=== PATIENT | female | born 1970 | race Caucasian/White ===

== ENCOUNTER → 2017-12-05 | Outpatient (CLI) | payer OTHER ==
[2017-12-05 08:58] LABS: Basophils % (A) 1 %; Eosinophils # (A) 0.1 k/uL (0-0.7); Eosinophils % (A) 3 %; HCT 41.4 % (34.0-46.0); HGB 12.8 gm/dL (11.4-16.0); Lymphocytes # (A) 1.8 k/uL (1.0-4.8); Lymphocytes % (A) 37 %; MCH 29.7 pg (25.0-35.0); MCV 95.7 fL (80.0-100.0); Mean Platelet Volume 6.8; Monocytes # (A) 0.3 k/uL (0-1.0); Monocytes % (A) 6 %; Neutrophils # (A) 2.4 k/uL (1.3-7.7); Neutrophils % (A) 51 %; Platelet Count 393 k/uL (150-450); RBC 4.32 m/uL (3.80-5.40); RDW 13.5 % (11.5-15.5); WBC 4.7 k/uL (3.8-10.6)
[2017-12-05 09:13] LABS: ALT 22 U/L (9-52); AST 23 U/L (14-36); Albumin 4.5 g/dL (3.5-5.0); Alkaline Phosphatase 66 U/L (38-126); Anion Gap 9 mmol/L; Blood Urea Nitrogen 18 mg/dL (7-17); Calcium 10.8 mg/dL (8.4-10.2); Carbon Dioxide 28 mmol/L (22-30); Chloride 107 mmol/L (98-107); Glucose 93 mg/dL (74-99); Potassium 4.6 mmol/L (3.5-5.1); Sodium 144 mmol/L (137-145); Total Bilirubin 0.4 mg/dL (0.2-1.3); Total Protein 7.2 g/dL (6.3-8.2)
[2017-12-05 09:29] LABS: T4, Free (Free Thyroxine) 0.96 ng/dL (0.78-2.19)
[2017-12-05 16:28] LABS: Vitamin D 25 Hydroxy 62.9 ng/mL (30.0-100.0)
[2017-12-07 12:20] LABS: IgG - CSF 5.8 mg/dL (0.0 - 3.4); IgG/Albumin Index (CSF) 0.64 (0.00 - 0.77); Immunoglobulin G 964 mg/dL (700 - 1600)
== END | disposition home or self-care (01) ==
LOC: LABWHC1 08:15
PROVIDERS: ATTEND Nurse Practitioner Acute Care
DX: G90.09 Other idiopathic peripheral autonomic neuropathy (principal); H53.2 Diplopia; M62.81 Muscle weakness (generalized); R42 Dizziness and giddiness; R20.8 Other disturbances of skin sensation
CPT/HCPCS: 36415; 80053; 82040; 82042; 82306; 82607; 82784; 83873; 83916; 84157; 84439; 84443; 84481; 85025; 87476; 88108; 89050

== ENCOUNTER → 2017-12-09 | Outpatient (CLI) | payer OTHER ==
--- NOTE | 2017-12-09 08:27 | MR ---
EXAMINATION TYPE: MR brain/cspine wo/w DATE OF EXAM: 12/09/2017 COMPARISON: CT brain September 11, 2017. HISTORY: CRAFT / Arnold-Chiari / Cervicalgia all per order. Rule out multiple sclerosis. Pain and numb ness and dizziness per patient TECHNIQUE: Multiplanar, multisequence images of the cervical spine, brain, and brainstem are all performed witho ut and with IV contrast, utilizing 6.5 mL intravenous Gadavist . Demyelinating disease protocol. FINDINGS: BRAIN: Some motion artifact degradation is present. Diffusion weighted images demonstrate no evidence of a recent infarct or other diffusion abnormality. There is no extra-axial fluid collection or significant white matter signal abnormality. The ventr icular system and cisternal spaces are normal in size and appearance. The brain volume is age approp riate. Midline structures demonstrate normal morphology. Low signal craniectomy defect is redemonstrated. T he craniocervical junction appears within normal limits after surgical correction. Post contrast randy ges demonstrate no abnormal enhancement. The dural venous sinuses appear patent. The visualized sinus es are clear and the globes are intact. IMPRESSION: Successful Post Chiari 1 type correction surgery otherwise unremarkable study. No suspi cious areas of abnormal increased T2 signal identified. C-SPINE: FINDINGS: Sagittal images of the cervical spine show the craniocervical junction to appear within nor mal limits after surgical correction. The cervical and upper thoracic spinal cord is normal in cours e and caliber. There is suggestion of faint increased signal lesion posterior C2-C3 disc space on sa gittal image 6. Vertebral alignment is anatomic. The vertebral body and intravertebral disk heights are normal. Posterior disc herniation is appreciated C4-C5 level on sagittal image 7 effacing anterio r thecal sac. The bone marrow signal intensity is within normal limits. No abnormal postcontrast enha ncement is seen. Axial images show faint area of increased signal left posterior aspect C2-C3 level on or near axial i mage 47 through 45. Otherwise level is unremarkable. Axial images at C3-C4 level are within normal limits. Axial images at C4-C5 level show prominent focal central disc protrusion measuring 6 mm transversely by 1.6 cm AP diameter on axial image 31 nearly up to ventral surface of spinal cord which is slightly flattened. No abnormal signal is identified. Bilateral neural foramina are patent. Axial images at C5-C6 level show small right paracentral disc protrusion mildly effacing anterior the avis sac confirmed on sagittal image 9, bilateral neural foramina are patent. Axial images at C6-C7 level show left broad-based paracentral disc protrusion effacing anterolateral thecal sac nearly up to ventral surface of spinal cord on axial image 14, left-sided neural foramen i s mildly narrowed. Right-sided neural foramen is patent. Axial images at C7-T1 level are felt within normal limits. IMPRESSION: Suspicious faint lesion left posterior C2-C3 level may reflect demyelinating plaque. Mult ilevel disc herniations are seen as detailed above, largest noted C4-C5 level.
== END | disposition home or self-care (01) ==
LOC: RADMRIMAIN 07:02
PROVIDERS: ATTEND Psychiatry & Neurology Neurology
DX: M50.221 Other cervical disc displacement at C4-C5 level (principal); R51 Headache; H53.2 Diplopia; Z98.890 Other specified postprocedural states; Z88.0 Allergy status to penicillin
CPT/HCPCS: 70553; 72156; A9581

== ENCOUNTER → 2017-12-26 | Outpatient (CLI) | payer OTHER ==
[2017-12-26 10:41] LABS: Basophils % (A) 0 %; Eosinophils # (A) 0.4 k/uL (0-0.7); Eosinophils % (A) 4 %; HCT 39.3 % (34.0-46.0); HGB 12.8 gm/dL (11.4-16.0); Lymphocytes % (A) 11 %; MCHC 32.5 g/dL (31.0-37.0); MCV 92.2 fL (80.0-100.0); Mean Platelet Volume 6.6; Monocytes # (A) 0.6 k/uL (0-1.0); Monocytes % (A) 7 %; Neutrophils # (A) 6.7 k/uL (1.3-7.7); Neutrophils % (A) 76 %; Platelet Count 360 k/uL (150-450); RBC 4.26 m/uL (3.80-5.40); WBC 8.8 k/uL (3.8-10.6)
[2017-12-26 11:15] LABS: Calcium 10.5 mg/dL (8.4-10.2); Total Bilirubin 0.3 mg/dL (0.2-1.3); Total Protein 6.7 g/dL (6.3-8.2)
[2017-12-26 15:22] LABS: Vitamin D 25 Hydroxy 54.1 ng/mL (30.0-100.0)
== END | disposition home or self-care (01) ==
LOC: LABWHC1 10:13
PROVIDERS: ATTEND Psychiatry & Neurology Neurology
DX: G35 Multiple sclerosis (principal); E55.9 Vitamin D deficiency, unspecified
CPT/HCPCS: 36415; 80053; 82306; 82607; 85025

== ENCOUNTER → 2018-01-16 | Outpatient (CLI) | payer OTHER ==
[2018-01-16 17:00] LABS: Hepatitis B Core IgM Non-Reactive (Non-Reactive); Hepatitis B Surface AB- Quant 3.5 mIU/mL
== END | disposition home or self-care (01) ==
LOC: LABWHC1 11:03
PROVIDERS: ATTEND Psychiatry & Neurology Pain Medicine
DX: G35 Multiple sclerosis (principal)
CPT/HCPCS: 36415; 86704; 86705; 86706; 87340

== ENCOUNTER 2018-05-24 12:03 | Emergency (ER) | payer OTHER ==
--- NOTE | 2018-05-24 12:00 | US ---
EXAMINATION TYPE: US venous doppler duplex LE LT DATE OF EXAM: 05/24/2018 11:12 AM COMPARISON: NONE CLINICAL HISTORY: I80.9 PHLEBITIS AND THROMBOPHLEBITIS OF SITE. SIDE PERFORMED: left TECHNIQUE: The lower extremity deep venous system is examined utilizing real time linear array sonog leoncio with graded compression, doppler sonography and color-flow sonography. VESSELS IMAGED: External Iliac Vein (EIV) Common Femoral Vein Deep Femoral Vein Greater Saphenous Vein * Femoral Vein Popliteal Vein Small Saphenous Vein * Proximal Calf Veins (* superficial vessels) Left Leg: mid popliteal clot Grayscale, color doppler, spectral doppler imaging performed of the deep veins of the left lower extr emity up to the popliteal level. There is normal flow, compressibility, and vascular waveforms. Inco mplete compression is noted at level of mid popliteal vein consistent with thrombus. IMPRESSION: Acute DVT popliteal vein level left lower extremity.
[2018-05-24 12:38] VITALS: RESP 18
--- NOTE | 2018-05-24 14:52 | ED ---
Extremity Problem HPI - General Chief complaint: Extremity Problem,Nontraumatic Time Seen by Provider: 05/24/18 13:37 Source: patient, RN notes reviewed, old records reviewed Mode of arrival: wheelchair Limitations: no limitations - History of Present Illness Initial comments: Patient is a 48-year-old female presents emergency Department chief complaining of left leg pain and swelling. She was seen by Dr. benedict today after she rolled her ankle while watering her plants 3 days ago. Patient was to see Dr. Jarvis to have her stitches removed from her carpal tunnel. They ordered an outpatient ultrasound. Patient was sent here due to a positive DVT. Patient reports that yesterday she did have some shortness of breath, chest pain when she was watering her tomatoes. Patient states that she has no chest pain shortness of breath at this time.Patient denies any recent fever, chills, shortness of breath, chest pain, back pain, abdominal pain, nausea vomiting, numbness or tingling, dysuria or hematuria, constipation or diarrhea, headaches or visual changes, or any other current symptoms - Related Data Home Medications Medication Instructions Recorded Confirmed ALPRAZolam [Xanax] 1 mg PO DAILY PRN 09/10/17 05/24/18 Baclofen [Lioresal] 20 mg PO QID 09/10/17 05/24/18 Butalb/APAP/Caff 50-325-40Mg 1 tab PO Q6H PRN 09/10/17 05/24/18 [Fioricet 50-325-40] Gabapentin [Neurontin] 300 mg PO TID 09/10/17 05/24/18 Omeprazole 40 mg PO DAILY 09/10/17 05/24/18 Prazosin HCl 2 mg PO HS 09/10/17 05/24/18 QUEtiapine [SEROquel] 50 mg PO HS 09/10/17 05/24/18 Topiramate [Trokendi Xr] 100 mg PO DAILY 09/10/17 05/24/18 Venlafaxine HCl [Effexor XR] 150 mg PO DAILY 09/10/17 05/24/18 Zolpidem [Ambien] 10 mg PO HS 09/10/17 05/24/18 Albuterol Inhaler [Ventolin Hfa 2 puff INHALATION RT-BID 09/11/17 05/24/18 Inhaler] Alendronate Sodium [Fosamax] 70 mg PO MARTINEZ 09/11/17 05/24/18 Ergocalciferol [Vitamin D2] 50,000 unit PO MARTINEZ 09/11/17 05/24/18 Fenofibrate [Lofibra] 160 mg PO DAILY 09/11/17 05/24/18 Fluticasone Nasal [place] [Flonase 1 spray EA NOSTRIL BID 09/11/17 05/24/18 Nasal [place]] Montelukast [Singulair] 10 mg PO HS 09/11/17 05/24/18 Ascorbic Acid [Vitamin C] 1,000 mg PO DAILY 05/24/18 05/24/18 Azelastine HCl 2 spray EA NOSTRIL BID 05/24/18 05/24/18 Clindamycin HCl 300 mg PO Q8H 05/24/18 05/24/18 Naproxen 500 mg PO BID 05/24/18 05/24/18 Oxybutynin Chloride [Ditropan XL] 10 mg PO BID 05/24/18 05/24/18 QUEtiapine FUMARATE [SEROquel] 200 mg PO HS 05/24/18 05/24/18 Ranitidine HCl 150 mg PO HS 05/24/18 05/24/18 Previous Rx's Medication Instructions Recorded Apixaban [Eliquis] 10 mg PO BID #70 tab 05/24/18 Allergies Allergy/AdvReac Type Severity Reaction Status Date / Time amoxicillin Allergy Rash/Hives Verified 05/24/18 15:06 bee venom protein (honey bee) Allergy Anaphylaxis Verified 05/24/18 15:06 sulfamethoxazole Allergy Rash/Hives Verified 05/24/18 15:06 [From Bactrim] trimethoprim [From Bactrim] Allergy Rash/Hives Verified 05/24/18 15:06 Review of Systems ROS Statement: Those systems with pertinent positive or pertinent negative responses have been documented in the HPI. ROS Other: All systems not noted in ROS Statement are negative. Past Medical History Past Medical History: GERD/Reflux Additional Past Medical History / Comment(s): migraines, Carpal tunnel, DDD, dvt History of Any Multi-Drug Resistant Organisms: None Reported Past Surgical History: Hysterectomy Additional Past Surgical History / Comment(s): chiari malformation decompression (08/2016), carpal tunnel Past Psychological History: Anxiety, Depression Smoking Status: Current every day smoker Past Alcohol Use History: None Reported Past Drug Use History: None Reported - Past Family History Mother Family Medical History: Cancer Additional Family Medical History / Comment(s): Epilepsy, Bipolar General Exam - General Exam Comments Initial Comments: This is a well-appearing 48-year-old female. No distress. Limitations: no limitations General appearance: alert, in no apparent distress Head exam: Present: atraumatic, normocephalic, normal inspection Eye exam: Present: normal appearance, PERRL, EOMI. Absent: scleral icterus, conjunctival injection, periorbital swelling ENT exam: Present: normal exam, mucous membranes moist Neck exam: Present: normal inspection. Absent: tenderness, meningismus, lymphadenopathy Respiratory exam: Present: normal lung sounds bilaterally. Absent: respiratory distress, wheezes, rales, rhonchi, stridor Cardiovascular Exam: Present: regular rate, normal rhythm, normal heart sounds. Absent: systolic murmur, diastolic murmur, rubs, gallop, clicks GI/Abdominal exam: Present: soft, normal bowel sounds. Absent: distended, tenderness, guarding, rebound, rigid Extremities exam: Present: normal inspection, full ROM, normal capillary refill , pedal edema (Left leg edema.), calf tenderness (Left calf tenderness and erythema over the distal portion of the lower extremity.), other (Capillary refill is less than 2 seconds over the toes. Normal dorsalis pedis pulse. Full range of motion of the ankle and foot.). Absent: tenderness, joint swelling Back exam: Present: normal inspection Neurological exam: Present: alert, oriented X3, CN II-XII intact Psychiatric exam: Present: normal affect, normal mood Course Vital Signs 05/24/18 05/24/18 12:34 16:05 Temperature 97.8 F 98.6 F Pulse Rate 65 74 Respiratory 18 18 Rate Blood Pressure 133/62 140/65 O2 Sat by Pulse 97 99 Oximetry Medical Decision Making - Medical Decision Making 40-year-old female presents emergency department today with chief complaint of right ankle swelling and erythema extending up the leg. She had an outpatient ultrasound positive for DVT. Chest x-rays completed orthopedics office of the ankle and there to determine no bony or maladies. Patient did state she had some chest pain and shortness of breath 2 days ago and she was watering her tomato plants. She states she has nothing at this time. This time EKG was reported to be negative. No signs of ST elevation or T-wave inversion. Troponin is negative. With length of time from her chest pain episode discussed that I would expect to see some abnormalities there is significant cardiac origin at this time. With a history of DVT and complaint of chest pain we did complete a CT chest to rule out PE. This was completed and negative for PE. At this time I'll start the Patient on L Beata, given a month trial. I discussed that she has close follow-up with PCP. Patient understands treatment plan will comply. Return parameters were discussed. - Lab Data Result diagrams: 05/24/18 15:06 05/24/18 15:06 Lab Results 05/24/18 05/24/18 05/24/18 Range/Units 15:06 15:06 15:06 WBC 7.5 (3.8-10.6) k/uL RBC 4.46 (3.80-5.40) m/uL Hgb 13.0 (11.4-16.0) gm/dL Hct 40.4 (34.0-46.0) % MCV 90.7 (80.0-100.0) fL MCH 29.2 (25.0-35.0) pg MCHC 32.3 (31.0-37.0) g/dL RDW 13.3 (11.5-15.5) % Plt Count 439 (150-450) k/uL Neutrophils % 64 % Lymphocytes % 25 % Monocytes % 5 % Eosinophils % 3 % Basophils % 1 % Neutrophils # 4.8 (1.3-7.7) k/uL Lymphocytes # 1.9 (1.0-4.8) k/uL Monocytes # 0.4 (0-1.0) k/uL Eosinophils # 0.2 (0-0.7) k/uL Basophils # 0.0 (0-0.2) k/uL PT 9.5 (9.0-12.0) sec INR 1.0 (<1.2) APTT 24.9 (22.0-30.0) sec Sodium 140 (137-145) mmol/L Potassium 4.6 (3.5-5.1) mmol/L Chloride 110 H (98-107) mmol/L Carbon Dioxide 23 (22-30) mmol/L Anion Gap 7 mmol/L BUN 22 H (7-17) mg/dL Creatinine 0.90 (0.52-1.04) mg/dL Est GFR (CKD-EPI)AfAm 88 (>60 ml/min/1.73 sqM) Est GFR (CKD-EPI)NonAf 76 (>60 ml/min/1.73 sqM) Glucose 83 (74-99) mg/dL Calcium 10.5 H (8.4-10.2) mg/dL Total Bilirubin 0.2 (0.2-1.3) mg/dL AST 31 (14-36) U/L ALT 27 (9-52) U/L Alkaline Phosphatase 67 (38-126) U/L Troponin I (0.000-0.034) ng/mL Total Protein 7.1 (6.3-8.2) g/dL Albumin 4.4 (3.5-5.0) g/dL 05/24/18 Range/Units 15:06 WBC (3.8-10.6) k/uL RBC (3.80-5.40) m/uL Hgb (11.4-16.0) gm/dL Hct (34.0-46.0) % MCV (80.0-100.0) fL MCH (25.0-35.0) pg MCHC (31.0-37.0) g/dL RDW (11.5-15.5) % Plt Count (150-450) k/uL Neutrophils % % Lymphocytes % % Monocytes % % Eosinophils % % Basophils % % Neutrophils # (1.3-7.7) k/uL Lymphocytes # (1.0-4.8) k/uL Monocytes # (0-1.0) k/uL Eosinophils # (0-0.7) k/uL Basophils # (0-0.2) k/uL PT (9.0-12.0) sec INR (<1.2) APTT (22.0-30.0) sec Sodium (137-145) mmol/L Potassium (3.5-5.1) mmol/L Chloride (98-107) mmol/L Carbon Dioxide (22-30) mmol/L Anion Gap mmol/L BUN (7-17) mg/dL Creatinine (0.52-1.04) mg/dL Est GFR (CKD-EPI)AfAm (>60 ml/min/1.73 sqM) Est GFR (CKD-EPI)NonAf (>60 ml/min/1.73 sqM) Glucose (74-99) mg/dL Calcium (8.4-10.2) mg/dL Total Bilirubin (0.2-1.3) mg/dL AST (14-36) U/L ALT (9-52) U/L Alkaline Phosphatase (38-126) U/L Troponin I <0.012 (0.000-0.034) ng/mL Total Protein (6.3-8.2) g/dL Albumin (3.5-5.0) g/dL 05/24/18 15:18 EKG performed at 1511 shows cirrhosis with normal EKGs. Ventricular rate of 63 bpm. It was 134. She islam 106. QT QTc is 410/419 ms. No evidence of ST elevation or T-wave inversion. - Radiology Data Radiology results: report reviewed CT is negative for PE. Disposition Clinical Impression: Left leg DVT Disposition: HOME SELF-CARE Condition: Good Instructions: Deep Venous Thrombosis (ED) Additional Instructions: Patient advised to follow-up with primary care physician within the next week. Return to emergency department if any alarming signs or symptoms occur. Prescriptions: Apixaban [Eliquis] 10 mg PO BID #70 tab Is patient prescribed a controlled substance at d/c from ED?: No Referrals: None,Stated [Primary Care Provider] - 1-2 days Letha Dumont MD [STAFF PHYSICIAN] - 1-2 days Time of Disposition: 16:14
[2018-05-24 15:16] LABS: Basophils % (A) 1 %; Eosinophils # (A) 0.2 k/uL (0-0.7); Eosinophils % (A) 3 %; HCT 40.4 % (34.0-46.0); Lymphocytes # (A) 1.9 k/uL (1.0-4.8); Lymphocytes % (A) 25 %; MCH 29.2 pg (25.0-35.0); MCHC 32.3 g/dL (31.0-37.0); MCV 90.7 fL (80.0-100.0); Mean Platelet Volume 6.7; Monocytes # (A) 0.4 k/uL (0-1.0); Monocytes % (A) 5 %; Neutrophils # (A) 4.8 k/uL (1.3-7.7); Neutrophils % (A) 64 %; Platelet Count 439 k/uL (150-450); RBC 4.46 m/uL (3.80-5.40); RDW 13.3 % (11.5-15.5); WBC 7.5 k/uL (3.8-10.6)
--- NOTE | 2018-05-24 15:23 | XR ---
EXAMINATION TYPE: XR chest 2V DATE OF EXAM: 05/24/2018 COMPARISON: Prior chest x-ray August 04, 2016. HISTORY: Chest pain. History of TB. TECHNIQUE: Frontal and lateral views of the chest are obtained. FINDINGS: There is no focal air space opacity, pleural effusion, or pneumothorax seen. The cardiac silhouette size is within normal limits. The osseous structures are intact. IMPRESSION: No acute cardiopulmonary process. No significant change from prior.
[2018-05-24 15:26] LABS: Albumin 4.4 g/dL (3.5-5.0); Calcium 10.5 mg/dL (8.4-10.2); Potassium 4.6 mmol/L (3.5-5.1); Total Bilirubin 0.2 mg/dL (0.2-1.3); Total Protein 7.1 g/dL (6.3-8.2)
[2018-05-24 15:29] LABS: Partial Thromboplastin Time 24.9 sec (22.0-30.0); Prothrombin Time 9.5 sec (9.0-12.0)
--- NOTE | 2018-05-24 15:55 | CT ---
CT CHEST FOR PULMONARY EMBOLISM. EXAMINATION TYPE: CT chest angio for PE DATE OF EXAM: 05/24/2018 INDICATION: Positive DVT left leg CT DLP: 476 mGycm, Automated exposure control for dose reduction was used. CONTRAST: Patient injected with 80 mL of Isovue 370. COMPARISON: None TECHNIQUE: CT of the chest is performed on a spiral scan at 2 mm thick sections. Study is performed with intravenous contrast timed for evaluation for pulmonary embolism. This will limit additional po rtions of the evaluation. 3-D MIP images reconstructed by the technologist are reviewed on the compu ter in the coronal and sagittal planes. FINDINGS: No persistent filling defects are evident to suggest an acute pulmonary embolism. No mediastinal or hilar adenopathy enlarged by CT criteria is evident. The ascending aorta diameter at the level of the main pulmonary artery is 3.0 cm. The main pulmonary artery diameter at the bifur cation is 2.1 cm. Lung windows are clear. Limited CT section through the upper abdomen are unremarkable. IMPRESSIONS: 1. No acute pulmonary embolism
[2018-05-24 16:06] VITALS: BP 140/65; PULSE 74; TEMP 98.6
== END 2018-05-24 16:51 | disposition home or self-care (01) ==
LOC: EC 12:03
DX: I82.432 Acute embolism and thrombosis of left popliteal vein (principal); R06.02 Shortness of breath; R07.9 Chest pain, unspecified; K21.9 Gastro-esophageal reflux disease without esophagitis; Q07.00 Arnold-Chiari syndrome without spina bifida or hydrocephalus; F41.9 Anxiety disorder, unspecified; F32.9 Major depressive disorder, single episode, unspecified; F17.200 Nicotine dependence, unspecified, uncomplicated; Z90.710 Acquired absence of both cervix and uterus; Z79.1 Long term (current) use of non-steroidal anti-inflammatories (NSAID); Z79.51 Long term (current) use of inhaled steroids; Z79.899 Other long term (current) drug therapy; Z88.0 Allergy status to penicillin; Z88.1 Allergy status to other antibiotic agents; Z88.2 Allergy status to sulfonamides; Z91.030 Bee allergy status
CPT/HCPCS: 36415; 93005; 80053; 84484; 85025; 85610; 85730; 71046; 93971; 71275; 99284; Q9967

== ENCOUNTER → 2018-05-29 | Outpatient (CLI) | payer OTHER ==
--- NOTE | 2018-05-29 14:07 | CT ---
EXAMINATION TYPE: CT sinus wo con DATE OF EXAM: 05/29/2018 COMPARISON: None HISTORY: Chronic maxillary sinusitis CT DLP: 636 mGycm CONTRAST: 0 mL of Isovue 300 The paranasal sinuses are examined in the axial plane at 2 mm thick sections. Reconstructed images i n the coronal plane were obtained. There is dental amalgam scatter artifact. The maxillary sinuses are clear. The ethmoid air cells are clear. The sphenoid sinuses are clear. The frontal sinuses are clear. The left frontal sinus is aplastic. The septum is evaluated. There is septal deviation to the left. The ostiomeatal units are patent. Mastoid air cells visualized are clear IMPRESSIONS: 1. Normal paranasal sinus study. 2. Left septal deviation.
== END | disposition home or self-care (01) ==
LOC: RADCTMAIN 06:49
PROVIDERS: ATTEND Otolaryngology Sleep Medicine
DX: J34.2 Deviated nasal septum (principal); J32.0 Chronic maxillary sinusitis
CPT/HCPCS: 70486

== ENCOUNTER → 2018-07-04 | Outpatient (CLI) | payer OTHER ==
--- NOTE | 2018-07-04 09:53 | MR ---
MRI BRAIN WITH CONTRAST CLINICAL HISTORY: G35 MS, R51 CRAFT TECHNIQUE: Multiplanar, multisequence imaging of the brain and brainstem is performed without and wit h IV contrast, 7 cc of gadolinium is is administered intravenously. Demyelinating disease protocol w ith additional Sagittal Flair sequence performed. Comparison: December 09, 2017 FINDINGS: T2 Lesions Present : No Approximate Number of Lesions: None Locations Identified : None Enhancing Lesion(s) Present: None Change from Prior: Not applicable Diffusion weighted images demonstrate no evidence of a recent infarct or other diffusion abnormality. There is no worrisome extra-axial fluid collection. The ventricular system and cisternal spaces ar e normal in size and appearance. The brain volume is age appropriate. Midline structures demonstrate normal morphology. The craniocervical junction appears within normal limits. Post contrast images demonstrate no abnormal enhancement. The dural venous sinuses appear pa tent. The visualized sinuses posterior mild mucosal thickening ethmoid air cells. The globes are int act. Chiari malformation corrective procedure noted. IMPRESSION: 1. No evidence for demyelinating disease at this time. 2. Mild chronic ethmoiditis.
== END | disposition home or self-care (01) ==
LOC: RADMRIMAIN 07:24
PROVIDERS: ATTEND Nurse Practitioner Acute Care
DX: J32.2 Chronic ethmoidal sinusitis (principal); G35 Multiple sclerosis; Z88.0 Allergy status to penicillin
CPT/HCPCS: 70553; A9581

== ENCOUNTER → 2018-07-12 | Outpatient (CLI) | payer OTHER ==
--- NOTE | 2018-07-12 12:28 | BD ---
EXAMINATION TYPE: Axial Bone Density DATE OF EXAM: 07/12/2018 COMPARISON: NONE CLINICAL HISTORY: 48-year-old female with disorder of bone, postmenopausal screening Height: 60.5 IN Weight: 154 LBS FRAX RISK QUESTIONS: Family History (Parent hip fracture): YES MOTHER Secondary Osteoporosis: 3. Menopause before 45: YES AGE 40 Current Tobacco Use: YES RISK FACTORS HISTORY OF: Active: YES Postmenopausal woman: AGE 40 Frequent falls: YES DUE TO MS MEDICATIONS: Osteoporosis Medications: YES Which medication: Fosamax How Lon YEARS Additional Medications: FOSAMAX,VIT D, BLOOD PRESSURE MEDS, PAIN MEDS, MIGRAINE MEDS, NEUROPATHY MEDS , ANXIETY MEDS, ASTHMA MEDS, EXAM MEASUREMENTS: Bone mineral densitometry was performed using the [employer] System. Bone mineral density as measured about the Lumbar spine is: ----- L1-L4(G/cm2): 1.023 T Score Values are as follows: ----- L2: -1.9 ----- L3: -1.1 ----- L4: -0.9 ----- L1-L4: -1.3 Bone mineral density BASELINE Bone mineral density about the R hip (g/cm2): 0.896 Bone mineral density about the L hip (g/cm2): 0.870 T Score values are as follows: -----R Neck: -1.0 -----L Neck: -1.2 -----R Total: -0.2 -----L Total: 0.1 Bone mineral density BASELINE IMPRESSION: Osteopenia (T Score between -2.5 and -1). There is slightly increased risk of fracture and the patient may be considered for treatment. Re-Screen 2-5 years. NOTE: T-SCORE=SD OF THE YOUNG ADULT MEAN.
--- NOTE | 2018-07-13 12:35 | MM ---
Reason for exam: screening (asymptomatic). History: Patient is postmenopausal. Family history of breast cancer in mother, breast cancer in maternal grandmother, breast cancer in maternal aunt, and breast cancer in cousin. Physical Findings: A clinical breast exam by your physician is recommended on an annual basis and results should be correlated with mammographic findings. MG Screening Mammo w CAD Bilateral CC and MLO view(s) were taken. No prior studies available for comparison. The breast tissue is heterogeneously dense. This may lower the sensitivity of mammography. There is no discrete abnormality. ASSESSMENT: Negative, BI-RAD 1 RECOMMENDATION: Routine screening mammogram of both breasts in 1 year.
== END | disposition home or self-care (01) ==
LOC: RADMAMWWP 07:45
PROVIDERS: ATTEND Family Medicine
DX: Z12.31 Encounter for screening mammogram for malignant neoplasm of breast (principal); M85.80 Other specified disorders of bone density and structure, unspecified site
CPT/HCPCS: 77067; 77080

== ENCOUNTER → 2018-09-14 | Outpatient (CLI) | payer OTHER ==
[2018-09-14 12:10] LABS: INR 1.2 (<1.2); Prothrombin Time 12.5 sec (9.0-12.0)
== END | disposition home or self-care (01) ==
LOC: LABWHC1 11:20
PROVIDERS: ATTEND Psychiatry & Neurology Neurology
DX: D65 Disseminated intravascular coagulation [defibrination syndrome] (principal); Z79.01 Long term (current) use of anticoagulants
CPT/HCPCS: 36415; 85610

== ENCOUNTER → 2018-09-18 | Outpatient (CLI) | payer OTHER ==
[2018-09-18 11:20] LABS: Basophils % (A) 1 %; Eosinophils # (A) 0.3 k/uL (0-0.7); Eosinophils % (A) 5 %; HCT 32.9 % (34.0-46.0); HGB 10.2 gm/dL (11.4-16.0); Lymphocytes # (A) 1.2 k/uL (1.0-4.8); Lymphocytes % (A) 23 %; MCH 28.7 pg (25.0-35.0); MCV 92.6 fL (80.0-100.0); Mean Platelet Volume 7.4; Monocytes # (A) 0.5 k/uL (0-1.0); Monocytes % (A) 8 %; Neutrophils # (A) 3.3 k/uL (1.3-7.7); Neutrophils % (A) 61 %; Platelet Count 478 k/uL (150-450); RBC 3.56 m/uL (3.80-5.40); RDW 13.7 % (11.5-15.5); WBC 5.4 k/uL (3.8-10.6)
[2018-09-18 17:12] LABS: Iron Saturation 16.67 (12.00-45.00)
[2018-09-18 17:21] LABS: Vitamin D 25 Hydroxy 46.5 ng/mL (30.0-100.0)
[2018-09-18 17:32] LABS: Albumin 4.8 g/dL (3.80-4.90); Albumin/Globulin Ratio 2.4 (1.20-2.10); Anion Gap 6.2 mmol/L (4.00-12.00); Carbon Dioxide 24.8 mmol/L (21.6-31.8); Total Bilirubin 0.2 mg/dL (0.2-1.2); Total Protein 6.8 g/dL (6.2-8.2)
== END | disposition home or self-care (01) ==
LOC: LABWHC1 09:40
PROVIDERS: ATTEND Nurse Practitioner Acute Care
DX: E55.9 Vitamin D deficiency, unspecified (principal); R53.83 Other fatigue; E78.5 Hyperlipidemia, unspecified; Z51.81 Encounter for therapeutic drug level monitoring
CPT/HCPCS: 36415; 80053; 82306; 82607; 82728; 83540; 83550; 84207; 84439; 84443; 84466; 84481; 85025

== ENCOUNTER → 2018-10-12 | Outpatient (CLI) | payer OTHER ==
--- NOTE | 2018-10-12 11:43 | NM ---
EXAMINATION TYPE: NM pul vent and perfuse DATE OF EXAM: 10/12/2018 COMPARISON: Chest radiograph of the same date and CT angiograms dated 05/24/2018 HISTORY: Shortness of breath. TECHNIQUE: Utilizing inhalation of 34.9 mCi Tc 99m DTPA aerosol and intravenous injection of 5.3 mCi of Tc 99m MAA, ventilation and perfusion images are acquired post injection in multiple projections. FINDINGS: Normal radiotracer distribution is noted in the lungs on perfusion images. Slightly decreased radiotr acer uptake is seen diffusely on ventilation images suggesting diffuse airway process. There is no ev idence of mismatched defects. Contamination is seen centrally overlying the trachea and upper abdomen . IMPRESSION: Low probability for pulmonary embolus. Diffuse slightly decreased radiotracer uptake throughout the v entilation portion of the examination suggests airway disease. Diffuse groundglass opacities are seen on the prior CT of 05/24/2018. These are persistent currently the combination of findings could relat e to diffuse pneumonitis, pulmonary edema, or multifocal atelectasis.
--- NOTE | 2018-10-12 11:54 | XR ---
EXAMINATION TYPE: XR chest 2V DATE OF EXAM: 10/12/2018 COMPARISON: 05/24/2018 HISTORY: Shortness of breath TECHNIQUE: Frontal and lateral views of the chest are obtained. FINDINGS: There is no focal air space opacity, pleural effusion, or pneumothorax seen. The cardiac silhouette size is within normal limits. The osseous structures are intact. Minimal multilevel dege nerative changes are seen of the thoracic spine. IMPRESSION: No acute cardiopulmonary process.
--- NOTE | 2018-10-12 13:02 | US ---
EXAMINATION TYPE: US venous doppler duplex LE BI DATE OF EXAM: 10/12/2018 12:52 PM COMPARISON: NONE CLINICAL HISTORY: Shortness of breath R06.02,I82.402 Acute embolism. h/o left leg DVT, chest pain SIDE PERFORMED: Bilateral TECHNIQUE: The lower extremity deep venous system is examined utilizing real time linear array sonog leoncio with graded compression, doppler sonography and color-flow sonography. VESSELS IMAGED: External Iliac Vein (EIV) Common Femoral Vein Deep Femoral Vein Greater Saphenous Vein * Femoral Vein Popliteal Vein Small Saphenous Vein * Proximal Calf Veins (* superficial vessels) Grayscale, color doppler, spectral doppler imaging performed of the deep veins of the lower extremiti es. There is normal flow, compressibility, vascular waveforms. Right Leg: Appears negative for DVT Left Leg: Appears negative for DVT IMPRESSION: No sonographic evidence of deep venous thrombosis within either lower extremity.
== END ==
LOC: RADNMMAIN 10:26
PROVIDERS: ATTEND Internal Medicine
DX: R06.02 Shortness of breath (principal); I82.402 Acute embolism and thrombosis of unspecified deep veins of left lower extremity
CPT/HCPCS: 71046; 93970; 78582; A9540; A9567

== ENCOUNTER → 2018-10-13 | Outpatient (CLI) | payer OTHER ==
--- NOTE | 2018-10-13 18:06 | ECHOF ---
Referral Reason:R06.02 Shortness of breath MEASUREMENTS -------- HEIGHT: 154.9 cm WEIGHT: 68.5 kg BP: 147/67 RVIDd: 3.0 cm (< 3.3) IVSd: 1.0 cm (0.6 - 1.1) LVIDd: 4.4 cm (3.9 - 5.3) LVPWd: 1.2 cm (0.6 - 1.1) IVSs: 1.5 cm LVIDs: 3.1 cm LVPWs: 1.6 cm LA Diam: 3.4 cm (2.7 - 3.8) LAESV Index (A-L): 30.09 ml/m Ao Diam: 2.6 cm (2.0 - 3.7) AV Cusp: 2.0 cm (1.5 - 2.6) MV EXCURSION: 12.972 mm (> 18.000) MV EF SLOPE: 89 mm/s (70 - 150) EPSS: 0.5 cm MV E Derek: 1.10 m/s MV DecT: 198 ms MV A Derek: 1.10 m/s MV E/A Ratio: 1.00 AV maxP.74 mmHg AV meanP.87 mmHg RAP: 5.00 mmHg RVSP: 40.40 mmHg FINDINGS -------- Sinus rhythm. This was a technically good study. The left ventricular size is normal. There is borderline concentric left ventricular hypertrophy. Overall left ventricular systolic function is normal with, an EF between 60 - 65 %. The right ventricle is normal in size. LA is midly dilated 29-33ml/m2. The right atrium is normal in size. The aortic valve is trileaflet and appears structurally normal. There is trace mitral regurgitation. Mild tricuspid regurgitation present. There is mild pulmonary hypertension. The right ventricular systolic pressure, as measured by Doppler, is 40.40mmHg. There is no pulmonic regurgitation present. The aortic root size is normal. Normal inferior vena cava with normal inspiratory collapse consistent with estimated right atrial pre ssure of 5 mmHg. The inferior vena cava is mildly dilated. There is no pericardial effusion. CONCLUSIONS -------- 1. Sinus rhythm. 2. This was a technically good study. 3. The left ventricular size is normal. 4. There is borderline concentric left ventricular hypertrophy. 5. Overall left ventricular systolic function is normal with, an EF between 60 - 65 %. 6. The right ventricle is normal in size. 7. LA is midly dilated 29-33ml/m2. 8. The right atrium is normal in size. 9. The aortic valve is trileaflet and appears structurally normal. 10. There is trace mitral regurgitation. 11. Mild tricuspid regurgitation present. 12. There is mild pulmonary hypertension. 13. The right ventricular systolic pressure, as measured by Doppler, is 40.40mmHg. 14. There is no pulmonic regurgitation present. 15. The aortic root size is normal. 16. Normal inferior vena cava with normal inspiratory collapse consistent with estimated right atrial pressure of 5 mmHg. 17. The inferior vena cava is mildly dilated. 18. There is no pericardial effusion. SEWER HEAD: Tarah Nicole RDCS
== END ==
LOC: RADECHMAIN 11:20
PROVIDERS: ATTEND Internal Medicine
DX: I07.1 Rheumatic tricuspid insufficiency (principal); I27.20 Pulmonary hypertension, unspecified; I35.8 Other nonrheumatic aortic valve disorders
CPT/HCPCS: 93306

== ENCOUNTER → 2018-10-31 | Outpatient (CLI) | payer OTHER ==
[~2018-10-31] MED LIST: DOBUTamine DRIP for NUC MED 500 MG in DEXTROSE/WATER 1 250ML.BAG IV ONE
--- NOTE | 2018-10-31 17:16 | P.STRESS ---
- Stress Test Note Stress Test Results/Findings: Exam Performed: dobutamine stress echo Exam Date: 10/31/18 Reason for Exam: SOB Height: 5 ft 1 in Weight: 72.121 kg Protocol: DSE Stage: 4 Duration of Exercise: 11:20 Resting Heart Rate: 73 Resting Blood Pressure: 141/70 Maximum Achieved Heart Rate: 116 Maximum Achieved Blood Pressure: 157/33 85% PMHR: 146 100% PMHR: 172 METS: NA Technologist Comment: Stress Test Results/Findings: Baseline 173 beats a minute, Baseline blood pressure 141/70 mmHg baseline 12- lead ECG shows sinus rhythm with normal cardiac intervals Patient received dobutamine infusion per protocol heart rate 116 beats a minute the blood pressure 149/39 mmHg normal blood pressure response Although there was a suboptimal increase in heart rate the contractility improvement was significant Baseline 2-D echo images showed normal limits and systolic function though segment wall motion abnormalities. With dobutamine infusion there was a stepwise increment and overall LV contractility with excellent augmentation at peak infusion rates even though it was a suboptimal heart rate response. The inotropic response was excellent At recovery regional global LV systolic function within normal There is no ECG is for ischemia no arrhythmias noted Impression no ECG or cardiographic evidence for ischemia underwent a stress echo
== END | disposition home or self-care (01) ==
LOC: RADNMMAIN 09:23
PROVIDERS: ATTEND Internal Medicine
DX: R06.02 Shortness of breath (principal)
CPT/HCPCS: 93351; J1250

== ENCOUNTER → 2018-11-02 | Outpatient (CLI) | payer OTHER ==
[2018-11-02 10:05] LABS: INR 1.9 (<1.2); Prothrombin Time 18.9 sec (9.0-12.0)
== END | disposition home or self-care (01) ==
LOC: LABWHC1 09:32
PROVIDERS: ATTEND Psychiatry & Neurology Neurology
DX: D65 Disseminated intravascular coagulation [defibrination syndrome] (principal); Z79.01 Long term (current) use of anticoagulants
CPT/HCPCS: 36415; 85610

== ENCOUNTER → 2018-11-06 | Outpatient (CLI) | payer OTHER ==
[2018-11-06 13:41] LABS: INR 0.9 (<1.2)
== END | disposition home or self-care (01) ==
LOC: LABWHC1 12:22
PROVIDERS: ATTEND Psychiatry & Neurology Neurology
DX: Z51.81 Encounter for therapeutic drug level monitoring (principal); Z79.01 Long term (current) use of anticoagulants
CPT/HCPCS: 36415; 85610

== ENCOUNTER → 2018-11-27 | Outpatient (CLI) | payer OTHER ==
[2018-11-27 19:26] LABS: Albumin 4.7 g/dL (3.80-4.90); Albumin/Globulin Ratio 2.24 (1.60-3.17); Calcium 9.7 mg/dL (8.7-10.3); Globulin 2.1 g/dL (1.6-3.3); Potassium 4.2 mmol/L (3.5-5.5); Total Bilirubin 0.2 mg/dL (0.3-1.2); Total Protein 6.8 g/dL (6.2-8.2)
== END | disposition home or self-care (01) ==
LOC: LABWHC1 12:26
PROVIDERS: ATTEND Internal Medicine
DX: E21.3 Hyperparathyroidism, unspecified (principal)
CPT/HCPCS: 36415; 80053; 83970

== ENCOUNTER → 2019-03-09 | Outpatient (CLI) | payer OTHER | END | disposition home or self-care (01) | LOC: LABWHC1 13:19 | PROVIDERS: ATTEND Internal Medicine Hematology & Oncology | DX: I82.409 Acute embolism and thrombosis of unspecified deep veins of unspecified lower extremity (principal) | CPT/HCPCS: 36415; 85379 ==

== ENCOUNTER → 2019-04-19 | Outpatient (CLI) | payer OTHER ==
[2019-04-19 19:09] LABS: Anion Gap 10.6 mmol/L (4.00-12.00); BUN/Creat Ratio 18.57 Ratio (12.00-20.00); Carbon Dioxide 21.4 mmol/L (21.6-31.8); Potassium 4.7 mmol/L (3.5-5.5)
== END | disposition home or self-care (01) ==
LOC: LABWHC1 12:42
PROVIDERS: ATTEND Internal Medicine
DX: E83.52 Hypercalcemia (principal); E55.9 Vitamin D deficiency, unspecified
CPT/HCPCS: 36415; 80048; 82306

== ENCOUNTER → 2019-06-05 | Outpatient (CLI) | payer OTHER | END | disposition home or self-care (01) | LOC: CPPFTMAIN 10:43 | PROVIDERS: ATTEND Internal Medicine | DX: J45.998 Other asthma (principal) | CPT/HCPCS: 94060; 94726; 94729 ==

== ENCOUNTER → 2019-06-21 | Outpatient (CLI) | payer OTHER ==
--- NOTE | 2019-06-21 13:50 | XR ---
EXAMINATION TYPE: XR chest 2V DATE OF EXAM: 06/21/2019 COMPARISON: Chest x-ray October 12, 2018 HISTORY: Shortness of breath TECHNIQUE: Frontal and lateral views of the chest are obtained. FINDINGS: There is no focal air space opacity, pleural effusion, or pneumothorax seen. The cardiac silhouette size is for limits of normal. The osseous structures are intact. IMPRESSION: No acute pulmonary process. No significant change from prior.
== END | disposition home or self-care (01) ==
LOC: RADXRMAIN 13:25
PROVIDERS: ATTEND Internal Medicine
DX: R06.02 Shortness of breath (principal)
CPT/HCPCS: 71046

== ENCOUNTER → 2019-06-22 | Outpatient (CLI) | payer OTHER ==
--- NOTE | 2019-06-22 13:04 | US ---
EXAMINATION TYPE: US venous doppler duplex LE LT DATE OF EXAM: 06/22/2019 12:47 PM COMPARISON: US's CLINICAL HISTORY: R60.9 Edema. left calf pain SIDE PERFORMED: Left TECHNIQUE: The lower extremity deep venous system is examined utilizing real time linear array sonog leoncio with graded compression, doppler sonography and color-flow sonography. VESSELS IMAGED: External Iliac Vein (EIV) Common Femoral Vein Deep Femoral Vein Greater Saphenous Vein * Femoral Vein Popliteal Vein Small Saphenous Vein * Proximal Calf Veins (* superficial vessels) Grayscale, color doppler, spectral doppler imaging performed of the deep veins of the left lower extr emity. There is normal flow, compressibility, vascular waveforms. Left Leg: Negative for DVT IMPRESSION: No sonographic evidence of deep venous thrombosis within the left lower extremity.
--- NOTE | 2019-06-22 15:13 | NM ---
EXAMINATION TYPE: NM pul vent and perfuse DATE OF EXAM: 06/22/2019 COMPARISON: Negative lower extremity venous Doppler ultrasound dated 06/22/2019 and no acute process o f the chest x-ray of 06/21/2019 HISTORY: Shortness of breath TECHNIQUE: Utilizing inhalation of 39.9 mCi Tc 99m DTPA aerosol and intravenous injection of 4.7 mCi of Tc 99m MAA, ventilation and perfusion images are acquired post injection in multiple projections. FINDINGS: Normal radiotracer distribution is noted in the lungs. There is no evidence of mismatched defects. Th ere is improved radiotracer throughout the lungs in comparison the prior of 10/12/2018. Normal slight g radient effect is seen on both ventilation and perfusion imaging. IMPRESSION: Low probability for pulmonary embolus. Improved radiotracer throughout the lungs in comparison to the prior exam of 10/12/2018. Of note comparison should be made with chest x-ray of the same date per [facility] ED criteria.
== END | disposition home or self-care (01) ==
LOC: RADUSMAIN 12:27
PROVIDERS: ATTEND Internal Medicine
DX: R60.9 Edema, unspecified (principal); R06.2 Wheezing
CPT/HCPCS: 93971; 78582; A9540; A9567

== ENCOUNTER → 2019-08-10 | Outpatient (CLI) | payer OTHER ==
[2019-08-10 14:58] LABS: Basophils # (A) 0.1 k/uL (0-0.2); Basophils % (A) 1 %; Eosinophils # (A) 0.3 k/uL (0-0.7); Eosinophils % (A) 4 %; HCT 37.9 % (34.0-46.0); HGB 12.2 gm/dL (11.4-16.0); Lymphocytes # (A) 1.3 k/uL (1.0-4.8); Lymphocytes % (A) 22 %; MCH 30.4 pg (25.0-35.0); MCHC 32.3 g/dL (31.0-37.0); MCV 94.2 fL (80.0-100.0); Mean Platelet Volume 6.8; Monocytes # (A) 0.4 k/uL (0-1.0); Monocytes % (A) 6 %; Neutrophils # (A) 3.8 k/uL (1.3-7.7); Neutrophils % (A) 65 %; Platelet Count 411 k/uL (150-450); RBC 4.03 m/uL (3.80-5.40); RDW 13.2 % (11.5-15.5); WBC 5.9 k/uL (3.8-10.6)
[2019-08-10 19:07] LABS: Albumin 4.8 g/dL (3.80-4.90); Albumin/Globulin Ratio 2.67 (1.60-3.17); Anion Gap 9.4 mmol/L (4.00-12.00); BUN/Creat Ratio 21.43 Ratio (12.00-20.00); Calcium 9.5 mg/dL (8.7-10.3); Carbon Dioxide 26.6 mmol/L (21.6-31.8); Globulin 1.8 g/dL (1.6-3.3); Potassium 4.3 mmol/L (3.5-5.5); Total Bilirubin 0.3 mg/dL (0.3-1.2); Total Protein 6.6 g/dL (6.2-8.2)
== END | disposition home or self-care (01) ==
LOC: LABWHC1 13:49
PROVIDERS: ATTEND Nurse Practitioner Acute Care
DX: G35 Multiple sclerosis (principal); E55.9 Vitamin D deficiency, unspecified
CPT/HCPCS: 36415; 80053; 82306; 82607; 84207; 85025

== ENCOUNTER → 2019-11-30 | Outpatient (CLI) | payer OTHER ==
--- NOTE | 2019-12-01 16:01 | ECHOF ---
Referral Reason:R06.02 SOB MEASUREMENTS -------- HEIGHT: 154.9 cm WEIGHT: 83.9 kg BP: RVIDd: 2.9 cm (< 3.3) IVSd: 1.1 cm (0.6 - 1.1) LVIDd: 4.9 cm (3.9 - 5.3) LVPWd: 1.2 cm (0.6 - 1.1) IVSs: 1.6 cm LVIDs: 3.2 cm LVPWs: 1.7 cm LAESV Index (A-L): 30.94 ml/m Ao Diam: 2.3 cm (2.0 - 3.7) AV Cusp: 1.6 cm (1.5 - 2.6) MV EXCURSION: 16.144 mm (> 18.000) MV EF SLOPE: 97 mm/s (70 - 150) EPSS: 0.5 cm MV E Derek: 1.18 m/s MV DecT: 159 ms MV A Derek: 0.86 m/s MV E/A Ratio: 1.38 RAP: 5.00 mmHg RVSP: 49.70 mmHg FINDINGS -------- Sinus rhythm. This was a technically adequate study. The left ventricular size is normal. There is mild concentric left ventricular hypertrophy. Overa ll left ventricular systolic function is normal with, an EF between 55 - 60 %. The diastolic fillin g pattern is normal for the age of the patient 9.63. The right ventricle is normal in size. LA is midly dilated 29-33ml/m2. The right atrial size is normal. Interatrial and interventricular septum intact. There is no evidence of aortic regurgitation. There is no evidence of aortic stenosis. Mild mitral regurgitation is present. Moderate tricuspid regurgitation present. There is moderate pulmonary hypertension. The right [place] tricular systolic pressure, as measured by Doppler, is 49.70mmHg. There is no pulmonic regurgitation present. The aortic root size is normal. The inferior vena cava is mildly dilated. There is no pericardial effusion. CONCLUSIONS -------- 1. Sinus rhythm. 2. This was a technically adequate study. 3. The left ventricular size is normal. 4. There is mild concentric left ventricular hypertrophy. 5. Overall left ventricular systolic function is normal with, an EF between 55 - 60 %. 6. The diastolic filling pattern is normal for the age of the patient 9.63 7. The right ventricle is normal in size. 8. LA is midly dilated 29-33ml/m2. 9. The right atrial size is normal. 10. Interatrial and interventricular septum intact. 11. There is no evidence of aortic regurgitation. 12. There is no evidence of aortic stenosis. 13. Mild mitral regurgitation is present. 14. Moderate tricuspid regurgitation present. 15. There is moderate pulmonary hypertension. 16. The right ventricular systolic pressure, as measured by Doppler, is 49.70mmHg. 17. There is no pulmonic regurgitation present. 18. The aortic root size is normal. 19. The inferior vena cava is mildly dilated. 20. There is no pericardial effusion. DIRECTOR OF ASSESSMENT: Yelena Veloz RDCS
== END | disposition home or self-care (01) ==
LOC: RADECHMAIN 12:48
PROVIDERS: ATTEND Internal Medicine
DX: I08.1 Rheumatic disorders of both mitral and tricuspid valves (principal); I27.20 Pulmonary hypertension, unspecified; I87.8 Other specified disorders of veins
CPT/HCPCS: 93306

== ENCOUNTER → 2020-04-02 | Outpatient (CLI) | payer OTHER ==
[2020-04-02 13:11] LABS: Basophils % (A) 1 %; Eosinophils # (A) 0.5 k/uL (0-0.7); Eosinophils % (A) 7 %; HCT 37.1 % (34.0-46.0); HGB 11.9 gm/dL (11.4-16.0); Lymphocytes # (A) 1.2 k/uL (1.0-4.8); Lymphocytes % (A) 18 %; MCH 29.3 pg (25.0-35.0); MCHC 32.1 g/dL (31.0-37.0); MCV 91.2 fL (80.0-100.0); Mean Platelet Volume 7.2; Monocytes # (A) 0.5 k/uL (0-1.0); Monocytes % (A) 7 %; Neutrophils # (A) 4.4 k/uL (1.3-7.7); Neutrophils % (A) 65 %; Platelet Count 487 k/uL (150-450); RBC 4.06 m/uL (3.80-5.40); RDW 13.4 % (11.5-15.5); WBC 6.8 k/uL (3.8-10.6)
[2020-04-02 21:02] LABS: African American GFR (CKD) 50.6 (60.0-200.0); Albumin 4.8 g/dL (3.80-4.90); Albumin/Globulin Ratio 2.29 (1.60-3.17); Anion Gap 11.2 mmol/L (4.00-12.00); BUN/Creat Ratio 17.86 Ratio (12.00-20.00); Calcium 9.7 mg/dL (8.7-10.3); Carbon Dioxide 24.8 mmol/L (21.6-31.8); Globulin 2.1 g/dL (1.6-3.3); Non-African American GFR(CKD) 43.7 (60.0-200.0); Potassium 4.3 mmol/L (3.5-5.5); Total Bilirubin 0.3 mg/dL (0.3-1.2); Total Protein 6.9 g/dL (6.2-8.2)
== END | disposition home or self-care (01) ==
LOC: LABWHC1 12:32
PROVIDERS: ATTEND Nurse Practitioner Acute Care
DX: R53.83 Other fatigue (principal); E55.9 Vitamin D deficiency, unspecified; G35 Multiple sclerosis
CPT/HCPCS: 36415; 80053; 82306; 82607; 84207; 85025

== ENCOUNTER → 2020-04-02 | Outpatient (CLI) | payer OTHER | END | disposition home or self-care (01) | LOC: LABPAT 12:24 | PROVIDERS: ATTEND Internal Medicine Interventional Cardiology | DX: Z53.9 Procedure and treatment not carried out, unspecified reason (principal) ==

== ENCOUNTER 2020-04-07 09:45 | Day surgery (SDC) | payer OTHER ==
[2020-04-03 15:51] VITALS: BMI 31.7
[~2020-04-07 09:45] MED LIST changes: +ALPRAZolam 0.25 MG TAB PO PRN; +ALPRAZolam 0.5 MG TAB PO PRN; +ASPIRIN 325 MG TAB PO ONE; +ATORVASTATIN 80 MG TAB PO ONE; -DOBUTamine DRIP for NUC MED 500 MG in DEXTROSE/WATER 1 250ML.BAG IV ONE; +NITROGLYCERIN SL TABS 0.4 MG TAB SUBLINGUAL PRN; +SODIUM CHLORIDE 0.9% 1,000 ML in EMPTY BAG 1 BAG IV ONE
[2020-04-07 10:54] VITALS: RESP 16; TEMP 98.7
[2020-04-07] MEDS ORDERED: VERAPAMIL 2.5 MG/ML 2 ML AMP ONE (11:08)
[2020-04-07] MEDS ORDERED: HEPARIN SODIUM 1,000 UN/ML (10ML VL) ONE (11:08)
[2020-04-07] MEDS ORDERED: LIDOCAINE 1% INJ 10MG/ML (20 ML MDV) ONE (11:08)
[2020-04-07] MEDS ORDERED: LIDOCAINE 1% INJ 10MG/ML (20 ML MDV) SQ ONE (11:22)
[2020-04-07] MEDS ORDERED: MIDAZOLAM 2 MG/2 ML VIAL IVP ONE (11:22)
[2020-04-07] MEDS ORDERED: VERAPAMIL SYRINGE (5 MG/10 ML) INTRAARTER ONE ×2 (11:24→11:31)
[2020-04-07] MEDS ORDERED: HEPARIN SODIUM 1,000 UN/ML (10ML VL) IV ONE (11:27)
[2020-04-07] MEDS ORDERED: IV FLUID CONTINUATION 1,000 ML IV ONE (11:27)
[2020-04-07] MEDS ORDERED: IOPAMIDOL-370 100ML BTL INJ ONE (11:31)
[2020-04-07] MEDS ORDERED: RX INFO: IV CONTRAST WAS GIVEN 1 EACH MISC MISCELLANE PRN (11:36)
[2020-04-07] MEDS ORDERED: SODIUM CHLORIDE 0.9% 1,000 ML IV SCH (11:45)
--- NOTE | 2020-04-07 13:29 | CC ---
CARDIAC CATHETERIZATION REPORT DATE OF SERVICE: April 07, 2020 PERFORMING PHYSICIAN: Koby Tomlin MD. PROCEDURE PERFORMED: 1. Selective right and left coronary angiogram. 2. Left heart catheterization. INDICATION: This is a 50-year-old female patient with. MMODL / IJN: [id number] /
[2020-04-07 17:44] VITALS: BP 108/82; PULSE 72
--- NOTE | 2020-04-15 16:29 | CC ---
CARDIAC CATHETERIZATION REPORT DATE OF SERVICE: 04/07/2020 PERFORMING PHYSICIAN: Koby Tomlin M.D. PROCEDURE PERFORMED: 1. Selective right and left coronary angiogram. 2. Left heart catheterization. INDICATION: This is a 50-year-old female patient with significant family history of coronary artery disease who was experiencing symptoms of chest discomfort concerning for angina. APPROACH: Right radial artery. COMPLICATIONS: None. LEVEL OF SEDATION: Moderate, with sedation length of about 20 minutes. PROCEDURE DESCRIPTION: After obtaining informed consent, the patient was brought to the cardiac lab engineer. The right radial artery was cannulated using micropuncture technique. The micropuncture wire passed easily. Then I placed a 5-Stateless sheath at the right radial artery. I did after that give the patient 2 mg of verapamil IA. Selective right and left coronary angiogram was performed using JR4 and JL3.5 catheters. Left heart catheterization was also performed using a 5-Stateless pigtail catheter. The procedure was completed without any complication. SELECTIVE CORONARY ANGIOGRAM: 1. The right coronary artery is a large-caliber vessel. It is a dominant vessel. The RCA is angiographically normal. It distally bifurcates into PDA and PLV branches. Both appeared to be angiographically normal. 2. The left main is angiographically normal. It bifurcates into LCX and LAD. 3. The LCX is a moderate-caliber vessel. It is a nondominant vessel. The LCX is angiographically normal. It gives rise to first and second obtuse marginal branches. Both are small-caliber vessels and seem to be angiographically normal. 4. The LAD. The LAD is a large-caliber vessel. It is angiographically normal. It gives rise to first and second diagonal branches. Both appeared to be angiographically normal. 5. HEMODYNAMICS: The LVEDP was about 10 to 12 mmHg without significant gradient across the aortic valve. CONCLUSION: 1. Normal coronary angiogram. 2. Normal LVEDP. POST-PROCEDURE MANAGEMENT: Medical treatment. MMODL / IJN: [id number] /
== END 2020-04-07 16:15 | disposition home or self-care (01) ==
LOC: CATHCVL 09:45
PROVIDERS: ATTEND Internal Medicine Interventional Cardiology
DX: R07.89 Other chest pain (principal); I10 Essential (primary) hypertension; G47.30 Sleep apnea, unspecified; Z72.0 Tobacco use; I73.9 Peripheral vascular disease, unspecified; E66.9 Obesity, unspecified; Z68.34 Body mass index [BMI] 34.0-34.9, adult; Z79.82 Long term (current) use of aspirin; Z79.891 Long term (current) use of opiate analgesic; Z79.51 Long term (current) use of inhaled steroids; Z79.1 Long term (current) use of non-steroidal anti-inflammatories (NSAID); Z79.899 Other long term (current) drug therapy; Z88.0 Allergy status to penicillin; Z82.49 Family history of ischemic heart disease and other diseases of the circulatory system
CPT/HCPCS: 93458; C1769; C1894; J2250; J2001; J1644; Q9967

== ENCOUNTER 2020-08-13 09:21 | Day surgery (SDC) | payer OTHER ==
[2020-08-11 15:01] VITALS: BMI 34.2
[~2020-08-13 09:21] MED LIST changes: -ALPRAZolam 0.25 MG TAB PO PRN; -ALPRAZolam 0.5 MG TAB PO PRN; -ASPIRIN 325 MG TAB PO ONE; -ATORVASTATIN 80 MG TAB PO ONE; +LACTATED RINGERS 1,000 ML IV SCH; -NITROGLYCERIN SL TABS 0.4 MG TAB SUBLINGUAL PRN; -SODIUM CHLORIDE 0.9% 1,000 ML in EMPTY BAG 1 BAG IV ONE
[2020-08-13 09:55] VITALS: TEMP 97
[2020-08-13] MEDS ORDERED: LIDOCAINE 1% (10MG/ML) FOR IV START INTRADERMA ONE (09:59)
[2020-08-13] MEDS ORDERED: PROPOFOL 10 MG/ML 20 ML VIAL IV ONE (10:54)
[2020-08-13] MEDS ORDERED: LIDOCAINE 1% INJ 10MG/ML (20 ML MDV) ONE (10:54)
--- NOTE | 2020-08-13 11:13 | P.PCN ---
Date of Procedure: 08/13/20 Procedure(s) Performed: Brief history: Patient is a pleasant 50-year-old white female scheduled for an elective upper endoscopy as well as colonoscopy as a part of evaluation of I deficiency anemia and change in bowel habits. Procedure performed: Esophagogastroduodenoscopy with biopsy Colonoscopy with biopsy Preoperative diagnosis: Iron deficiency anemia and change in bowel habits Anesthesia: MAC Procedure: After informed consent was obtained from the patient was brought into the endoscopy unit and IV sedation was administered by anesthesia under continuous monitoring. Initially upper endoscopy was done. The Olympus GF 160 video endoscope was inserted inserted into the mouth and esophagus intubated without any difficulty and was gradually advanced into the stomach and duodenum and carefully examined. The bulb and second part of the duodenum appeared normal. Abscesses were done from the duodenum to rule out celiac disease. The scope was then withdrawn into the stomach adequately insufflated with air and upon careful examination because of the antrum had linear erythema with years of erythema in the antrum which were biopsied. The body, cardia and fundus appeared normal. The scope was then withdrawn into the esophagus. The GE junction was located at 40 cm to the incisors. It appeared regular with no erythema erosions or ulcerations. Rest of the esophagus appeared normal. Patient tolerated the procedure well. At this time the patient continued to remain sedation. Initial digital rectal examination was normal. Olympus CF 160 video colonoscope was then inserted into the rectum and gradually advanced to the cecum without any difficulty. Careful examination was performed as the scope was gradually being withdrawn. The prep was excellent. The cecum, ascending colon, transverse colon, descending colon, sigmoid colon and rectum appeared normal. There was a 5 limited polyp in the distal rectum that was removed by cold biopsy. Retroflexion was performed in the rectum and no lesions were noted. Patient tolerated the procedure well. Impression: 1. Upper endoscopy revealed mild antral gastritis and small hiatal hernia. 2. Colonoscopy revealed a 5 mm rectal polyp status post removal by cold biopsy Recommendations: Findings of this examination were discussed with the patient as well as her family. She was advised to follow with the biopsy results. If the biopsy shows an adenoma she can have a repeat colonoscopy in 5 years
[2020-08-13 11:39] VITALS: BP 147/73; PULSE 65; RESP 16
== END 2020-08-13 12:14 | disposition home or self-care (01) ==
LOC: ORWHC2ENDO 09:21
PROVIDERS: ATTEND Internal Medicine Gastroenterology
DX: K62.1 Rectal polyp (principal); K31.9 Disease of stomach and duodenum, unspecified; K44.9 Diaphragmatic hernia without obstruction or gangrene; D50.9 Iron deficiency anemia, unspecified; I10 Essential (primary) hypertension; E78.5 Hyperlipidemia, unspecified; Z86.718 Personal history of other venous thrombosis and embolism; I12.9 Hypertensive chronic kidney disease with stage 1 through stage 4 chronic kidney disease, or unspecified chronic kidney disease; N18.9 Chronic kidney disease, unspecified; K21.9 Gastro-esophageal reflux disease without esophagitis; G43.909 Migraine, unspecified, not intractable, without status migrainosus; F41.9 Anxiety disorder, unspecified; F32.9 Major depressive disorder, single episode, unspecified; Z79.899 Other long term (current) drug therapy; Z88.0 Allergy status to penicillin; Z88.2 Allergy status to sulfonamides
CPT/HCPCS: 88305; 45380; 43239; J2001; J2704

== ENCOUNTER → 2020-09-24 | Outpatient (CLI) | payer OTHER ==
[2020-09-24 14:50] LABS: Basophils % (A) 1 %; Eosinophils # (A) 0.4 k/uL (0-0.7); Eosinophils % (A) 6 %; HCT 38.6 % (34.0-46.0); HGB 12.4 gm/dL (11.4-16.0); Lymphocytes # (A) 1.3 k/uL (1.0-4.8); Lymphocytes % (A) 21 %; MCH 29.2 pg (25.0-35.0); MCHC 32.3 g/dL (31.0-37.0); MCV 90.5 fL (80.0-100.0); Monocytes # (A) 0.5 k/uL (0-1.0); Monocytes % (A) 7 %; Neutrophils # (A) 3.9 k/uL (1.3-7.7); Neutrophils % (A) 62 %; Platelet Count 452 k/uL (150-450); RBC 4.26 m/uL (3.80-5.40); RDW 13.9 % (11.5-15.5); WBC 6.3 k/uL (3.8-10.6)
[2020-09-24 15:08] LABS: Albumin 4.5 g/dL (3.5-5.0); Calcium 9.7 mg/dL (8.4-10.2); Potassium 4.4 mmol/L (3.5-5.1); Total Bilirubin 0.4 mg/dL (0.2-1.3); Total Protein 7.3 g/dL (6.3-8.2)
== END | disposition home or self-care (01) ==
LOC: LABPAT 14:19
PROVIDERS: ATTEND Internal Medicine Interventional Cardiology
DX: Z01.818 Encounter for other preprocedural examination (principal); R06.02 Shortness of breath
CPT/HCPCS: 80053; 85025

== ENCOUNTER → 2020-09-24 | Outpatient (CLI) | payer OTHER ==
[2020-09-24 21:00] LABS: % Iron Saturation 21.84 (12.00-45.00); Chol/HDL Ratio 2.41; LDL Cholesterol,Calculated 99.2 mg/dL (0.0-131.0); VLDL Calculation 13.8 mg/dL (5.00-40.00)
[2020-09-24 21:09] LABS: Ferritin 49.5 ng/mL (10.0-291.0)
== END | disposition home or self-care (01) ==
LOC: LABWHC1 14:24
PROVIDERS: ATTEND Nurse Practitioner Acute Care
DX: I10 Essential (primary) hypertension (principal); D64.9 Anemia, unspecified; E55.9 Vitamin D deficiency, unspecified; R53.83 Other fatigue; G35 Multiple sclerosis; Z51.81 Encounter for therapeutic drug level monitoring
CPT/HCPCS: 36415; 80061; 82306; 82607; 82728; 83540; 83550; 84207

== ENCOUNTER 2020-09-29 06:57 | Day surgery (SDC) | payer OTHER ==
[~2020-09-29 06:57] MED LIST changes: +ALPRAZolam 0.25 MG TAB PO PRN; +ALPRAZolam 0.5 MG TAB PO PRN; +ASPIRIN 325 MG TAB PO STA; +ATORVASTATIN 80 MG TAB PO STA; -LACTATED RINGERS 1,000 ML IV SCH; +NITROGLYCERIN SL TABS 0.4 MG TAB SUBLINGUAL PRN; +SODIUM CHLORIDE 0.9% 1,000 ML in EMPTY BAG 1 BAG IV ONE
[2020-09-29 07:21] VITALS: RESP 16; TEMP 98
[2020-09-29] MEDS ORDERED: SODIUM CHLORIDE 0.9% 1,000 ML IV ONE (07:21)
[2020-09-29] MEDS ORDERED: LIDOCAINE 1% INJ 10MG/ML (20 ML MDV) ONE ×3 (08:26→11:11)
[2020-09-29] MEDS: MIDAZOLAM 2 MG/2 ML VIAL IVP ONE ×2 (08:31→08:42)
[2020-09-29] MEDS ORDERED: LIDOCAINE 1% INJ 10MG/ML (20 ML MDV) SQ ONE (08:38)
[2020-09-29] MEDS ORDERED: RX INFO: IV CONTRAST WAS GIVEN 1 EACH MISC MISCELLANE PRN (08:58)
[2020-09-29 09:00] LABS: O2 Sat Blood Gas 71.4 %
[2020-09-29] MEDS ORDERED: SODIUM CHLORIDE 0.9% 1,000 ML IV SCH (09:00)
[2020-09-29 09:02] LABS: O2 Sat Blood Gas 73.4 %
[2020-09-29 09:04] LABS: O2 Sat Blood Gas 75.3 %
[2020-09-29 09:05] LABS: O2 Sat Blood Gas 99.4 %
[2020-09-29 12:26] VITALS: BP 128/69; PULSE 75
--- NOTE | 2020-09-29 12:37 | CC ---
CARDIAC CATHETERIZATION REPORT DATE OF SERVICE: 09/29/2020 PERFORMING PHYSICIAN: Koby Tomlin MD. PROCEDURE PERFORMED: Right heart catheterization. INDICATION: This is a 50-year-old female patient who does have chronic shortness of breath and who sees Dr. Sherman Galvan on a regular basis and she continues to have symptoms of shortness of breath with exertion of unknown etiology. Right heart catheterization was advised to rule out any pulmonary hypertension. COMPLICATION: None. LEVEL OF SEDATION: Moderate with sedation length of 17 minutes. PROCEDURE DESCRIPTION: After obtaining informed consent, the patient was brought to the cardiac manager cardiac cath. The right common femoral vein was cannulated using micropuncture technique, the micropuncture wire passed easily, then I placed an 8-Bolivian sheath in the vein. The right heart catheterization was performed using 6-Bolivian Nada catheter. The procedure was completed without any complication. FINDINGS: Pressures: . Pulmonary capillary wedge pressure was 10 mmHg. PA pressures were as follows: Systolic 39 and diastolic of 15 and mean of 27 mmHg. RV pressures were as follows: Systolic 43 and diastolic of 11 mmHg. RA pressure was 12 mmHg. SATURATION: 1. The pulmonary capillary wedge saturation was 99%. 2. PA saturation was 75%. 3. RV saturation was 71%. 4. RA saturation of 73%. CONCLUSION: 1. Mild pulmonary hypertension. 2. No evidence of intracardiac shunt. POSTPROCEDURE MANAGEMENT: 1. Medical treatment. 2. Follow up with the patient. MMODL / IJN: [id number] /
== END 2020-09-29 13:00 | disposition home or self-care (01) ==
LOC: CATHCVL 06:57
PROVIDERS: ATTEND Internal Medicine Interventional Cardiology
DX: I27.20 Pulmonary hypertension, unspecified (principal); G47.33 Obstructive sleep apnea (adult) (pediatric); I10 Essential (primary) hypertension; I73.9 Peripheral vascular disease, unspecified; E66.9 Obesity, unspecified; Z68.35 Body mass index [BMI] 35.0-35.9, adult; Z72.0 Tobacco use; Z79.1 Long term (current) use of non-steroidal anti-inflammatories (NSAID); Z79.82 Long term (current) use of aspirin; Z79.51 Long term (current) use of inhaled steroids; Z79.899 Other long term (current) drug therapy; Z88.0 Allergy status to penicillin; Z82.49 Family history of ischemic heart disease and other diseases of the circulatory system; Z98.890 Other specified postprocedural states
CPT/HCPCS: 93451; 85018; 82810; C1769 ×3; C1894; J2250; J2001

== ENCOUNTER → 2020-11-05 | Outpatient (CLI) | payer OTHER ==
--- NOTE | 2020-11-05 14:35 | US ---
EXAMINATION TYPE: US venous doppler duplex LE DATE OF EXAM: 11/05/2020 12:23 PM COMPARISON: NONE CLINICAL HISTORY: R60.0 Localized edema. edema bilateral legs, worse on the left for 1 month SIDE PERFORMED: bilateral TECHNIQUE: The lower extremity deep venous system is examined utilizing real time linear array sonog leoncio with graded compression, doppler sonography and color-flow sonography. VESSELS IMAGED: Common Femoral Vein Deep Femoral Vein Greater Saphenous Vein * Femoral Vein Popliteal Vein Small Saphenous Vein * Proximal Calf Veins (* superficial vessels) Right Leg: no evidence of DVT Left Leg: no evidence of DVT IMPRESSION: 1. Bilateral lower extremity ultrasound negative for deep venous thrombosis.
== END | disposition home or self-care (01) ==
LOC: RADUSWWP 11:50
PROVIDERS: ATTEND Internal Medicine
DX: R60.0 Localized edema (principal)
CPT/HCPCS: 93970

== ENCOUNTER 2020-12-03 17:35 | Emergency (ER) | payer OTHER ==
[2020-12-03 17:43] VITALS: PULSE 97; RESP 18; TEMP 98.3
[2020-12-03] MEDS ORDERED: traMADol 50 MG TAB PO STA (18:00)
--- NOTE | 2020-12-03 18:23 | XR ---
Result: Clinical History: Pain status post fall. Comparison: None available. Technique: 4 views of the left wrist. 3 views of the left hand. Findings: No acute fracture or dislocation is seen. The visualized osseous structures are in anatomic alignmen t. The joint spaces are preserved. There is no definite radiopaque foreign body seen. Impression: No acute osseous abnormality of the left wrist or hand.
--- NOTE | 2020-12-03 19:01 | ED ---
General Adult HPI - General Chief complaint: Extremity Injury, Upper Stated complaint: Fall, left hand injury Time Seen by Provider: 12/03/20 17:43 Source: patient Mode of arrival: ambulatory Limitations: no limitations - History of Present Illness Initial comments: Patient is a 50 year old female past history of MS, DVT, hypertension, hyperlipidemia who presents to the ED for she sustained a fall at home. States that she is attempting to ambulate into her house when she tripped on the porch step and fell forward landing on her left wrist. Patient then subsequently fell forward and hit her head. Denies loss of consciousness. Patient is on a blood thinners. Admits to a mild headache however states she has a history of migraines and this is nothing as severe. Denies any visual changes. No neck pain. She was able to get up and ambulate without difficulty. No nausea or vomiting. Admits to pain at the base of the left thumb. Patient is right- handed dominant. Also admits to mild numbness and tingling in the right thumb. Denies any elbow or shoulder pain. Took Afshan at home for her pain without improvement. Incident happened at 3:30 PM today. Due to the constant nature the pain she decided to come into the emergency room in for evaluation. Denies any abdominal pain. No pain in her lower extremity is. No other alleviating, precipitating or modifying factors - Related Data Home Medications Medication Instructions Recorded Confirmed Baclofen [Lioresal] 20 mg PO TID 09/10/17 09/29/20 Gabapentin [Neurontin] 600 mg PO TID 09/10/17 09/29/20 Omeprazole 40 mg PO BID 09/10/17 09/29/20 Topiramate [Trokendi Xr] 100 mg PO HS 09/10/17 09/29/20 Fenofibrate [Lofibra] 160 mg PO DAILY 09/11/17 09/29/20 Naproxen 500 mg PO BID 05/24/18 09/29/20 Oxybutynin Chloride [Ditropan XL] 10 mg PO BID 05/24/18 09/29/20 Ascorbic Acid [Vitamin C] 500 mg PO DAILY 04/03/20 09/29/20 Aspirin [Adult Low Dose Aspirin EC] 81 mg PO DAILY 04/03/20 09/29/20 Cholecalciferol (Vitamin D3) 2,000 unit PO DAILY 04/03/20 09/29/20 [Vitamin D3] Isosorbide Mononitrate [Isosorbide 30 mg PO QAM 04/03/20 09/29/20 Mononitrate ER] Metoprolol Tartrate 25 mg PO BID 04/03/20 09/29/20 amantadine HCL [Amantadine] 100 mg PO BID 04/03/20 09/29/20 hydroCHLOROthiazide [Hydrodiuril] 12.5 mg PO BID 04/03/20 09/29/20 Albuterol Sulfate [Proair Hfa] 1 puff IN Q4HR PRN 09/26/20 09/29/20 Amitriptyline HCl [Elavil] 5 mg PO QAM 09/26/20 09/29/20 DULoxetine HCL [Cymbalta] 60 mg PO QAM 09/26/20 09/29/20 Doxepin [SINEquan] 25 mg PO HS 09/26/20 09/29/20 Fluticasone Propionate 110 Mcg 1 puff IN BID 09/26/20 09/29/20 [Flovent 110 Mcg Inhaler (Mhu)] Fluticasone Propionate 110 Mcg 1 puff INHALATION RT-BID 09/26/20 09/29/20 [Flovent 110 Mcg Inhaler (Mhu)] Medrol Infusions 1 dose IV DIRECTED 09/26/20 09/26/20 Mirtazapine 15 mg PO HS 09/26/20 09/29/20 Ocrevus Infusion 1 dose IV DIRECTED 09/26/20 09/26/20 Rizatriptan Benzoate [Maxalt] 10 mg PO DAILY PRN 09/26/20 09/29/20 Venlafaxine HCl ER [Effexor XR] 150 mg PO QAM 09/26/20 09/29/20 Previous Rx's Medication Instructions Recorded HYDROcodone/APAP 7.5-325MG [Beverly 1 tab PO Q6HR PRN #12 tab 12/03/20 7.5-325] Allergies Allergy/AdvReac Type Severity Reaction Status Date / Time amoxicillin Allergy Rash/Hives Verified 12/03/20 17:39 bee venom protein (honey bee) Allergy Anaphylaxis Verified 12/03/20 17:39 Sulfa (Sulfonamide Allergy Rash/Hives Verified 12/03/20 17:39 Antibiotics) sulfamethoxazole Allergy Rash/Hives Verified 12/03/20 17:39 [From Bactrim] trimethoprim [From Bactrim] Allergy Rash/Hives Verified 12/03/20 17:39 Review of Systems ROS Statement: Those systems with pertinent positive or pertinent negative responses have been documented in the HPI. ROS Other: All systems not noted in ROS Statement are negative. Past Medical History Past Medical History: No Reported History Additional Past Medical History / Comment(s): migraines, Carpal tunnel, DDD, dvt-LT CALF, MS, milagros-malformation History of Any Multi-Drug Resistant Organisms: None Reported Past Surgical History: Heart Catheterization, Hysterectomy, Orthopedic Surgery Additional Past Surgical History / Comment(s): chiari malformation decompression (08/2016), carpal tunnel BILAT WRISTS, COLONOSCOPY Past Anesthesia/Blood Transfusion Reactions: No Reported Reaction Past Psychological History: Anxiety, Depression Smoking Status: Former smoker Past Alcohol Use History: None Reported Past Drug Use History: None Reported - Past Family History Mother Family Medical History: Cancer Additional Family Medical History / Comment(s): . General Exam Limitations: no limitations Course Vital Signs 12/03/20 17:39 Temperature 98.3 F Pulse Rate 97 Respiratory 18 Rate O2 Sat by Pulse 97 Oximetry Medical Decision Making - Medical Decision Making Upon arrival patient is placed into room 11. A thorough history and physical exam is performed. She does remain neurovascularly intact. I did recommend a CT of the patient's brain and cervical spine due to her known head injury degroot paris patient refused thinking was not necessary. I also recommended an x-ray of the patient's left wrist and hand. Imaging is reviewed by myself and read by the radiologist. No acute fracture at L5. Due to the location of the patient's pain being over the proximal base of the thumb I did recommend splint for which the patient agreed to. Patient was placed in a thumb spica splint. Instructed to keep the splint clean and dry. She will be given a short prescription for Beverly. Patient was given an Ultram in the emergency department with improvement in her pain. Patient is to follow-up with her primary care physician in 2-4 days. May require repeat x-rays in 7-10 days for pain persists. Return to the emergency room for any new or worsening symptoms per patient was in agreement with the plan and was discharged home in stable condition Disposition Clinical Impression: Fall, Left wrist pain Disposition: HOME SELF-CARE Condition: Stable Instructions (If sedation given, give patient instructions): Wrist Injury (ED) Additional Instructions: Please follow up with your primary care doctor in 2-4 days. You may need repeat xrays in 7-10 days if pain persists. Return to the emergency room for any new or worsening symptoms. Do not get your splint wet Prescriptions: HYDROcodone/APAP 7.5-325MG [Beverly 7.5-325] 1 tab PO Q6HR PRN #12 tab PRN Reason: Pain Is patient prescribed a controlled substance at d/c from ED?: Yes When asked, does pt state using other controlled substances?: No If prescribed controlled substance>3 days was MAPS reviewed?: Prescribed <3 Days If opioid is for acute pain is fill amount 7 days or less?: Yes If Rx opioid, was Start Talking consent form obtained?: Yes Referrals: Antonieta Aden MD [Primary Care Provider] - 1-2 days Time of Disposition: 19:01
== END 2020-12-03 19:15 | disposition home or self-care (01) ==
LOC: EC 17:35
DX: S09.90XA Unspecified injury of head, initial encounter (principal); M25.532 Pain in left wrist; I10 Essential (primary) hypertension; E78.5 Hyperlipidemia, unspecified; F41.9 Anxiety disorder, unspecified; F32.9 Major depressive disorder, single episode, unspecified; G43.909 Migraine, unspecified, not intractable, without status migrainosus; Z79.899 Other long term (current) drug therapy; Z79.1 Long term (current) use of non-steroidal anti-inflammatories (NSAID); Z79.82 Long term (current) use of aspirin; Z79.51 Long term (current) use of inhaled steroids; Z88.0 Allergy status to penicillin; Z91.030 Bee allergy status; Z88.2 Allergy status to sulfonamides; Z88.1 Allergy status to other antibiotic agents; Z87.891 Personal history of nicotine dependence; Z86.718 Personal history of other venous thrombosis and embolism; W01.0XXA Fall on same level from slipping, tripping and stumbling without subsequent striking against object, initial encounter; Y92.009 Unspecified place in unspecified non-institutional (private) residence as the place of occurrence of the external cause
CPT/HCPCS: 99283

== ENCOUNTER 2021-03-03 13:59 | Emergency (ER) | payer OTHER ==
[2021-03-03 14:16] VITALS: RESP 18
--- NOTE | 2021-03-03 15:15 | US ---
EXAMINATION TYPE: US venous doppler duplex LE RT DATE OF EXAM: 03/03/2021 2:52 PM COMPARISON: CLINICAL HISTORY: hx DVT, posterior knee pain. Not on blood thinners. Patient states having a hx of DVT in left leg. Patient states she hit right knee on Tuesday and it hurts. SIDE PERFORMED: Right TECHNIQUE: The lower extremity deep venous system is examined utilizing real time linear array sonog leoncio with graded compression, doppler sonography and color-flow sonography. VESSELS IMAGED: Common Femoral Vein Deep Femoral Vein Greater Saphenous Vein * Femoral Vein Popliteal Vein Small Saphenous Vein * Proximal Calf Veins (* superficial vessels) Right Leg: Negative for DVT IMPRESSION no evidence for DVT at this time.
--- NOTE | 2021-03-03 16:01 | XR ---
EXAMINATION TYPE: XR knee complete RT DATE OF EXAM: 03/03/2021 CLINICAL HISTORY: Right knee pain posterior lump after fall TECHNIQUE: Three views of the right knee are obtained. COMPARISON: None. FINDINGS: There is no acute fracture/dislocation evident in right knee. The tri-compartment joint s paces appear within normal limits. The overlying soft tissue appears unremarkable. IMPRESSION: There is no acute fracture or dislocation in the right knee.
--- NOTE | 2021-03-03 16:18 | ED ---
Lower Extremity Injury HPI - General Chief Complaint: Extremity Injury, Lower Stated Complaint: R knee & leg pain Time Seen by Provider: 03/03/21 14:20 Source: patient Mode of arrival: ambulatory Limitations: no limitations - Related Data Home Medications Medication Instructions Recorded Confirmed Baclofen [Lioresal] 20 mg PO TID 09/10/17 09/29/20 Gabapentin [Neurontin] 600 mg PO TID 09/10/17 09/29/20 Omeprazole 40 mg PO BID 09/10/17 09/29/20 Topiramate [Trokendi Xr] 100 mg PO HS 09/10/17 09/29/20 Fenofibrate [Lofibra] 160 mg PO DAILY 09/11/17 09/29/20 Naproxen 500 mg PO BID 05/24/18 09/29/20 Oxybutynin Chloride [Ditropan XL] 10 mg PO BID 05/24/18 09/29/20 Ascorbic Acid [Vitamin C] 500 mg PO DAILY 04/03/20 09/29/20 Aspirin [Adult Low Dose Aspirin EC] 81 mg PO DAILY 04/03/20 09/29/20 Cholecalciferol (Vitamin D3) 2,000 unit PO DAILY 04/03/20 09/29/20 [Vitamin D3] Isosorbide Mononitrate [Isosorbide 30 mg PO QAM 04/03/20 09/29/20 Mononitrate ER] Metoprolol Tartrate 25 mg PO BID 04/03/20 09/29/20 amantadine HCL [Amantadine] 100 mg PO BID 04/03/20 09/29/20 hydroCHLOROthiazide [Hydrodiuril] 12.5 mg PO BID 04/03/20 09/29/20 Albuterol Sulfate [Proair Hfa] 1 puff IN Q4HR PRN 09/26/20 09/29/20 Amitriptyline HCl [Elavil] 5 mg PO QAM 09/26/20 09/29/20 DULoxetine HCL [Cymbalta] 60 mg PO QAM 09/26/20 09/29/20 Doxepin [SINEquan] 25 mg PO HS 09/26/20 09/29/20 Fluticasone Propionate 110 Mcg 1 puff IN BID 09/26/20 09/29/20 [Flovent 110 Mcg Inhaler ([facility])] Fluticasone Propionate 110 Mcg 1 puff INHALATION RT-BID 09/26/20 09/29/20 [Flovent 110 Mcg Inhaler ([facility] [place])] Medrol Infusions 1 dose IV DIRECTED 09/26/20 09/26/20 Mirtazapine 15 mg PO HS 09/26/20 09/29/20 Ocrevus Infusion 1 dose IV DIRECTED 09/26/20 09/26/20 Rizatriptan Benzoate [Maxalt] 10 mg PO DAILY PRN 09/26/20 09/29/20 Venlafaxine HCl ER [Effexor XR] 150 mg PO QAM 09/26/20 09/29/20 Previous Rx's Medication Instructions Recorded HYDROcodone/APAP 7.5-325MG [[place] 1 tab PO Q6HR PRN #12 tab 12/03/20 7.5-325] Allergies Allergy/AdvReac Type Severity Reaction Status Date / Time amoxicillin Allergy Rash/Hives Verified 03/03/21 14:16 bee venom protein (honey bee) Allergy Anaphylaxis Verified 03/03/21 14:16 Sulfa (Sulfonamide Allergy Rash/Hives Verified 03/03/21 14:16 Antibiotics) sulfamethoxazole Allergy Rash/Hives Verified 03/03/21 14:16 [From Bactrim] trimethoprim [From Bactrim] Allergy Rash/Hives Verified 03/03/21 14:16 Review of Systems ROS Statement: Those systems with pertinent positive or pertinent negative responses have been documented in the HPI. ROS Other: All systems not noted in ROS Statement are negative. Past Medical History Past Medical History: No Reported History Additional Past Medical History / Comment(s): migraines, Carpal tunnel, DDD, dvt-LT CALF, MS, milagros-malformation History of Any Multi-Drug Resistant Organisms: None Reported Past Surgical History: Heart Catheterization, Hysterectomy, Orthopedic Surgery Additional Past Surgical History / Comment(s): chiari malformation decompression (08/2016), carpal tunnel BILAT WRISTS, COLONOSCOPY Past Anesthesia/Blood Transfusion Reactions: No Reported Reaction Past Psychological History: Anxiety, Depression Smoking Status: Former smoker Past Alcohol Use History: None Reported Past Drug Use History: None Reported - Past Family History Mother Family Medical History: Cancer Additional Family Medical History / Comment(s): . General Exam Limitations: no limitations Course Vital Signs 03/03/21 14:10 Temperature 98 F Pulse Rate 92 Respiratory 18 Rate Blood Pressure 115/63 O2 Sat by Pulse 95 Oximetry Disposition Clinical Impression: Right knee pain, Fall Disposition: HOME SELF-CARE Condition: Good Instructions (If sedation given, give patient instructions): Ankle Sprain (ED) Additional Instructions: Please use medication as discussed. Please follow-up with family doctor in the next 2 days, rest ice and if pain persists > 1 week please seek orthopedic follow-up for repeat imaging. Please return to emergency room if the symptoms increase or worsen or for any other concerns. Is patient prescribed a controlled substance at d/c from ED?: No Referrals: Antonieta Aden MD [Primary Care Provider] - 1-2 days Jamshid Balderas MD [STAFF PHYSICIAN] - 1-2 days Time of Disposition: 16:18
[2021-03-03 16:41] VITALS: BP 125/74; PULSE 98; TEMP 98.1
== END 2021-03-03 16:41 | disposition home or self-care (01) ==
LOC: EC 13:59
DX: M25.561 Pain in right knee (principal); Z86.718 Personal history of other venous thrombosis and embolism; Z87.891 Personal history of nicotine dependence; W17.2XXA Fall into hole, initial encounter; Y92.096 Garden or yard of other non-institutional residence as the place of occurrence of the external cause
CPT/HCPCS: 99284

== ENCOUNTER 2021-03-05 01:22 | Emergency (ER) | payer OTHER ==
[2021-03-05 01:34] VITALS: BP 176/74; PULSE 92; RESP 20; TEMP 99.1
[2021-03-05] MEDS ORDERED: IBUPROFEN 600 MG TAB PO STA (01:48)
--- NOTE | 2021-03-05 02:31 | XR ---
EXAM: XR Right Knee, 3 Views CLINICAL HISTORY: ITS.REASON XR Reason: Fall/injury TECHNIQUE: Three views of the right knee. COMPARISON: No relevant prior studies available. FINDINGS: Bones/joints: Unremarkable. No acute fracture. No dislocation. Soft tissues: Unremarkable. IMPRESSION: Normal right knee x-rays.
--- NOTE | 2021-03-05 02:32 | XR ---
EXAM: XR Right Tibia and Fibula, 2 Views CLINICAL HISTORY: ITS.[email or web address] XR Reason: Fall/injury TECHNIQUE: Frontal and lateral views of the right tibia and fibula. COMPARISON: No relevant prior studies available. FINDINGS: Bones/joints: Unremarkable. No acute fracture. No dislocation. Soft tissues: Unremarkable. No radiopaque foreign body. IMPRESSION: Normal right tibia and fibula x-rays.
--- NOTE | 2021-03-05 02:51 | ED ---
Lower Extremity Injury HPI - General Chief Complaint: Extremity Injury, Lower Stated Complaint: Leg Pain Time Seen by Provider: 03/05/21 01:38 Source: patient Mode of arrival: wheelchair Limitations: no limitations - History of Present Illness Initial Comments: 51 year-old male patient presents to the emergency department today for evaluation of right knee pain. Patient states that a couple days ago she had a fall was evaluated in the emergency department for the pain did have ultrasound of the leg and x-ray which were negative. Patient states she had another fall this evening caused by her dog. States that she landed on the knee causing an abrasion. States she is not having pain radiating down the leg to the ankle and up the leg to the hip. Is able to ambulate though states it does hurt. Denies numbness or tingling to the leg. States she took ibuprofen earlier which did not help. Has history of MS which causes her to have frequent falls. Patient denies any headache, neck pain, back pain, chest pain, shortness of breath, dizziness, weakness, abdominal pain, nausea, vomiting, or difficulties with bowel movements or urination. - Related Data Home Medications Medication Instructions Recorded Confirmed Baclofen [Lioresal] 20 mg PO TID 09/10/17 09/29/20 Gabapentin [Neurontin] 600 mg PO TID 09/10/17 09/29/20 Omeprazole 40 mg PO BID 09/10/17 09/29/20 Topiramate [Trokendi Xr] 100 mg PO HS 09/10/17 09/29/20 Fenofibrate [Lofibra] 160 mg PO DAILY 09/11/17 09/29/20 Naproxen 500 mg PO BID 05/24/18 09/29/20 Oxybutynin Chloride [Ditropan XL] 10 mg PO BID 05/24/18 09/29/20 Ascorbic Acid [Vitamin C] 500 mg PO DAILY 04/03/20 09/29/20 Aspirin [Adult Low Dose Aspirin EC] 81 mg PO DAILY 04/03/20 09/29/20 Cholecalciferol (Vitamin D3) 2,000 unit PO DAILY 04/03/20 09/29/20 [Vitamin D3] Isosorbide Mononitrate [Isosorbide 30 mg PO QAM 04/03/20 09/29/20 Mononitrate ER] Metoprolol Tartrate 25 mg PO BID 04/03/20 09/29/20 amantadine HCL [Amantadine] 100 mg PO BID 04/03/20 09/29/20 hydroCHLOROthiazide [Hydrodiuril] 12.5 mg PO BID 04/03/20 09/29/20 Albuterol Sulfate [Proair Hfa] 1 puff IN Q4HR PRN 09/26/20 09/29/20 Amitriptyline HCl [Elavil] 5 mg PO QAM 09/26/20 09/29/20 DULoxetine HCL [Cymbalta] 60 mg PO QAM 09/26/20 09/29/20 Doxepin [SINEquan] 25 mg PO HS 09/26/20 09/29/20 Fluticasone Propionate 110 Mcg 1 puff IN BID 09/26/20 09/29/20 [Flovent 110 Mcg Inhaler ([facility])] Fluticasone Propionate 110 Mcg 1 puff INHALATION RT-BID 09/26/20 09/29/20 [Flovent 110 Mcg Inhaler ([facility])] Medrol Infusions 1 dose IV DIRECTED 09/26/20 09/26/20 Mirtazapine 15 mg PO HS 09/26/20 09/29/20 Ocrevus Infusion 1 dose IV DIRECTED 09/26/20 09/26/20 Rizatriptan Benzoate [Maxalt] 10 mg PO DAILY PRN 09/26/20 09/29/20 Venlafaxine HCl ER [Effexor XR] 150 mg PO QAM 09/26/20 09/29/20 Previous Rx's Medication Instructions Recorded HYDROcodone/APAP 7.5-325MG [[place] 1 tab PO Q6HR PRN #12 tab 12/03/20 7.5-325] Allergies Allergy/AdvReac Type Severity Reaction Status Date / Time amoxicillin Allergy Rash/Hives Verified 03/05/21 01:34 bee venom protein (honey bee) Allergy Anaphylaxis Verified 03/05/21 01:34 Sulfa (Sulfonamide Allergy Rash/Hives Verified 03/05/21 01:34 Antibiotics) sulfamethoxazole Allergy Rash/Hives Verified 03/05/21 01:34 [From Bactrim] trimethoprim [From Bactrim] Allergy Rash/Hives Verified 03/05/21 01:34 Review of Systems ROS Statement: Those systems with pertinent positive or pertinent negative responses have been documented in the HPI. ROS Other: All systems not noted in ROS Statement are negative. Past Medical History Past Medical History: No Reported History Additional Past Medical History / Comment(s): migraines, Carpal tunnel, DDD, dvt-LT CALF, MS, milagros-malformation History of Any Multi-Drug Resistant Organisms: None Reported Past Surgical History: Heart Catheterization, Hysterectomy, Orthopedic Surgery Additional Past Surgical History / Comment(s): chiari malformation decompression (08/2016), carpal tunnel BILAT WRISTS, COLONOSCOPY Past Anesthesia/Blood Transfusion Reactions: No Reported Reaction Past Psychological History: Anxiety, Depression Smoking Status: Former smoker Past Alcohol Use History: None Reported Past Drug Use History: None Reported - Past Family History Mother Family Medical History: Cancer Additional Family Medical History / Comment(s): . General Exam Limitations: no limitations General appearance: alert, in no apparent distress, other (This is a well- developed, well-nourished adult female patient in no acute distress. Vital signs upon presentation temperature 99.1F, pulse 92, respirations 20, blood pressure 176/74, pulse ox 96% on room air.) Eye exam: Present: normal appearance, PERRL, EOMI. Absent: scleral icterus, conjunctival injection, periorbital swelling ENT exam: Present: normal exam, normal oropharynx, mucous membranes moist Neck exam: Present: normal inspection, full ROM. Absent: tenderness, meningismus, lymphadenopathy Respiratory exam: Present: normal lung sounds bilaterally. Absent: respiratory distress, wheezes, rales, rhonchi, stridor Cardiovascular Exam: Present: regular rate, normal rhythm, normal heart sounds. Absent: systolic murmur, diastolic murmur, rubs, gallop, clicks Extremities exam: Present: full ROM, normal capillary refill, other (There is abrasion noted to the right anterior knee. Skins otherwise pink, warm, dry. Cap refill less than 3 seconds. Pedal and posttibial pulses are 2+.). Absent: normal inspection, tenderness, pedal edema, joint swelling, calf tenderness Back exam: Absent: vertebral tenderness Neurological exam: Present: alert, oriented X3, CN II-XII intact Psychiatric exam: Present: normal affect, normal mood Skin exam: Present: warm, dry, intact, normal color. Absent: rash Course Vital Signs 03/05/21 01:28 Temperature 99.1 F Pulse Rate 92 Respiratory 20 Rate Blood Pressure 176/74 O2 Sat by Pulse 96 Oximetry Medical Decision Making - Medical Decision Making 51-year-old female patient passed medical history significant for MS presents to the emergency department today for evaluation of right knee and leg pain. Physical examination did reveal right anterior knee abrasion. Neurovascular status was intact. X-rays of the right knee and tib-fib were obtained and were negative. Patient is able to and bili. She is given pain medication while here. We discharged with instructions to rest, ice, elevate. She is given orthopedic follow-up. Return parameters were discussed in detail. She verbalizes understanding and agrees with this plan. My attending is Dr. Tobin. - Radiology Data Radiology results: report reviewed, image reviewed Normal right tibia and fibula x-rays. Normal right knee x-rays. Disposition Clinical Impression: Right leg pain Disposition: HOME SELF-CARE Condition: Good Instructions (If sedation given, give patient instructions): Knee Pain (ED), Leg Pain (ED) Additional Instructions: Rest, ice, elevate the right leg. Continue home medications for pain control. Follow up with the primary care physician or orthopedics for further evaluation. Return for any new, worsening, or concerning symptoms. Is patient prescribed a controlled substance at d/c from ED?: No Referrals: Antonieta Aden MD [Primary Care Provider] - 1-2 days Amilcar Noland DO [Doctor of Osteopathic Medicine] - 1-2 days Time of Disposition: 02:50
[2021-03-05] MEDS ORDERED: MORPHINE SULFATE 4 MG/ML SYRINGE IM STA (02:54)
== END 2021-03-05 03:14 | disposition home or self-care (01) ==
LOC: EC 01:22
DX: S80.211A Abrasion, right knee, initial encounter (principal); M79.604 Pain in right leg; F32.9 Major depressive disorder, single episode, unspecified; F41.9 Anxiety disorder, unspecified; Z87.891 Personal history of nicotine dependence; Z79.82 Long term (current) use of aspirin; Z86.718 Personal history of other venous thrombosis and embolism; Z90.710 Acquired absence of both cervix and uterus; Z95.5 Presence of coronary angioplasty implant and graft; W19.XXXA Unspecified fall, initial encounter
CPT/HCPCS: 73590; 73562; 99283; 96372; J2270

== ENCOUNTER → 2021-06-18 | Outpatient (CLI) | payer OTHER ==
--- NOTE | 2021-06-18 18:52 | US ---
EXAMINATION TYPE: US venous doppler duplex LE RT DATE OF EXAM: 06/18/2021 5:20 PM COMPARISON: US 03/03/2021 CLINICAL HISTORY: Right leg pain SIDE PERFORMED: Right TECHNIQUE: The lower extremity deep venous system is examined utilizing real time linear array sonog leoncio with graded compression, doppler sonography and color-flow sonography. VESSELS IMAGED: Common Femoral Vein Deep Femoral Vein Greater Saphenous Vein * Femoral Vein Popliteal Vein Proximal Calf Veins (* superficial vessels) Right Leg: Negative for DVT. Normal flow, compressibility, and vascular waveforms. IMPRESSION: No DVT of the right lower extremity. [employer] called report to ordering doctor at time of examination.
== END | disposition home or self-care (01) ==
LOC: RADUSWWP 16:50
PROVIDERS: ATTEND Internal Medicine
DX: I87.311 Chronic venous hypertension (idiopathic) with ulcer of right lower extremity (principal)

== ENCOUNTER 2021-07-04 13:37 | Emergency (ER) | payer OTHER ==
[2021-07-04 13:59] VITALS: BP 134/79; PULSE 93; RESP 18; TEMP 97.8
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
[2021-07-04 15:40] LABS: Appearance,Urine Clear (Clear); Bacteria,Urine Rare /hpf; Bilirubin,Urine Negative (Negative); Blood,Urine Negative (Negative); Color,Urine Light Yellow; Glucose,Urine (UA) Negative (Negative); Ketones,Urine Negative (Negative); Leukocyte Esterase,Urine Large (Negative); Mucus,Urine Rare /hpf; Nitrite,Urine Negative (Negative); PH, Urine 7.5 (5.0-8.0); Protein,Urine Negative (Negative); RBC,Urine <1 /hpf (0-5); Specific Gravity,Urine 1.013 (1.001-1.035); Squamous Epithelial Cell,Urine 3 /hpf (0-4); Urobilinogen,Urine <2.0 mg/dL (<2.0); WBC,Urine 1 /hpf (0-5)
[2021-07-04 15:44] LABS: Basophils # (A) 0.1 k/uL (0-0.2); Basophils % (A) 1 %; Eosinophils # (A) 0.4 k/uL (0-0.7); Eosinophils % (A) 5 %; HCT 35.7 % (34.0-46.0); HGB 11.4 gm/dL (11.4-16.0); Lymphocytes # (A) 1.5 k/uL (1.0-4.8); Lymphocytes % (A) 17 %; MCH 27.4 pg (25.0-35.0); MCHC 31.9 g/dL (31.0-37.0); MCV 85.7 fL (80.0-100.0); Mean Platelet Volume 7.3; Monocytes # (A) 0.7 k/uL (0-1.0); Monocytes % (A) 8 %; Neutrophils # (A) 5.7 k/uL (1.3-7.7); Neutrophils % (A) 67 %; Platelet Count 576 k/uL (150-450); RBC 4.17 m/uL (3.80-5.40); RDW 14.2 % (11.5-15.5); WBC 8.5 k/uL (3.8-10.6)
[2021-07-04 15:52] LABS: Amphetamine Screen,Urine Not Detected (NotDetected); Barbiturate Screen,Urine Not Detected (NotDetected); Benzodiazepines Screen,Urine Not Detected (NotDetected); Cocaine Screen,Urine Not Detected (NotDetected); Methadone Screen, Urine Not Detected (NotDetected); Opiate Screen,Urine Not Detected (NotDetected); Oxycodone Screen, Urine Not Detected (NotDetected); Phencyclidine Screen,Urine Not Detected (NotDetected); Tricyclic Antidepressant,Urine Detected (NotDetected); Urn Cannabinoid Scrn Detected (NotDetected)
[2021-07-04 15:55] LABS: Albumin 4.5 g/dL (3.5-5.0); Magnesium 2.2 mg/dL (1.6-2.3); Total Bilirubin 0.7 mg/dL (0.2-1.3); Total Protein 7.1 g/dL (6.3-8.2)
--- NOTE | 2021-07-04 16:13 | CT ---
EXAMINATION TYPE: CT brain wo con DATE OF EXAM: 07/04/2021 COMPARISON: 09/28/2017 HISTORY: AMS recheck CT DLP: 1084.4 mGycm Automated exposure control for dose reduction was used. Ventricles have normal size. There is no mass effect nor midline shift. There is no sign of intracran ial hemorrhage. Calvarium is intact. There is occipital craniotomy defect. IMPRESSION: Negative unenhanced head CT scan. No change.
[2021-07-04 16:29] LABS: Potassium 3.4 mmol/L (3.5-5.1)
== END 2021-07-04 18:19 | disposition home or self-care (01) ==
LOC: EC 13:37
DX: F20.9 Schizophrenia, unspecified (principal); G43.909 Migraine, unspecified, not intractable, without status migrainosus; Z87.891 Personal history of nicotine dependence; Z88.1 Allergy status to other antibiotic agents; Z88.2 Allergy status to sulfonamides; Z88.0 Allergy status to penicillin; Z91.030 Bee allergy status; Z79.82 Long term (current) use of aspirin; Z79.1 Long term (current) use of non-steroidal anti-inflammatories (NSAID)
CPT/HCPCS: 36415; 70450; 80053; 80306; 81001; 82075; 82140; 83735; 84443; 85025; 99284

== ENCOUNTER 2021-07-06 15:15 | Inpatient (IN) | payer MEDICAID, OTHER ==
--- NOTE | 2021-07-06 15:45 | ED ---
General Adult HPI - General Chief complaint: Psychiatric Symptoms Stated complaint: mental health Time Seen by Provider: 07/06/21 15:29 Source: patient, EMS, RN notes reviewed Mode of arrival: EMS Limitations: altered mental status - History of Present Illness Initial comments: Patient is a pleasant 51-year-old female presenting to the emergency department for not taking her medications. Patient is unclear if she took yesterday or today. Patient admits to clean hearing things. Patient states this is been occurring for over a month now. Patient states she feels stressed and anxious. No homicidal or suicidal thoughts. No new physical complaints. - Related Data Home Medications Medication Instructions Recorded Confirmed Baclofen [Lioresal] 20 mg PO TID 09/10/17 07/06/21 Omeprazole 40 mg PO BID 09/10/17 07/06/21 Topiramate [Trokendi Xr] 100 mg PO HS 09/10/17 07/06/21 Fenofibrate [Lofibra] 160 mg PO DAILY 09/11/17 07/06/21 Naproxen 500 mg PO BID PRN 05/24/18 07/06/21 Oxybutynin Chloride [Ditropan XL] 10 mg PO DAILY 05/24/18 07/06/21 Ascorbic Acid [Vitamin C] 1,000 mg PO DAILY 04/03/20 07/06/21 Cholecalciferol (Vitamin D3) 50 mcg PO DAILY 04/03/20 07/06/21 [Vitamin D3] amantadine HCL [Amantadine] 100 mg PO BID 04/03/20 07/06/21 Albuterol Sulfate [Proair Hfa] 1 puff INHALATION RT-Q4H PRN 09/26/20 07/06/21 DULoxetine HCL [Cymbalta] 60 mg PO HS 09/26/20 07/06/21 Venlafaxine HCl ER [Effexor XR] 150 mg PO DAILY 09/26/20 07/06/21 Doxepin HCl [SINEquan] 100 mg PO HS 07/06/21 07/06/21 Furosemide [Lasix] 40 mg PO DAILY 07/06/21 07/06/21 Gabapentin 600 mg PO TID 07/06/21 07/06/21 Meclizine HCl 12.5 mg PO BID PRN 07/06/21 07/06/21 Potassium Chloride ER [K-Dur 20] 20 meq PO DAILY 07/06/21 07/06/21 Propranolol HCl 40 mg PO BID 07/06/21 07/06/21 Torsemide [Demadex] 20 mg PO DAILY 07/06/21 07/06/21 Vitamin E 400 unit PO DAILY 07/06/21 07/06/21 metOLazone [Zaroxolyn] 2.5 mg PO DAILY 07/06/21 07/06/21 risperiDONE [RisperDAL] 0.5 mg PO HS 07/06/21 07/06/21 Allergies Allergy/AdvReac Type Severity Reaction Status Date / Time amoxicillin Allergy Rash/Hives Verified 07/06/21 16:02 bee venom protein (honey bee) Allergy Anaphylaxis Verified 07/06/21 16:02 Sulfa (Sulfonamide Allergy Rash/Hives Verified 07/06/21 16:02 Antibiotics) sulfamethoxazole Allergy Rash/Hives Verified 07/06/21 16:02 [From Bactrim] trimethoprim [From Bactrim] Allergy Rash/Hives Verified 07/06/21 16:02 Review of Systems ROS Statement: Those systems with pertinent positive or pertinent negative responses have been documented in the HPI. ROS Other: All systems not noted in ROS Statement are negative. Constitutional: Denies: fever Eyes: Denies: eye pain ENT: Denies: ear pain Respiratory: Denies: cough Cardiovascular: Denies: chest pain Endocrine: Denies: fatigue Gastrointestinal: Denies: abdominal pain Genitourinary: Denies: urgency Musculoskeletal: Denies: back pain Skin: Reports: lesions (Healing lesions right leg. Patient was picking at them however has stopped and they're getting better.) Past Medical History Past Medical History: No Reported History Additional Past Medical History / Comment(s): migraines, Carpal tunnel, DDD, dvt-LT CALF, MS, milagros-malformation History of Any Multi-Drug Resistant Organisms: None Reported Past Surgical History: Heart Catheterization, Hysterectomy, Orthopedic Surgery Additional Past Surgical History / Comment(s): chiari malformation decompression (08/2016), carpal tunnel BILAT WRISTS, COLONOSCOPY Past Anesthesia/Blood Transfusion Reactions: No Reported Reaction Past Psychological History: Anxiety, Depression Smoking Status: Former smoker Past Alcohol Use History: None Reported Past Drug Use History: None Reported - Past Family History Mother Family Medical History: Cancer Additional Family Medical History / Comment(s): . General Exam Limitations: no limitations General appearance: alert, in no apparent distress Head exam: Present: atraumatic Eye exam: Present: normal appearance ENT exam: Present: normal oropharynx Neck exam: Present: normal inspection. Absent: meningismus Respiratory exam: Present: normal lung sounds bilaterally Cardiovascular Exam: Present: regular rate, normal rhythm GI/Abdominal exam: Present: soft. Absent: tenderness Extremities exam: Present: normal inspection Neurological exam: Present: alert Psychiatric exam: Present: other (Flight [employer] ideas). Absent: homicidal ideation, suicidal ideation Skin exam: Present: other (3 lesions right lower leg with skin scabbing and signs of healing.) Course Vital Signs 07/06/21 15:25 Temperature 98.2 F Pulse Rate 100 Respiratory 18 Rate Blood Pressure 119/72 O2 Sat by Pulse 98 Oximetry Medical Decision Making - Medical Decision Making Patient was seen by mental health services with plans for admission. Disposition Clinical Impression: Psychosis Disposition: TRANSFER TO PSYCH HOSP/UNIT Is patient prescribed a controlled substance at d/c from ED?: No Referrals: Antonieta Aden MD [Primary Care Provider] - 1-2 days Decision Time: 16:43
[2021-07-06 17:16] LABS: Amphetamine Screen,Urine Not Detected (NotDetected); Barbiturate Screen,Urine Not Detected (NotDetected); Benzodiazepines Screen,Urine Not Detected (NotDetected); Cocaine Screen,Urine Not Detected (NotDetected); Methadone Screen, Urine Not Detected (NotDetected); Opiate Screen,Urine Detected (NotDetected); Oxycodone Screen, Urine Not Detected (NotDetected); Phencyclidine Screen,Urine Not Detected (NotDetected); Tricyclic Antidepressant,Urine Detected (NotDetected); Urn Cannabinoid Scrn Detected (NotDetected)
[2021-07-06] MEDS ORDERED: ALBUTEROL HFA INHALER INHALATION PRN (19:43)
[2021-07-06] MEDS ORDERED: NAPROXEN 250 MG TAB PO PRN (19:43)
[2021-07-06] MEDS ORDERED: ACETAMINOPHEN TAB 325 MG TAB PO PRN (19:46)
[2021-07-06] MEDS ORDERED: MAG HYDROX/AL HYDROX/SIMETH 30 ML CUP PO PRN (19:46)
[2021-07-06] MEDS ORDERED: MAGNESIUM HYDROXIDE 2,400 MG/10 ML CUP PO PRN (19:46)
[2021-07-06] MEDS ORDERED: LORazepam 2 MG/ML INJ IM PRN (19:48)
[2021-07-06] MEDS ORDERED: HALOPERIDOL LACTATE 5 MG/ML 1 ML VIAL IM PRN (19:48)
[2021-07-06] MEDS: haloperidoL 5 MG TAB PO PRN (20:42)
[2021-07-06] MEDS: LORazepam 1 MG TAB PO PRN (20:42)
[2021-07-06] MEDS ORDERED: risperiDONE 0.5 MG TAB PO SCH (21:00)
[2021-07-06] MEDS: GABAPENTIN 300 MG CAP PO SCH (22:37)
[2021-07-06] MEDS: PROPRANOLOL 40 MG TAB PO SCH (22:37)
[2021-07-07] MEDS ORDERED: HALOPERIDOL LACTATE 5 MG/ML 1 ML VIAL IM STA (04:16)
[2021-07-07] MEDS ORDERED: LORazepam 2 MG/ML INJ IM STA (04:16)
[2021-07-07 07:37] LABS: Basophils % (A) 0 %; Eosinophils % (A) 0 %; HGB 11.6 gm/dL (11.4-16.0); Lymphocytes # (A) 0.8 k/uL (1.0-4.8); Lymphocytes % (A) 5 %; MCH 27.3 pg (25.0-35.0); MCHC 32.1 g/dL (31.0-37.0); MCV 85.1 fL (80.0-100.0); Mean Platelet Volume 7.4; Monocytes # (A) 1.1 k/uL (0-1.0); Monocytes % (A) 6 %; Neutrophils # (A) 14.7 k/uL (1.3-7.7); Neutrophils % (A) 87 %; Platelet Count 596 k/uL (150-450); RBC 4.24 m/uL (3.80-5.40); RDW 14.3 % (11.5-15.5); WBC 16.8 k/uL (3.8-10.6)
[2021-07-07 07:51] LABS: Calcium 11.1 mg/dL (8.4-10.2); Potassium 3.3 mmol/L (3.5-5.1); Total Bilirubin 0.8 mg/dL (0.2-1.3); Total Protein 7.9 g/dL (6.3-8.2)
[2021-07-07] MEDS: ASCORBIC ACID 500 MG TAB PO SCH (08:01)
[2021-07-07] MEDS: CHOLECALCIFEROL 25 MCG (1000 IU) TABLET PO SCH (08:02)
[2021-07-07] MEDS: VENLAFAXINE HCL ER 150 MG CAP PO SCH (08:02)
[2021-07-07] MEDS: PROPRANOLOL 40 MG TAB PO SCH ×2 (08:02→21:50)
[2021-07-07] MEDS: OXYBUTYNIN 10 MG TAB.ER.24 PO SCH (08:02)
[2021-07-07] MEDS: FENOFIBRATE 160 MG TAB PO SCH (08:02)
[2021-07-07] MEDS: FUROSEMIDE 40 MG TAB PO SCH (08:02)
[2021-07-07] MEDS: GABAPENTIN 300 MG CAP PO SCH ×3 (08:03→21:50)
[2021-07-07] MEDS ORDERED: traZODone HCL 50 MG TAB PO PRN (11:06)
--- NOTE | 2021-07-07 11:17 | P.HP ---
Psychiatric H&P - . H&P Date: 07/07/21 History & Physical: Allergies Allergy/AdvReac Type Severity Reaction Status Date / Time amoxicillin Allergy Rash/Hives Verified 07/06/21 21:27 bee venom protein (honey bee) Allergy Anaphylaxis Verified 07/06/21 21:27 Sulfa (Sulfonamide Allergy Rash/Hives Verified 07/06/21 21:27 Antibiotics) sulfamethoxazole Allergy Rash/Hives Verified 07/06/21 21:27 From Bactrim trimethoprim From Bactrim Allergy Rash/Hives Verified 07/06/21 21:27 Vital Signs Temp 98.7 F 07/07/21 06:37 Pulse 118 H 07/07/21 08:03 Resp 16 07/07/21 08:03 BP 161/74 07/07/21 08:03 Pulse Ox 97 07/06/21 19:40 Intake & Output 07/06/21 07/07/21 07/07/21 18:59 06:59 18:59 Weight 68.946 kg 79.7 kg Laboratory Last Values WBC 16.8 k/uL (3.8-10.6) H 07/07/21 07:10 RBC 4.24 m/uL (3.80-5.40) 07/07/21 07:10 Hgb 11.6 gm/dL (11.4-16.0) 07/07/21 07:10 Hct 36.0 % (34.0-46.0) 07/07/21 07:10 MCV 85.1 fL (80.0-100.0) 07/07/21 07:10 MCH 27.3 pg (25.0-35.0) 07/07/21 07:10 MCHC 32.1 g/dL (31.0-37.0) 07/07/21 07:10 RDW 14.3 % (11.5-15.5) 07/07/21 07:10 Plt Count 596 k/uL (150-450) H 07/07/21 07:10 MPV 7.4 07/07/21 07:10 Neutrophils % 87 % 07/07/21 07:10 Lymphocytes % 5 % 07/07/21 07:10 Monocytes % 6 % 07/07/21 07:10 Eosinophils % 0 % 07/07/21 07:10 Basophils % 0 % 07/07/21 07:10 Neutrophils # 14.7 k/uL (1.3-7.7) H 07/07/21 07:10 Lymphocytes # 0.8 k/uL (1.0-4.8) L 07/07/21 07:10 Monocytes # 1.1 k/uL (0-1.0) H 07/07/21 07:10 Eosinophils # 0.0 k/uL (0-0.7) 07/07/21 07:10 Basophils # 0.0 k/uL (0-0.2) 07/07/21 07:10 Sodium 140 mmol/L (137-145) 07/07/21 07:10 Potassium 3.3 mmol/L (3.5-5.1) L 07/07/21 07:10 Chloride 102 mmol/L (98-107) 07/07/21 07:10 Carbon Dioxide 21 mmol/L (22-30) L 07/07/21 07:10 Anion Gap 17 mmol/L 07/07/21 07:10 BUN 31 mg/dL (7-17) H 07/07/21 07:10 Creatinine 1.50 mg/dL (0.52-1.04) H 07/07/21 07:10 Est GFR (CKD-EPI)AfAm 46 (>60 ml/min/1.73 sqM) 07/07/21 07:10 Est GFR (CKD-EPI)NonAf 40 (>60 ml/min/1.73 sqM) 07/07/21 07:10 Glucose 109 mg/dL (74-99) H 07/07/21 07:10 Calcium 11.1 mg/dL (8.4-10.2) H 07/07/21 07:10 Total Bilirubin 0.8 mg/dL (0.2-1.3) 07/07/21 07:10 AST 199 U/L (14-36) H 07/07/21 07:10 ALT 47 U/L (4-34) H 07/07/21 07:10 Alkaline Phosphatase 74 U/L (38-126) 07/07/21 07:10 Total Protein 7.9 g/dL (6.3-8.2) 07/07/21 07:10 Albumin 5.0 g/dL (3.5-5.0) 07/07/21 07:10 TSH 1.400 mIU/L (0.465-4.680) 07/07/21 07:10 Urine Opiates Screen Detected (NotDetected) H 07/06/21 16:50 Ur Oxycodone Screen Not Detected (NotDetected) 07/06/21 16:50 Urine Methadone Screen Not Detected (NotDetected) 07/06/21 16:50 Ur Propoxyphene Screen Not Detected (NotDetected) 07/06/21 16:50 Ur Barbiturates Screen Not Detected (NotDetected) 07/06/21 16:50 U Tricyclic Antidepress Detected (NotDetected) H 07/06/21 16:50 Ur Phencyclidine Scrn Not Detected (NotDetected) 07/06/21 16:50 Ur Amphetamines Screen Not Detected (NotDetected) 07/06/21 16:50 U Methamphetamines Scrn Not Detected (NotDetected) 07/06/21 16:50 U Benzodiazepines Scrn Not Detected (NotDetected) 07/06/21 16:50 Urine Cocaine Screen Not Detected (NotDetected) 07/06/21 16:50 U Marijuana (THC) Screen Detected (NotDetected) H 07/06/21 16:50 Coronavirus (PCR) Not Detected (Not Detectd) 07/06/21 16:59 07/07/21 10:40 IDENTIFYING DATA: Patient is a 51-year-old female currently lives with her friend houses 2 kids and is currently . She collects SSD. HPI: Patient presented to the hospital yesterday with complaints of not taking her medications and having auditory hallucinations for the past month. She also claims that she is feeling anxious. Her UDS was positive for opiates TCAs and THC. Patient's potassium was low and her WBCs and ANC was elevated this morning. Patient was admitted voluntarily to the psychiatric unit. Patient was seen today responding to internal stimuli in the lounge watching television. She did respond to her name and was agreeable to speak to senior grant writer in the office. She continued to respond to internal stimuli during the entire interview. She looked around the room and commented on different things. She also states that she had "Divina wheels" in her hand and place them on the task however there was nothing there. She claims that she is mainly "seeing things" and states that there are spots visions shading and pictures of people's faces. She claims that she also is experiencing auditory hallucinations including whistles bells and music were no weapons there. She is denying any depression or anxiety at this time. She claims that her sleep has been fair. She was alert and oriented 2 today she knew that she was in [place] and her name however believe that it was 08/07/2021. Patient denies any suicidal or homicidal ideations intent or plan. At this time patient denies any auditory or visual hallucinations. Patient denies any flight of ideas racing thoughts and increased in goal directed behavior. Patient admits to using marijuana daily, she uses THC oil. She denies any other recreational drug use PAST PSYCHIATRIC HISTORY: Patient states that she has a history of a TBI and depression and anxiety. She was previously on Cymbalta, Effexor, Risperdal. She states that she was last psychiatrically admitted to the mental health unit in 2010 after an overdose on Xanax. She states that she follows up at [facility]. Past Medical History: No Reported History Additional Past Medical History / Comment(s): migraines, Carpal tunnel, DDD, dvt-LT CALF, MS, milagros-malformation ALLERGIES: as per EMR CHEMICAL DEPENDENCY HISTORY: as per HPI FAMILY PSYCHIATRIC/SUBSTANCE USE HISTORY: She claims that her mother had "bipolar schizophrenia". SOCIAL HISTORY: Patient was born in [place] and moved to [place] afterwards wit h her family and was raised mainly in [place]. 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 She is currently on SSD. She has 2 kids. She is . She lives with her friend in a house. MENTAL STATUS EXAM: General Appearance: Patient appears to be overweight, short in stature, stated age is alert, attempts to cooperate. Responding to internal stimuli. Patient appears to have poor hygiene and grooming. Behavior: Patient is seated without any agitated behavior. Responding to internal stimuli. Speech: Patient's speech is hesitant. Mood/Affect: Patient reports their mood is ok, affect is congruent and constricted. Suicidality/Homicidality: Patient denies having any homicidal ideation intent or plan. Denies any suicidal ideations intent or plan Perceptions: Patient is admitting to experiencing visual and auditory hallucinations. Though content/process: [place], positive content. Logical for the most part. Memory and concentration: AOX2, however did not know today's date believes that it is 08/07/2021, poor attention span. Poor memory recall Judgment and insight: poor STRENGTHS/WEAKNESSES: strength is that patient is resilient. Weakness is that patient has poor judgment and is impulsive INTELLECT: average IMPRESSIONS: Psychosis unspecified, rule out secondary to general medical condition versus substance-induced Cannabis use disorder PLAN: -Patient is admitted under voluntary status to MHU for stabilization of psychiatric symptoms and safety. Patient has signed adult voluntary form and medication consent and is placed in patient's chart. -Medications : Will start patient on paliperidone by mouth 3 mg daily at bedtime for psychosis. Trazodone 50 mg daily at bedtime when necessary for insomnia. Effexor XR 150 mg daily for mood/anxiety. -Ativan and Haldol PRN for agitation/aggression -Patient was counselled on substance abuse and desired to cut back on use -Patient was informed of the risks, benefits and side effects of the medication and patient verbally consented to taking the medications. Patient signed med consent form and was placed in chart. -Internal Medicine consult to perform medical evaluation and physical. -NRT - not needed as patient does not smoke -SW on board for discharge planning. Encourage patient to participate in groups to work on coping skills.
[2021-07-07] MEDS ORDERED: POTASSIUM CHLORIDE ER 20 MEQ TAB.ER PO STA (11:35)
--- NOTE | 2021-07-07 11:37 | P.MDCNMH ---
History of Present Illness H&P Date: 07/07/21 HISTORY OF PRESENT ILLNESS This is a 51-year-old female patient of Dr. Aden with past medical history of migraine headaches, degenerative disc disease, left calf DVT, MS, chiari malformation, remote history of tobacco use, recurrent depression, generalized anxiety disorder. Patient states that she last saw Dr. Quispe one week ago and she has been following with Dr. Cruz in the wound Center at [facility] for wounds to the right lower extremity. She states she has been on 3 courses of antibiotics and just completed 1 which she took 1 time per day. Francisco king has had auditory and visual hallucinations. She states that she is not sleeping. Regarding her medications, patient states she has run out of some of her medications and did not have a vehicle to picking supervisor her prescriptions from the pharmacy. She states that she uses marijuana occasionally to ease pain. Urine drug screen was positive for opiates, tricyclic antidepressants and marijuana. Coronal virus PCR not detected. TSH 1.4. Sodium 140, potassium 3.3, chloride 102, CO2 21, BUN 31 creatinine 1.5. Blood sugar 109. AST 199, ALT 47. WBC 16.8, platelet count 596. REVIEW OF SYSTEMS Constitutional: No fever, no chills, no night sweats. No weight change. No weakness, fatigue or lethargy. No daytime sleepiness. EENT: No headache. No dizziness. No nasal drainage or congestion. No epistaxis. No sore throat. Lungs: No shortness of breath, cough, no sputum production. No wheezing. Cardiovascular: No chest pain, no lower extremity edema. No palpitations. No paroxysmal nocturnal dyspnea. No orthopnea. No lightheadedness or dizziness. No syncopal episodes. Abdominal: No abdominal pain. No nausea, vomiting. No diarrhea. No constipation. No bloody or tarry stools. No loss of appetite. Genitourinary: No dysuria, increased frequency, urgency. No urinary retention. Musculoskeletal: No myalgias. No muscle weakness, no gait dysfunction, no frequent falls. No back pain. No neck pain. Integumentary: Reports wounds, no lesions. No rash. Neurologic: No aphasia. No facial droop. No change in mentation. No head injury. No headache. No paralysis. No paresthesia. Tremors noted. Psychiatric: No depression. No anxiety. Reports auditory and visual hallucinations. Endocrine: No abnormal blood sugars. SOCIAL HISTORY Patient has history of smoking for about 10 years and quit last year. She uses marijuana occasionally. She denies any illicit drug use. No alcohol use. She lives with a friend. FAMILY HISTORY Mother from kidney cancer. Father from old age. Patient has 1 brother and 1 sister with no major medical problems. Patient has 2 sons and one has history of asthma. PHYSICAL EXAMINATION Gen: This is a 51-year-old obese female. Patient is seen on the mental health unit. HEENT: Head is atraumatic, normocephalic. Pupils equal, round. Sclerae is anicteric. NECK: Supple. No JVD. No lymphadenopathy. No thyromegaly. LUNGS: Clear to auscultation. No wheezes or rhonchi. No intercostal retractions. HEART: Regular rate and rhythm. No murmur. ABDOMEN: Soft. Bowel sounds are present. No masses. No tenderness. EXTREMITIES: Bilateral lower extremity pedal edema. No calf tenderness. Ulcer type wounds to the right lower extremity with surrounding erythema, no significant drainage. NEUROLOGICAL: Patient is awake, alert and oriented x3. Cranial nerves 2 through 12 are grossly intact. Tremors noted. Patient is having auditory hallucinations during interview. ASSESSMENT AND PLAN 1. Auditory and visual hallucinations. Patient managed to the mental health unit. Continue plan per psychiatry. 2. Leukocytosis most likely secondary to right lower extremity wounds. 3. Elevated liver function tests, ALT and AST. Recheck blood work tomorrow. 4. Hypokalemia. One dose of potassium 40 mEq will be given, recheck lab work in the morning. 5. Migraine headaches. Continue Inderal 40 mg twice daily Topamax 50 mg twice daily. 6. Degenerative disc disease. Continue baclofen 20 mg 3 times daily, gabapentin 600 mg 3 times daily. 7. Chronic ulcers to the right lower extremity. Consult with Dr. Cruz. Patient started on doxycycline 100 mg twice daily, continue Lasix 40 mg daily an d Zaroxolyn 2.5 mg daily. 8. History of MS. 9. Essential tremor. Continue amantadine 100 mg twice daily 10. Chiari malformation. 11. Mild intermittent asthma. Continue Ventolin inhaler 1 puff every 4 hours as needed. 12. Overactive bladder. Continue oxybutynin 10 mg at bedtime. 13. Gastroesophageal reflux disease, GI prophylaxis. Continue Protonix 40 mg twice daily. 14. Chronic kidney disease stage III. Avoid nephrotoxic agents, encourage oral intake. 15. COVID-19 testing negative. DISCHARGE PLAN Home. Follow up with Dr. Aden in one week after discharge. Impression and plan of care have been directed as dictated by the signing physician. Karol Estes nurse practitioner acting as scribe for signing physician. Past Medical History Past Medical History: No Reported History Additional Past Medical History / Comment(s): migraines, Carpal tunnel, DDD, dvt-LT CALF, MS, milagros-malformation, Recieves ocrevus Q 6 months History of Any Multi-Drug Resistant Organisms: None Reported Past Surgical History: Heart Catheterization, Hysterectomy, Orthopedic Surgery Additional Past Surgical History / Comment(s): chiari malformation decompression (08/2016), carpal tunnel BILAT WRISTS, COLONOSCOPY Past Anesthesia/Blood Transfusion Reactions: No Reported Reaction Past Psychological History: Anxiety, Depression Smoking Status: Former smoker Past Alcohol Use History: None Reported Additional Past Alcohol Use History / Comment(s): quit smoking 11/2019, smoked for 10 yrs Past Drug Use History: None Reported - Past Family History Mother Family Medical History: Cancer Additional Family Medical History / Comment(s): . Medications and Allergies Home Medications Medication Instructions Recorded Confirmed Type Baclofen [Lioresal] 20 mg PO TID 09/10/17 07/06/21 History Omeprazole 40 mg PO BID 09/10/17 07/06/21 History Topiramate [Trokendi Xr] 100 mg PO HS 09/10/17 07/06/21 History Fenofibrate [Lofibra] 160 mg PO DAILY 09/11/17 07/06/21 History Naproxen 500 mg PO BID PRN 05/24/18 07/06/21 History Oxybutynin Chloride [Ditropan XL] 10 mg PO DAILY 05/24/18 07/06/21 History Ascorbic Acid [Vitamin C] 1,000 mg PO DAILY 04/03/20 07/06/21 History Cholecalciferol (Vitamin D3) 50 mcg PO DAILY 04/03/20 07/06/21 History [Vitamin D3] amantadine HCL [Amantadine] 100 mg PO BID 04/03/20 07/06/21 History Albuterol Sulfate [Proair Hfa] 1 puff INHALATION RT-Q4H PRN 09/26/20 07/06/21 History DULoxetine HCL [Cymbalta] 60 mg PO HS 09/26/20 07/06/21 History Venlafaxine HCl ER [Effexor XR] 150 mg PO DAILY 09/26/20 07/06/21 History Doxepin HCl [SINEquan] 100 mg PO HS 07/06/21 07/06/21 History Furosemide [Lasix] 40 mg PO DAILY 07/06/21 07/06/21 History Gabapentin 600 mg PO TID 07/06/21 07/06/21 History Meclizine HCl 12.5 mg PO BID PRN 07/06/21 07/06/21 History Potassium Chloride ER [K-Dur 20] 20 meq PO DAILY 07/06/21 07/06/21 History Propranolol HCl 40 mg PO BID 07/06/21 07/06/21 History Torsemide [Demadex] 20 mg PO DAILY 07/06/21 07/06/21 History Vitamin E 400 unit PO DAILY 07/06/21 07/06/21 History metOLazone [Zaroxolyn] 2.5 mg PO DAILY 07/06/21 07/06/21 History risperiDONE [RisperDAL] 0.5 mg PO HS 07/06/21 07/06/21 History Allergies Allergy/AdvReac Type Severity Reaction Status Date / Time amoxicillin Allergy Rash/Hives Verified 07/06/21 21:27 bee venom protein (honey bee) Allergy Anaphylaxis Verified 07/06/21 21:27 Sulfa (Sulfonamide Allergy Rash/Hives Verified 07/06/21 21:27 Antibiotics) sulfamethoxazole Allergy Rash/Hives Verified 07/06/21 21:27 [From Bactrim] trimethoprim [From Bactrim] Allergy Rash/Hives Verified 07/06/21 21:27 Physical Exam Vitals: Vital Signs Temp Pulse Pulse Pulse Resp BP BP 07/07/21 06:37 98.7 F 101 H 16 131/65 07/06/21 19:58 99.0 F 110 H 18 07/06/21 19:40 99.0 F 110 H 18 105/93 07/06/21 15:25 98.2 F 100 18 119/72 Pulse Ox 07/07/21 06:37 07/06/21 19:58 07/06/21 19:40 97 07/06/21 15:25 98 Intake and Output 07/06/21 07/07/21 07/07/21 22:59 06:59 14:59 Other: Weight 79.7 kg Cranial Nerve Examination - Cranial Nerves Cranial Nerve I- Olfactory: Intact Cranial Nerve II- Optic: Intact Cranial Nerve III- Oculomotor: Intact Cranial Nerve IV- Trochlear: Intact Cranial Nerve V- Trigeminal: Intact Cranial Nerve - Abducens: Intact Cranial Nerve VII- Facial: Intact Cranial Nerve VIII- Auditory: Intact Cranial Nerve IX- Glossopharyngeal: Intact Cranial Nerve X- Vagus: Intact Cranial Nerve XI- Accessory: Intact Cranial Nerve XII- Hypoglossal: Intact Results CBC & Chem 7: 07/07/21 07:10 07/07/21 07:10 Labs: Abnormal Lab Results - Last 24 Hours (Table) 07/06/21 07/07/21 07/07/21 Range/Units 16:50 07:10 07:10 WBC 16.8 H (3.8-10.6) k/uL Plt Count 596 H (150-450) k/uL Neutrophils # 14.7 H (1.3-7.7) k/uL Lymphocytes # 0.8 L (1.0-4.8) k/uL Monocytes # 1.1 H (0-1.0) k/uL Potassium 3.3 L (3.5-5.1) mmol/L Carbon Dioxide 21 L (22-30) mmol/L BUN 31 H (7-17) mg/dL Creatinine 1.50 H (0.52-1.04) mg/dL Glucose 109 H (74-99) mg/dL Calcium 11.1 H (8.4-10.2) mg/dL AST 199 H (14-36) U/L ALT 47 H (4-34) U/L Urine Opiates Screen Detected H (NotDetected) U Tricyclic Antidepress Detected H (NotDetected) U Marijuana (THC) Screen Detected H (NotDetected)
[2021-07-07] MEDS: haloperidoL 5 MG TAB PO PRN (12:18)
[2021-07-07] MEDS: BACLOFEN 10 MG TAB PO SCH ×2 (14:14→21:46)
[2021-07-07] MEDS: LORazepam 1 MG TAB PO PRN (15:43)
[2021-07-07] MEDS ORDERED: OLANZapine 10 MG VIAL IM STA ×2 (15:47→16:04)
[2021-07-07] MEDS: PANTOPRAZOLE 40 MG TABLET PO SCH (21:46)
[2021-07-07] MEDS: PALIPERIDONE 3 MG TAB.ER.24 PO SCH (21:46)
[2021-07-07] MEDS: DOXYCYCLINE 100 MG CAP PO SCH (21:46)
[2021-07-07] MEDS: TOPIRAMATE 25 MG TAB PO SCH (21:46)
--- NOTE | 2021-07-07 23:49 | P.CONS ---
History of Present Illness - Reason for Consult Consult date: 07/07/21 leg wound Requesting physician: Karol Estes - History of Present Illness Went to the west unit door around 11:30 AM, ring the prajapati twice and waited for more than 5 minutes however there was no response and nobody came back to open up the door so the patient could not be seen or evaluated. Wound care nurse practitioner/ services are available at [facility] and can be consulted for management of this wound If the patient has any issue with infection patient may be transferred to the regular medical floor after her psych condition has stabilized and infectious disease should be consulted at that point Thank you infectious disease service will sign off at this point Past Medical History Past Medical History: No Reported History Additional Past Medical History / Comment(s): migraines, Carpal tunnel, DDD, dvt-LT CALF, MS, milagros-malformation, Recieves ocrevus Q 6 months History of Any Multi-Drug Resistant Organisms: None Reported Past Surgical History: Heart Catheterization, Hysterectomy, Orthopedic Surgery Additional Past Surgical History / Comment(s): chiari malformation decompression (08/2016), carpal tunnel BILAT WRISTS, COLONOSCOPY Past Anesthesia/Blood Transfusion Reactions: No Reported Reaction Past Psychological History: Anxiety, Depression Smoking Status: Former smoker Past Alcohol Use History: None Reported Additional Past Alcohol Use History / Comment(s): quit smoking 11/2019, smoked for 10 yrs Past Drug Use History: None Reported - Past Family History Mother Family Medical History: Cancer Additional Family Medical History / Comment(s): . Medications and Allergies Home Medications Medication Instructions Recorded Confirmed Type Baclofen [Lioresal] 20 mg PO TID 09/10/17 07/06/21 History Omeprazole 40 mg PO BID 09/10/17 07/06/21 History Topiramate [Trokendi Xr] 100 mg PO HS 09/10/17 07/06/21 History Fenofibrate [Lofibra] 160 mg PO DAILY 09/11/17 07/06/21 History Naproxen 500 mg PO BID PRN 05/24/18 07/06/21 History Oxybutynin Chloride [Ditropan XL] 10 mg PO DAILY 05/24/18 07/06/21 History Ascorbic Acid [Vitamin C] 1,000 mg PO DAILY 04/03/20 07/06/21 History Cholecalciferol (Vitamin D3) 50 mcg PO DAILY 04/03/20 07/06/21 History [Vitamin D3] amantadine HCL [Amantadine] 100 mg PO BID 04/03/20 07/06/21 History Albuterol Sulfate [Proair Hfa] 1 puff INHALATION RT-Q4H PRN 09/26/20 07/06/21 History DULoxetine HCL [Cymbalta] 60 mg PO HS 09/26/20 07/06/21 History Venlafaxine HCl ER [Effexor XR] 150 mg PO DAILY 09/26/20 07/06/21 History Doxepin HCl [SINEquan] 100 mg PO HS 07/06/21 07/06/21 History Furosemide [Lasix] 40 mg PO DAILY 07/06/21 07/06/21 History Gabapentin 600 mg PO TID 07/06/21 07/06/21 History Meclizine HCl 12.5 mg PO BID PRN 07/06/21 07/06/21 History Potassium Chloride ER [K-Dur 20] 20 meq PO DAILY 07/06/21 07/06/21 History Propranolol HCl 40 mg PO BID 07/06/21 07/06/21 History Torsemide [Demadex] 20 mg PO DAILY 07/06/21 07/06/21 History Vitamin E 400 unit PO DAILY 07/06/21 07/06/21 History metOLazone [Zaroxolyn] 2.5 mg PO DAILY 07/06/21 07/06/21 History risperiDONE [RisperDAL] 0.5 mg PO HS 07/06/21 07/06/21 History Ocrevus Infusion 600 mg IV Q182D 07/07/21 07/07/21 History Allergies Allergy/AdvReac Type Severity Reaction Status Date / Time amoxicillin Allergy Rash/Hives Verified 07/06/21 21:27 bee venom protein (honey bee) Allergy Anaphylaxis Verified 07/06/21 21:27 Sulfa (Sulfonamide Allergy Rash/Hives Verified 07/06/21 21:27 Antibiotics) sulfamethoxazole Allergy Rash/Hives Verified 07/06/21 21:27 [From Bactrim] trimethoprim [From Bactrim] Allergy Rash/Hives Verified 07/06/21 21:27 Physical Exam Vitals: Vital Signs Temp Pulse Resp BP 07/07/21 08:03 118 H 16 161/74 07/07/21 06:37 98.7 F 101 H 16 131/65 Results CBC & Chem 7: 07/07/21 07:10 07/07/21 07:10 Labs: Abnormal Lab Results - Last 24 Hours (Table) 07/07/21 07/07/21 Range/Units 07:10 07:10 WBC 16.8 H (3.8-10.6) k/uL Plt Count 596 H (150-450) k/uL Neutrophils # 14.7 H (1.3-7.7) k/uL Lymphocytes # 0.8 L (1.0-4.8) k/uL Monocytes # 1.1 H (0-1.0) k/uL Potassium 3.3 L (3.5-5.1) mmol/L Carbon Dioxide 21 L (22-30) mmol/L BUN 31 H (7-17) mg/dL Creatinine 1.50 H (0.52-1.04) mg/dL Glucose 109 H (74-99) mg/dL Calcium 11.1 H (8.4-10.2) mg/dL AST 199 H (14-36) U/L ALT 47 H (4-34) U/L
[2021-07-08] MEDS: GABAPENTIN 300 MG CAP PO SCH ×3 (08:22→21:13)
[2021-07-08] MEDS: PANTOPRAZOLE 40 MG TABLET PO SCH ×2 (08:23→21:13)
[2021-07-08] MEDS: FENOFIBRATE 160 MG TAB PO SCH (08:23)
[2021-07-08] MEDS: TOPIRAMATE 25 MG TAB PO SCH ×2 (08:23→21:13)
[2021-07-08] MEDS: PROPRANOLOL 40 MG TAB PO SCH ×2 (08:23→21:35)
[2021-07-08] MEDS: OXYBUTYNIN 10 MG TAB.ER.24 PO SCH (08:23)
[2021-07-08] MEDS: metOLazone 2.5 MG TAB PO SCH (08:23)
[2021-07-08] MEDS: FUROSEMIDE 40 MG TAB PO SCH (08:23)
[2021-07-08] MEDS: ASCORBIC ACID 500 MG TAB PO SCH (08:23)
[2021-07-08] MEDS: BACLOFEN 10 MG TAB PO SCH ×3 (08:24→21:13)
[2021-07-08] MEDS: CHOLECALCIFEROL 25 MCG (1000 IU) TABLET PO SCH (08:24)
[2021-07-08] MEDS: DOXYCYCLINE 100 MG CAP PO SCH ×2 (08:24→21:13)
[2021-07-08] MEDS: POTASSIUM CHLORIDE ER 20 MEQ TAB.ER PO SCH (08:24)
[2021-07-08] MEDS: VENLAFAXINE HCL ER 150 MG CAP PO SCH (08:24)
--- NOTE | 2021-07-08 10:38 | P.PN ---
Progress Note - Text Progress Note Date: 07/08/21 Interval History: Patient was seen wandering the hallways and was directable and agreeable to desiree rosenbaum with teletypewriter operator in the office. Patient appeared to be have an improvement in her hygiene and grooming today. She was more directable during conversation and more appropriate. She appeared to be having an improvement in her responding to internal stimuli today and was gazing around the room less today. She was more appropriate during conversation. She states that she is doing mildly better ove rall. She continues to be concrete and have minimal insight into her condition and medications. She states that she is able to sleep fairly last night. She claims that she did need a Zyprexa IM yesterday as she was feeling agitated. She claims that she has been going to groups however was fairly vague about what she is learning. She claims that overall her mood has been gradually improving. At this time patient denies any suicidal or homical ideations, intent or plan. Patient denies any auditory, visual hallucinations and denies any paranoia or delusions. Patient denies any side effects from the medications and has been compliant with meds. Mental Status Exam: General Appearance: Patient appears to be overweight, short in stature, stated age is alert, attempts to cooperate. Responding to internal stimuli less today. Patient appears to have improving hygiene and grooming. Behavior: Patient is seated without any agitated behavior. More appropriate today. Speech: Patient's speech is hesitant, proving mildly Mood/Affect: Patient reports their mood is ok, affect is congruent and constricted. Suicidality/Homicidality: Patient denies having any homicidal ideation intent or plan. Denies any suicidal ideations intent or plan Perceptions: Patient is denying any auditory or visual hallucinations today. Though content/process: [place], positive content. Logical for the most part. Memory and concentration: AOX2-3, improving concentration and attention span. Judgment and insight: poor, and proving mildly Assessment Psychosis unspecified, rule out secondary to general medical condition versus substance-induced Cannabis use disorder Plan: -Patient continues to meet criteria for inpatient psychiatric admission for symptom stabilization and safety. Patient has signed adult voluntary form and medication consent and was placed in patient's chart. -Medications: Continue with paliperidone by mouth 3 mg daily at bedtime for psychosis. Trazodone 50 mg daily at bedtime when necessary for insomnia. Continue with Effexor XR 150 mg daily for mood/anxiety. -When necessary Ativan and Haldol for agitation/aggression. -Patient was seen by internal medicine and also by infectious disease for consult on chronic leg wounds. Patient is being treated with antibiotics for this. -NRT - not needed as patient does not smoke -SW on board for discharge planning. Encouraged the patient to participate in milieu. Likely discharge in 1-2 days. crop farm workers to work with patient on potential placement options.
[2021-07-08 12:58] LABS: HCT 37.8 % (34.0-46.0); HGB 12.7 gm/dL (11.4-16.0); MCH 28.2 pg (25.0-35.0); MCHC 33.5 g/dL (31.0-37.0); MCV 84.2 fL (80.0-100.0); Mean Platelet Volume 7.4; Platelet Count 619 k/uL (150-450); RBC 4.49 m/uL (3.80-5.40); RDW 14.7 % (11.5-15.5); WBC 8.7 k/uL (3.8-10.6)
[2021-07-08 13:17] LABS: Albumin 4.9 g/dL (3.5-5.0); Calcium 10.6 mg/dL (8.4-10.2); Potassium 3.6 mmol/L (3.5-5.1); Total Bilirubin 0.6 mg/dL (0.2-1.3); Total Protein 7.9 g/dL (6.3-8.2)
[2021-07-08] MEDS: BACITRACIN OINT 1 EACH PACKET TOPICAL SCH ×2 (15:12→21:14)
[2021-07-08 16:20] LABS: Chol/HDL Ratio 2.83 Ratio; HDL Cholesterol 77.8 mg/dL (40.00-60.00); LDL Cholesterol,Calculated 126.9 mg/dL (0.0-131.0); Triglycerides 76.3 mg/dL (0.00-149.00); VLDL Calculation 15.26 mg/dL (5.00-40.00)
[2021-07-08] MEDS: PALIPERIDONE 3 MG TAB.ER.24 PO SCH (21:13)
[2021-07-09] MEDS: BACITRACIN OINT 1 EACH PACKET TOPICAL SCH ×2 (07:57→19:17)
[2021-07-09] MEDS: OXYBUTYNIN 10 MG TAB.ER.24 PO SCH (07:57)
[2021-07-09] MEDS: DOXYCYCLINE 100 MG CAP PO SCH ×2 (07:57→21:12)
[2021-07-09] MEDS: VENLAFAXINE HCL ER 150 MG CAP PO SCH (07:58)
[2021-07-09] MEDS: ASCORBIC ACID 500 MG TAB PO SCH (07:58)
[2021-07-09] MEDS: metOLazone 2.5 MG TAB PO SCH (07:59)
[2021-07-09] MEDS: GABAPENTIN 300 MG CAP PO SCH ×3 (07:59→21:12)
[2021-07-09] MEDS: CHOLECALCIFEROL 25 MCG (1000 IU) TABLET PO SCH (07:59)
[2021-07-09] MEDS: BACLOFEN 10 MG TAB PO SCH ×3 (08:00→21:12)
[2021-07-09] MEDS: PROPRANOLOL 40 MG TAB PO SCH ×2 (08:00→21:13)
[2021-07-09] MEDS: TOPIRAMATE 25 MG TAB PO SCH ×2 (08:00→21:13)
[2021-07-09] MEDS: PANTOPRAZOLE 40 MG TABLET PO SCH ×2 (08:00→21:12)
[2021-07-09] MEDS: POTASSIUM CHLORIDE ER 20 MEQ TAB.ER PO SCH (08:00)
[2021-07-09] MEDS: FENOFIBRATE 160 MG TAB PO SCH (08:00)
[2021-07-09] MEDS: FUROSEMIDE 40 MG TAB PO SCH (08:01)
--- NOTE | 2021-07-09 10:40 | P.PN ---
Progress Note - Text Progress Note Date: 07/09/21 Interval History: Patient was seen wandering the hallways and was directable and agreeable to desiree rosenbaum with display card writer in the office. Patient appeared to be have an improvement in her hygiene and grooming today. She appeared to have improvement in her attention span. She continues to be concrete in that poverty of content. She was not responding to internal stimuli today. She claims that she slept fairly throughout the night. She claims that she has been taking her medications and claims that they have been helping her. She was asking about her "little doll" that she was taking care of at home and did not know who was taking care of her. She seemed to be more appropriate during conversation. He continues to be gazing around the room less today. She states that she is doing mildly better overall. She and insight and judgment have been gradually improving. She claims that she has been going to groups however was fairly vague about what she is learning. At this time patient denies any suicidal or homical ideations, intent or plan. Patient denies any auditory, visual hallucinations and denies any paranoia or delusions. Patient denies any side effects from the medications and has been compliant with meds. Mental Status Exam: General Appearance: Patient appears to be overweight, short in stature, stated age is alert, attempts to cooperate. not responding to internal stimuli today. Patient appears to have improving hygiene and grooming. Behavior: Patient is seated without any agitated behavior. More appropriate today. Speech: Patient's speech is hesitant, proving mildly Mood/Affect: Patient reports their mood is improving mildly, affect is congruent and constricted. Suicidality/Homicidality: Patient denies having any homicidal ideation intent or plan. Denies any suicidal ideations intent or plan Perceptions: Patient is denying any auditory or visual hallucinations today. Though content/process: [place], positive content. Logical for the most part. Memory and concentration: AOX2-3, improving concentration and attention span. Judgment and insight: poor, and improving mildly Assessment Psychosis unspecified, rule out secondary to general medical condition versus substance-induced Cannabis use disorder Plan: -Patient continues to meet criteria for inpatient psychiatric admission for symptom stabilization and safety. Patient has signed adult voluntary form and medication consent and was placed in patient's chart. -Medications: Continue with paliperidone by mouth 3 mg daily at bedtime for psychosis. Trazodone 50 mg daily at bedtime when necessary for insomnia. Continue with Effexor XR 150 mg daily for mood/anxiety. -When necessary Ativan and Haldol for agitation/aggression. -Patient was seen by internal medicine and also by infectious disease for consult on chronic leg wounds. Patient is being treated with doxycycline for this. -Will repeat liver function test tomorrow as patient has elevated LFTs. WBCs improved since yesterday. vitals wnl. -awaiting B12 and folic acid levels. Urine culture pending. -NRT - not needed as patient does not smoke -SW on board for discharge planning. Encouraged the patient to participate in milieu. Likely discharge in 1-2 days. overhead line worker to work with patient on potential placement options.
[2021-07-09 14:07] LABS: Folate, Serum 18.1 ng/mL (4.40-31.00)
[2021-07-09] MEDS: PALIPERIDONE 6 MG TAB.ER.24 PO SCH (21:13)
[2021-07-10 07:46] LABS: Albumin 4.4 g/dL (3.5-5.0); Bilirubin, Delta 0.5 mg/dL (0.0-0.2); Total Bilirubin 0.5 mg/dL (0.2-1.3); Total Protein 7.1 g/dL (6.3-8.2)
[2021-07-10] MEDS: POTASSIUM CHLORIDE ER 20 MEQ TAB.ER PO SCH (08:30)
[2021-07-10] MEDS: PANTOPRAZOLE 40 MG TABLET PO SCH ×2 (08:30→20:49)
[2021-07-10] MEDS: OXYBUTYNIN 10 MG TAB.ER.24 PO SCH (08:30)
[2021-07-10] MEDS: VENLAFAXINE HCL ER 150 MG CAP PO SCH (08:30)
[2021-07-10] MEDS: TOPIRAMATE 25 MG TAB PO SCH ×2 (08:30→20:48)
[2021-07-10] MEDS: PROPRANOLOL 40 MG TAB PO SCH ×2 (08:30→20:49)
[2021-07-10] MEDS: BACITRACIN OINT 1 EACH PACKET TOPICAL SCH ×2 (08:31→20:51)
[2021-07-10] MEDS: FENOFIBRATE 160 MG TAB PO SCH (08:31)
[2021-07-10] MEDS: FUROSEMIDE 40 MG TAB PO SCH (08:31)
[2021-07-10] MEDS: ASCORBIC ACID 500 MG TAB PO SCH (08:31)
[2021-07-10] MEDS: CHOLECALCIFEROL 25 MCG (1000 IU) TABLET PO SCH (08:31)
[2021-07-10] MEDS: DOXYCYCLINE 100 MG CAP PO SCH ×2 (08:32→20:48)
[2021-07-10] MEDS: metOLazone 2.5 MG TAB PO SCH (08:32)
[2021-07-10] MEDS: BACLOFEN 10 MG TAB PO SCH ×3 (08:32→20:48)
[2021-07-10] MEDS: GABAPENTIN 300 MG CAP PO SCH ×3 (08:33→21:10)
--- NOTE | 2021-07-10 11:40 | P.PN ---
Progress Note - Text Progress Note Date: 07/10/21 Interval History: Patient was seen taking part in activities group today and was directable and agreeable to speak with tag writer in the office. Patient appeared to be have an improvement in her hygiene and grooming today. She spoke about doing word searches during activities group. She states that she is enjoying these groups. She claims that she feels better overall however was claiming that she is feeling "a bit sad" today. She states that she is not sure where she will be going when she is discharged. She would like to return back to her friend [place] where she came from before however believes that "he's trying to evict me out of there". She states that she also needs to speak with her son Jeffy over the phone. She claims that her depression and anxiety of an improving. She was a lot more appropriate today and answered questions appropriately. He was alert and oriented 3 today. States that she is not having any problems with the medications. She claims that she slept fairly throughout the night last night. At this time patient denies any suicidal or homical ideations, intent or plan. Patient denies any auditory, visual hallucinations and denies any paranoia or delusions. Patient denies any side effects from the medications and has been compliant with meds. Mental Status Exam: General Appearance: Patient appears to be overweight, short in stature, stated age is alert, attempts to cooperate. Patient appears to have improving hygiene and grooming. Behavior: Patient is seated without any agitated behavior. More appropriate today. Speech: Patient's speech is fluent, improving mildly, highly disorganized at times. Mood/Affect: Patient reports their mood is improving mildly, affect is congruent and constricted. Suicidality/Homicidality: Patient denies having any homicidal ideation intent or plan. Denies any suicidal ideations intent or plan Perceptions: Patient is denying any auditory or visual hallucinations today. Though content/process: [place], chart oriented. Logical for the most part. Memory and concentration: AOX2-3, improving concentration and attention span. Judgment and insight: improving mildly Assessment Psychosis unspecified, rule out secondary to general medical condition versus substance-induced Cannabis use disorder Plan: -Patient continues to meet criteria for inpatient psychiatric admission for symptom stabilization and safety. Patient has signed adult voluntary form and medication consent and was placed in patient's chart. -Medications: Continue paliperidone by mouth 6 mg daily at bedtime for psychosis. Trazodone 50 mg daily at bedtime when necessary for insomnia. Continue with Effexor XR 150 mg daily for mood/anxiety. -When necessary Ativan and Haldol for agitation/aggression. -Patient was seen by internal medicine and also by infectious disease for consult on chronic leg wounds. Patient is being treated with doxycycline for this. -TSH - wnl, folic acid - 18.1. AST and ALT improving. -NRT - not needed as patient does not smoke -SW on board for discharge planning. Encouraged the patient to participate in milieu. Likely discharge on tuesday. SW to see if patient would be able to return back home on tuesday.
[2021-07-10] MEDS: PALIPERIDONE 6 MG TAB.ER.24 PO SCH (20:48)
[2021-07-11] MEDS: DOXYCYCLINE 100 MG CAP PO SCH ×2 (08:49→22:08)
[2021-07-11] MEDS: FUROSEMIDE 40 MG TAB PO SCH (08:49)
[2021-07-11] MEDS: FENOFIBRATE 160 MG TAB PO SCH (08:49)
[2021-07-11] MEDS: PROPRANOLOL 40 MG TAB PO SCH ×2 (08:49→20:50)
[2021-07-11] MEDS: POTASSIUM CHLORIDE ER 20 MEQ TAB.ER PO SCH (08:49)
[2021-07-11] MEDS: OXYBUTYNIN 10 MG TAB.ER.24 PO SCH (08:50)
[2021-07-11] MEDS: CHOLECALCIFEROL 25 MCG (1000 IU) TABLET PO SCH (08:53)
[2021-07-11] MEDS: BACLOFEN 10 MG TAB PO SCH ×3 (08:54→21:26)
[2021-07-11] MEDS: ASCORBIC ACID 500 MG TAB PO SCH (08:55)
[2021-07-11] MEDS: metOLazone 2.5 MG TAB PO SCH (08:56)
[2021-07-11] MEDS: BACITRACIN OINT 1 EACH PACKET TOPICAL SCH ×2 (08:56→20:49)
[2021-07-11] MEDS: GABAPENTIN 300 MG CAP PO SCH ×3 (08:56→21:26)
[2021-07-11] MEDS: VENLAFAXINE HCL ER 150 MG CAP PO SCH (08:58)
[2021-07-11] MEDS: PANTOPRAZOLE 40 MG TABLET PO SCH ×2 (08:58→20:50)
[2021-07-11] MEDS: TOPIRAMATE 25 MG TAB PO SCH ×2 (08:58→20:49)
[2021-07-11] MEDS: BENZTROPINE MESYLATE 0.5 MG TAB PO SCH ×2 (13:22→20:53)
--- NOTE | 2021-07-11 20:58 | P.PN ---
Progress Note - Text Progress Note Date: 07/11/21 Subjective: Patient was seen today as a cross coverage for Dr. Moya. The patient was evaluated, chart reviewed, case discussed with the treatment team. Patient reports interrupted sleep last night, and appetite was reported as " fair". Patient has been going to groups and other unit activities. The patient is compliant with her medications and denies any adverse reactions. Patient reports her mood is better and she continues to have some anxiety. She feels angry at herself but denies any feeling of hopelessness, suicidal or homicidal ideation. Denies any hallucinations, paranoid ideation, or delusions. Patient presents was a slurry speech and reports feeling the same for the last 2 days. She noticed worsening of her speech and had heart time to form her works. Objective: Vitals has been reviewed. Mental status examination; Appearance: The patient appears stated age, adequately groomed and dressed, no specific features. Gait/posture: Normal gait, Normal arm swinging: No abnormal movements. Attitude and behavior: engaged, cooperative, fair eye contact. Motor activity: Normal psychomotor activity Speech: Slurry speech, couldn't speak normally. Mood: Anxious Affect: Constricted Thought form: goal-directed, linear, coherent. Thought content: Non-delusional, denies suicidal thoughts, denies homicidal thoughts, denies intentions or plans. Perception: Denies any auditory or visual hallucinations Attention: No impairment. Orientation: Patient was fully oriented to time place person and situation. Insight: Patient has fair insight about her psychiatric disorder. Judgment: Patient has fair judgment about her psychiatric treatment. Assessment: Psychosis unspecified, rule out secondary to general medical condition versus substance-induced Cannabis use disorder Plan: Continue inpatient level of care due to patient needs further monitoring and st abilization, and he still meets criteria for inpatient level of care Precautions: Continue 15 minutes check for safety. Consider medical consultation if any acute medical issues arise. Provide the patient individual, group therapy, substance use disorder counseling to give better insight and learn coping skills. Medications: Hold Invega as it possibly causes EPS and will consider to resume it. Start Cogentin 0.5 mg BID for 2 doses and will monitor patient's EPS symptoms tomorrow. Continue Effexor 150 mg daily for depression and anxiety. Continue nicotine replacement therapy. Continue trazodone and increase the dose to 100 mg for better sleep and to help with depression and anxiety. Continue as needed medications for psychiatric emergencies including haldol for psychosis, agitation and Ativan for anxiety. Continue non-psychiatric medications for medical conditions as recommended by the medical team. Discharge patient to OUTPATIENT services upon a stabilization
[2021-07-12] MEDS: FENOFIBRATE 160 MG TAB PO SCH (07:44)
[2021-07-12] MEDS: OXYBUTYNIN 10 MG TAB.ER.24 PO SCH (07:45)
[2021-07-12] MEDS: DOXYCYCLINE 100 MG CAP PO SCH ×2 (07:45→21:18)
[2021-07-12] MEDS: POTASSIUM CHLORIDE ER 20 MEQ TAB.ER PO SCH (07:45)
[2021-07-12] MEDS: metOLazone 2.5 MG TAB PO SCH (07:45)
[2021-07-12] MEDS: PROPRANOLOL 40 MG TAB PO SCH ×2 (07:45→21:43)
[2021-07-12] MEDS: FUROSEMIDE 40 MG TAB PO SCH (07:45)
[2021-07-12] MEDS: ASCORBIC ACID 500 MG TAB PO SCH (07:46)
[2021-07-12] MEDS: PANTOPRAZOLE 40 MG TABLET PO SCH ×2 (07:46→21:19)
[2021-07-12] MEDS: BACLOFEN 10 MG TAB PO SCH ×3 (07:47→21:19)
[2021-07-12] MEDS: TOPIRAMATE 25 MG TAB PO SCH ×2 (07:47→21:20)
[2021-07-12] MEDS: CHOLECALCIFEROL 25 MCG (1000 IU) TABLET PO SCH (07:47)
[2021-07-12] MEDS: GABAPENTIN 300 MG CAP PO SCH ×3 (07:48→21:19)
[2021-07-12] MEDS: VENLAFAXINE HCL ER 150 MG CAP PO SCH (07:48)
[2021-07-12] MEDS: BACITRACIN OINT 1 EACH PACKET TOPICAL SCH ×2 (08:07→21:21)
--- NOTE | 2021-07-12 22:35 | P.PN ---
Progress Note - Text Progress Note Date: 07/12/21 Subjective: Patient was seen today as a cross coverage for Dr. Moya. The patient was evaluated, chart reviewed, case discussed with the treatment team. Patient reports he slept much better last night with increasing trazodone dose. She denies any appetite problem, and he continues to attend groups and other unit activities. Patient reports improvement of her slurred speech and today doesn't have difficulty to find words. Patient stopped Invega since yesterday and apparently the medication caused her EPS. Discussed with the patient other medication for mood stabilization, and she agreed to start on Abilify. She reports is still having mood swings and bouts of depression with extreme anxiety about her housing situation after discharge. She reports a lot of anger and easily agitated. She denies any suicidal or homicidal ideation. No report of hallucinations, paranoid ideation, or delusions. Objective: Vitals has been reviewed. Mental status examination; Appearance: The patient appears stated age, adequately groomed and dressed, no specific features. Gait/posture: Normal gait, Normal arm swinging: No abnormal movements. Attitude and behavior: engaged, cooperative, fair eye contact. Motor activity: Normal psychomotor activity Speech: Normal rate, volume, not pressured. Mood: Anxious Affect: Constricted Thought form: goal-directed, linear, coherent. Thought content: Non-delusional, denies suicidal thoughts, denies homicidal thoughts, denies intentions or plans. Perception: Denies any auditory or visual hallucinations Attention: No impairment. Orientation: Patient was fully oriented to time place person and situation. Insight: Patient has fair insight about her psychiatric disorder. Judgment: Patient has fair judgment about her psychiatric treatment. Assessment: Psychosis unspecified, rule out secondary to general medical condition versus substance-induced Cannabis use disorder Plan: Continue inpatient level of care due to patient needs further monitoring and stabilization, and he still meets criteria for inpatient level of care Precautions: Continue 15 minutes check for safety. Consider medical consultation if any acute medical issues arise. Provide the patient individual, group therapy, substance use disorder counseling to give better insight and learn coping skills. Medications: Discontinue Invega caused EPS and pt symptoms resolved after medication discontinued. Start Abilify 5 mg PO QD for mood stabilization Pt received 2 doses of Cogentin 0.5 mg yesterday which helped resolving EPS 2ry to Invega. Continue Effexor 150 mg daily for depression and anxiety. Continue trazodone 100 mg for better sleep and to help with depression and anxiety. Continue as needed medications for psychiatric emergencies including haldol for psychosis, agitation and Ativan for anxiety. Continue non-psychiatric medications for medical conditions as recommended by the medical team. Discharge patient to OUTPATIENT services upon a stabilization
[2021-07-13 05:31] VITALS: TEMP 96.7
[2021-07-13] MEDS: TOPIRAMATE 25 MG TAB PO SCH (08:13)
[2021-07-13] MEDS: GABAPENTIN 300 MG CAP PO SCH (08:13)
[2021-07-13] MEDS: PANTOPRAZOLE 40 MG TABLET PO SCH (08:13)
[2021-07-13] MEDS: BACLOFEN 10 MG TAB PO SCH (08:13)
[2021-07-13] MEDS: POTASSIUM CHLORIDE ER 20 MEQ TAB.ER PO SCH (08:13)
[2021-07-13] MEDS: BACITRACIN OINT 1 EACH PACKET TOPICAL SCH (08:13)
[2021-07-13] MEDS: ASCORBIC ACID 500 MG TAB PO SCH (08:14)
[2021-07-13] MEDS: CHOLECALCIFEROL 25 MCG (1000 IU) TABLET PO SCH (08:14)
[2021-07-13] MEDS: VENLAFAXINE HCL ER 150 MG CAP PO SCH (08:14)
[2021-07-13] MEDS: metOLazone 2.5 MG TAB PO SCH (08:30)
[2021-07-13] MEDS: OXYBUTYNIN 10 MG TAB.ER.24 PO SCH (08:30)
[2021-07-13] MEDS: FENOFIBRATE 160 MG TAB PO SCH (08:30)
[2021-07-13] MEDS: DOXYCYCLINE 100 MG CAP PO SCH (08:31)
[2021-07-13] MEDS: PROPRANOLOL 40 MG TAB PO SCH (08:31)
[2021-07-13] MEDS: FUROSEMIDE 40 MG TAB PO SCH (08:31)
[2021-07-13 08:54] VITALS: BP 112/65; PULSE 88; RESP 16
[2021-07-13] MEDS ORDERED: ARIPiprazole 5 MG TAB PO SCH (09:00)
--- NOTE | 2021-07-13 09:39 | P.DS ---
Providers Date of admission: 07/06/21 19:03 Expected date of discharge: 07/13/21 Attending physician: Flakito Moya MD Consults: 07/06/21 19:46 Consult Physician Routine Consulting Provider: Antonieta Aden Consult Reason/Comments: H&P and medical Do you want consulting provider notified?: Yes 07/07/21 08:59 Consult Physician Routine Consulting Provider: Rita Cruz Consult Reason/Comments: wounds right leg Do you want consulting provider notified?: Yes Primary care physician: Antonieta Aedn MD - Discharge Diagnosis(es) (1) Unspecified psychosis Current Visit: Yes Status: Acute Priority: High (2) Cannabis use disorder, mild, abuse Current Visit: Yes Status: Acute Priority: Medium Hospital Course: Admission HPI: Admission note was completed by [typewriter ribbon winder] "[Patient is a 51-year-old female currently lives with her friend houses 2 kids and is currently . She collects SSD. Patient presented to the hospital yesterday with complaints of not taking her medications and having auditory hallucinations for the past month. She also claims that she is feeling anxious. Her UDS was positive for opiates TCAs and THC. Patient's potassium was low and her WBCs and ANC was elevated this morning. Patient was admitted voluntarily to the psychiatric unit. Patient was seen today responding to internal stimuli in the lounge watching television. She did respond to her name and was agreeable to speak to typewriter ribbon winder in the office. She continued to respond to internal stimuli during the entire interview. She looked around the room and commented on different things. She also states that she had "Divina wheels" in her hand and place them on the task however there was nothing there. She claims that she is mainly "seeing things" and states that there are spots visions shading and pictures of people's faces. She claims that she also is experiencing auditory hallucinations including whistles bells and music were no weapons there. She is denying any depression or anxiety at this time. She claims that her sleep has been fair. She was alert and oriented 2 today she knew that she was in [place] and her name however believe that it was 08/07/2021. Patient denies any suicidal or homicidal ideations intent or plan. At this time patient denies any auditory or visual hallucinations. Patient denies any flight of ideas racing thoughts and increased in goal directed behavior. Patient admits to using marijuana daily, she uses THC oil. She denies any other recreational drug use]" Hospital course: Upon admission to the unit patient was initially [bizarre hallucinating and disorganized]. Patient was however [directable and agreeable to commence treatment and signed adult voluntary form]. Patient got along well with other patients on the unit and followed unit protocol. Patient was compliant with the medications and denied any side effects throughout hospital course. Patient was started on paliperidone however due to oversedation and reported intolerance by patient, patient was switched onto Abilify 5 mg daily for psychosis/mood stabilization. Patient was discontinued off of her Cymbalta and doxepin. She was restarted on Effexor XR 150 mg daily for mood/anxiety. Patient spoke of her stressors and engaged in therapy both group and individual. Patient was also seen by medical team for history and physical exam. Patient had elevated LFTs initially however improved during the course of her hospitalization. Patient was informed that she will need to continue on being followed up with these labs in one to 2 weeks by her PCP. Patient's TSH was within normal limits. Her folic acid was 18.1. Patient was also seen by infectious disease consultation for chronic leg wounds. Patient was being treated with bacitracin ointment and doxycycline by mouth and will need to follow-up with infectious disease and wound care upon discharge. Throughout the course of the hospitalization patient gradually improved with regards to [mood, anxiety], psychosis, sleep and became more future oriented with improved insight and judgment. On the day of discharge patient denied any suicidal or homicidal ideations intent or plan denied any auditory or visual hallucinations. Patient endorsed wanting to live for her family and her future. The patient denied any access to guns or weapons. Patient denied any paranoia and did not endorse any delusions. Patient does [not] have a significant history of substance abuse however was counseled on abstaining from all substances including alcohol and marijuana. Patient was also counseled on the medications and need for regular compliance and was encouraged to follow-up with their outpatient appointment for mental health and also for primary care. [Prior to discharge a family meeting will be arranged by bilingual social worker to answer any questions and ensure safety upon discharge.] general ii farmworker to help patient with placement upon discharge as her current landlord is evicting her on July 25. Mental status exam: General Appearance: Patient appears to be short in stature, overweight, stated age is alert, pleasant, and cooperative. Patient is in no acute distress and has improved hygiene and grooming Behavior: Patient is calmly seated without any agitated behavior. Speech: Patient's speech is fluent and nonpressured. Mood/Affect: Patient reports their mood is "good", affect is congruent and euthymic. Suicidality/Homicidality: Patient denies having any suicidal or homicidal ideation intent or plan. Perceptions: Patient denies any auditory or visual hallucinations. Though content/process: There is no evidence of any delusional thought content and thought process is linear and goal-directed. [more future oriented] Memory and concentration: AOX3, grossly intact for the purposes of this session. Can spell "WORLD" backwards correctly. Judgment and insight: improved with guarded prognosis Impression: Psychosis unspecified, rule out secondary to a general medical condition versus substance-induced. Cannabis use disorder mild Plan: -Continue with discharge today as patient has improved and stabilized psychiatrically and is not currently an imminent threat to herself and/or others. -Continue medications: Abilify 5 mg by mouth daily for mood stabilization/psychosis, Effexor 150 mg daily for mood/anxiety. -Patient was counseled on the need for medication compliance and appropriate follow-up at mental health and also primary care for medical issues. Patient verbalized understanding and agreed. -Social work to [arrange for and conduct family meeting to ensure safety upon discharge and answer any questions/concerns.] Social work also to arrange for patients follow up appointments [with [facility]] for psychiatric care along with follow up with primary care provider. Patient will need to follow-up with her PCP regarding her elevated LFTs which have improved during the course of the hospitalization. Patient will also be following up with infectious disease in 1 week and also wound care for her chronic leg wounds. -Patient counseled on abstaining from recreational drugs and marijuana and alcohol. Was informed/educated on the adverse effects on their physical and mental health. [Patient verbally agreed and understood]. -Patient was instructed to return to the hospital or seek immediate medical care if their psychiatric or medical symptoms do worsen or reoccur. Allergies Allergy/AdvReac Type Severity Reaction Status Date / Time amoxicillin Allergy Rash/Hives Verified 07/06/21 21:27 bee venom protein (honey bee) Allergy Anaphylaxis Verified 07/06/21 21:27 Sulfa (Sulfonamide Allergy Rash/Hives Verified 07/06/21 21:27 Antibiotics) sulfamethoxazole Allergy Rash/Hives Verified 07/06/21 21:27 [From Bactrim] trimethoprim [From Bactrim] Allergy Rash/Hives Verified 07/06/21 21:27 Laboratory Results WBC 8.7 k/uL (3.8-10.6) 07/08/21 12:26 RBC 4.49 m/uL (3.80-5.40) 07/08/21 12:26 Hgb 12.7 gm/dL (11.4-16.0) 07/08/21 12:26 Hct 37.8 % (34.0-46.0) 07/08/21 12:26 MCV 84.2 fL (80.0-100.0) 07/08/21 12:26 MCH 28.2 pg (25.0-35.0) 07/08/21 12:26 MCHC 33.5 g/dL (31.0-37.0) 07/08/21 12:26 RDW 14.7 % (11.5-15.5) 07/08/21 12:26 Plt Count 619 k/uL (150-450) H 07/08/21 12:26 MPV 7.4 07/08/21 12:26 Neutrophils % 87 % 07/07/21 07:10 Lymphocytes % 5 % 07/07/21 07:10 Monocytes % 6 % 07/07/21 07:10 Eosinophils % 0 % 07/07/21 07:10 Basophils % 0 % 07/07/21 07:10 Neutrophils # 14.7 k/uL (1.3-7.7) H 07/07/21 07:10 Lymphocytes # 0.8 k/uL (1.0-4.8) L 07/07/21 07:10 Monocytes # 1.1 k/uL (0-1.0) H 07/07/21 07:10 Eosinophils # 0.0 k/uL (0-0.7) 07/07/21 07:10 Basophils # 0.0 k/uL (0-0.2) 07/07/21 07:10 Sodium 143 mmol/L (137-145) 07/08/21 12:26 Potassium 3.6 mmol/L (3.5-5.1) 07/08/21 12:26 Chloride 102 mmol/L (98-107) 07/08/21 12:26 Carbon Dioxide 26 mmol/L (22-30) 07/08/21 12:26 Anion Gap 15 mmol/L 07/08/21 12:26 BUN 29 mg/dL (7-17) H 07/08/21 12:26 Creatinine 1.50 mg/dL (0.52-1.04) H 07/08/21 12:26 Est GFR (CKD-EPI)AfAm 46 (>60 ml/min/1.73 sqM) 07/08/21 12:26 Est GFR (CKD-EPI)NonAf 40 (>60 ml/min/1.73 sqM) 07/08/21 12:26 Glucose 93 mg/dL (74-99) 07/08/21 12:[address] Glu mg/dL 123 07/07/21 07:10 Hemoglobin A1c 5.9 % (4.0-6.0) 07/07/21 07:10 Calcium 10.6 mg/dL (8.4-10.2) H 07/08/21 12:26 Total Bilirubin 0.5 mg/dL (0.2-1.3) 07/10/21 06:40 Conjugated Bilirubin 0.0 mg/dL (0.0-0.3) 07/10/21 06:40 Unconjugated Bilirubin 0.0 mg/dL (0.0-1.1) 07/10/21 06:40 Delta Bilirubin 0.5 mg/dL (0.0-0.2) H 07/10/21 06:40 AST 91 U/L (14-36) H 07/10/21 06:40 ALT 65 U/L (4-34) H 07/10/21 06:40 Alkaline Phosphatase 69 U/L (38-126) 07/10/21 06:40 Total Protein 7.1 g/dL (6.3-8.2) 07/10/21 06:40 Albumin 4.4 g/dL (3.5-5.0) 07/10/21 06:40 Triglycerides 76.30 mg/dL (0.00-149.00) 07/07/21 07:10 Cholesterol 220.00 mg/dL (0.00-200.00) H 07/07/21 07:10 LDL Cholesterol, Calc 126.9 mg/dL (0.0-131.0) 07/07/21 07:10 VLDL Cholesterol, Calc 15.26 mg/dL (5.00-40.00) 07/07/21 07:10 HDL Cholesterol 77.80 mg/dL (40.00-60.00) H 07/07/21 07:10 Cholesterol/HDL Ratio 2.83 Ratio 07/07/21 07:10 Folate 18.10 ng/mL (4.40-31.00) 07/08/21 12:26 TSH 1.400 mIU/L (0.465-4.680) 07/07/21 07:10 Urine Opiates Screen Detected (NotDetected) H 07/06/21 16:50 Ur Oxycodone Screen Not Detected (NotDetected) 07/06/21 16:50 Urine Methadone Screen Not Detected (NotDetected) 07/06/21 16:50 Ur Propoxyphene Screen Not Detected (NotDetected) 07/06/21 16:50 Ur Barbiturates Screen Not Detected (NotDetected) 07/06/21 16:50 U Tricyclic Antidepress Detected (NotDetected) H 07/06/21 16:50 Ur Phencyclidine Scrn Not Detected (NotDetected) 07/06/21 16:50 Ur Amphetamines Screen Not Detected (NotDetected) 07/06/21 16:50 U Methamphetamines Scrn Not Detected (NotDetected) 07/06/21 16:50 U Benzodiazepines Scrn Not Detected (NotDetected) 07/06/21 16:50 Urine Cocaine Screen Not Detected (NotDetected) 07/06/21 16:50 U Marijuana (THC) Screen Detected (NotDetected) H 07/06/21 16:50 Coronavirus (PCR) Not Detected (Not Detectd) 07/06/21 16:59 Vital Signs Temp 96.7 F L 07/13/21 05:30 Pulse 88 07/13/21 08:54 Resp 16 07/13/21 08:54 BP 112/65 07/13/21 08:54 Pulse Ox 95 07/12/21 06:36 Intake & Output 07/12/21 07/13/21 07/13/21 18:59 06:59 18:59 Weight 79.8 kg Patient Condition at Discharge: Stable Plan - Discharge Summary Discharge Rx Participant: No New Discharge Prescriptions: New ARIPiprazole [Abilify] 5 mg PO DAILY 30 Days tab Venlafaxine HCl ER [Effexor XR] 150 mg PO DAILY 30 Days Baclofen [Lioresal] 20 mg PO TID 30 Days tab Topiramate [Topamax] 50 mg PO BID 30 Days tab Fenofibrate [Lofibra] 160 mg PO DAILY 30 Days tab Bacitracin/Polymyx Oint [Polysporin Oint] 1 applic TOPICAL BID #1 gm amantadine HCL [Symmetrel] 100 mg PO BID 30 Days cap Doxycycline [Vibramycin] 100 mg PO BID 10 Days cap Continue Omeprazole 40 mg PO BID Oxybutynin Chloride [Ditropan XL] 10 mg PO DAILY Naproxen 500 mg PO BID PRN PRN Reason: Pain Cholecalciferol (Vitamin D3) [Vitamin D3] 50 mcg PO DAILY Potassium Chloride ER [K-Dur 20] 20 meq PO DAILY Gabapentin 600 mg PO TID Furosemide [Lasix] 40 mg PO DAILY metOLazone [Zaroxolyn] 2.5 mg PO DAILY Vitamin E 400 unit PO DAILY Ocrevus Infusion 600 mg IV Q182D Propranolol HCl 40 mg PO BID 30 Days tab Ascorbic Acid [Vitamin C] 1,000 mg PO DAILY 30 Days tab Discontinued Baclofen [Lioresal] 20 mg PO TID Topiramate [Trokendi Xr] 100 mg PO HS Fenofibrate [Lofibra] 160 mg PO DAILY amantadine HCL [Amantadine] 100 mg PO BID DULoxetine HCL [Cymbalta] 60 mg PO HS Albuterol Sulfate [Proair Hfa] 1 puff INHALATION RT-Q4H PRN PRN Reason: Shortness Of Breath Venlafaxine HCl ER [Effexor XR] 150 mg PO DAILY risperiDONE [RisperDAL] 0.5 mg PO HS Torsemide [Demadex] 20 mg PO DAILY Meclizine HCl 12.5 mg PO BID PRN PRN Reason: Vertigo Doxepin HCl [SINEquan] 100 mg PO HS Discharge Medication List Omeprazole 40 mg PO BID 09/10/17 [History] Naproxen 500 mg PO BID PRN 05/24/18 [History] Oxybutynin Chloride [Ditropan XL] 10 mg PO DAILY 05/24/18 [History] Cholecalciferol (Vitamin D3) [Vitamin D3] 50 mcg PO DAILY 04/03/20 [History] Furosemide [Lasix] 40 mg PO DAILY 07/06/21 [History] Gabapentin 600 mg PO TID 07/06/21 [History] Potassium Chloride ER [K-Dur 20] 20 meq PO DAILY 07/06/21 [History] Vitamin E 400 unit PO DAILY 07/06/21 [History] metOLazone [Zaroxolyn] 2.5 mg PO DAILY 07/06/21 [History] Ocrevus Infusion 600 mg IV Q182D 07/07/21 [History] ARIPiprazole [Abilify] 5 mg PO DAILY 30 Days tab 07/13/21 [Rx] Ascorbic Acid [Vitamin C] 1,000 mg PO DAILY 30 Days tab 07/13/21 [Rx] Bacitracin/Polymyx Oint [Polysporin Oint] 1 applic TOPICAL BID #1 gm 07/13/21 [Rx] Baclofen [Lioresal] 20 mg PO TID 30 Days tab 07/13/21 [Rx] Doxycycline [Vibramycin] 100 mg PO BID 10 Days cap 07/13/21 [Rx] Fenofibrate [Lofibra] 160 mg PO DAILY 30 Days tab 07/13/21 [Rx] Propranolol HCl 40 mg PO BID 30 Days tab 07/13/21 [Rx] Topiramate [Topamax] 50 mg PO BID 30 Days tab 07/13/21 [Rx] Venlafaxine HCl ER [Effexor XR] 150 mg PO DAILY 30 Days 07/13/21 [Rx] amantadine HCL [Symmetrel] 100 mg PO BID 30 Days cap 07/13/21 [Rx] Follow up Appointment(s)/Referral(s): Antonieta Aden MD [Primary Care Provider] - 1 Week Rita Cruz MD [STAFF PHYSICIAN] - 1 Week Activity/Diet/Wound Care/Special Instructions: Activity and diet as tolerated. Avoid the use of street drugs and alcohol. Take all medications as prescribed. When you are in need of refills on your medications please contact your medical provider and/or outpatient psychiatrist to have this done. Please go to scheduled outpatient appointment for aftercare treatment. If symptoms return or become worse, call the crisis line at and/or go to the nearest emergency room for evaluation. Discharge Disposition: HOME SELF-CARE
== END 2021-07-13 14:50 | disposition home or self-care (01) | DRG 885 ==
LOC: EC 15:15 → 3MHU 19:03
PROVIDERS: ADMIT Psychiatry & Neurology Psychiatry; ATTEND Psychiatry & Neurology Psychiatry
DX: F29 Unspecified psychosis not due to a substance or known physiological condition (principal); F33.9 Major depressive disorder, recurrent, unspecified; L97.919 Non-pressure chronic ulcer of unspecified part of right lower leg with unspecified severity; G43.909 Migraine, unspecified, not intractable, without status migrainosus; F12.10 Cannabis abuse, uncomplicated; G35 Multiple sclerosis; N18.30 Chronic kidney disease, stage 3 unspecified; Z20.822 Contact with and (suspected) exposure to COVID-19; J45.20 Mild intermittent asthma, uncomplicated; E87.6 Hypokalemia; G25.0 Essential tremor; F41.1 Generalized anxiety disorder; N32.81 Overactive bladder; K21.9 Gastro-esophageal reflux disease without esophagitis; R79.89 Other specified abnormal findings of blood chemistry; Z79.899 Other long term (current) drug therapy; Z87.39 Personal history of other diseases of the musculoskeletal system and connective tissue; Z86.718 Personal history of other venous thrombosis and embolism; Z90.710 Acquired absence of both cervix and uterus; Z87.74 Personal history of (corrected) congenital malformations of heart and circulatory system; Z87.820 Personal history of traumatic brain injury; Z87.891 Personal history of nicotine dependence; Z91.5 Personal history of self-harm; Z98.890 Other specified postprocedural states; Z88.0 Allergy status to penicillin; Z88.2 Allergy status to sulfonamides; Z91.030 Bee allergy status; Z81.8 Family history of other mental and behavioral disorders; Z80.51 Family history of malignant neoplasm of kidney; Z82.5 Family history of asthma and other chronic lower respiratory diseases
CPT/HCPCS: 80053; 80061; 80076; 80306; 82075; 82607; 82746; 83036; 84443; 85025; 85027; 87635; 99285

== ENCOUNTER → 2021-12-23 | Outpatient (CLI) | payer OTHER ==
[2021-12-23 23:15] LABS: Basophils # (A) 0.04 X 10*3/uL (0.00-0.10); Basophils % (A) 0.6 %; Eosinophils # (A) 0.45 X 10*3/uL (0.04-0.35); Eosinophils % (A) 6.6 %; HCT 34.7 % (37.2-46.3); Immature Grans, Automated 0.7 %; Lymphocytes # (A) 1.82 X 10*3/uL (0.90-5.00); Lymphocytes % (A) 26.6 %; MCHC 31.7 g/dL (32.0-37.0); MCV 88.3 fL (80.0-97.0); Mean Platelet Volume 11.5 fL (9.5-12.2); Monocytes # (A) 0.68 X 10*3/uL (0.20-1.00); NRBC Per 100 WBC 0 /100 WBCS (0.0-0.0); Neutrophils # (A) 3.79 X 10*3/uL (1.80-7.70); Neutrophils % (A) 55.5 %; Platelet Count 441 X 10*3/uL (140-440); RBC 3.93 X 10*6/uL (4.10-5.20); RDW 15.7 % (11.5-14.5); WBC 6.83 X 10*3/uL (4.50-10.00)
[2021-12-24 00:17] LABS: African American GFR (CKD) 40.6 (60.0-200.0); Albumin 4.8 g/dL (3.8-4.9); Albumin/Globulin Ratio 2.34 (1.60-3.17); Anion Gap 14.8 mmol/L (10.00-18.00); BUN/Creat Ratio 21.74 Ratio (12.00-20.00); Blood Urea Nitrogen 36.3 mg/dL (9.0-27.0); Calcium 10.4 mg/dL (8.7-10.3); Carbon Dioxide 23.4 mmol/L (20.0-27.5); Non-African American GFR(CKD) 35.1 (60.0-200.0); Potassium 3.7 mmol/L (3.5-5.5); Total Bilirubin 0.2 mg/dL (0.30-1.20); Total Protein 6.8 g/dL (6.2-8.2)
== END | disposition home or self-care (01) ==
LOC: LABWHC1 15:42
PROVIDERS: ATTEND Psychiatry & Neurology Neurology
DX: R42 Dizziness and giddiness (principal); G35 Multiple sclerosis; M79.10 Myalgia, unspecified site; R53.83 Other fatigue; E55.9 Vitamin D deficiency, unspecified; E53.9 Vitamin B deficiency, unspecified
CPT/HCPCS: 36415; 80053; 82306; 82607; 84207; 85025

== ENCOUNTER 2021-12-30 13:55 | Inpatient (IN) | payer MEDICAID, OTHER ==
--- NOTE | 2021-12-30 15:10 | ED ---
Psych HPI - General Chief Complaint: Psychiatric Symptoms Stated Complaint: Hallucinations Time Seen by Provider: 12/30/21 14:50 Source: patient, RN notes reviewed Mode of arrival: ambulatory - History of Present Illness Initial Comments: This is a 51-year-old female who presents to the emergency department for psychiatric evaluation. Patient has schizophrenia and has been out of her medication for a month and a half. Over the last week, she started to experience auditory and visual hallucinations again, and states that she got to the point today where she just cannot handle it anymore. Current hallucinations include feelings of bugs crawling all over her and seeing devil clowns that poke at her at night, preventing her from being able to sleep. Denies any SI or HI. Associated Psychiatric Symptoms: auditory hallucinations, visual hallucinations History of same: Yes Context: not taking psychiatric medications - Related Data Home Medications Medication Instructions Recorded Confirmed Omeprazole 40 mg PO AC-BID 09/10/17 12/30/21 Oxybutynin Chloride [Ditropan XL] 10 mg PO DAILY 05/24/18 12/30/21 Cholecalciferol (Vitamin D3) 50 mcg PO DAILY 04/03/20 12/30/21 [Vitamin D3] metOLazone [Zaroxolyn] 2.5 mg PO DAILY 07/06/21 12/30/21 Ocrevus Infusion 600 mg IV Q182D 07/07/21 12/30/21 Baclofen [Lioresal] 20 mg PO TID PRN 12/30/21 12/30/21 DULoxetine HCL [Cymbalta] 60 mg PO BID 12/30/21 12/30/21 Erenumab-Aooe [Aimovig 140 mg SQ Q30D 12/30/21 12/30/21 Autoinjector] Hydrochlorothiazide 12.5 mg PO DAILY 12/30/21 12/30/21 [hydroCHLOROthiazide] Pregabalin [Lyrica] 150 mg PO TID 12/30/21 12/30/21 SILVER sulfADIAZINE CREAM 1 applic TOPICAL DAILY 12/30/21 12/30/21 [Silvadene Cream] Systane 0.3% Overnight Gel 1 applic BOTH EYES DIRECTED PRN 12/30/21 12/30/21 Thiamine HCl [Vitamin B-1] 100 mg PO DAILY 12/30/21 12/30/21 Topiramate [Trokendi Xr] 100 mg PO DAILY 12/30/21 12/30/21 Previous Rx's Medication Instructions Recorded ARIPiprazole [Abilify] 5 mg PO DAILY 30 Days tab 07/13/21 Ascorbic Acid [Vitamin C] 1,000 mg PO DAILY 30 Days tab 07/13/21 Fenofibrate [Lofibra] 160 mg PO DAILY 30 Days tab 07/13/21 Propranolol HCl 40 mg PO BID 30 Days tab 07/13/21 Venlafaxine HCl ER [Effexor XR] 150 mg PO DAILY 30 Days 07/13/21 amantadine HCL [Symmetrel] 100 mg PO BID 30 Days cap 07/13/21 Allergies Allergy/AdvReac Type Severity Reaction Status Date / Time amoxicillin Allergy Rash/Hives Verified 12/30/21 16:07 bee venom protein (honey bee) Allergy Anaphylaxis Verified 12/30/21 16:07 Sulfa (Sulfonamide Allergy Rash/Hives Verified 12/30/21 16:07 Antibiotics) sulfamethoxazole Allergy Rash/Hives Verified 12/30/21 16:07 [From Bactrim] trimethoprim [From Bactrim] Allergy Rash/Hives Verified 12/30/21 16:07 Review of Systems ROS Statement: Those systems with pertinent positive or pertinent negative responses have been documented in the HPI. ROS Other: All systems not noted in ROS Statement are negative. Constitutional: Denies: fever, chills ENT: Denies: ear pain, throat pain Respiratory: Denies: cough, dyspnea Cardiovascular: Denies: chest pain Gastrointestinal: Denies: abdominal pain, nausea, vomiting, diarrhea Genitourinary: Denies: urgency, dysuria Skin: Denies: rash Neurological: Denies: headache Psychiatric: Reports: auditory hallucinations, visual hallucinations. Denies: homicidal thoughts, suicidal thoughts Past Medical History Past Medical History: No Reported History Additional Past Medical History / Comment(s): migraines, Carpal tunnel, DDD, dvt-LT CALF, MS, milagros-malformation, Recieves ocrevus Q 6 months History of Any Multi-Drug Resistant Organisms: None Reported Past Surgical History: Heart Catheterization, Hysterectomy, Orthopedic Surgery Additional Past Surgical History / Comment(s): chiari malformation decompression (08/2016), carpal tunnel BILAT WRISTS, COLONOSCOPY Past Anesthesia/Blood Transfusion Reactions: No Reported Reaction Past Psychological History: Anxiety, Depression Smoking Status: Former smoker Past Alcohol Use History: None Reported Past Drug Use History: None Reported - Past Family History Mother Family Medical History: Cancer Additional Family Medical History / Comment(s): . General Exam Limitations: no limitations General appearance: alert, in distress Head exam: Present: atraumatic, normocephalic, normal inspection Respiratory exam: Present: normal lung sounds bilaterally. Absent: respiratory distress, wheezes, rales, rhonchi, stridor Cardiovascular Exam: Present: regular rate, normal rhythm, normal heart sounds. Absent: systolic murmur, diastolic murmur, rubs, gallop, clicks Neurological exam: Present: alert, oriented X3, CN II-XII intact Expanded Focused psych exam: Present: pressured speech, psychomotor agitation, restlessness Skin exam: Present: warm, dry, intact, normal color. Absent: rash Course Vital Signs 12/30/21 13:56 Temperature 98.3 F Pulse Rate 83 Respiratory 16 Rate Blood Pressure 120/65 O2 Sat by Pulse 96 Oximetry Medical Decision Making - Medical Decision Making This is a 51-year-old female who presents to the emergency department for psychiatric evaluation. Patient has been out of her psychiatric medication for a month and a half. Patient notes both visual and auditory hallucinations, however she is aware of the fact that these are hallucinations. Given that she has been out of her medication for an extended period of time, patient would likely benefit from inpatient management to get back on track, especially given the fact that she is frightened by the hallucinations. Patient is medically cleared. EPS evaluation pending. - Lab Data Lab Results 12/30/21 Range/Units 15:50 Urine Opiates Screen Not Detected (NotDetected) Ur Oxycodone Screen Not Detected (NotDetected) Urine Methadone Screen Not Detected (NotDetected) Ur Propoxyphene Screen Not Detected (NotDetected) Ur Barbiturates Screen Not Detected (NotDetected) U Tricyclic Antidepress Not Detected (NotDetected) Ur Phencyclidine Scrn Not Detected (NotDetected) Ur Amphetamines Screen Not Detected (NotDetected) U Methamphetamines Scrn Not Detected (NotDetected) U Benzodiazepines Scrn Not Detected (NotDetected) Urine Cocaine Screen Not Detected (NotDetected) U Marijuana (THC) Screen Not Detected (NotDetected) Disposition Clinical Impression: Acute exacerbation of chronic schizophrenia Referrals: Ronak Edwards MD [Primary Care Provider] - 1-2 days
[2021-12-30 16:03] LABS: Amphetamine Screen,Urine Not Detected (NotDetected); Barbiturate Screen,Urine Not Detected (NotDetected); Benzodiazepines Screen,Urine Not Detected (NotDetected); Cocaine Screen,Urine Not Detected (NotDetected); Methadone Screen, Urine Not Detected (NotDetected); Opiate Screen,Urine Not Detected (NotDetected); Oxycodone Screen, Urine Not Detected (NotDetected); Phencyclidine Screen,Urine Not Detected (NotDetected); Tricyclic Antidepressant,Urine Not Detected (NotDetected); Urn Cannabinoid Scrn Not Detected (NotDetected)
[2021-12-30] MEDS ORDERED: ARTIFICIAL TEARS OINTMENT 3.5 GM TUBE BOTH EYES PRN (18:41)
[2021-12-30] MEDS ORDERED: BACLOFEN 10 MG TAB PO PRN (18:41)
[2021-12-30] MEDS ORDERED: DULoxetine HCL 60 MG CAPSULE.DR PO SCH (21:00)
[2021-12-30] MEDS ORDERED: PROPRANOLOL 40 MG TAB PO SCH (21:00)
[2021-12-30] MEDS ORDERED: PREGABALIN 75 MG CAP PO SCH (22:00)
[2021-12-31] MEDS ORDERED: ACETAMINOPHEN TAB 325 MG TAB PO PRN (04:58)
[2021-12-31] MEDS ORDERED: MAGNESIUM HYDROXIDE 2,400 MG/10 ML CUP PO PRN (04:58)
[2021-12-31] MEDS ORDERED: HALOPERIDOL LACTATE 5 MG/ML 1 ML VIAL IM PRN (04:58)
[2021-12-31] MEDS ORDERED: MAG HYDROX/AL HYDROX/SIMETH 30 ML CUP PO PRN (04:58)
[2021-12-31] MEDS ORDERED: haloperidoL 5 MG TAB PO PRN (05:03)
[2021-12-31] MEDS ORDERED: LORazepam 2 MG/ML INJ IM PRN (05:03)
[2021-12-31 06:25] LABS: Appearance,Urine Cloudy (Clear); Bacteria,Urine Rare /hpf; Bilirubin,Urine Negative (Negative); Blood,Urine Negative (Negative); Color,Urine Yellow; Glucose,Urine (UA) Negative (Negative); Hyaline Casts,Urine 1 /lpf (0-2); Ketones,Urine Negative (Negative); Leukocyte Esterase,Urine Large (Negative); Mucus,Urine Rare /hpf; Nitrite,Urine Negative (Negative); Protein,Urine Negative (Negative); RBC,Urine 2 /hpf (0-5); Specific Gravity,Urine 1.019 (1.001-1.035); Squamous Epithelial Cell,Urine 3 /hpf (0-4); Urobilinogen,Urine <2.0 mg/dL (<2.0); WBC,Urine 15 /hpf (0-5)
[2021-12-31] MEDS ORDERED: PANTOPRAZOLE 40 MG TABLET PO SCH (07:30)
[2021-12-31] MEDS ORDERED: THIAMINE 100 MG TAB PO SCH (09:00)
[2021-12-31] MEDS ORDERED: hydroCHLOROthiazide 12.5 MG CAP PO SCH (09:00)
[2021-12-31] MEDS ORDERED: FENOFIBRATE 160 MG TAB PO SCH (09:00)
[2021-12-31] MEDS ORDERED: TOPIRAMATE 25 MG TAB PO SCH (09:00)
[2021-12-31] MEDS ORDERED: metOLazone 2.5 MG TAB PO SCH (09:00)
[2021-12-31] MEDS ORDERED: OXYBUTYNIN 10 MG TAB.ER.24 PO SCH (09:00)
[2021-12-31] MEDS ORDERED: VENLAFAXINE HCL ER 150 MG CAP PO SCH (09:00)
[2021-12-31] MEDS ORDERED: ASCORBIC ACID 500 MG TAB PO SCH (09:00)
[2021-12-31] MEDS ORDERED: CHOLECALCIFEROL 25 MCG (1000 IU) TABLET PO SCH (09:00)
[2021-12-31] MEDS ORDERED: ARIPiprazole 5 MG TAB PO SCH (09:00)
[2021-12-31] MEDS ORDERED: ARIPiprazole 5 MG TAB PO STA (12:43)
--- NOTE | 2021-12-31 12:53 | P.HP ---
Psychiatric H&P - . H&P Date: 12/31/21 History & Physical: Allergies Allergy/AdvReac Type Severity Reaction Status Date / Time amoxicillin Allergy Rash/Hives Verified 12/30/21 16:07 bee venom protein (honey bee) Allergy Anaphylaxis Verified 12/30/21 16:07 Sulfa (Sulfonamide Allergy Rash/Hives Verified 12/30/21 16:07 Antibiotics) sulfamethoxazole Allergy Rash/Hives Verified 12/30/21 16:07 [From Bactrim] trimethoprim [From Bactrim] Allergy Rash/Hives Verified 12/30/21 16:07 Vital Signs Temp 97.8 F 12/31/21 05:56 Pulse 85 12/31/21 05:56 Resp 17 12/31/21 05:56 BP 121/69 12/31/21 05:56 Pulse Ox 97 12/31/21 05:56 Intake & Output 12/30/21 12/31/21 12/31/21 18:59 06:59 18:59 Weight 83.915 kg 83.971 kg Laboratory Last Values Urine Color Yellow 12/30/21 15:40 Urine Appearance Cloudy (Clear) H 12/30/21 15:40 Urine pH 5.0 (5.0-8.0) 12/30/21 15:40 Ur Specific [place] 1.019 (1.001-1.035) 12/30/21 15:40 Urine Protein Negative (Negative) 12/30/21 15:40 Urine Glucose (UA) Negative (Negative) 12/30/21 15:40 Urine Ketones Negative (Negative) 12/30/21 15:40 Urine Blood Negative (Negative) 12/30/21 15:40 Urine Nitrite Negative (Negative) 12/30/21 15:40 Urine Bilirubin Negative (Negative) 12/30/21 15:40 Urine Urobilinogen <2.0 mg/dL (<2.0) 12/30/21 15:40 Ur Leukocyte Esterase Large (Negative) H 12/30/21 15:40 Urine RBC 2 /hpf (0-5) 12/30/21 15:40 Urine WBC 15 /hpf (0-5) H 12/30/21 15:40 Ur Squamous Epith Cells 3 /hpf (0-4) 12/30/21 15:40 Urine Bacteria Rare /hpf (None) H 12/30/21 15:40 Hyaline Casts 1 /lpf (0-2) 12/30/21 15:40 Urine Mucus Rare /hpf (None) H 12/30/21 15:40 Urine HCG, Qual Not Detected (Not Detectd) 12/30/21 15:40 Urine Opiates Screen Not Detected (NotDetected) 12/30/21 15:50 Ur Oxycodone Screen Not Detected (NotDetected) 12/30/21 15:50 Urine Methadone Screen Not Detected (NotDetected) 12/30/21 15:50 Ur Propoxyphene Screen Not Detected (NotDetected) 12/30/21 15:50 Ur Barbiturates Screen Not Detected (NotDetected) 12/30/21 15:50 U Tricyclic Antidepress Not Detected (NotDetected) 12/30/21 15:50 Ur Phencyclidine Scrn Not Detected (NotDetected) 12/30/21 15:50 Ur Amphetamines Screen Not Detected (NotDetected) 12/30/21 15:50 U Methamphetamines Scrn Not Detected (NotDetected) 12/30/21 15:50 U Benzodiazepines Scrn Not Detected (NotDetected) 12/30/21 15:50 Urine Cocaine Screen Not Detected (NotDetected) 12/30/21 15:50 U Marijuana (THC) Screen Not Detected (NotDetected) 12/30/21 15:50 Coronavirus (PCR) Not Detected (Not Detectd) 12/31/21 02:27 12/31/21 12:53 IDENTIFYING DATA: Patient is a , unemployed, on Social Security, 51-year-old female with a significant history of major depressive disorder and posttraumatic stress disorder who presents to the hospital with a chief complaint of hallucinations HPI: Patient presented to the hospital on 12/31/2021, brought into the emergency department by her friend with a chief complaint of auditory and visual hallucinations. Has previous report, the patient reported seeing things that weren't there including animals, people, bugs, as well as the devil. She reports that she has been also experiencing tactile hallucinations. She reports that this has been going on for the past week. She reports that she has been off her medications for the past 2 months. Upon evaluation on the mental health unit, the patient is continuing to endorse auditory, visual, and tactile hallucinations. She reports that she constantly hears whispers however is unable to identify what is being said to her. She also reports that she is experiencing visual hallucinations in the form of those listed above. Furthermore, the patient does admit that she feels like creatures were crawling on her or that someone is flicking her hair. She expresses that all of this is causing her significant distress. She is however not reporting any significant issues regarding any depression or anxiety at this time. She is denying any suicidal or homicidal ideation, intention, and/or plan. She is denying any symptoms of bipolar disorder. She reports no increased goal- directed activity, impulsivity, grandiosity, or racing thoughts. The patient states that she has been homeless. She has been living with her friend since November 05 but has been homeless since July. She reports that she has been inconsistent in following up with her outpatient appointments and has not been able to take her medications.. PAST PSYCHIATRIC HISTORY: Patient states that she has been previously diagnosed with PTSD and depression. She is open with [facility]. She had her last outpatient appointment with [facility] on 10/14/2021. This is the patient's third inpatient psychiatric hospitalization. Her home medications include Abilify 5 mg daily, Cymbalta 60 mg by mouth twice a day, and Effexor XR 150 mg by mouth daily. Previous medication trials include Cymbalta, doxepin, and Risperdal. The patient reports one prior attempt at suicide in the past by overdose. PMH: Past Medical History: No Reported History Additional Past Medical History / Comment(s): migraines, Carpal tunnel, DDD, dvt-LT CALF, MS, milagros-malformation, Recieves ocrevus Q 6 months History of Any Multi-Drug Resistant Organisms: None Reported Past Surgical History: Heart Catheterization, Hysterectomy, Orthopedic Surgery Additional Past Surgical History / Comment(s): chiari malformation decompression (08/2016), carpal tunnel BILAT WRISTS, COLONOSCOPY Past Anesthesia/Blood Transfusion Reactions: No Reported Reaction Past Psychological History: Anxiety, Depression Smoking Status: Former smoker Past Alcohol Use History: None Reported Past Drug Use History: None Reported ALLERGIES: Amoxicillin, Honeybee venom, Bactrim, sulfa CHEMICAL DEPENDENCY HISTORY: Patient denies any tobacco, alcohol, marijuana, or illicit drug use. Review of the patient's chart from [facility] revealed that the patient does have a significant history of cannabis use disorder, cocaine use disorder, alcohol use disorder in the past. The patient's first use of alcohol was in 1976 and the patient drank very heavily at the age of 14 and 15 years of age. Her first use of cocaine when she was 23 years old last use of cocaine was in 2001. FAMILY PSYCHIATRIC/SUBSTANCE USE HISTORY: Patient reports that her mother was diagnosed with bipolar/schizophrenia and also had a seizure disorder SOCIAL HISTORY: Patient is currently homeless and has been living with a friend. She is currently after being twice. 2012 was when her second divorce is finalized. She has 2 adult children ages 22 and 31. She receives Social Security. She graduated high school. She denies any legal issues or concerns. MENTAL STATUS EXAM: General Appearance: Patient appears to be stated age is alert, directable, and attempts to cooperate. Patient appears to have fair hygiene and grooming. Behavior: Patient is seated without any agitated behavior. Slightly tremulous. Eye contact is appropriate. Speech: Patient's speech is fluent and nonpressured. Mood/Affect: Patient reports their mood is very nervous, affect is congruent and anxious. Suicidality/Homicidality: Patient denies having any homicidal ideation intent or plan. Denies any suicidal ideations intent or plan Perceptions: Patient endorses auditory, visual, and tactile hallucinations Though content/process: There is no evidence of any delusional thought content and thought process is linear and goal-directed. Memory and concentration: AOX3, grossly intact for the purposes of this session. Can spell "WORLD" backwards Judgment and insight: Fair STRENGTHS/WEAKNESSES: Strength is that the patient appears to be in relatively good health. Weaknesses the patient is nonadherent with treatment. She is also currently homeless. INTELLECT: average IMPRESSIONS: Acute psychosis Major depressive disorder Posttraumatic stress disorder Polysubstance abuse, in remission PLAN: -Patient is admitted under voluntary status to MHU for stabilization of psychiatric symptoms and safety. Patient signed adult voluntary form and medication consent and is placed in patient's chart. -Medications : Will start patient on Abilify 5 mg by mouth daily for acute psychosis Cymbalta 30 mg by mouth twice a day for depression/anxiety -Ativan and Haldol PRN for agitation/aggression -Patient was informed of the risks, benefits and side effects of the medication and patient verbally consented to taking the medications. Patient signed med consent form and was placed in chart. -Internal Medicine consult to perform medical evaluation and physical. -SW on board for discharge planning. Encourage patient to participate in groups to work on coping skills. 12/31/21 12:53
[2021-12-31] MEDS: DULoxetine HCL 30 MG CAPSULE.DR PO SCH (20:11)
[2021-12-31] MEDS: LORazepam 1 MG TAB PO PRN (22:24)
[2022-01-01 02:57] VITALS: RESP 16
--- NOTE | 2022-01-01 04:32 | P.MDCNMH ---
History of Present Illness H&P Date: 01/01/22 Chief Complaint: Medical evaluation 51-year-old female with MS Patient comes into the hospital for evaluation due to visual hallucinations She is concerned regarding a wound in the anterior lower third of her right leg started sometime ago as she gets shingles in her legs she has multiple healed lesions this wound was not healing for which she's been bandaging in treating with Silvadene. She reports some pain and tenderness and erythema surrounding it no drainage. She denies any fevers or chills Review of Systems Pertinent positives as noted in HPI. All other systems were reviewed and are negative Past Medical History Past Medical History: No Reported History Additional Past Medical History / Comment(s): migraines, Carpal tunnel, DDD, dvt-LT CALF, MS, milagros-malformation, Recieves ocrevus Q 6 months History of Any Multi-Drug Resistant Organisms: None Reported Past Surgical History: Heart Catheterization, Hysterectomy, Orthopedic Surgery Additional Past Surgical History / Comment(s): chiari malformation decompression (08/2016), carpal tunnel BILAT WRISTS, COLONOSCOPY Past Anesthesia/Blood Transfusion Reactions: No Reported Reaction Past Psychological History: Anxiety, Depression Smoking Status: Former smoker Past Alcohol Use History: None Reported Additional Past Alcohol Use History / Comment(s): quit smoking 11/2019, smoked for 10 yrs Past Drug Use History: None Reported - Past Family History Mother Family Medical History: Cancer Additional Family Medical History / Comment(s): . Medications and Allergies Home Medications Medication Instructions Recorded Confirmed Type Omeprazole 40 mg PO AC-BID 09/10/17 12/30/21 History Oxybutynin Chloride [Ditropan XL] 10 mg PO DAILY 05/24/18 12/30/21 History Cholecalciferol (Vitamin D3) 50 mcg PO DAILY 04/03/20 12/30/21 History [Vitamin D3] metOLazone [Zaroxolyn] 2.5 mg PO DAILY 07/06/21 12/30/21 History Ocrevus Infusion 600 mg IV Q182D 07/07/21 12/30/21 History ARIPiprazole [Abilify] 5 mg PO DAILY 30 Days tab 07/13/21 12/30/21 Rx Ascorbic Acid [Vitamin C] 1,000 mg PO DAILY 30 Days tab 07/13/21 12/30/21 Rx Fenofibrate [Lofibra] 160 mg PO DAILY 30 Days tab 07/13/21 12/30/21 Rx Propranolol HCl 40 mg PO BID 30 Days tab 07/13/21 12/30/21 Rx Venlafaxine HCl ER [Effexor XR] 150 mg PO DAILY 30 Days 07/13/21 12/30/21 Rx amantadine HCL [Symmetrel] 100 mg PO BID 30 Days cap 07/13/21 12/30/21 Rx Baclofen [Lioresal] 20 mg PO TID PRN 12/30/21 12/30/21 History DULoxetine HCL [Cymbalta] 60 mg PO BID 12/30/21 12/30/21 History Erenumab-Aooe [Aimovig 140 mg SQ Q30D 12/30/21 12/30/21 History Autoinjector] Hydrochlorothiazide 12.5 mg PO DAILY 12/30/21 12/30/21 History [hydroCHLOROthiazide] Pregabalin [Lyrica] 150 mg PO TID 12/30/21 12/30/21 History SILVER sulfADIAZINE CREAM 1 applic TOPICAL DAILY 12/30/21 12/30/21 History [Silvadene Cream] Systane 0.3% Overnight Gel 1 applic BOTH EYES DIRECTED PRN 12/30/21 12/30/21 History Thiamine HCl [Vitamin B-1] 100 mg PO DAILY 12/30/21 12/30/21 History Topiramate [Trokendi Xr] 100 mg PO DAILY 12/30/21 12/30/21 History Allergies Allergy/AdvReac Type Severity Reaction Status Date / Time amoxicillin Allergy Rash/Hives Verified 12/30/21 16:07 bee venom protein (honey bee) Allergy Anaphylaxis Verified 12/30/21 16:07 Sulfa (Sulfonamide Allergy Rash/Hives Verified 12/30/21 16:07 Antibiotics) sulfamethoxazole Allergy Rash/Hives Verified 12/30/21 16:07 [From Bactrim] trimethoprim [From Bactrim] Allergy Rash/Hives Verified 12/30/21 16:07 Physical Exam Vitals: Vital Signs Temp Pulse Pulse Resp BP BP Pulse Ox 01/01/22 02:56 97.3 F L 102 H 16 131/62 12/31/21 05:56 97.8 F 85 17 121/69 97 12/31/21 05:00 98.5 F 99 18 112/63 95 Intake and Output 12/31/21 12/31/21 01/01/22 14:59 22:59 06:59 Other: Weight 83.971 kg Constitutional: No acute distress, conversant, pleasant Eyes: Anicteric sclerae, moist conjunctiva, Pupils equal round reactive to light ENMT: NC/AT Oropharynx clear, no erythema, or exudates Neck: Supple, FROM, no masses, or JVD No carotid bruits No thyromegaly Lungs: Clear to auscultation Clear to percussion Normal respiratory effort, no accessory muscle use Cardiovascular: Heart regular in rate and rhythm, No murmurs, gallops, or rubs No peripheral edema Abdominal: Soft Nontender, no guarding, rebound or rigidity Abdomen moving with respiration Normoactive bowel sounds No hepatomegaly, No splenomegaly No palpable mass No abdominal wall hernia noted Skin: Multiple dried lesions over the lower third of the right leg with one lesion has dry base surrounded by erythema and slight induration tender to palpation warm to the touch, also some scattered bruising over the arms otherwise otherwise Normal temperature, tone, texture, turgor Extremities: No digital cyanosis No clubbing Pedal pulses intact and symmetrical Radial pulses intact and symmetrical No calf tenderness Psychiatric: Alert and oriented to person, place and time Neuro Muscles Strength 4/5 in all 4 extremities Sensation to light touch grossly present throughout Cranial nerves II-XII grossly intact No focal sensory deficits Lymphatics: no palpable cervical or supraclavicular , or inguinal lymph nodes Cranial Nerve Examination - Cranial Nerves Cranial Nerve II- Optic: Intact Cranial Nerve III- Oculomotor: Intact Cranial Nerve IV- Trochlear: Intact Cranial Nerve V- Trigeminal: Intact Cranial Nerve - Abducens: Intact Cranial Nerve VII- Facial: Intact Cranial Nerve VIII- Auditory: Intact Cranial Nerve IX- Glossopharyngeal: Intact Cranial Nerve X- Vagus: Intact Cranial Nerve XI- Accessory: Intact Cranial Nerve XII- Hypoglossal: Intact Results Labs: Abnormal Lab Results - Last 24 Hours (Table) 12/30/21 Range/Units 15:40 Urine Appearance Cloudy H (Clear) Ur Leukocyte Esterase Large H (Negative) Urine WBC 15 H (0-5) /hpf Urine Bacteria Rare H (None) /hpf Urine Mucus Rare H (None) /hpf Assessment and Plan Assessment: Visual hallucinations Psychosis Management per psych cellulitis of the right leg no fever recent shingles episodes now complicated by lingering lesions, surrounded by erythem and induration multiple drug allergy to antibiotics initiate cephalexin and monitor for any signs of allergy , cephalexin 500 TID for 7 days follow up CBC and renal function Thank you for allowing us to participate in the care of this patient. We will follow peripherally. Do not hesitate to contact us with questions. Someone can be reached from the [facility] hospitalist group at all hours of the day at [phone].
[2022-01-01] MEDS: ARIPiprazole 10 MG TAB PO SCH (08:02)
[2022-01-01] MEDS: CEPHALEXIN 500 MG CAP PO SCH ×3 (08:02→21:08)
[2022-01-01] MEDS: DULoxetine HCL 30 MG CAPSULE.DR PO SCH ×2 (08:02→20:25)
[2022-01-01] MEDS ORDERED: CLINDAMYCIN 150 MG CAP PO SCH (09:00)
[2022-01-01] MEDS: OXYBUTYNIN CHLORIDE 5 MG TAB PO SCH (10:29)
[2022-01-01] MEDS: FENOFIBRATE 160 MG TAB PO SCH (10:29)
--- NOTE | 2022-01-01 11:19 | P.PN ---
Progress Note - Text Progress Note Date: 01/01/22 Interval History: Patient was seen wandering the hallways and was directable and agreeable to speak with law writer in the office. Patient is reporting that she is feeling well. She is currently denying any suicidal or homicidal ideation, intention, and/she reports that her visual hallucinations have decreased significantly and has not experienced any of them today. She denies any auditory hallucinations. She reports no paranoia or other delusions. Patient is enhanced her medications and is reporting no significant side effects at this time. She does report issues with sleep however denies any issues with appetite. Mental Status Exam: General Appearance: Patient appears to be stated age is alert, directable, and cooperative. Behavior: Patient is calmly seated without any agitated behavior. Eye contact is appropriate. Normal psychomotor activity. Speech: Patient's speech is fluent and nonpressured. Mood/Affect: Mood is improving mildly, affect is congruent and constricted. Suicidality/Homicidality: Patient denies having any suicidal or homicidal idea tion intent or plan. Perceptions: Patient denies any visual hallucinations and denies any auditory hallucinations Though content/process: There is no evidence of any delusional thought content and thought process is linear and goal-directed. Memory and concentration: AOX3, grossly intact for the purposes of this session Judgment and insight: Improving mildly Vital Signs Temp 97.3 F L 01/01/22 02:56 Pulse 102 H 01/01/22 02:56 Resp 16 01/01/22 02:56 BP 131/62 01/01/22 02:56 Pulse Ox 97 12/31/21 05:56 Intake & Output 12/31/21 01/01/22 01/01/22 18:59 06:59 18:59 Weight 83.971 kg Assessment Acute psychosis Major depressive disorder Posttraumatic stress disorder Polysubstance abuse, in remission Plan: -Patient continues to meet criteria for inpatient psychiatric admission for symptom stabilization and safety. Patient has signed adult voluntary form and medication consent and was placed in patient's chart. -Medications: Abilify is increased to 10 mg daily for psychosis Continue Cymbalta 30 mg by mouth twice a day for depression Start melatonin 5 mg daily at bedtime for insomnia -When necessary Ativan and Haldol for agitation/aggression. -SW on board for discharge planning. Encouraged the patient to participate in milieu.
[2022-01-01 11:59] LABS: Basophils % (A) 1 %; Eosinophils # (A) 0.3 k/uL (0-0.7); Eosinophils % (A) 4 %; HCT 34.9 % (34.0-46.0); HGB 11.3 gm/dL (11.4-16.0); Lymphocytes # (A) 1.5 k/uL (1.0-4.8); Lymphocytes % (A) 19 %; MCHC 32.5 g/dL (31.0-37.0); Mean Platelet Volume 8.2; Monocytes # (A) 0.7 k/uL (0-1.0); Monocytes % (A) 8 %; Neutrophils # (A) 5.2 k/uL (1.3-7.7); Neutrophils % (A) 66 %; Platelet Count 464 k/uL (150-450); RBC 3.92 m/uL (3.80-5.40); RDW 14.8 % (11.5-15.5); WBC 7.8 k/uL (3.8-10.6)
[2022-01-01 12:15] LABS: Albumin 4.6 g/dL (3.5-5.0); Calcium 10.1 mg/dL (8.4-10.2); Potassium 3.7 mmol/L (3.5-5.1); Total Bilirubin 0.7 mg/dL (0.2-1.3); Total Protein 7.4 g/dL (6.3-8.2)
[2022-01-01] MEDS ORDERED: BACLOFEN 10 MG TAB PO PRN (16:29)
[2022-01-01] MEDS: LORazepam 1 MG TAB PO PRN (18:50)
[2022-01-01] MEDS: hydroCHLOROthiazide 12.5 MG CAP PO SCH (18:51)
[2022-01-01] MEDS: MELATONIN 5 MG TABLET PO SCH (20:25)
[2022-01-01] MEDS: PREGABALIN 75 MG CAP PO SCH (21:08)
[2022-01-02] MEDS: ARIPiprazole 10 MG TAB PO SCH (07:55)
[2022-01-02] MEDS: CEPHALEXIN 500 MG CAP PO SCH ×3 (07:55→20:46)
[2022-01-02] MEDS: PREGABALIN 75 MG CAP PO SCH ×3 (07:55→20:47)
[2022-01-02] MEDS: DULoxetine HCL 30 MG CAPSULE.DR PO SCH (07:55)
[2022-01-02] MEDS: hydroCHLOROthiazide 12.5 MG CAP PO SCH (07:56)
[2022-01-02] MEDS: OXYBUTYNIN CHLORIDE 5 MG TAB PO SCH (07:56)
[2022-01-02] MEDS: FENOFIBRATE 160 MG TAB PO SCH (07:56)
--- NOTE | 2022-01-02 14:31 | P.PN ---
Subjective Progress Note Date: 01/02/22 Principal diagnosis: Acute psychosis/major depressive disorder/PTSD/polysubstance abuse in remission Subjective the patient says she slept about 2 hours last night which is actually better for her and she had started some melatonin she still complains of racing thoughts and keep her from falling asleep no akathisia no side effects on the medication and she feels a little less anxious. Objective mental status: Patient came readily dressed in pajamas at 2 in the afternoon she is alert cooperative good eye contact slightly pressured speech and fine tremor she is oriented to person place time and circumstance is going to groups participating well in the program gait and station are normal Assessment is that she is still racing too fast and not sleeping enough in part because Cymbalta can make it hard to sleep Plan I'm going to increase Abilify to 7.5 twice a day and have her take all the Cymbalta in the morning and add in some trazodone at night supreme get her fired 6 hours sleep tonight Objective - Vital Signs Vital signs: Vital Signs Temp 97.3 F L 01/01/22 02:56 Pulse 107 H 01/02/22 07:59 Resp 16 01/01/22 02:56 BP 141/76 01/02/22 07:59 Pulse Ox 97 12/31/21 05:56 - Labs CBC & Chem 7: 01/01/22 10:54 01/01/22 10:54
[2022-01-02] MEDS: traZODone HCL 100 MG TAB PO SCH (20:46)
[2022-01-02] MEDS: MELATONIN 5 MG TABLET PO SCH (20:46)
[2022-01-02] MEDS: ARIPiprazole 5 MG TAB PO SCH (20:46)
[2022-01-03] MEDS: CEPHALEXIN 500 MG CAP PO SCH ×3 (08:41→20:28)
[2022-01-03] MEDS: ARIPiprazole 5 MG TAB PO SCH ×2 (08:41→20:28)
[2022-01-03] MEDS: FENOFIBRATE 160 MG TAB PO SCH (08:42)
[2022-01-03] MEDS: hydroCHLOROthiazide 12.5 MG CAP PO SCH (08:42)
[2022-01-03] MEDS: PREGABALIN 75 MG CAP PO SCH ×3 (08:42→21:43)
[2022-01-03] MEDS: DULoxetine HCL 60 MG CAPSULE.DR PO SCH (08:42)
[2022-01-03] MEDS: OXYBUTYNIN CHLORIDE 5 MG TAB PO SCH (08:42)
--- NOTE | 2022-01-03 09:05 | P.PN ---
Subjective Progress Note Date: 01/03/22 Principal diagnosis: Acute psychosis/major depressive disorder/PTSD/polysubstance abuse in remission Subjective the patient says she didn't get to sleep until about 11:30 but then slept through to morning which is a marked improvement. I had increased Abilify and spread it out twice a day. no akathisia no side effects on the medication and she feels a little less anxious. She does feel dizzy but says it is not more than prior to the medication and that she thinks it's from her MS. Since the racing thoughts are somewhat better too. Objective mental status: Patient came readily, dressed in pajamas. she is alert, pleasant, cooperative, as good eye contact. Speech is a little less pressured than yesterday, she is oriented to person place time and circumstance is going to groups participating well in the program gait and station are normal, she denies any psychotic symptoms. Her blood pressure is somewhat elevated with an average of 99 Assessment is that she is doing better and sleeping better Plan: No change in medication Objective - Vital Signs Vital signs: Vital Signs Temp 98.1 F 01/03/22 06:47 Pulse 121 H 01/03/22 08:44 Resp 16 01/03/22 06:47 BP 156/71 01/03/22 08:44 Pulse Ox 97 12/31/21 05:56 - Labs CBC & Chem 7: 01/01/22 10:54 01/01/22 10:54
[2022-01-03] MEDS: MELATONIN 5 MG TABLET PO SCH (20:28)
[2022-01-03] MEDS: traZODone HCL 100 MG TAB PO SCH (20:28)
[2022-01-04 06:49] VITALS: BP 121/68; PULSE 94; TEMP 97.7
[2022-01-04] MEDS: hydroCHLOROthiazide 12.5 MG CAP PO SCH (08:23)
[2022-01-04] MEDS: OXYBUTYNIN CHLORIDE 5 MG TAB PO SCH (08:23)
[2022-01-04] MEDS: FENOFIBRATE 160 MG TAB PO SCH (08:23)
[2022-01-04] MEDS: PREGABALIN 75 MG CAP PO SCH (08:25)
[2022-01-04] MEDS: CEPHALEXIN 500 MG CAP PO SCH (08:25)
[2022-01-04] MEDS: DULoxetine HCL 60 MG CAPSULE.DR PO SCH (08:25)
[2022-01-04] MEDS: ARIPiprazole 5 MG TAB PO SCH (08:25)
--- NOTE | 2022-01-04 11:45 | P.DS ---
Providers Date of admission: 12/31/21 04:44 Expected date of discharge: 01/04/22 Attending physician: Mamadou Mcgovern MD Consults: 12/31/21 04:58 Consult Physician Routine Consulting Provider: [facility] Consult Reason/Comments: h&p Do you want consulting provider notified?: Yes Primary care physician: Ronak Edwards - Discharge Diagnosis(es) (1) Acute psychosis Current Visit: Yes Status: Acute Priority: High (2) Major depressive disorder Current Visit: Yes Status: Acute Priority: High (3) PTSD (post-traumatic stress disorder) Current Visit: Yes Status: Chronic Priority: Medium Hospital Course: Admission HPI: Patient is a , unemployed, on Social Security, 51-year-old female with a significant history of major depressive disorder and posttraumatic stress disorder who presents to the hospital with a chief complaint of nisha lucinations Patient presented to the hospital on 12/31/2021, brought into the emergency department by her friend with a chief complaint of auditory and visual hallucinations. Has previous report, the patient reported seeing things that weren't there including animals, people, bugs, as well as the devil. She reports that she has been also experiencing tactile hallucinations. She reports that this has been going on for the past week. She reports that she has been off her medications for the past 2 months. Upon evaluation on the mental health unit, the patient is continuing to endorse auditory, visual, and tactile hallucinations. She reports that she constantly hears whispers however is unable to identify what is being said to her. She also reports that she is experiencing visual hallucinations in the form of those listed above. Furthermore, the patient does admit that she feels like creatures were crawling on her or that someone is flicking her hair. She expresses that all of this is causing her significant distress. She is however not reporting any significant issues regarding any depression or anxiety at this time. She is denying any suicidal or homicidal ideation, intention, and/or plan. She is denying any symptoms of bipolar disorder. She reports no increased goal- directed activity, impulsivity, grandiosity, or racing thoughts. The patient states that she has been homeless. She has been living with her friend since November 05 but has been homeless since July. She reports that she has been inconsistent in following up with her outpatient appointments and has not been able to take her medications.. Patient states that she has been previously diagnosed with PTSD and depression. She is open with [facility]. She had her last outpatient appointment with [facility] on 10/14/2021. This is the patient's third inpatient psychiatric hospitalization. Her home medications include Abilify 5 mg daily, Cymbalta 60 mg by mouth twice a day, and Effexor XR 150 mg by mouth daily. Previous medication trials include Cymbalta, doxepin, and Risperdal. The patient reports one prior attempt at suicide in the past by overdose. Hospital course: Upon admission to the unit patient was initially presenting with anxiety, tremors, and complaints of auditory, visual, and tactile hallucinations. Patient was however directable and agreeable to commence treatment. Patient got along well with other patients on the unit and followed unit protocol. Patient was compliant with the medications and denied any side effects throughout hospital course. Patient was started on Abilify for psychotic symptoms and continued on Cymbalta for depression/anxiety. Patient spoke of her stressors and engaged in therapy both group and individual. Patient was also seen by medical team for hi story and physical exam. The patient's Abilify was gradually titrated to 15 mg daily and was split to 7.5 mg twice a day as per her preference by the patient. Melatonin was also added to her regimen in order to help her with sleep. Over the course of the hospitalization the patient's target symptoms of psychosis and anxiety gradually improved. She attended both individual and group therapies w ith high-level participation and was calm and cooperative during her stay. She tolerated her medication well. On the day of discharge, the patient is not reporting any suicidal or homicidal ideation, intention, and/or plan. She denies any access to firearms or weapons. She reports no auditory or visual hallucinations. She denies any paranoia or other delusions. She has been in adherent with the medications and is not reporting any significant side effects. She expresses future orientation and is excited to see her dog again. The patient was counseled on the importance of medication adherent and appropriate outpatient follow-up. Furthermore, the patient was counseled on that in all substances including alcohol and marijuana. Prior to discharge, family meeting will be reviewed by long term care social worker to answer questions should safety. Mental status exam: General Appearance: Patient appears to be stated age is alert, pleasant, and cooperative. Patient is in no acute distress and has fair hygiene and grooming Behavior: Patient is calmly seated without any agitated behavior. Slightly tremulous but appears to be at baseline. Speech: Patient's speech is fluent and nonpressured. Mood/Affect: Patient reports their mood is "feeling really good", affect is congruent and euthymic to bright. Suicidality/Homicidality: Patient denies having any suicidal or homicidal ideation intent or plan. Perceptions: Patient denies any auditory or visual hallucinations. Though content/process: There is no evidence of any delusional thought content and thought process is linear and goal-directed. Patient is future oriented. Memory and concentration: AOX3, grossly intact for the purposes of this session. Can spell "WORLD" backwards correctly. Judgment and insight: Improved Vital Signs Temp 97.7 F 01/04/22 06:32 Pulse 94 01/04/22 06:32 Resp 16 01/04/22 06:32 BP 121/68 01/04/22 06:32 Pulse Ox 96 01/04/22 06:32 Intake & Output 01/03/22 01/04/22 01/04/22 18:59 06:59 18:59 Weight 75.7 kg Laboratory Results WBC 7.8 k/uL (3.8-10.6) 01/01/22 10:54 RBC 3.92 m/uL (3.80-5.40) 01/01/22 10:54 Hgb 11.3 gm/dL (11.4-16.0) L 01/01/22 10:54 Hct 34.9 % (34.0-46.0) 01/01/22 10:54 MCV 89.0 fL (80.0-100.0) 01/01/22 10:54 MCH 29.0 pg (25.0-35.0) 01/01/22 10:54 MCHC 32.5 g/dL (31.0-37.0) 01/01/22 10:54 RDW 14.8 % (11.5-15.5) 01/01/22 10:54 Plt Count 464 k/uL (150-450) H 01/01/22 10:54 MPV 8.2 01/01/22 10:54 Neutrophils % 66 % 01/01/22 10:54 Lymphocytes % 19 % 01/01/22 10:54 Monocytes % 8 % 01/01/22 10:54 Eosinophils % 4 % 01/01/22 10:54 Basophils % 1 % 01/01/22 10:54 Neutrophils # 5.2 k/uL (1.3-7.7) 01/01/22 10:54 Lymphocytes # 1.5 k/uL (1.0-4.8) 01/01/22 10:54 Monocytes # 0.7 k/uL (0-1.0) 01/01/22 10:54 Eosinophils # 0.3 k/uL (0-0.7) 01/01/22 10:54 Basophils # 0.0 k/uL (0-0.2) 01/01/22 10:54 Sodium 137 mmol/L (137-145) 01/01/22 10:54 Potassium 3.7 mmol/L (3.5-5.1) 01/01/22 10:54 Chloride 105 mmol/L (98-107) 01/01/22 10:54 Carbon Dioxide 23 mmol/L (22-30) 01/01/22 10:54 Anion Gap 9 mmol/L 01/01/22 10:54 BUN 28 mg/dL (7-17) H 01/01/22 10:54 Creatinine 1.56 mg/dL (0.52-1.04) H 01/01/22 10:54 Est GFR (CKD-EPI)AfAm 44 (>60 ml/min/1.73 sqM) 01/01/22 10:54 Est GFR (CKD-EPI)NonAf 38 (>60 ml/min/1.73 sqM) 01/01/22 10:54 Glucose 99 mg/dL (74-99) 01/01/22 10:[address] Glu mg/dL 115 01/01/22 10:54 Hemoglobin A1c 5.6 % (0.0-6.0) 01/01/22 10:54 Calcium 10.1 mg/dL (8.4-10.2) 01/01/22 10:54 Total Bilirubin 0.7 mg/dL (0.2-1.3) 01/01/22 10:54 AST 37 U/L (14-36) H 01/01/22 10:54 ALT 37 U/L (4-34) H 01/01/22 10:54 Alkaline Phosphatase 65 U/L (38-126) 01/01/22 10:54 Total Protein 7.4 g/dL (6.3-8.2) 01/01/22 10:54 Albumin 4.6 g/dL (3.5-5.0) 01/01/22 10:54 TSH 1.440 mIU/L (0.465-4.680) 01/01/22 10:54 Urine Color Yellow 12/30/21 15:40 Urine Appearance Cloudy (Clear) H 12/30/21 15:40 Urine pH 5.0 (5.0-8.0) 12/30/21 15:40 Ur Specific [place] 1.019 (1.001-1.035) 12/30/21 15:40 Urine Protein Negative (Negative) 12/30/21 15:40 Urine Glucose (UA) Negative (Negative) 12/30/21 15:40 Urine Ketones Negative (Negative) 12/30/21 15:40 Urine Blood Negative (Negative) 12/30/21 15:40 Urine Nitrite Negative (Negative) 12/30/21 15:40 Urine Bilirubin Negative (Negative) 12/30/21 15:40 Urine Urobilinogen <2.0 mg/dL (<2.0) 12/30/21 15:40 Ur Leukocyte Esterase Large (Negative) H 12/30/21 15:40 Urine RBC 2 /hpf (0-5) 12/30/21 15:40 Urine WBC 15 /hpf (0-5) H 12/30/21 15:40 Ur Squamous Epith Cells 3 /hpf (0-4) 12/30/21 15:40 Urine Bacteria Rare /hpf (None) H 12/30/21 15:40 Hyaline Casts 1 /lpf (0-2) 12/30/21 15:40 Urine Mucus Rare /hpf (None) H 12/30/21 15:40 Urine HCG, Qual Not Detected (Not Detectd) 12/30/21 15:40 Urine Opiates Screen Not Detected (NotDetected) 12/30/21 15:50 Ur Oxycodone Screen Not Detected (NotDetected) 12/30/21 15:50 Urine Methadone Screen Not Detected (NotDetected) 12/30/21 15:50 Ur Propoxyphene Screen Not Detected (NotDetected) 12/30/21 15:50 Ur Barbiturates Screen Not Detected (NotDetected) 12/30/21 15:50 U Tricyclic Antidepress Not Detected (NotDetected) 12/30/21 15:50 Ur Phencyclidine Scrn Not Detected (NotDetected) 12/30/21 15:50 Ur Amphetamines Screen Not Detected (NotDetected) 12/30/21 15:50 U Methamphetamines Scrn Not Detected (NotDetected) 12/30/21 15:50 U Benzodiazepines Scrn Not Detected (NotDetected) 12/30/21 15:50 Urine Cocaine Screen Not Detected (NotDetected) 12/30/21 15:50 U Marijuana (THC) Screen Not Detected (NotDetected) 12/30/21 15:50 Coronavirus (PCR) Not Detected (Not Detectd) 12/31/21 02:27 Impression: Acute psychosis Major depressive disorder Posttraumatic stress disorder Polysubstance abuse, in remission Cellulitis Plan: -Continue with discharge today as patient has improved and stabilized psychiatrically and is not currently an imminent threat to herself and/or others. Patient will remain at chronically elevated risk for harm to self and/or others due to her history of polysubstance abuse (in remission). -Continue medications: Abilify 7.5 mg by mouth twice a day for mood stabilization/psychosis Cymbalta 60 mg by mouth daily for depression/anxiety Trazodone 100 mg daily at bedtime for insomnia Melatonin 5 mg daily at bedtime for insomnia Keflex 500 mg by mouth 3 times a day for 4 days for cellulitis -Patient was counseled on the need for medication compliance and appropriate follow-up at mental health and also primary care for medical issues. Patient verbalized understanding and agreed. -Social work to arrange for and conduct family meeting to ensure safety upon discharge and answer any questions/concerns. Social work also to arrange for patients follow up appointments with [facility] for psychiatric care along with follow up with primary care provider. -Patient counseled on abstaining from recreational drugs and marijuana and alcohol. Was informed/educated on the adverse effects on their physical and mental health. Patient verbally agreed and understood. -Patient was instructed to return to the hospital or seek immediate medical care if their psychiatric or medical symptoms do worsen or reoccur. -Psychoeducation and supportive therapy provided to patient. Risks and benefits of pharmacological treatment versus the risks and benefits of nontreatment weight and discussed. Informed consent discussion held. Common side effects of psychotropics discussed such as, but not limited to headache, GI disturbance, sexual dysfunction, movement disorders, sedation, and orthostatic hypotension. Life threatening and blackbox warnings of prescribed medications also discussed. Potential risks of operating a vehicle or heavy machinery discussed with patient at length. Advised on importance of compliance and a reliable and responsible manner. Patient advised to review FDA consumer labeling of all medications prior to taking. Patient verbalized understanding of potential risks, and agrees with current treatment plan. Patient advised to medically contact physician/emergency personnel if any acute changes in condition occur. Allergies Allergy/AdvReac Type Severity Reaction Status Date / Time amoxicillin Allergy Rash/Hives Verified 12/30/21 16:07 bee venom protein (honey bee) Allergy Anaphylaxis Verified 12/30/21 16:07 Sulfa (Sulfonamide Allergy Rash/Hives Verified 12/30/21 16:07 Antibiotics) sulfamethoxazole Allergy Rash/Hives Verified 12/30/21 16:07 [From Bactrim] trimethoprim [From Bactrim] Allergy Rash/Hives Verified 12/30/21 16:07 Patient Condition at Discharge: Stable Plan - Discharge Summary Discharge Rx Participant: No New Discharge Prescriptions: New ARIPiprazole [Abilify] 7.5 mg PO BID 30 Days tab DULoxetine HCL [Cymbalta] 60 mg PO DAILY 30 Days traZODone HCL [Desyrel] 100 mg PO HS 30 Days tab Cephalexin [Keflex] 500 mg PO TID 4 Days cap Melatonin 5 mg PO HS 30 Days tablet Continue Omeprazole 40 mg PO AC-BID Oxybutynin Chloride [Ditropan XL] 10 mg PO DAILY Cholecalciferol (Vitamin D3) [Vitamin D3] 50 mcg PO DAILY Systane 0.3% Overnight Gel 1 applic BOTH EYES DIRECTED PRN PRN Reason: DRY EYES Hydrochlorothiazide [hydroCHLOROthiazide] 12.5 mg PO DAILY Erenumab-Aooe [Aimovig Autoinjector] 140 mg SQ Q30D metOLazone [Zaroxolyn] 2.5 mg PO DAILY Ocrevus Infusion 600 mg IV Q182D Fenofibrate [Lofibra] 160 mg PO DAILY 30 Days tab amantadine HCL [Symmetrel] 100 mg PO BID 30 Days cap Propranolol HCl 40 mg PO BID 30 Days tab Ascorbic Acid [Vitamin C] 1,000 mg PO DAILY 30 Days tab Topiramate [Trokendi Xr] 100 mg PO DAILY SILVER sulfADIAZINE CREAM [Silvadene Cream] 1 applic TOPICAL DAILY Pregabalin [Lyrica] 150 mg PO TID Baclofen [Lioresal] 20 mg PO TID PRN PRN Reason: Muscle Spasm Thiamine HCl [Vitamin B-1] 100 mg PO DAILY Discontinued ARIPiprazole [Abilify] 5 mg PO DAILY 30 Days tab Venlafaxine HCl ER [Effexor XR] 150 mg PO DAILY 30 Days DULoxetine HCL [Cymbalta] 60 mg PO BID Discharge Medication List Omeprazole 40 mg PO AC-BID 09/10/17 [History] Oxybutynin Chloride [Ditropan XL] 10 mg PO DAILY 05/24/18 [History] Cholecalciferol (Vitamin D3) [Vitamin D3] 50 mcg PO DAILY 04/03/20 [History] metOLazone [Zaroxolyn] 2.5 mg PO DAILY 07/06/21 [History] Ocrevus Infusion 600 mg IV Q182D 07/07/21 [History] Ascorbic Acid [Vitamin C] 1,000 mg PO DAILY 30 Days tab 07/13/21 [Rx] Fenofibrate [Lofibra] 160 mg PO DAILY 30 Days tab 07/13/21 [Rx] Propranolol HCl 40 mg PO BID 30 Days tab 07/13/21 [Rx] amantadine HCL [Symmetrel] 100 mg PO BID 30 Days cap 07/13/21 [Rx] Baclofen [Lioresal] 20 mg PO TID PRN 12/30/21 [History] Erenumab-Aooe [Aimovig Autoinjector] 140 mg SQ Q30D 12/30/21 [History] Hydrochlorothiazide [hydroCHLOROthiazide] 12.5 mg PO DAILY 12/30/21 [History] Pregabalin [Lyrica] 150 mg PO TID 12/30/21 [History] SILVER sulfADIAZINE CREAM [Silvadene Cream] 1 applic TOPICAL DAILY 12/30/21 [History] Systane 0.3% Overnight Gel 1 applic BOTH EYES DIRECTED PRN 12/30/21 [History] Thiamine HCl [Vitamin B-1] 100 mg PO DAILY 12/30/21 [History] Topiramate [Trokendi Xr] 100 mg PO DAILY 12/30/21 [History] ARIPiprazole [Abilify] 7.5 mg PO BID 30 Days tab 01/04/22 [Rx] Cephalexin [Keflex] 500 mg PO TID 4 Days cap 01/04/22 [Rx] DULoxetine HCL [Cymbalta] 60 mg PO DAILY 30 Days 01/04/22 [Rx] Melatonin 5 mg PO HS 30 Days tablet 01/04/22 [Rx] traZODone HCL [Desyrel] 100 mg PO HS 30 Days tab 01/04/22 [Rx] Follow up Appointment(s)/Referral(s): [facility] [Outside] - 01/07/22 9:30 am (01-07-22 at 9:30 with Dave Suresh 01-19-22 at 9:[address] Dykes) Ronak Edwards MD [Primary Care Provider] - 1-2 days Patient Instructions/Handouts: Schizophrenia (DC), Alcohol Intoxication (DC), Suicide Prevention (DC) Activity/Diet/Wound Care/Special Instructions: Activity and diet as tolerated. Avoid the use of street drugs and alcohol. Take all medications as prescribed. When you are in need of refills on your medications please contact your medical provider and/or outpatient psychiatrist to have this done. Please go to scheduled outpatient appointment for aftercare treatment. If symptoms return or become worse, call the crisis line at and/or go to the nearest emergency room for evaluation
== END 2022-01-04 15:40 | disposition home or self-care (01) | DRG 885 ==
LOC: EC 13:55 → 3MHU 12-31 04:44
PROVIDERS: ADMIT Psychiatry & Neurology Psychiatry; ATTEND Psychiatry & Neurology Psychiatry
DX: F23 Brief psychotic disorder (principal); L03.115 Cellulitis of right lower limb; F43.10 Post-traumatic stress disorder, unspecified; G47.00 Insomnia, unspecified; Z20.822 Contact with and (suspected) exposure to COVID-19; Z63.5 Disruption of family by separation and divorce; B02.9 Zoster without complications; G35 Multiple sclerosis; F19.11 Other psychoactive substance abuse, in remission; F32.9 Major depressive disorder, single episode, unspecified; Z59.00 Homelessness unspecified; Z79.899 Other long term (current) drug therapy; Z81.8 Family history of other mental and behavioral disorders; Z82.0 Family history of epilepsy and other diseases of the nervous system; Z87.891 Personal history of nicotine dependence; Z90.710 Acquired absence of both cervix and uterus; T43.96XA Underdosing of unspecified psychotropic drug, initial encounter; Z91.128 Patient's intentional underdosing of medication regimen for other reason; Z98.890 Other specified postprocedural states; Z88.0 Allergy status to penicillin; Z88.2 Allergy status to sulfonamides; Z88.8 Allergy status to other drugs, medicaments and biological substances; Z91.030 Bee allergy status; Z56.0 Unemployment, unspecified; Z86.718 Personal history of other venous thrombosis and embolism
CPT/HCPCS: 80053; 80306; 81001; 81025; 82075; 83036; 84443; 85025; 87635; 99285

== ENCOUNTER → 2022-03-02 | Outpatient (CLI) | payer OTHER ==
[2022-03-02 11:17] LABS: Appearance,Urine Clear (Clear); Color,Urine Light Yellow; Mucus,Urine Rare /hpf; Specific Gravity,Urine 1.015 (1.001-1.035)
[2022-03-02 14:25] LABS: Basophils # (A) 0.05 X 10*3/uL (0.00-0.10); Basophils % (A) 0.8 %; Eosinophils # (A) 0.29 X 10*3/uL (0.04-0.35); Eosinophils % (A) 4.4 %; HCT 40.7 % (37.2-46.3); HGB 12.7 g/dL (12.0-15.0); Immature Grans, Automated 0.5 %; Lymphocytes # (A) 1.67 X 10*3/uL (0.90-5.00); Lymphocytes % (A) 25.1 %; MCH 28.2 pg (27.0-32.0); MCHC 31.2 g/dL (32.0-37.0); MCV 90.4 fL (80.0-97.0); Mean Platelet Volume 10.2 fL (9.5-12.2); Monocytes # (A) 0.69 X 10*3/uL (0.20-1.00); Monocytes % (A) 10.4 %; NRBC Per 100 WBC 0 /100 WBCS (0.0-0.0); Neutrophils # (A) 3.93 X 10*3/uL (1.80-7.70); Neutrophils % (A) 58.8 %; Platelet Count 685 X 10*3/uL (140-440); WBC 6.66 X 10*3/uL (4.50-10.00)
[2022-03-02 15:01] LABS: African American GFR (CKD) 49.9 (60.0-200.0); Albumin 4.9 g/dL (3.8-4.9); Albumin/Globulin Ratio 1.81 (1.60-3.17); Anion Gap 13.4 mmol/L (10.00-18.00); BUN/Creat Ratio 13.5 Ratio (12.00-20.00); Blood Urea Nitrogen 18.9 mg/dL (9.0-27.0); Calcium 10.4 mg/dL (8.7-10.3); Carbon Dioxide 27.6 mmol/L (20.0-27.5); Globulin 2.7 g/dL (1.6-3.3); Non-African American GFR(CKD) 43.1 (60.0-200.0); Potassium 3.7 mmol/L (3.5-5.5); Total Bilirubin 0.3 mg/dL (0.30-1.20); Total Protein 7.6 g/dL (6.2-8.2)
[2022-03-02 15:02] LABS: Phosphorus 3.2 mg/dL (2.4-5.1)
[2022-03-02 17:57] LABS: Appearance,Urine Clear (Clear); Bilirubin,Urine Negative (Negative); Blood,Urine Negative (Negative); Color,Urine Light Yellow; Glucose,Urine (UA) Negative (Negative); Ketones,Urine Negative (Negative); Leukocyte Esterase,Urine Moderate (Negative); Mucus,Urine Rare /hpf; Nitrite,Urine Negative (Negative); Protein,Urine Negative (Negative); Specific Gravity,Urine 1.016 (1.001-1.035); Squamous Epithelial Cell,Urine 2 /hpf (0-4); Urobilinogen,Urine <2.0 mg/dL (<2.0); WBC,Urine 3 /hpf (0-5)
== END | disposition home or self-care (01) ==
LOC: LABWHC1 08:47
PROVIDERS: ATTEND Nurse Practitioner Family
DX: N18.31 Chronic kidney disease, stage 3a (principal)
CPT/HCPCS: 36415; 80053; 81001; 84100; 85025

== ENCOUNTER 2022-05-18 16:59 | Inpatient (IN) | payer OTHER ==
[2022-05-18 21:06] LABS: Basophils % (A) 0 %; Eosinophils # (A) 0.2 k/uL (0-0.7); Eosinophils % (A) 4 %; HCT 35.6 % (34.0-46.0); HGB 11.7 gm/dL (11.4-16.0); Lymphocytes # (A) 1.3 k/uL (1.0-4.8); Lymphocytes % (A) 25 %; MCH 29.6 pg (25.0-35.0); MCV 89.7 fL (80.0-100.0); Mean Platelet Volume 8.3; Monocytes # (A) 0.4 k/uL (0-1.0); Monocytes % (A) 8 %; Neutrophils # (A) 3.2 k/uL (1.3-7.7); Neutrophils % (A) 60 %; Platelet Count 451 k/uL (150-450); RBC 3.96 m/uL (3.80-5.40); RDW 13.6 % (11.5-15.5); WBC 5.3 k/uL (3.8-10.6)
[2022-05-18 21:20] LABS: Albumin 4.7 g/dL (3.5-5.0); Calcium 10.2 mg/dL (8.4-10.2); Potassium 4.2 mmol/L (3.5-5.1); Total Bilirubin 0.5 mg/dL (0.2-1.3)
[2022-05-18] MEDS ORDERED: ACETAMINOPHEN TAB 325 MG TAB PO PRN (23:30)
[2022-05-18] MEDS ORDERED: ONDANSETRON 4 MG/2 ML VIAL IVP PRN (23:30)
--- NOTE | 2022-05-18 23:30 | ED ---
General Adult HPI - General Chief complaint: Recheck/Abnormal Lab/Rx Stated complaint: Recheck-sent by PCP Time Seen by Provider: 05/18/22 19:29 Source: patient Mode of arrival: ambulatory Limitations: no limitations - History of Present Illness Initial comments: This 52-year-old female presents with a complaint of some decrease in her vision. She states that this came on approximately 4 days ago. She relates that it has affected her near vision more so than her long vision. She cannot read a book are read her phone anymore. She apparently has some slight blurriness of her distal vision as well. She was seen by Dr. Hoff today in the office. He did not feel as though she had any ocular problems causing her decrease in vision. He was apparently worried that there is a more central cause. He sent her for computed tomography scan of the brain and then to the emergency department. Case is discussed with them and she apparently had rela tively normal vision just several weeks ago and then today she was . He apparently thought as though she has a left eye apparent defect. He wants patient admitted to the hospital with neurology consultation. Her computed tomography scan of the brain that was done earlier is essentially within normal limits with postoperative changes from her Chiari malformation. The patient states that she may have had a very minimal headache earlier today. She denies any other complaints such as nausea, vomiting, fevers, chills. She has no eye pain. She denies any previous eye problems other than requiring glasses. She's never had glaucoma. She does not utilize contact lenses. No other complaints or modifying factors. - Related Data Home Medications Medication Instructions Recorded Confirmed Omeprazole 40 mg PO AC-BID 09/10/17 05/18/22 Oxybutynin Chloride [Ditropan XL] 10 mg PO DAILY 05/24/18 05/18/22 Cholecalciferol (Vitamin D3) 50 mcg PO DAILY 04/03/20 05/18/22 [Vitamin D3] Ocrevus Infusion 600 mg IV Q182D 07/07/21 05/18/22 Baclofen [Lioresal] 20 mg PO TID PRN 12/30/21 05/18/22 Erenumab-Aooe [Aimovig 140 mg SQ Q30D 12/30/21 05/18/22 Autoinjector] Pregabalin [Lyrica] 150 mg PO TID 12/30/21 05/18/22 SILVER sulfADIAZINE CREAM 1 applic TOPICAL DAILY 12/30/21 05/18/22 [Silvadene Cream] Systane 0.3% Overnight Gel 1 applic BOTH EYES Q4H PRN 12/30/21 05/18/22 ARIPiprazole [Abilify] 15 mg PO DAILY 05/18/22 05/18/22 DULoxetine HCL [Cymbalta] 60 mg PO BID 05/18/22 05/18/22 Furosemide [Lasix] 20 mg PO DAILY 05/18/22 05/18/22 Lifitegrast [Xiidra] 1 drop BOTH EYES BID 05/18/22 05/18/22 Previous Rx's Medication Instructions Recorded Ascorbic Acid [Vitamin C] 1,000 mg PO DAILY 30 Days tab 07/13/21 Fenofibrate [Lofibra] 160 mg PO DAILY 30 Days tab 07/13/21 Propranolol HCl 40 mg PO BID 30 Days tab 07/13/21 amantadine HCL [Symmetrel] 100 mg PO BID 30 Days cap 07/13/21 Melatonin 5 mg PO HS 30 Days tablet 01/04/22 traZODone HCL [Desyrel] 100 mg PO HS 30 Days tab 01/04/22 Allergies Allergy/AdvReac Type Severity Reaction Status Date / Time amoxicillin Allergy Rash/Hives Verified 05/18/22 21:21 bee venom protein (honey bee) Allergy Anaphylaxis Verified 05/18/22 21:21 Sulfa (Sulfonamide Allergy Rash/Hives Verified 05/18/22 21:21 Antibiotics) sulfamethoxazole Allergy Rash/Hives Verified 05/18/22 21:21 [From Bactrim] trimethoprim [From Bactrim] Allergy Rash/Hives Verified 05/18/22 21:21 Review of Systems ROS Statement: Those systems with pertinent positive or pertinent negative responses have been documented in the HPI. ROS Other: All systems not noted in ROS Statement are negative. Past Medical History Past Medical History: No Reported History Additional Past Medical History / Comment(s): migraines, Carpal tunnel, DDD, dvt-LT CALF, MS, milagros-malformation, Recieves ocrevus Q 6 months History of Any Multi-Drug Resistant Organisms: None Reported Past Surgical History: Heart Catheterization, Hysterectomy, Orthopedic Surgery Additional Past Surgical History / Comment(s): chiari malformation decompression (08/2016), carpal tunnel BILAT WRISTS, COLONOSCOPY Past Anesthesia/Blood Transfusion Reactions: No Reported Reaction Past Psychological History: Anxiety, Depression Smoking Status: Former smoker Past Alcohol Use History: None Reported Past Drug Use History: None Reported - Past Family History Mother Family Medical History: Cancer Additional Family Medical History / Comment(s): . General Exam - General Exam Comments Initial Comments: GENERAL: The patient is well nourished and well hydrated. VITAL SIGNS: Heart rate, blood pressure, respiratory rate reviewed as recorded in nurse's notes. EYES: Pupils are round and reactive. Extraocular movements are intact. No conjunctival / lid redness or swelling. Funduscopic exam is normal as best visualized without dilation. ENT: No external evidence of injury, swelling, or ecchymosis. Airway is patent. Throat is clear. NECK: Nontender. No swelling or evidence of injury. No subcutaneous emphysema. Trachea is midline. No thyroid mass. HEART: Regular rate and rhythm. Good peripheral pulses. LUNGS/CHEST: Breath sounds clear and equal bilaterally. No rales, rhonchi, or wheezes. No ecchymosis, subcutaneous emphysema, or tenderness. ABDOMEN: Abdomen soft without tenderness. No palpable masses or organomegaly. No peritoneal signs. No abdominal wall swelling or ecchymosis. EXTREMITIES: No extremity tenderness. Normal muscle tone and function. No thoracolumbar tenderness. NEUROLOGIC: Sensation is grossly intact. Cranial nerve exam reveals face is symmetrical, tongue is midline, speech is clear. SKIN: No abrasions or ecchymosis is noted. No induration or masses noted. PSYCHIATRIC: Alert and oriented. Appropriate behavior and judgment. Limitations: no limitations Course Vital Signs 05/18/22 05/18/22 05/18/22 17:42 20:51 21:43 Temperature 97.4 F L Pulse Rate 57 L 58 L 58 L Respiratory 16 18 Rate Blood Pressure 159/82 142/80 O2 Sat by Pulse 96 98 93 L Oximetry Medical Decision Making - Medical Decision Making The patient was seen and examined. Laboratory was reviewed and this shows some mild renal insufficiency. It shows slight elevation of the platelets. The jamie king had a computed tomography scan of the brain earlier today and this does not show any acute process. Case is discussed with Dr. Hoff and he states that the patient likely has a central cause. He did not find any ocular cause of patient's decrease in vision which apparently is fairly significant. He does fax over records from his office. These are placed on the chart. Internal medicine has been paged and we're currently awaiting their call back. Patient will be admitted to the hospital with neurology to consult and MRI scan of the brain. Patient is agreeable with this plan. - Lab Data Result diagrams: 05/18/22 20:51 05/18/22 20:51 Lab Results 05/18/22 05/18/22 Range/Units 20:51 20:51 WBC 5.3 (3.8-10.6) k/uL RBC 3.96 (3.80-5.40) m/uL Hgb 11.7 (11.4-16.0) gm/dL Hct 35.6 (34.0-46.0) % MCV 89.7 (80.0-100.0) fL MCH 29.6 (25.0-35.0) pg MCHC 33.0 (31.0-37.0) g/dL RDW 13.6 (11.5-15.5) % Plt Count 451 H (150-450) k/uL MPV 8.3 Neutrophils % 60 % Lymphocytes % 25 % Monocytes % 8 % Eosinophils % 4 % Basophils % 0 % Neutrophils # 3.2 (1.3-7.7) k/uL Lymphocytes # 1.3 (1.0-4.8) k/uL Monocytes # 0.4 (0-1.0) k/uL Eosinophils # 0.2 (0-0.7) k/uL Basophils # 0.0 (0-0.2) k/uL Sodium 140 (137-145) mmol/L Potassium 4.2 (3.5-5.1) mmol/L Chloride 100 (98-107) mmol/L Carbon Dioxide 30 (22-30) mmol/L Anion Gap 10 mmol/L BUN 20 H (7-17) mg/dL Creatinine 1.44 H (0.52-1.04) mg/dL Est GFR (CKD-EPI)AfAm 48 (>60 ml/min/1.73 sqM) Est GFR (CKD-EPI)NonAf 42 (>60 ml/min/1.73 sqM) Glucose 88 (74-99) mg/dL Calcium 10.2 (8.4-10.2) mg/dL Total Bilirubin 0.5 (0.2-1.3) mg/dL AST 24 (14-36) U/L ALT 18 (4-34) U/L Alkaline Phosphatase 71 (38-126) U/L Total Protein 7.0 (6.3-8.2) g/dL Albumin 4.7 (3.5-5.0) g/dL Disposition Clinical Impression: Decreased visual acuity, History of Chiari malformation Disposition: ADMITTED IP TO THIS [facility] Condition: Fair Is patient prescribed a controlled substance at d/c from ED?: No Referrals: Ronak Edwards MD [Primary Care Provider] - 1-2 days Time of Disposition: 23:30 Decision Date: 05/18/22 Decision Time: 23:30
[2022-05-18] MEDS ORDERED: BACLOFEN 10 MG TAB PO PRN (23:33)
[2022-05-18] MEDS ORDERED: ARTIFICIAL TEARS OINTMENT 3.5 GM TUBE BOTH EYES PRN (23:33)
[2022-05-19] MEDS ORDERED: OCRELIZUMAB IV SCH (09:00)
[2022-05-19] MEDS ORDERED: [UNRECOGNIZED DRUG - OTHER] IV SCH (09:00)
[2022-05-19] MEDS: FUROSEMIDE 20 MG TAB PO SCH (09:01)
[2022-05-19] MEDS: CHOLECALCIFEROL 25 MCG (1000 IU) TABLET PO SCH (09:01)
[2022-05-19] MEDS: ASCORBIC ACID 500 MG TAB PO SCH (09:01)
[2022-05-19] MEDS: FENOFIBRATE 160 MG TAB PO SCH (09:01)
[2022-05-19] MEDS: PANTOPRAZOLE 40 MG TABLET PO SCH (09:01)
[2022-05-19] MEDS: PREGABALIN 75 MG CAP PO SCH ×3 (09:01→21:20)
[2022-05-19] MEDS: ENOXAPARIN 40 MG/0.4 ML SYRINGE SQ SCH (09:02)
[2022-05-19] MEDS: NON FORMULARY DRUG (Lifitegrast [Xiidra] 1 EACH Droperette) BOTH EYES SCH ×2 (09:02→20:15)
[2022-05-19] MEDS: DULoxetine HCL 60 MG CAPSULE.DR PO SCH ×2 (09:02→20:15)
[2022-05-19] MEDS: methylPREDNISolone SOD SUCCIN 1,000 MG in SODIUM CHLORIDE 0.9% 250 ML IVPB SCH (11:51)
[2022-05-19] MEDS: PROPRANOLOL 40 MG TAB PO SCH ×2 (14:47→20:15)
[2022-05-19] MEDS: OXYBUTYNIN 10 MG TAB.ER.24 PO SCH (14:49)
[2022-05-19] MEDS: ARIPiprazole 15 MG TAB PO SCH (14:49)
--- NOTE | 2022-05-19 15:41 | P.CNNES ---
History of Present Illness Consult date: 05/19/22 Requesting physician: Seth Fuentes Reason for Consult: Visual problems History of Present Illness: Patient is a 52-year-old female with history of multiple sclerosis, that was diagnosed in 2019, follows up with Dr. Rosales came to the hospital yesterday at 5 PM for new onset visual disturbance. Patient states that she was diagnosed with MS in 2019. She was started on Ocrevus, and has been on this medication since diagnosis. She has not tried any other disease modifying medication. Her MS was diagnosed after she was having trouble with walking, visual disturbance, balance and headaches. Patient states that her visual symptoms started on , 5 days prior to arrival to the hospital. Patient states that she took an afternoon nap for about couple hours and when she woke up, noticed visual disturbance in both eyes. She felt like a sun spot which is more like a black sun spot and involves the fourth visual field of the right eye. She can only see the right upper quadrant. In the left eye, she has altitudinal defect, with preserved vision only in the upper half of the vision. She cannot read cell phone. Patient states the symptoms started mild but has gotten worse in these few days. Patient states that she went to see chief innovation officer yesterday, who recommended her to go to the ER. Patient states that yesterday she was having some "regular headache", which involved above the eyes bilaterally. She gets migraines about once or twice a week. The migraines last between couple hours to 5 days. Patient states that today her vision seems to be about 10% better overall. She can barely see the outlines, as it appears that she has looked at the sun. She does not use any device for walking, although she believes that she is almost ready to start use cane or walker because she falls a lot. Patient says her low back has been hurting much more than usual. Patient also complains of tremors of both hands, left side worse for the last couple months. As a kid she had some mild shaking, but had gone away. She denies excessive caffeine intake. Patient denies any slurred speech, dysphagia or any new numbness or tingling. She does have intermittent numbness and tingling in the feet and lower legs almost all the time (present more often than not). The numbness extends to above knee on the right, whereas below knee on the left. The numbness and tingling is more intense in the left leg however. Also has numbness and tingling in the fingers and hands but does not involve the arms. This is not new. She has dry eyes. Vital signs on arrival blood pressure 159/82, which came down to 142/80. Pulse rate 57, temperature 97.4 CT head with and without contrast showed no acute intracranial process. No abnormal postcontrast enhancement. Postsurgical changes to the foramen magnum. Blood test shows normal CBC, with mildly elevated platelets 451. Electrolytes are normal, BUN 20, creatinine 1.44. Hepatic panel is normal. Patient's last hemoglobin A1c 5.6 on 01/01/2022. B12 349, vitamin B6 9, folate 18.10 on 07/08/2021. Patient's home medications include omeprazole, oxybutynin, vitamin D, Ocrevus, fenofibrate, amantadine 100 mg twice a day, propranolol, Aimovig, Lyrica 150 mg 3 times a day, baclofen 20 mg 3 times a day, trazodone 100 mg, melatonin, Abilify 15 mg, Lasix 20 mg, Cymbalta 60 mg twice a day. Patient has history of tobacco use of 2 pack per day for 15 years, quit in 2019. She drinks alcohol very little. She inhales marijuana in a pen, once in a while. Patient has history of migraines, when she has migraines, she loses vision for couple hours. She lives by herself. She has 2 adult children. Patient had CSF performed 12/05/2017, which was positive for 4 or more oligoclonal bands, not present in the serum. IgG synthesis rate was 5.4/3.0. IgG index was normal 0.64. Lyme titer negative, hepatitis panel negative. Patient is positive for JCV antibody is 2.66 on 12/26/2017. Review of Systems All other review of systems unremarkable except as mentioned in HPI. Past Medical History Past Medical History: No Reported History Additional Past Medical History / Comment(s): migraines, Carpal tunnel, DDD, dvt-LT CALF, MS, milagros-malformation, Recieves ocrevus Q 6 months History of Any Multi-Drug Resistant Organisms: None Reported Past Surgical History: Heart Catheterization, Hysterectomy, Orthopedic Surgery Additional Past Surgical History / Comment(s): chiari malformation decompression (08/2016), carpal tunnel BILAT WRISTS, COLONOSCOPY Past Anesthesia/Blood Transfusion Reactions: No Reported Reaction Past Psychological History: Anxiety, Depression Smoking Status: Former smoker Past Alcohol Use History: None Reported Past Drug Use History: None Reported - Past Family History Mother Family Medical History: Cancer Additional Family Medical History / Comment(s): . Father Additional Family Medical History / Comment(s): Alcoholism. Medications and Allergies Home Medications Medication Instructions Recorded Confirmed Type Omeprazole 40 mg PO AC-BID 09/10/17 05/18/22 History Oxybutynin Chloride [Ditropan XL] 10 mg PO DAILY 05/24/18 05/18/22 History Cholecalciferol (Vitamin D3) 50 mcg PO DAILY 04/03/20 05/18/22 History [Vitamin D3] Ocrevus Infusion 600 mg IV Q182D 07/07/21 05/18/22 History Ascorbic Acid [Vitamin C] 1,000 mg PO DAILY 30 Days tab 07/13/21 05/18/22 Rx Fenofibrate [Lofibra] 160 mg PO DAILY 30 Days tab 07/13/21 05/18/22 Rx Propranolol HCl 40 mg PO BID 30 Days tab 07/13/21 05/18/22 Rx amantadine HCL [Symmetrel] 100 mg PO BID 30 Days cap 07/13/21 05/18/22 Rx Baclofen [Lioresal] 20 mg PO TID PRN 12/30/21 05/18/22 History Erenumab-Aooe [Aimovig 140 mg SQ Q30D 12/30/21 05/18/22 History Autoinjector] Pregabalin [Lyrica] 150 mg PO TID 12/30/21 05/18/22 History SILVER sulfADIAZINE CREAM 1 applic TOPICAL DAILY 12/30/21 05/18/22 History [Silvadene Cream] Systane 0.3% Overnight Gel 1 applic BOTH EYES Q4H PRN 12/30/21 05/18/22 History Melatonin 5 mg PO HS 30 Days tablet 01/04/22 05/18/22 Rx traZODone HCL [Desyrel] 100 mg PO HS 30 Days tab 01/04/22 05/18/22 Rx ARIPiprazole [Abilify] 15 mg PO DAILY 05/18/22 05/18/22 History DULoxetine HCL [Cymbalta] 60 mg PO BID 05/18/22 05/18/22 History Furosemide [Lasix] 20 mg PO DAILY 05/18/22 05/18/22 History Lifitegrast [Xiidra] 1 drop BOTH EYES BID 05/18/22 05/18/22 History Allergies Allergy/AdvReac Type Severity Reaction Status Date / Time amoxicillin Allergy Rash/Hives Verified 05/18/22 21:21 bee venom protein (honey bee) Allergy Anaphylaxis Verified 05/18/22 21:21 Sulfa (Sulfonamide Allergy Rash/Hives Verified 05/18/22 21:21 Antibiotics) sulfamethoxazole Allergy Rash/Hives Verified 05/18/22 21:21 [From Bactrim] trimethoprim [From Bactrim] Allergy Rash/Hives Verified 05/18/22 21:21 Physical Examination - Vital Signs Vital Signs: Vital Signs Temp Pulse Pulse Resp BP BP Pulse Ox 05/19/22 09:03 98.2 F 68 18 127/68 96 05/19/22 06:11 62 18 132/81 98 05/19/22 03:43 61 18 124/61 99 05/19/22 01:16 59 L 18 126/74 97 05/18/22 21:43 58 L 18 142/80 93 L 05/18/22 20:51 58 L 98 05/18/22 17:42 97.4 F L 57 L 16 159/82 96 Intake and Output 05/18/22 05/19/22 05/19/22 22:59 06:59 14:59 Other: Weight 78.018 kg Patient is a middle aged female, in no acute distress. Patient is alert awake oriented to time place and person. Speech and language functions are normal. Attention, concentration and fund of knowledge is adequate. No aphasia or dysarthria. On cranial examination, pupils are equal, round and reacting to light. She has significant visual field deficits bilaterally. She has only preserved right upper quadrant in the right eye, whereas she has preserved vision in the left upper half of the vision in the left eye. Her extraocular muscles are intact with no nystagmus. Face is symmetric, tongue protrudes to the midline. Palatal elevation and sensation normal, hearing and shoulder shrug normal, facial sensation normal. Shoulder shrug normal. On muscle strength testing, there is no pronator drift and the strength is normal in arms and legs distally and proximally, except hip flexion, which is 5- on the right, 4+ left. Deep tendon reflexes are (right/left) biceps 1+/1+, brachioradialis 1/1, knee 1/2+ and plantars are withdrawal versus upgoing bilaterally. Sensory to touch is equal with no neglect. Cerebellar function showed significant shaking for [id number] testing bilaterally, with past pointing on the left side. Her coordination is worse for [id number] testing on the left as compared to right. Tone and bulk of muscles normal. Gait not checked. On general examination, there is no carotid bruit or murmur, S1-S2 audible. Abdomen is soft nontender. No organomegaly, bowel sounds present. Chest is clear. Peripheral pulses are present. No edema. Results - Laboratory Findings CBC and BMP: 05/18/22 20:51 05/18/22 20:51 Abnormal Lab Findings: Abnormal Labs 05/18/22 05/18/22 20:51 20:51 Plt Count 451 H BUN 20 H Creatinine 1.44 H Assessment and Plan Assessment: * Probable MS exacerbation. Patient has presented with 5 day history of visual field deficits involving both eyes. Appears bilateral optic neuritis. Rule out NMO. * History of Chiari malformation, status post cervical decompression August 2016. * X tobacco use * Anxiety depression. Plan: * Await MRI of the brain with and without contrast. * Start Solu-Medrol 1 g IVPB for 3-5 days. * ESR, CRP. * We will check NMO and MOG antibodies. * Neurology will follow. Thank you for the consult.
--- NOTE | 2022-05-19 17:37 | MR ---
EXAMINATION TYPE: MR brain wo con DATE OF EXAM: 05/19/2022 5:06 PM COMPARISON: CT brain 05/18/2022. CLINICAL INDICATION:Female, 52 years old with history of Decreased visual acuity; TECHNIQUE: Multi planar, multi sequence imaging was performed through the brain including: T1, T2, In version recovery, Diffusion weighted imaging, and gradient echo imaging. No gadolinium was given. FINDINGS: The meza-white junctions, ventricular system, and cisterns appear unremarkable. No significant white matter changes Midline structures show no abnormality. Diffusion-weighted imaging shows no evidence o f restricted diffusion. The bone marrow signal is within normal limits. The paranasal sinuses demonstrate scattered mild muco tess thickening. The globes appear intact without abnormality.. Postsurgical surgical changes to the f oramen magnum. Axial images through the spine were included there is a disc protrusion seen centrally at C3 -C4. IMPRESSION: 1. No evidence of intracranial mass or acute/subacute infarct. 2. C3-C4 central disc herniation with at least mild spinal canal stenosis. 3. Postsurgical changes to the foramen magnum.
[2022-05-19] MEDS: MELATONIN 5 MG TABLET PO SCH (20:15)
[2022-05-19] MEDS: traZODone HCL 100 MG TAB PO SCH (20:15)
--- NOTE | 2022-05-20 01:11 | P.HPIM ---
History of Present Illness H&P Date: 05/19/22 Chief Complaint: Visual disturbance. Patient is a 52-year-old female with a known history of multiple sclerosis versus Ocrevus q every 6 months., migraine headaches, Chiari malformation, anxiety/depression and prior history of smoking presents to ER with complaints of bilateral visual disturbance. Patient has been having symptoms for the past 5 days. Patient states that she was seen by her primary care physician and rib sawyer as an outpatient and was recommended to go to ER. Patient states that she did have follow-up vision with a black spot in the middle. Francisco king states that overall her vision is better today. Denies any complaints of headache. No complaints of focal weakness. No fever no chills no nausea vomiting or abdominal pain or diarrhea. No chest pain or shortness of breath. On admission CT head showed no acute intracranial process. No abdominal postcontrast enhancement. Postsurgical changes to the foramen magnum. Laboratory test showed WBC 5.3 hemoglobin 11.7 platelets 441 sodium 140 potassium 4.2 chloride 100 bicarb is 30 BUN 21 creatinine 1.44. CRP >0.5 liver enzymes are not elevated. Review of Systems Constitutional: Patient denies any fever or chills . Generalized weakness. Abdomen: Patient denied any nausea or vomiting or abd. pain Cardiovascular: Patient denies any chest pain or short of breath no palpitations. Respiratory: patient denied any cough is from production. No shortness of breath Neurologic: Patient denied any numbness or tingling headache.Bilateral loss of vision. Musculoskeletal: Patient denies any complaints of joint swelling or deformity. Skin: Negative Psychiatric: Negative Endocrine: No heat or cold intolerance. No recent weight gain. Genitourinary: No dysuria or hematuria. All other 14 point ROS negative except the above Past Medical History Past Medical History: No Reported History Additional Past Medical History / Comment(s): migraines, Carpal tunnel, DDD, dvt-LT CALF, MS, milagros-malformation, Recieves ocrevus Q 6 months History of Any Multi-Drug Resistant Organisms: None Reported Past Surgical History: Heart Catheterization, Hysterectomy, Orthopedic Surgery Additional Past Surgical History / Comment(s): chiari malformation decompression (08/2016), carpal tunnel BILAT WRISTS, COLONOSCOPY Past Anesthesia/Blood Transfusion Reactions: No Reported Reaction Past Psychological History: Anxiety, Depression Smoking Status: Former smoker Past Alcohol Use History: None Reported Past Drug Use History: None Reported - Past Family History Mother Family Medical History: Cancer Additional Family Medical History / Comment(s): . Father Additional Family Medical History / Comment(s): Alcoholism. Medications and Allergies Home Medications Medication Instructions Recorded Confirmed Type Omeprazole 40 mg PO AC-BID 09/10/17 05/18/22 History Oxybutynin Chloride [Ditropan XL] 10 mg PO DAILY 05/24/18 05/18/22 History Cholecalciferol (Vitamin D3) 50 mcg PO DAILY 04/03/20 05/18/22 History [Vitamin D3] Ocrevus Infusion 600 mg IV Q182D 07/07/21 05/18/22 History Ascorbic Acid [Vitamin C] 1,000 mg PO DAILY 30 Days tab 07/13/21 05/18/22 Rx Fenofibrate [Lofibra] 160 mg PO DAILY 30 Days tab 07/13/21 05/18/22 Rx Propranolol HCl 40 mg PO BID 30 Days tab 07/13/21 05/18/22 Rx amantadine HCL [Symmetrel] 100 mg PO BID 30 Days cap 07/13/21 05/18/22 Rx Baclofen [Lioresal] 20 mg PO TID PRN 12/30/21 05/18/22 History Erenumab-Aooe [Aimovig 140 mg SQ Q30D 12/30/21 05/18/22 History Autoinjector] Pregabalin [Lyrica] 150 mg PO TID 12/30/21 05/18/22 History SILVER sulfADIAZINE CREAM 1 applic TOPICAL DAILY 12/30/21 05/18/22 History [Silvadene Cream] Systane 0.3% Overnight Gel 1 applic BOTH EYES Q4H PRN 12/30/21 05/18/22 History Melatonin 5 mg PO HS 30 Days tablet 01/04/22 05/18/22 Rx traZODone HCL [Desyrel] 100 mg PO HS 30 Days tab 01/04/22 05/18/22 Rx ARIPiprazole [Abilify] 15 mg PO DAILY 05/18/22 05/18/22 History DULoxetine HCL [Cymbalta] 60 mg PO BID 05/18/22 05/18/22 History Furosemide [Lasix] 20 mg PO DAILY 05/18/22 05/18/22 History Lifitegrast [Xiidra] 1 drop BOTH EYES BID 05/18/22 05/18/22 History Allergies Allergy/AdvReac Type Severity Reaction Status Date / Time amoxicillin Allergy Rash/Hives Verified 05/18/22 21:21 bee venom protein (honey bee) Allergy Anaphylaxis Verified 05/18/22 21:21 Sulfa (Sulfonamide Allergy Rash/Hives Verified 05/18/22 21:21 Antibiotics) sulfamethoxazole Allergy Rash/Hives Verified 05/18/22 21:21 [From Bactrim] trimethoprim [From Bactrim] Allergy Rash/Hives Verified 05/18/22 21:21 Physical Exam Vitals: Vital Signs Temp Pulse Pulse Resp BP BP Pulse Ox 05/19/22 09:03 98.2 F 68 18 127/68 96 05/19/22 06:11 62 18 132/81 98 05/19/22 03:43 61 18 124/61 99 05/19/22 01:16 59 L 18 126/74 97 05/18/22 21:43 58 L 18 142/80 93 L 05/18/22 20:51 58 L 98 05/18/22 17:42 97.4 F L 57 L 16 159/82 96 Intake and Output 05/18/22 05/19/22 05/19/22 22:59 06:59 14:59 Other: Weight 78.018 kg PHYSICAL EXAMINATION: Patient is lying in the bed comfortably, no acute distress, awake alert and oriented.. HEENT: Normocephalic. Neck is supple. Pupils reactive. Nostrils clear. Oral cavity is moist. Neck reveals no JVD, carotid bruits, or thyromegaly. CHEST EXAMINATION: Trachea is central. Symmetrical expansion. Lung miranda clear to auscultation and percussion. CARDIAC: Normal S1, S2 with no gallops. No murmurs ABDOMEN: Soft. Bowel sounds present. Nontender. No organomegaly. No abdominal bruits. Extremities: reveal no edema. No clubbing or cyanosis Neurologically awake, alert, oriented x3 with well-coordinated movements. No focal deficits noted Skin: No rash or skin lesions. Psychiatric: Coperative. Nonsuicidal, anxious. Musculoskeletal: No joint swelling or deformity. Normal range of motion. Results CBC & Chem 7: 05/18/22 20:51 05/18/22 20:51 Labs: Abnormal Lab Results - Last 24 Hours (Table) 05/18/22 05/18/22 Range/Units 20:51 20:51 Plt Count 451 H (150-450) k/uL BUN 20 H (7-17) mg/dL Creatinine 1.44 H (0.52-1.04) mg/dL Thrombosis Risk Factor Assmnt - DVT/VTE Prophylaxis DVT/VTE Prophylaxis: Pharmacologic Prophylaxis ordered Assessment and Plan Assessment: Bilateral visual field deficit likely due to MS exacerbation. History of Chiari malformation status post cervical decompression in 2016 Anxiety/depression Degenerative disc disease Migraine headaches Previous history of smoking DVT prophylaxis with heparin subcu Plan: Patient recorded on neurochecks. Was started on Solu-Medrol 1 g IV piggyback for 3 to 5 days as per neurology recommendations. Follow-up ESR and CRP level. Neurology is on board. Continue with home medications and follow-up closely. Time with Patient: Greater than 30
[2022-05-20] MEDS: PREGABALIN 75 MG CAP PO SCH ×3 (08:20→21:41)
[2022-05-20] MEDS: DULoxetine HCL 60 MG CAPSULE.DR PO SCH ×2 (08:21→21:41)
[2022-05-20] MEDS: CHOLECALCIFEROL 25 MCG (1000 IU) TABLET PO SCH (08:21)
[2022-05-20] MEDS: ASCORBIC ACID 500 MG TAB PO SCH (08:21)
[2022-05-20] MEDS: PANTOPRAZOLE 40 MG TABLET PO SCH (08:21)
[2022-05-20] MEDS: ENOXAPARIN 40 MG/0.4 ML SYRINGE SQ SCH (08:21)
[2022-05-20] MEDS: ARIPiprazole 15 MG TAB PO SCH (08:21)
[2022-05-20] MEDS: FUROSEMIDE 20 MG TAB PO SCH (08:21)
[2022-05-20] MEDS: FENOFIBRATE 160 MG TAB PO SCH (08:22)
[2022-05-20] MEDS: NON FORMULARY DRUG (Lifitegrast [Xiidra] 1 EACH Droperette) BOTH EYES SCH ×2 (08:22→21:41)
[2022-05-20] MEDS: PROPRANOLOL 40 MG TAB PO SCH ×2 (08:23→21:41)
[2022-05-20] MEDS: OXYBUTYNIN 10 MG TAB.ER.24 PO SCH (08:24)
[2022-05-20 09:24] LABS: African American GFR (CKD) 49.9 (60.0-200.0); BUN/Creat Ratio 16.64 Ratio (12.00-20.00); Blood Urea Nitrogen 23.3 mg/dL (9.0-27.0); Calcium 9.7 mg/dL (8.7-10.3); Non-African American GFR(CKD) 43.1 (60.0-200.0); Potassium 4.4 mmol/L (3.5-5.5)
[2022-05-20] MEDS: methylPREDNISolone SOD SUCCIN 1,000 MG in SODIUM CHLORIDE 0.9% 250 ML IVPB SCH (10:54)
--- NOTE | 2022-05-20 12:01 | P.PN ---
Subjective Progress Note Date: 05/20/22 Patient was seen for a follow-up. Patient says her vision is slightly better. It is not as cloudy, and the darkness is lightening up. It used to be done great, now it is light meza. Patient still cannot read large letters on the Milk carton. Objective - Vital Signs Vital signs: Vital Signs Temp 97.9 F 05/20/22 07:20 Pulse 69 05/20/22 07:20 Resp 18 05/20/22 07:20 BP 133/63 05/20/22 07:20 Pulse Ox 95 05/20/22 07:20 FiO2 Intake & Output 05/19/22 05/20/22 05/20/22 18:59 06:59 18:59 Intake Total 222 Balance 222 Weight 78.018 kg Intake: Oral 222 Other: Voiding Method Toilet # Voids 2 1 - Exam Patient's mental status, speech and language functions are normal. Patient has significant visual field deficits. Detailed testing deferred. - Labs CBC & Chem 7: 05/18/22 20:51 05/20/22 04:39 Assessment and Plan Assessment: * Probable MS exacerbation. Patient has presented with 5 day history of visual field deficits involving both eyes, right worse than left. Appears ?bilateral optic neuritis. Rule out NMO. * History of Chiari malformation, status post cervical decompression August 2016. * X tobacco use * Anxiety depression. Plan: * MRI of the brain performed without contrast was normal. No evidence of i ntracranial mass or acute/subacute infarct. C3-C4 central disc herniation with at least mild spinal canal stenosis. Postsurgical changes to the foramen magnum. I personally reviewed MRI, agree with the findings. There is no significant white matter disease noted in the brain. * We will perform MRI of the orbits with and without contrast for possible optic neuritis. * Ophthalmology consult. * Continue Solu-Medrol 1 g IVPB for 3-5 days. * ESR 7, CRP <0.5. * NMO and MOG antibodies pending.
--- NOTE | 2022-05-20 21:14 | P.PN ---
Subjective Progress Note Date: 05/20/22 Patient is a 52-year-old female with a known history of multiple sclerosis versus Ocrevus q every 6 months., migraine headaches, Chiari malformation, anxiety/depression and prior history of smoking presents to ER with complaints of bilateral visual disturbance. Patient has been having symptoms for the past 5 days. Patient states that she was seen by her primary care physician and social media marketing specialist as an outpatient and was recommended to go to ER. Patient states that she did have follow-up vision with a black spot in the middle. Patient states that overall her vision is better today. Denies any complaints of headache. No complaints of focal weakness. No fever no chills no nausea vomiting or abdominal pain or diarrhea. No chest pain or shortness of breath. On admission CT head showed no acute intracranial process. No abdominal postcontrast enhancement. Postsurgical changes to the foramen magnum. Laboratory test showed WBC 5.3 hemoglobin 11.7 platelets 441 sodium 140 potassium 4.2 chloride 100 bicarb is 30 BUN 21 creatinine 1.44. CRP >0.5 liver enzymes are not elevated. 05/20/2022 Patient is seen today and is maintained on high dose IV steroids with neurology following. Patient follows in Dr. Campos office and was sent here by opthalmology for visual disturbances. Patient is also having an MS exacerbation. Patient reports to having continued visual disturbances with blurry vision. Patient is afebrile and denies chest pain or shortness of breath. Patient denies nausea or vomiting and tolerating diet. Review of systems: Constitutional: Patient denies any fever or chills . Generalized weakness. Abdomen: Patient denied any nausea or vomiting or abd. pain Cardiovascular: Patient denies any chest pain or short of breath no palpitations. Respiratory: patient denied any cough is from production. No shortness of breath Neurologic: Patient denied any numbness or tingling headache. some loss of vision with blurry vision Musculoskeletal: Patient denies any complaints of joint swelling or deformity. PHYSICAL EXAMINATION: Patient is lying in the bed comfortably, no acute distress, awake alert and oriented.. HEENT: Normocephalic. Neck is supple. Pupils reactive. Nostrils clear. Oral cavity is moist. Neck reveals no JVD, carotid bruits, or thyromegaly. CHEST EXAMINATION: Trachea is central. Symmetrical expansion. Lung miranda clear to auscultation and percussion. CARDIAC: Normal S1, S2 with no gallops. No murmurs ABDOMEN: Soft. Bowel sounds present. Nontender. No organomegaly. No abdominal bruits. Extremities: reveal no edema. No clubbing or cyanosis Neurologically awake, alert, oriented x3 with well-coordinated movements. No focal deficits noted Skin: No rash or skin lesions. Psychiatric: Cooperative. Non-suicidal, anxious. Musculoskeletal: No joint swelling or deformity. Normal range of motion. Assessment: Bilateral visual field deficit likely due to MS exacerbation. History of Chiari malformation status post cervical decompression in 2016 Anxiety/depression Degenerative disc disease Migraine headaches Previous history of smoking DVT prophylaxis with heparin subcu Full code Plan: Recommend to continue with current medications and management with neurology following. Patient is continued on 5 day course of high dose steroids and neurology recommending to continue with hospitalization given the visual disturbance and blurry vision to complete the steroid course Patient will require more than a 2 night hospitalization given the ongoing severity of symptoms and continued blurry vision. Recommend repeat am labs Patient continued on neurochecks. Prognosis is guarded The impression and plan of care has been dictated by Kamla Sequeira, Nurse Practitioner as directed. Dr. Santos MD I have performed a history and examination and MDM of this patient, discussed the same with the dictator, and agree with the dictator's assessment and plan as written ,documented as a scribe. Based on total visit time, I have performed more than 50% of the visit. Objective - Vital Signs Vital signs: Vital Signs Temp 97.9 F 05/20/22 07:20 Pulse 69 05/20/22 07:20 Resp 18 05/20/22 08:21 BP 133/63 05/20/22 07:20 Pulse Ox 95 05/20/22 07:20 FiO2 Intake & Output 05/19/22 05/20/22 05/20/22 18:59 06:59 18:59 Intake Total 222 Balance 222 Weight 78.018 kg Intake: Oral 222 Other: Voiding Method Toilet Toilet # Voids 2 1 - Labs CBC & Chem 7: 05/18/22 20:51 05/20/22 04:39 Labs: Abnormal Lab Results - Last 24 Hours (Table) 05/20/22 Range/Units 04:39 Est GFR (CKD-EPI)AfAm 49.9 L (60.0-200.0) Est GFR (CKD-EPI)NonAf 43.1 L (60.0-200.0) Glucose 156 H (70-110) mg/dL
[2022-05-20] MEDS: traZODone HCL 100 MG TAB PO SCH (21:41)
[2022-05-20] MEDS: MELATONIN 5 MG TABLET PO SCH (21:41)
--- NOTE | 2022-05-21 03:40 | MR ---
EXAMINATION TYPE: MR orbits wo/w con DATE OF EXAM: 05/20/2022 COMPARISON: None HISTORY: Bilateral optic neuritis, evaluate for MS exacerbation. CONTRAST: Standard multiplanar, multisequence MRI departmental protocol images were obtained without contrast a nd with 7.5 mL intravenous Gadavist gadolinium contrast. Ventricles have normal size. There is no mass effect or midline shift. No sign of intracranial hemorr kelsie. Brainstem is intact. Cerebellum is intact. No evidence of retro-orbital mass. Extraocular muscles appear intact. No evidence of mass of the opti c nerve. No evidence of optic nerve edema. On the FLAIR images there is a 7 mm focus of increased signal in the right posterior temporal lobe wh ite matter. This appears unchanged compared to exam yesterday. There is no pathologic enhancement. IMPRESSION: Single right posterior temporal lobe white matter focus of increased signal. This could be demyelinat ing disease and not significantly different than 07/04/2018 and 05/19/2022. No evidence of optic nerve abnormality.
[2022-05-21 08:04] LABS: African American GFR (CKD) 52 (>60 ml/min/1.73 sqM); Anion Gap 12 mmol/L; Blood Urea Nitrogen 30 mg/dL (7-17); Calcium 10.1 mg/dL (8.4-10.2); Carbon Dioxide 27 mmol/L (22-30); Chloride 104 mmol/L (98-107); Glucose 104 mg/dL (74-99); Non-African American GFR(CKD) 45 (>60 ml/min/1.73 sqM); Potassium 4.1 mmol/L (3.5-5.1); Sodium 143 mmol/L (137-145)
[2022-05-21] MEDS: ARIPiprazole 15 MG TAB PO SCH (08:51)
[2022-05-21] MEDS: ENOXAPARIN 40 MG/0.4 ML SYRINGE SQ SCH (08:51)
[2022-05-21] MEDS: PROPRANOLOL 40 MG TAB PO SCH ×2 (08:51→21:15)
[2022-05-21] MEDS: CHOLECALCIFEROL 25 MCG (1000 IU) TABLET PO SCH (08:52)
[2022-05-21] MEDS: DULoxetine HCL 60 MG CAPSULE.DR PO SCH ×2 (08:52→21:15)
[2022-05-21] MEDS: FUROSEMIDE 20 MG TAB PO SCH (08:52)
[2022-05-21] MEDS: PREGABALIN 75 MG CAP PO SCH ×3 (08:52→21:15)
[2022-05-21] MEDS: FENOFIBRATE 160 MG TAB PO SCH (08:52)
[2022-05-21] MEDS: PANTOPRAZOLE 40 MG TABLET PO SCH (08:52)
[2022-05-21] MEDS: ASCORBIC ACID 500 MG TAB PO SCH (08:52)
[2022-05-21] MEDS: OXYBUTYNIN 10 MG TAB.ER.24 PO SCH (08:52)
[2022-05-21] MEDS: NON FORMULARY DRUG (Lifitegrast [Xiidra] 1 EACH Droperette) BOTH EYES SCH ×2 (08:53→21:16)
[2022-05-21] MEDS: methylPREDNISolone SOD SUCCIN 1,000 MG in SODIUM CHLORIDE 0.9% 250 ML IVPB SCH (08:57)
[2022-05-21] MEDS ORDERED: TROPICAMIDE 1% OPHTH DROPS 2 ML BTL BOTH EYES PRN (11:30)
--- NOTE | 2022-05-21 13:11 | CDI ---
Documentation Clarification Form Date: 05/21/2022 12:46:10 PM From: Jennifer Burch RN, CCDS Admit Date: 05/20/2022 03:03:00 PM Patient Name: Angela Mayo Visit Number: [id number] Discharge Date: ATTENTION: The Clinical Documentation Specialists (CDI) and [facility] Coding Staff appreciate your assistance in clarifying documentation. Please respond to the clarification below the line at the bottom and electronically sign. The CDI & [facility] Coding staff will review the response and follow-up if needed. Please note: Queries are made part of the Legal Health Record. If you have any questions, please contact the author of this message via ITS. Dr. Trish Coates There is documentation of milagros-malformation in the past medical. To accurately capture the diagnosis additional clarification is requested. History/Risk Factors: Milagros-malformation, Multiple sclerosis, migraine headaches Clinical Indicators: 52-year-old female present with bilateral visual field deficit. She has a history of Chiari malformation and further specificity for the type is requested. 05/19 MRI Brain: No evidence of intracranial mass or acute/subacute infarct. Postsurgical changes to the foramen magnum. 05/21 Orbit/Face/Neck MRI: Single right posterior temporal lobe white matter focus of increased signal, this could be demyelinating disease and not significantly different than 07/04/2018 and 05/19/2002. No evidence of optic nerve abnormality. Treatment: Neuro check per protocol Can you please clarify the type of Chiari malformation if known? [ ] Type 1 (one) [ ] Type 2 (two) [ ] Other, please specify [ ] Unable to determine (Template Last Revised: December 2020) It is Chiari Type 1 Thank you, Please call for any questions MD FRANCISCO J Sloan
--- NOTE | 2022-05-21 13:29 | P.PN ---
Progress Note - Text Progress Note Date: 05/21/22 This is 52 years old female who was admitted to ,[facility], with MS exacerbation, diagnostic lumbar puncture was requested from pain service, patient received Lovenox today, and we cannot do lumbar puncture until Lovenox held for 12 hours.
--- NOTE | 2022-05-21 15:14 | P.PN ---
Subjective Progress Note Date: 05/21/22 Patient was seen for a follow-up. Patient says her vision is slightly better. It is not as cloudy, and the darkness is lightening up. It used to be dark shetty, now it is light meza. Patient still has significant visual deficits. Patient states that she has been tremulous/shaking for the last 2 months. It is getting more bothersome. Patient admits to having migraines about 2-3 migraines a week. He last between 4 hours to 12 hours. She rates her migraine 8-10/10, throbbing headache, with nausea but no vomiting. She is light and noise sensitivity with migraines. The headaches involve the bifrontal region, there ex extends to the sides and the top. At present she has no headache, but did have one yesterday and 2 days prior. I reviewed notes of Dr. Cai, migration specialist who referred patient to the hospital. It says that patient has posterior vitreous detachment bilaterally. His diagnosis is visual field defect of both eyes, personal history of other diseases of the nervous system and sense organs, filamentary keratitis, bilateral, diplopia, open angle with borderline findings, low risk, unspecified eye. Preglaucoma, unspecified, unspecified eye, multiple sclerosis, age-related nuclear cataract of both eyes, dry eye syndrome of bilateral lacrimal glands, hypermetric ropey a, bilateral. 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 Very confusing report. Does not really tell about the cause of bilateral visual field defects. Objective - Vital Signs Vital signs: Vital Signs Temp 98.1 F 05/21/22 07:25 Pulse 66 05/21/22 07:25 Resp 18 05/21/22 07:44 BP 144/82 05/21/22 07:25 Pulse Ox 96 05/21/22 07:25 FiO2 Intake & Output 05/20/22 05/21/22 05/21/22 18:59 06:59 18:59 Intake Total 476 Balance 476 Intake: Oral 476 Other: Voiding Method Toilet Toilet # Voids 3 2 - Exam Patient's mental status, speech and language functions are normal. Patient appears slightly tremulous. Patient appears slightly delirious. Cranial nerve examination revealed pupils, round and reacting. She has probable bilateral APD. Visual miranda have improved, as she has now only left lower quadrant visual field deficit. She still has significant macular central vision loss. Need ophthalmology evaluation. Face is symmetric and tongue protrudes the midline. Muscle strength is normal in the arms and legs. Patient has very jerky tremulousness movements of finger to nose testing bilaterally. - Labs CBC & Chem 7: 05/18/22 20:51 05/21/22 07:17 Labs: Abnormal Lab Results - Last 24 Hours (Table) 05/20/22 05/21/22 Range/Units 04:39 07:17 BUN 30 H (7-17) mg/dL Creatinine 1.36 H (0.52-1.04) mg/dL Est GFR (CKD-EPI)AfAm 49.9 L (60.0-200.0) Est GFR (CKD-EPI)NonAf 43.1 L (60.0-200.0) Glucose 156 H 104 H (70-110) mg/dL Assessment and Plan Assessment: * Probable MS exacerbation. Patient has presented with 5 day history of visual field deficits involving both eyes, right worse than left. Appears ?bilateral optic neuritis. Rule out NMO. Rule out pseudotumor cerebri. * Delirium, possible polypharmacy. * History of Chiari malformation type I, status post cervical decompression August 2016. * History of migraine headaches. Rule out pseudotumor. * X tobacco use * Anxiety depression. Plan: * MRI of the brain performed without contrast was normal. No evidence of intracranial mass or acute/subacute infarct. C3-C4 central disc herniation with at least mild spinal canal stenosis. Postsurgical changes to the foramen magnum. I personally reviewed MRI, agree with the findings. There is no significant white matter disease noted in the brain. * MRI of the orbits with and without contrast revealed single right posterior temporal lobe white matter focus of increased signal. This could be demyelinating disease and not significantly different from 07/04/2018 and 05/19/2022 studies. No evidence of optic nerve abnormality. I personally reviewed MRI, agree with the findings. * Await Ophthalmology consult. * We will consider lumbar puncture to check for opening pressure, rule out pseudotumor cerebri. We will also send CSF for glucose, proteins, cell count, MS panel, viral cultures, CSF DEVEN level. * Continue Solu-Medrol 1 g IVPB for 3-5 days. Today is day #3. * ESR 7, CRP <0.5. * Patient is slightly delirious. She has mild renal insufficiency. We will stop amantadine at this time because of renal insufficiency, perhaps leading to delirium. * NMO and MOG antibodies pending. * Dr. Oscar will resume neurology service in the morning.
[2022-05-21] MEDS: traZODone HCL 100 MG TAB PO SCH (21:15)
[2022-05-21] MEDS: MELATONIN 5 MG TABLET PO SCH (21:15)
--- NOTE | 2022-05-21 21:35 | US ---
EXAMINATION TYPE: US carotid duplex BILAT DATE OF EXAM: 05/21/2022 COMPARISON: NONE CLINICAL HISTORY: Bilateral visual disturbance.. Bilateral visual disturbance. Prior smoker. TECHNIQUE: Carotid duplex ultrasound examination. Indirect Doppler criteria was utilized. FINDINGS: EXAM MEASUREMENTS: RIGHT: Peak Systolic Velocity (PSV) cm/sec ----- Right CCA: 80.9 ----- Right ICA: 82.5 ----- Right ECA: 83.1 ICA/CCA ratio: 1.0 RIGHT: End Diastole cm/sec ----- Right CCA: 19.3 ----- Right ICA: 21.5 ----- Right ECA: 9.5 LEFT: Peak Systolic Velocity (PSV) cm/sec ----- Left CCA: 84.2 ----- Left ICA: 79.9 ----- Left ECA: 69.5 ICA/CCA ratio: 0.9 LEFT: End Diastole cm/sec ----- Left CCA: 20.4 ----- Left ICA: 25.8 ----- Left ECA: 13.2 VERTEBRALS (direction of flow): Right Vertebral: Antegrade Left Vertebral: Antegrade Rhythm: Normal REFLECTOR DRILLER AND DEBURRER NOTES: Intimal thickening seen bilaterally. Minimal plaque seen bilateral bulb. No elevat ed velocities at this time. IMPRESSION: Less than 50% stenosis of the bilateral carotid bifurcations. Criteria for Assigning % of Stenosis / Diameter reduction (Estimation based on the indirect measurements of the internal carotid artery velocities (ICA PSV). 1. Normal (no stenosis)=ICA PSV < 125 cm/s: ratio < 2.0: ICA EDV<40 cm/s. 2. Less than 50% stenosis=ICA PSV < 125 cm/s: ratio < 2.0: ICA EDV<40 cm/s. 3. 50 to 69% stenosis=ICA PSV of 125 to 230 cm/s: ration 2.0 ? 4.0: ICA EDV 40-100 cm/s. 4. Greater than 70% stenosis to near occlusion= ICA PSV > 230 cm/s: ratio > 4.0: ICA EDV > 100 cm/s. 5. Near occlusion= ICA PSV velocities may be low or undetectable: variable ratio and ICA EDV. 6. Total occlusion=unable to detect flow.
--- NOTE | 2022-05-21 23:05 | CONS ---
CONSULTATION CHIEF COMPLAINT: Decreased vision, both eyes for the last 5 days. PAST MEDICAL HISTORY: The patient denies any history of hypertension or diabetes. The patient has a prolonged history of MS. Eye examination, vision 24/100 in both eyes. Extraocular motility was full. Pupils sluggish. Intra-ocular pressure was 18 mmHg, both eyes. Lens, 1+ NS. Retina showed pale, elevated discs in both eyes. Rest of retina was normal. ASSESSMENT: 1. Bilateral optic neuritis. 2. Disc swelling. The disc swelling is more than what expected to see in regular optic neuritis. Neurologist is to decide if a lumbar puncture is needed to see the opening pressure. Otherwise, the patient is on the correct treatment on steroids. She should follow with Dr. Cai in his office when discharged on Tuesday. MMODL / KAMERONN: [id number] /
--- NOTE | 2022-05-22 05:25 | P.PN ---
Subjective Progress Note Date: 05/21/22 Patient is a 52-year-old female with a known history of multiple sclerosis versus Ocrevus q every 6 months., migraine headaches, Chiari malformation, anxiety/depression and prior history of smoking presents to ER with complaints of bilateral visual disturbance. Patient has been having symptoms for the past 5 days. Patient states that she was seen by her primary care physician and senior dot net developer as an outpatient and was recommended to go to ER. Patient states that she did have follow-up vision with a black spot in the middle. Patient states that overall her vision is better today. Denies any complaints of headache. No complaints of focal weakness. No fever no chills no nausea vomiting or abdominal pain or diarrhea. No chest pain or shortness of breath. On admission CT head showed no acute intracranial process. No abdominal postcontrast enhancement. Postsurgical changes to the foramen magnum. Laboratory test showed WBC 5.3 hemoglobin 11.7 platelets 441 sodium 140 potassium 4.2 chloride 100 bicarb is 30 BUN 21 creatinine 1.44. CRP >0.5 liver enzymes are not elevated. 05/20/2022 Patient is seen today and is maintained on high dose IV steroids with neurology following. Patient follows in Dr. Campos office and was sent here by opthalmology for visual disturbances. Patient is also having an MS exacerbation. Patient reports to having continued visual disturbances with blurry vision. Patient is afebrile and denies chest pain or shortness of breath. Patient denies nausea or vomiting and tolerating diet. 05/21/2022 Patient is seen today and continues to have blurry vision and disturbances and difficulty with reading. Opthalmology consulted and also continues to be followed by neurology. Patient is receiving high dose IV steroids and will continue to complete the 5 day course. Opthalm recommending continuing current medication treatment and follow up outpatient in the clinic once discharged . Patient tolerating diet and denies any nausea or vomiting. Patient is afebrile and denies chest pain or shortness of breath. Review of systems: Constitutional: Patient denies any fever or chills . Generalized weakness. Abdomen: Patient denied any nausea or vomiting or abd. pain Cardiovascular: Patient denies any chest pain or short of breath no palpitations. Respiratory: patient denied any cough is from production. No shortness of breath Neurologic: Patient denied any numbness or tingling headache. some persistent loss of vision with blurry vision Musculoskeletal: Patient denies any complaints of joint swelling or deformity. PHYSICAL EXAMINATION: Patient is lying in the bed comfortably, no acute distress, awake alert and oriented.. HEENT: Normocephalic. Neck is supple. Pupils reactive. Nostrils clear. Oral cavity is moist. Neck reveals no JVD, carotid bruits, or thyromegaly. CHEST EXAMINATION: Trachea is central. Symmetrical expansion. Lung miranda clear to auscultation and percussion. CARDIAC: Normal S1, S2 with no gallops. No murmurs ABDOMEN: Soft. Bowel sounds present. Nontender. No organomegaly. No abdominal bruits. Extremities: reveal no edema. No clubbing or cyanosis Neurologically awake, alert, oriented x3 with well-coordinated movements. No focal deficits noted Skin: No rash or skin lesions. Psychiatric: Cooperative. Non-suicidal Musculoskeletal: No joint swelling or deformity. Normal range of motion. Assessment: Bilateral visual field deficit likely due to MS exacerbation. History of Chiari malformation status post cervical decompression in 2016 Anxiety/depression Degenerative disc disease Migraine headaches Previous history of smoking DVT prophylaxis with heparin subcu Full code Plan: Recommend to continue with current medications and management with neurology following. Opthalmology has evaluated and would like to see her in the clinic on discharge. Patient is continued on 5 day course of high dose steroids and neurology and will continue with hospitalization given the visual disturbance and blurry visio n to complete the steroid course Recommend repeat am labs Patient continued on neurochecks. Prognosis is guarded The impression and plan of care has been dictated as a scribe by Kamla Sequeira, Nurse Practitioner as directed. Dr. Santos MD I have performed a history and examination and MDM of this patient, discussed the same with the dictator, and agree with the dictator's assessment and plan as written ,documented as a scribe. Based on total visit time, I have performed more than 50% of the visit. Objective - Vital Signs Vital signs: Vital Signs Temp 98.1 F 05/21/22 07:25 Pulse 66 05/21/22 07:25 Resp 18 05/21/22 07:44 BP 144/82 05/21/22 07:25 Pulse Ox 96 05/21/22 07:25 FiO2 Intake & Output 05/20/22 05/21/2205/21/22 18:59 06:59 18:59 Intake Total 476 240 Balance 476 240 Intake: Oral 476 240 Other: Voiding Method Toilet Toilet # Voids 3 2 - Labs CBC & Chem 7: 05/18/22 20:51 05/21/22 07:17 Labs: Abnormal Lab Results - Last 24 Hours (Table) 05/21/22 Range/Units 07:17 BUN 30 H (7-17) mg/dL Creatinine 1.36 H (0.52-1.04) mg/dL Glucose 104 H (74-99) mg/dL
[2022-05-22 06:01] LABS: Basophils % (A) 0 %; Eosinophils % (A) 0 %; HCT 34.3 % (34.0-46.0); Lymphocytes # (A) 0.5 k/uL (1.0-4.8); Lymphocytes % (A) 6 %; MCH 28.2 pg (25.0-35.0); MCHC 32.1 g/dL (31.0-37.0); MCV 87.8 fL (80.0-100.0); Mean Platelet Volume 8.5; Monocytes # (A) 0.8 k/uL (0-1.0); Monocytes % (A) 8 %; Neutrophils # (A) 7.8 k/uL (1.3-7.7); Neutrophils % (A) 85 %; Platelet Count 434 k/uL (150-450); RDW 13.5 % (11.5-15.5); WBC 9.2 k/uL (3.8-10.6)
[2022-05-22 06:04] LABS: African American GFR (CKD) 49 (>60 ml/min/1.73 sqM); Anion Gap 12 mmol/L; Blood Urea Nitrogen 33 mg/dL (7-17); Calcium 9.8 mg/dL (8.4-10.2); Carbon Dioxide 29 mmol/L (22-30); Chloride 102 mmol/L (98-107); Glucose 116 mg/dL (74-99); Non-African American GFR(CKD) 43 (>60 ml/min/1.73 sqM); Potassium 4.1 mmol/L (3.5-5.1); Sodium 143 mmol/L (137-145)
[2022-05-22] MEDS: ENOXAPARIN 40 MG/0.4 ML SYRINGE SQ SCH (06:40)
[2022-05-22] MEDS: OXYBUTYNIN 10 MG TAB.ER.24 PO SCH (07:50)
[2022-05-22] MEDS: DULoxetine HCL 60 MG CAPSULE.DR PO SCH ×2 (07:50→20:55)
[2022-05-22] MEDS: PROPRANOLOL 40 MG TAB PO SCH ×2 (07:50→20:55)
[2022-05-22] MEDS: FUROSEMIDE 20 MG TAB PO SCH (07:50)
[2022-05-22] MEDS: CHOLECALCIFEROL 25 MCG (1000 IU) TABLET PO SCH (07:50)
[2022-05-22] MEDS: PANTOPRAZOLE 40 MG TABLET PO SCH (07:50)
[2022-05-22] MEDS: PREGABALIN 75 MG CAP PO SCH ×3 (07:51→20:55)
[2022-05-22] MEDS: ARIPiprazole 15 MG TAB PO SCH (07:51)
[2022-05-22] MEDS: ASCORBIC ACID 500 MG TAB PO SCH (07:51)
[2022-05-22] MEDS: methylPREDNISolone SOD SUCCIN 1,000 MG in SODIUM CHLORIDE 0.9% 250 ML IVPB SCH (07:51)
[2022-05-22] MEDS: FENOFIBRATE 160 MG TAB PO SCH (07:51)
[2022-05-22] MEDS: NON FORMULARY DRUG (Lifitegrast [Xiidra] 1 EACH Droperette) BOTH EYES SCH ×2 (07:52→20:54)
[2022-05-22] MEDS ORDERED: LACTATED RINGERS 1,000 ML IV ONE (09:21)
[2022-05-22] MEDS ORDERED: MIDAZOLAM 2 MG/2 ML VIAL IVP ONE (09:39)
[2022-05-22 12:46] LABS: Appearance,Urine Clear (Clear); Bacteria,Urine Rare /hpf; Bilirubin,Urine Negative (Negative); Blood,Urine Negative (Negative); Color,Urine Light Yellow; Glucose,Urine (UA) Negative (Negative); Hyaline Casts,Urine 7 /lpf (0-2); Ketones,Urine Negative (Negative); Leukocyte Esterase,Urine Small (Negative); Mucus,Urine Rare /hpf; Nitrite,Urine Negative (Negative); PH, Urine 5.5 (5.0-8.0); Protein,Urine Negative (Negative); RBC,Urine 1 /hpf (0-5); Specific Gravity,Urine 1.012 (1.001-1.035); Squamous Epithelial Cell,Urine <1 /hpf (0-4); Urobilinogen,Urine <2.0 mg/dL (<2.0); WBC,Urine 2 /hpf (0-5)
--- NOTE | 2022-05-22 15:37 | P.ANPRN ---
Procedure Note - Anesthesia - Epidural/Spinal Spinal Time Out Performed: Yes Date of Procedure: 05/22/22 Procedure Start Time: 09:38 Procedure Stop Time: 00:49 Location of Patient: Phase I Sedation Type: Sedate with meaningful contact maintained Preparation: Sterile Prep Position: Right Lateral Needle Guage: 20 Blood Aspirated: No Pain Paresthesia on Injection Noted: No Events: Uneventful and Well Tolerated (Lumbar puncture performed as per the request of the neurologist, for samples of CSF drawn and sent to the lab)
--- NOTE | 2022-05-22 15:39 | P.PN ---
Progress Note - Text 05/22/2022 10 AM 52-year-old female referred for lumbar puncture by the neurologist. Patient was brought to the recovery room, consent obtained, she was positioned and 20-gauge needle was used to locate CSF at L3 4. Opening pressure was obtained, it was 31 mm and closing pressure was 25. The procedure was 820, the site was cleaned and Band-Aid applied. Patient was sent back to the floor in stable condition
[2022-05-22] MEDS: traZODone HCL 100 MG TAB PO SCH (20:55)
[2022-05-22] MEDS: MELATONIN 5 MG TABLET PO SCH (20:55)
[2022-05-23 03:50] LABS: Glucose,Whole Blood 108 mg/dL (70-110)
[2022-05-23] MEDS ORDERED: QUEtiapine 25 MG TAB PO STA (04:15)
--- NOTE | 2022-05-23 05:11 | CT ---
EXAMINATION TYPE: CT brain wo con DATE OF EXAM: 05/23/2022 COMPARISON: None HISTORY: fall CT DLP: 945.5 mGycm Automated exposure control for dose reduction was used. Images of the brain obtained with no contrast. Ventricles of normal size. There is no mass effect or midline shift. No sign of intracranial hemorrha ge. Calvarium is intact. There is normal aeration of the mastoid sinuses. There is previous occipital craniotomy defect. IMPRESSION: Negative CT scan of the brain. No adverse change compared to old exam.
[2022-05-23] MEDS: PANTOPRAZOLE 40 MG TABLET PO SCH (07:56)
[2022-05-23] MEDS: ARIPiprazole 15 MG TAB PO SCH (07:56)
[2022-05-23] MEDS: ASCORBIC ACID 500 MG TAB PO SCH (07:56)
[2022-05-23] MEDS: NON FORMULARY DRUG (Lifitegrast [Xiidra] 1 EACH Droperette) BOTH EYES SCH ×2 (07:56→21:00)
[2022-05-23] MEDS: ENOXAPARIN 40 MG/0.4 ML SYRINGE SQ SCH (07:57)
[2022-05-23] MEDS: OXYBUTYNIN 10 MG TAB.ER.24 PO SCH (07:57)
[2022-05-23] MEDS: PROPRANOLOL 40 MG TAB PO SCH ×2 (07:57→21:06)
[2022-05-23] MEDS: PREGABALIN 75 MG CAP PO SCH ×3 (07:57→21:06)
[2022-05-23] MEDS: CHOLECALCIFEROL 25 MCG (1000 IU) TABLET PO SCH (07:57)
[2022-05-23] MEDS: FUROSEMIDE 20 MG TAB PO SCH (07:57)
[2022-05-23] MEDS: DULoxetine HCL 60 MG CAPSULE.DR PO SCH ×2 (07:57→21:06)
[2022-05-23] MEDS: FENOFIBRATE 160 MG TAB PO SCH (07:57)
--- NOTE | 2022-05-23 10:57 | P.PN ---
Subjective Progress Note Date: 05/23/22 The patient is a 52-year-old female who is seen in neurologic follow-up on May 22, 2022 via telemedicine. Per the patient's nurse, the patient has been hallucinating this morning. She has received 3 doses of Solu-Medrol, 1000 mg a piece. The patient is seen again in neurologic follow-up on May 23, 2022, via teleneurology. I received a call and proximally 4 AM this morning regarding this patient. The patient had reportedly fallen. According to the nurse, the patient has been very agitated and hallucinating. The patient reportedly fell while attempting to get out of bed. She landed on her face. The patient herself recalls falling. She denies loss of consciousness. CT scan of the brain was performed and revealed no signs of acute hemorrhage or fracture. A dose of Seroquel 25 mg was ordered, at that time, to help with agitation and hallucinations. Objective - Vital Signs Vital signs: Vital Signs Temp 98.2 F 05/23/22 08:00 Pulse 60 05/23/22 08:00 Resp 14 05/23/22 08:00 BP 119/69 05/23/22 08:00 Pulse Ox 95 05/23/22 08:00 FiO2 Intake & Output 05/22/22 05/23/22 05/23/22 18:59 06:59 18:59 Intake Total 350 500 Balance 350 500 Intake: IV 350 Oral 500 Other: Voiding Method Toilet Toilet Toilet # Voids 3 1 - Exam Gen.: The patient is reclining in the bed. She is sleeping. She is easily arousable. After being awakened, the patient attempts to sit up in the bed. She demonstrates a generalized mild shakiness/tremor. HEENT: There is ecchymosis around the patient's right eye. There is no scleral icterus. Fundus not visualized. Neurological examination Mental status: The patient is awake and alert. She is oriented 3. Her speech is clear. The patient denies current visual and auditory hallucinations. Cranial nerves: Vision not assessed, otherwise, cranial nerves are grossly intact. Motor: Strength not assessed. The patient has generalized shakiness/tremor of all 4 extremities - Labs CBC & Chem 7: 05/22/22 05:34 05/22/22 05:34 Labs: Abnormal Lab Results - Last 24 Hours (Table) 05/22/22 Range/Units 12:20 Ur Leukocyte Esterase Small H (Negative) Urine Bacteria Rare H (None) /hpf Hyaline Casts 7 H (0-2) /lpf Urine Mucus Rare H (None) /hpf Assessment and Plan Assessment: 1. Bilateral visual loss, consistent with optic neuritis-possible exacerbation of multiple sclerosis versus neuromyelitis optica, doubt benign intracranial hypertension. Lumbar puncture was performed yesterday, at this point in time, there is no documented opening pressure, nor are there any results from the CSF 2. Agitation and hallucinations possibly secondary to reported history of paranoid schizophrenia versus steroid psychosis versus combination 3. Reported history of Chiari type I malformation Plan: 1. Psychiatry consultation is recommended 2. Additional dosing of Seroquel has not been ordered at this time. Would recommend psychiatry input 3. Await results of CSF and blood work for neuromyelitis optica Dr. Angel Magana will assume neurologic coverage of this patient as of 05/24/2022 Time with Patient: Less than 30 (spent 15 minutes with patient via telemedicine)
[2022-05-23 11:17] LABS: Total Protein,CSF 58 mg/dL (12-60)
[2022-05-23 11:53] LABS: Appearance,CSF Clear; CSF Tube Number 4; CSF Tube Volume 1.8; Nucleated Cells, CSF 3 u/L (0-5); Red Blood Cell,CSF 1 u/L (0-10)
[2022-05-23] MEDS ORDERED: predniSONE 20 MG TAB PO SCH (16:00)
[2022-05-23] MEDS: MELATONIN 5 MG TABLET PO SCH (21:06)
[2022-05-23] MEDS: traZODone HCL 100 MG TAB PO SCH (21:06)
[2022-05-24] MEDS: ENOXAPARIN 40 MG/0.4 ML SYRINGE SQ SCH ×2 (07:38→07:39)
[2022-05-24] MEDS: PREGABALIN 75 MG CAP PO SCH ×3 (07:38→20:46)
[2022-05-24] MEDS: OXYBUTYNIN 10 MG TAB.ER.24 PO SCH (07:38)
[2022-05-24] MEDS: PROPRANOLOL 40 MG TAB PO SCH ×2 (07:38→20:47)
[2022-05-24] MEDS: FUROSEMIDE 20 MG TAB PO SCH (07:38)
[2022-05-24] MEDS: PANTOPRAZOLE 40 MG TABLET PO SCH (07:38)
[2022-05-24] MEDS: NON FORMULARY DRUG (Lifitegrast [Xiidra] 1 EACH Droperette) BOTH EYES SCH ×2 (07:39→20:47)
[2022-05-24] MEDS: CHOLECALCIFEROL 25 MCG (1000 IU) TABLET PO SCH (07:39)
[2022-05-24] MEDS: DULoxetine HCL 60 MG CAPSULE.DR PO SCH ×2 (07:39→20:47)
[2022-05-24] MEDS: ASCORBIC ACID 500 MG TAB PO SCH (07:39)
[2022-05-24] MEDS: FENOFIBRATE 160 MG TAB PO SCH (07:39)
[2022-05-24] MEDS: ARIPiprazole 15 MG TAB PO SCH (07:39)
[2022-05-24] MEDS: acetaZOLAMIDE 250 MG TAB PO SCH ×2 (10:30→20:46)
--- NOTE | 2022-05-24 10:40 | P.PN ---
Subjective Progress Note Date: 05/24/22 I'm seeing the patient for the first time during this hospital visit. Please refer to Dr. Coates and Dr. Oscar's note for further details. It seems patient has visual disturbance for past 5 days prior to presentation right > left. Patient had a lumbar puncture and the CSF study was it's clear, colorless, red blood cells 1, nuclear cells is 3, protein is 58 and the glucose is 63 which these results were normal. It seems the patient opening pressure was a 31 and the closing was 25. CSF Gram stain is no white blood cell seen and no organisms seen. The cultures is no growth. Patient ESR 7 MRI of the brain performed without contrast was normal. No evidence of intracranial mass or acute/subacute infarct. C3-C4 central disc herniation with at least mild spinal canal stenosis. Postsurgical changes to the foramen magnum. MRI of the orbits with and without contrast revealed single right posterior temporal lobe white matter focus of increased signal. This could be demyelinating disease and not significantly different from 07/04/2018 and 05/19/2022 studies. No evidence of optic nerve abnormality. During this hospital visit she was on IV Solu-Medrol per Dr. Coates recommendation and it seems she became more delerious. She received total of 3 days of IV steroids. Objective - Vital Signs Vital signs: Vital Signs Temp 98.1 F 05/24/22 07:49 Pulse 62 05/24/22 07:49 Resp 18 05/24/22 07:49 BP 131/77 05/24/22 07:49 Pulse Ox 93 L 05/24/22 07:49 FiO2 Intake & Output 05/23/22 05/24/22 05/24/22 18:59 06:59 18:59 Intake Total 354 118 Balance 354 118 Intake: Oral 354 118 Other: Voiding Method Toilet Toilet # Voids 1 1 - Exam GENERAL: The patient is lying in bed and is not in acute distress. HENT: Right lower kiara-echimosis from fall. Appears head tremor when feeling anxious. NEUROLOGICAL: Higher mental function: The patient is awake, alert, oriented to self, place and time. Patient is following commands. No aphasia and no neglect. Cranial nerves: The pupils are round, equal and reactive to light and accommodation. Visual miranda was inititially hard to assess uppers but on second attempt full to confrontation throughout. Extraocular movement is intact no nystagmus is noted. Facial sensation is normal to touch throughout. The facial strength is normal throughout. Tongue is midline and moved [id number] without any difficulty. No dysarthria is noted. Shoulder shrug is normal bilaterally. Motor: The strength is 5 over 5 throughout. Normal tone and bulk. Has generalized tremulousness. Cerebellum: Normal finger to nose bilaterally. But had end of action tremor finger to nose bilaterally. Sensation: Sensation is normal to touch throughout. - Labs CBC & Chem 7: 05/22/22 05:34 05/22/22 05:34 Labs: Microbiology - Last 24 Hours (Table) 05/22/22 09:45 CSF Gram Stain - Preliminary Cerebral Spinal Fluid CSF Culture - Preliminary Assessment and Plan Assessment: * Patient has presented with 5 day history of visual field deficits involving both eyes, right worse than left. Appears pseudotumor cerebri: Has elevated opening pressure (opening pressure of 31 but rest of CSF study so far is unremarkable. * Delirium, possible polypharmacy. * History of Chiari malformation type I, status post cervical decompression August 2016. * History of migraine headaches. Rule out pseudotumor. * X tobacco use * Anxiety depression. Plan: * MRI of the brain performed without contrast was normal. No evidence of intracranial mass or acute/subacute infarct. C3-C4 central disc herniation with at least mild spinal canal stenosis. Postsurgical changes to the foramen magnum. I personally reviewed MRI, agree with the findings. There is no significant white matter disease noted in the brain. * MRI of the orbits with and without contrast revealed single right posterior temporal lobe white matter focus of increased signal. This could be demyelinating disease and not significantly different from 07/04/2018 and 05/19/2022 studies. No evidence of optic nerve abnormality. * Opening pressure is 31 and closing is 5. I started the patient on Acetazolamide 500mg 1 tab bid. I spoke with Dr. Cai via phone (patient is known to him) and he agree that this seems like pseudutumor cerebri. He stated that patient has papilledema when he recently evaluated her eye. He agree with starting Acetzolamide. * Ophthalmology is consulted. * Pending MS panel, viral cultures, CSF DEVEN level. NMO and MOG antibodies pending. * Completed IV Solu-Medrol 1 g IVPB for 3 days. * ESR 7, CRP <0.5. * She is on Propranolol 40mg bid which can help her tremor and anxiety. If effective can consider Primidone as outpatient to assess if any benefit vs controlling her anxiety. * Recommend the patient to follow-up with her neurologist (Dr. García) as outpatient within 1-2 weeks. Also continue to follow-up with Dr. Cai as outpatient. If patient is doing better by tomorrow then she is clear for discharge from neurological perspective. The plan is discussed with Dr. Cai and patient's nurse. Angel Magana M.D. Neuro-Hospitalist Time with Patient: Less than 30
--- NOTE | 2022-05-24 10:51 | P.CN ---
Psychiatric Consult - . Consult date: 05/24/22 Consult:: 05/24/22 10:50 IDENTIFYING DATA: This patient is a 52-year-old single, on disability, female with significant history of psychosis and multiple sclerosis who presents to the hospital with vision loss. HISTORY OF PRESENT ILLNESS: The patient presented to the hospital on 05/19/2022, with a chief complaint of bilateral visual disturbances. Prior to her presentation the hospital, the patient has been expressing vision loss over the past 5 days. The patient was admitted medically and managed for acute exacerbation of multiple sclerosis. The patient was started on a course of IV Solu-Medrol. On 05/23/2022, the patient was noted to be very agitated and hallucinating. She attempted to get out of bed and ended up falling and landing on her face. The patient was administered 25 mg of Seroquel to help with agitation and hallucinations. Psychiatry has been consulted for evaluation and management of acute psychosis. Upon evaluation on the medical floor, the patient is currently presenting well. She is not reporting any auditory hallucinations or visual hallucinations at this time. She is denying any paranoia or other delusions. The patient does acknowledge that she was not sleeping well over the past few days shortly after receiving IV Solu-Medrol. She is denying any racing thoughts, grandiosity, increased goal-directed activity, or mood lability. She is vehemently denying any suicidal or homicidal ideation, intention, and/or plan. The patient does report that she found the Seroquel to be very beneficial as it also helped her sleep. She is currently alert and oriented in all spheres and is stating that she is feeling significantly better. PAST PSYCHIATRIC HISTORY: Patient has a history of acute psychosis. The patient's home medications include trazodone, Cymbalta, and Abilify. She was last hospitalized on our psychiatric unit in June 2021 and was discharged on her current regimen with a discharge diagnosis of unspecified psychosis. The patient follows with [facility] in the outpatient setting. She does report a prior attempt at suicide many years ago. PAST MEDICAL HISTORY: Past Medical History: No Reported History Additional Past Medical History / Comment(s): migraines, Carpal tunnel, DDD, dvt-LT CALF, MS, milagros-malformation, Recieves ocrevus Q 6 months History of Any Multi-Drug Resistant Organisms: None Reported Past Surgical History: Heart Catheterization, Hysterectomy, Orthopedic Surgery Additional Past Surgical History / Comment(s): chiari malformation decompression (08/2016), carpal tunnel BILAT WRISTS, COLONOSCOPY Past Anesthesia/Blood Transfusion Reactions: No Reported Reaction Past Psychological History: Anxiety, Depression Smoking Status: Former smoker Past Alcohol Use History: None Reported Past Drug Use History: None Reported ALLERGIES: Amoxicillin, Bee venom, Bactrim, sulfa CHEMICAL DEPENDENCY HISTORY: The patient denies any tobacco, alcohol, or illicit drug use. She reports rare marijuana use for pain management. FAMILY PSYCHIATRIC/SUBSTANCE USE HISTORY: Reported family history of bipolar disorder and schizophrenia on her mother's side. SOCIAL HISTORY: Patient was born in [place] and moved to [place] and was raised primarily in [place]. She currently receives Social Security disability. She has 2 kids. She is . She currently lives alone with her dog. MENTAL STATUS EXAM: General Appearance: Patient appears to be stated age is alert, pleasant, and cooperative. Patient appears to have fair hygiene and grooming wearing hospital gown with fair eye contact. Behavior: Patient is calmly lying in bed without any agitated behavior. Speech: Patient's speech is fluent and nonpressured. Mood/Affect: Patient reports their mood is "feeling much better", affect is congruent and friendly Suicidality/Homicidality: Patient denies any suicidal or homicidal ideation, intention, and/or plan. Perceptions: Patient is currently denying any auditory or visual hallucinations. Though content/process: There is no evidence of any delusional thought content and thought process is linear and goal-directed. Memory and concentration: AOX3, grossly intact for the purposes of this session. Can spell "WORLD" backwards Judgment and insight: Fair Vital Signs Temp 98.1 F 05/24/22 07:49 Pulse 62 05/24/22 07:49 Resp 18 05/24/22 07:49 BP 131/77 05/24/22 07:49 Pulse Ox 93 L 05/24/22 07:49 FiO2 Intake & Output 05/23/22 05/24/22 05/24/22 18:59 06:59 18:59 Intake Total 354 118 Balance 354 118 Intake: Oral 354 118 Other: Voiding Method Toilet Toilet # Voids 1 1 Laboratory Results WBC 9.2 k/uL (3.8-10.6) 05/22/22 05:34 RBC 3.90 m/uL (3.80-5.40) 05/22/22 05:34 Hgb 11.0 gm/dL (11.4-16.0) L 05/22/22 05:34 Hct 34.3 % (34.0-46.0) 05/22/22 05:34 MCV 87.8 fL (80.0-100.0) 05/22/22 05:34 MCH 28.2 pg (25.0-35.0) 05/22/22 05:34 MCHC 32.1 g/dL (31.0-37.0) 05/22/22 05:34 RDW 13.5 % (11.5-15.5) 05/22/22 05:34 Plt Count 434 k/uL (150-450) 05/22/22 05:34 MPV 8.5 05/22/22 05:34 Neutrophils % 85 % 05/22/22 05:34 Lymphocytes % 6 % 05/22/22 05:34 Monocytes % 8 % 05/22/22 05:34 Eosinophils % 0 % 05/22/22 05:34 Basophils % 0 % 05/22/22 05:34 Neutrophils # 7.8 k/uL (1.3-7.7) H 05/22/22 05:34 Lymphocytes # 0.5 k/uL (1.0-4.8) L 05/22/22 05:34 Monocytes # 0.8 k/uL (0-1.0) 05/22/22 05:34 Eosinophils # 0.0 k/uL (0-0.7) 05/22/22 05:34 Basophils # 0.0 k/uL (0-0.2) 05/22/22 05:34 ESR 7 mm/Hr (0-30) 05/19/22 12:43 Sodium 143 mmol/L (137-145) 05/22/22 05:34 Potassium 4.1 mmol/L (3.5-5.1) 05/22/22 05:34 Chloride 102 mmol/L (98-107) 05/22/22 05:34 Carbon Dioxide 29 mmol/L (22-30) 05/22/22 05:34 Anion Gap 12 mmol/L 05/22/22 05:34 BUN 33 mg/dL (7-17) H 05/22/22 05:34 Creatinine 1.42 mg/dL (0.52-1.04) H 05/22/22 05:34 Est GFR (CKD-EPI)AfAm 49 (>60 ml/min/1.73 sqM) 05/22/22 05:34 Est GFR (CKD-EPI)NonAf 43 (>60 ml/min/1.73 sqM) 05/22/22 05:34 BUN/Creatinine Ratio 16.64 Ratio (12.00-20.00) 05/20/22 04:39 Glucose 116 mg/dL (74-99) H 05/22/22 05:34 POC Glucose (mg/dL) 108 mg/dL (70-110) 05/23/22 03:48 POC Glu Loan Teller ID Laura Lau 05/23/22 03:48 Calcium 9.8 mg/dL (8.4-10.2) 05/22/22 05:34 Total Bilirubin 0.5 mg/dL (0.2-1.3) 05/18/22 20:51 AST 24 U/L (14-36) 05/18/22 20:51 ALT 18 U/L (4-34) 05/18/22 20:51 Alkaline Phosphatase 71 U/L (38-126) 05/18/22 20:51 C-Reactive Protein <0.5 mg/dL (<1.0) 05/19/22 12:43 Total Protein 7.0 g/dL (6.3-8.2) 05/18/22 20:51 Albumin 4.7 g/dL (3.5-5.0) 05/18/22 20:51 Urine Color Light Yellow 05/22/22 12:20 Urine Appearance Clear (Clear) 05/22/22 12:20 Urine pH 5.5 (5.0-8.0) 05/22/22 12:20 Ur Specific [place] 1.012 (1.001-1.035) 05/22/22 12:20 Urine Protein Negative (Negative) 05/22/22 12:20 Urine Glucose (UA) Negative (Negative) 05/22/22 12:20 Urine Ketones Negative (Negative) 05/22/22 12:20 Urine Blood Negative (Negative) 05/22/22 12:20 Urine Nitrite Negative (Negative) 05/22/22 12:20 Urine Bilirubin Negative (Negative) 05/22/22 12:20 Urine Urobilinogen <2.0 mg/dL (<2.0) 05/22/22 12:20 Ur Leukocyte Esterase Small (Negative) H 05/22/22 12:20 Urine RBC 1 /hpf (0-5) 05/22/22 12:20 Urine WBC 2 /hpf (0-5) 05/22/22 12:20 Ur Squamous Epith Cells <1 /hpf (0-4) 05/22/22 12:20 Urine Bacteria Rare /hpf (None) H 05/22/22 12:20 Hyaline Casts 7 /lpf (0-2) H 05/22/22 12:20 Urine Mucus Rare /hpf (None) H 05/22/22 12:20 CSF Tube Number 4 05/22/22 09:45 CSF Volume 1.8 05/22/22 09:45 CSF Appearance Clear 05/22/22 09:45 CSF Color Colorless 05/22/22 09:45 CSF RBC 1 u/L (0-10) 05/22/22 09:45 CSF Tot Nucleated Cells 3 u/L (0-5) 05/22/22 09:45 CSF Glucose 63 mg/dL (40-70) 05/22/22 09:45 CSF Total Protein 58 mg/dL (12-60) 05/22/22 09:45 IMPRESSIONS: Acute psychotic episode - likely secondary to Solu-Medrol Mild cannabis use disorder Multiple sclerosis exacerbation History of Chiari malformation PLAN: -At this time patient DOES NOT meet criteria for inpatient psychiatric admission. 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 In order to prevent polypharmacy and dual antipsychotic treatment, we will primarily manage her with Seroquel and discontinue Abilify. We will increase Seroquel to 300 mg at bedtime as it is a dose equivalent of her Abilify. Continue Cymbalta 60 mg by mouth twice a day for depression Continue trazodone 100 mg by mouth at bedtime for insomnia -Will continue to follow along. Patient is psychiatrically cleared for discharge but we will continue to follow along just to observe for her tolerance of the medication adjustment. 05/24/22 10:50
--- NOTE | 2022-05-24 15:34 | P.PN ---
Subjective Progress Note Date: 05/24/22 Patient is a 52-year-old female with a known history of multiple sclerosis versus Ocrevus q every 6 months., migraine headaches, Chiari malformation, anxiety/depression and prior history of smoking presents to ER with complaints of bilateral visual disturbance. Patient has been having symptoms for the past 5 days. Patient states that she was seen by her primary care physician and asparagus buncher as an outpatient and was recommended to go to ER. Patient states that she did have follow-up vision with a black spot in the middle. Patient states that overall her vision is better today. Denies any complaints of headache. No complaints of focal weakness. No fever no chills no nausea vomiting or abdominal pain or diarrhea. No chest pain or shortness of breath. On admission CT head showed no acute intracranial process. No abdominal postcontrast enhancement. Postsurgical changes to the foramen magnum. Laboratory test showed WBC 5.3 hemoglobin 11.7 platelets 441 sodium 140 potassium 4.2 chloride 100 bicarb is 30 BUN 21 creatinine 1.44. CRP >0.5 liver enzymes are not elevated. 05/20/2022 Patient is seen today and is maintained on high dose IV steroids with neurology following. Patient follows in Dr. Campos office and was sent here by opthalmology for visual disturbances. Patient is also having an MS exacerbation. Patient reports to having continued visual disturbances with blurry vision. Patient is afebrile and denies chest pain or shortness of breath. Patient denies nausea or vomiting and tolerating diet. 05/21/2022 Patient is seen today and continues to have blurry vision and disturbances and difficulty with reading. Opthalmology consulted and also continues to be followed by neurology. Patient is receiving high dose IV steroids and will continue to complete the 5 day course. Opthalm recommending continuing current medication treatment and follow up outpatient in the clinic once discharged . Patient tolerating diet and denies any nausea or vomiting. Patient is afebrile and denies chest pain or shortness of breath. 05/24/2022 Patient is seen and evaluated in follow-up today with neurology following. Ophthalmology has evaluated the patient recommending outpatient follow-up once discharged. Patient is also maintained on large dose IV steroids although was having increased hallucinations and steroids have been discontinued. Patient also being given Diamox twice daily and recommend continue. Psychiatry has evaluated the patient and starting the patient on Seroquel and making adjustments to other medications. Recommending outpatient follow-up with mental health and psychiatrist. Patient continues with some visual disturbances and blurriness although reports is somewhat improved. Recommend continue monitoring overnight with possible discharge in 24 hours. Will discuss with neurology about discharge planning. Currently afebrile and denies chest pain or shortness of breath. Patient reports to tolerating diet with no reports of nausea or vomiting noted. Strongly encouraged the patient to use her call light and assistance as patient recently had a fall during this hospitalization. Review of systems: Constitutional: Patient denies any fever or chills . Generalized weakness. Abdomen: Patient denied any nausea or vomiting or abd. pain Cardiovascular: Patient denies any chest pain or short of breath no palpitations. Respiratory: patient denied any cough is from production. No shortness of breath Neurologic: Patient denied any numbness or tingling headache. some continued blurry vision Musculoskeletal: Patient denies any complaints of joint swelling or deformity. PHYSICAL EXAMINATION: Patient is lying in the bed comfortably, no acute distress, awake alert and oriented.. HEENT: Normocephalic. Neck is supple. Pupils reactive. Nostrils clear. Oral cavity is moist. Neck reveals no JVD, carotid bruits, or thyromegaly. CHEST EXAMINATION: Trachea is central. Symmetrical expansion. Lung miranda clear to auscultation and percussion. CARDIAC: Normal S1, S2 with no gallops. No murmurs ABDOMEN: Soft. Bowel sounds present. Nontender. No organomegaly. No abdominal bruits. Extremities: reveal no edema. No clubbing or cyanosis Neurologically awake, alert, oriented x3 with well-coordinated movements. No focal deficits noted Skin: No rash or skin lesions. Some ecchymosis noted on the right cheek status post fall Psychiatric: Cooperative. Non-suicidal Musculoskeletal: No joint swelling or deformity. Normal range of motion. Assessment: Bilateral visual field deficit likely due to MS exacerbation. History of Chiari malformation status post cervical decompression in 2016 Hallucinations possibly secondary to steroid-induced, improving Anxiety/depression Degenerative disc disease Migraine headaches Previous history of smoking DVT prophylaxis with heparin subcu Full code Plan: Recommend to continue with current medications and management with neurology following. Opthalmology has evaluated and would like to see her in the clinic on discharge. Patient was maintained on IV steroids and received 3 total days and a short prednisone taper was started although patient was having increased hallucinations and this has been discontinued by neurology Patient was started on Diamox 500 mg twice a day and will need follow-up with ophthalmology and her neurologist closely in the outpatient setting Patient with history of anxiety/depression and follows with a counselor and psychiatry outpatient and have consulted psych and appreciate input and recommendations as far as medication adjustments. patient did not meet criteria for inpatient psych and will follow-up with her psychiatrist outpatient Will continue to monitor the patient closely overnight and continue with neuro checks with possible discharge in 24 hours. Due to multiple complex medical issues, prognosis is guarded. The impression and plan of care has been dictated by Kamla Sequeira, Nurse Practitioner as directed. Dr. Santos MD I have performed a history and examination and MDM of this patient, discussed the same with the dictator, and agree with the dictator's assessment and plan as written ,documented as a scribe. Based on total visit time, I have performed more than 50% of the visit. Objective - Vital Signs Vital signs: Vital Signs Temp 98.1 F 05/24/22 07:49 Pulse 62 05/24/22 07:49 Resp 18 05/24/22 07:49 BP 131/77 05/24/22 07:49 Pulse Ox 93 L 05/24/22 07:49 FiO2 Intake & Output 05/23/22 05/24/22 05/24/22 18:59 06:59 18:59 Intake Total 354 118 Balance 354 118 Intake: Oral 354 118 Other: Voiding Method Toilet Toilet # Voids 1 1 - Labs CBC & Chem 7: 05/22/22 05:34 05/22/22 05:34 Labs: Microbiology - Last 24 Hours (Table) 05/22/22 09:45 CSF Gram Stain - Preliminary Cerebral Spinal Fluid CSF Culture - Preliminary
[2022-05-24] MEDS: traZODone HCL 100 MG TAB PO SCH (20:47)
[2022-05-24] MEDS: MELATONIN 5 MG TABLET PO SCH (20:47)
[2022-05-24] MEDS ORDERED: QUEtiapine 100 MG TAB PO SCH (21:00)
[2022-05-25 07:19] VITALS: RESP 18
[2022-05-25] MEDS: CHOLECALCIFEROL 25 MCG (1000 IU) TABLET PO SCH (07:39)
[2022-05-25] MEDS: PREGABALIN 75 MG CAP PO SCH (07:39)
[2022-05-25] MEDS: ASCORBIC ACID 500 MG TAB PO SCH (07:39)
[2022-05-25] MEDS: FUROSEMIDE 20 MG TAB PO SCH (07:39)
[2022-05-25] MEDS: PANTOPRAZOLE 40 MG TABLET PO SCH (07:39)
[2022-05-25] MEDS: PROPRANOLOL 40 MG TAB PO SCH (07:40)
[2022-05-25] MEDS: OXYBUTYNIN 10 MG TAB.ER.24 PO SCH (07:40)
[2022-05-25] MEDS: FENOFIBRATE 160 MG TAB PO SCH (07:40)
[2022-05-25] MEDS: acetaZOLAMIDE 250 MG TAB PO SCH (07:40)
[2022-05-25] MEDS: DULoxetine HCL 60 MG CAPSULE.DR PO SCH (07:40)
[2022-05-25] MEDS: NON FORMULARY DRUG (Lifitegrast [Xiidra] 1 EACH Droperette) BOTH EYES SCH (07:41)
[2022-05-25 08:31] LABS: African American GFR (CKD) 46 (>60 ml/min/1.73 sqM); Anion Gap 8 mmol/L; Blood Urea Nitrogen 22 mg/dL (7-17); Calcium 9.3 mg/dL (8.4-10.2); Carbon Dioxide 28 mmol/L (22-30); Chloride 105 mmol/L (98-107); Glucose 96 mg/dL (74-99); Non-African American GFR(CKD) 40 (>60 ml/min/1.73 sqM); Potassium 4.1 mmol/L (3.5-5.1); Sodium 141 mmol/L (137-145)
--- NOTE | 2022-05-25 10:16 | P.PN ---
Subjective Progress Note Date: 05/25/22 The patient is seen at bedside and feels somewhat better after start of Diamox. Denies nausea, vomiting. Feels her vision is somewhat better. Objective - Vital Signs Vital signs: Vital Signs Temp 98.0 F 05/25/22 07:19 Pulse 63 05/25/22 07:19 Resp 18 05/25/22 07:19 BP 108/70 05/25/22 07:19 Pulse Ox 99 05/25/22 07:19 FiO2 Intake & Output 05/24/22 05/25/22 05/25/22 18:59 06:59 18:59 Intake Total 236 Balance 236 Intake: Oral 236 Other: Voiding Method Toilet Toilet Toilet # Voids 1 2 1 - Exam GENERAL: The patient is lying in bed and is not in acute distress. HENT: Right lower kiara-echimosis from fall. Appears head tremor when feeling anxious. NEUROLOGICAL: Higher mental function: The patient is awake, alert, oriented to self, place and time. Patient is following commands. No aphasia and no neglect. Cranial nerves: The pupils are round, equal and reactive to light and accommodation. Visual miranda was hard to assess because of her cooperation but I feels she was seeing the upper miranda fully bilaterally while lowers had hard time assessing i Extraocular movement is intact no nystagmus is noted. Facial sensation is normal to touch throughout. The facial strength is normal throughout. Tongue is midline and moved [id number] without any difficulty. No dysarthria is noted. Shoulder shrug is normal bilaterally. Motor: The strength is 5 over 5 throughout. Normal tone and bulk. Has general ized tremulousness. Cerebellum: Normal finger to nose bilaterally. But had end of action tremor fi nger to nose bilaterally. Sensation: Sensation is normal to touch throughout. - Labs CBC & Chem 7: 05/22/22 05:34 05/25/22 07:02 Labs: Abnormal Lab Results - Last 24 Hours (Table) 05/25/22 Range/Units 07:02 BUN 22 H (7-17) mg/dL Creatinine 1.50 H (0.52-1.04) mg/dL Microbiology - Last 24 Hours (Table) 05/22/22 09:45 CSF Gram Stain - Preliminary Cerebral Spinal Fluid CSF Culture - Preliminary Assessment and Plan Assessment: * Patient has presented with 5 day history of visual field deficits involving both eyes, right worse than left. Appears pseudotumor cerebri: Has elevated opening pressure (opening pressure of 31 but rest of CSF study so far is unremarkable. * Delirium, possible polypharmacy. * History of Chiari malformation type I, status post cervical decompression August 2016. * History of migraine headaches. Rule out pseudotumor. * X tobacco use * Anxiety depression. Plan: * MRI of the brain performed without contrast was normal. No evidence of intracranial mass or acute/subacute infarct. C3-C4 central disc herniation with at least mild spinal canal stenosis. Postsurgical changes to the foramen magnum. I personally reviewed MRI, agree with the findings. There is no significant white matter disease noted in the brain. * MRI of the orbits with and without contrast revealed single right posterior temporal lobe white matter focus of increased signal. This could be d emyelinating disease and not significantly different from 07/04/2018 and 05/19/2022 studies. No evidence of optic nerve abnormality. * Opening pressure is 31 and closing is 25. I started the patient on Acetazolamide 500mg 1 tab bid. I spoke with Dr. Cai on 05/24/2022 via phone (patient is known to him) and he agree that this seems like pseudutumor cerebri. He stated that patient has papilledema when he recently evaluated her eye. He agree with starting Acetzolamide. * Ophthalmology is consulted. * Pending MS panel, viral cultures, CSF DEVEN level, NMO and MOG antibodies pending per Dr. Coates's request. * I ordered TSH, free T4. * Completed IV Solu-Medrol 1 g IVPB for [address] Coates's request. * ESR 7, CRP <0.5. * She is on Propranolol 40mg bid which can help her tremor and anxiety. If effective can consider Primidone as outpatient to assess if any benefit vs controlling her anxiety. * Recommend patient to follow-up with neurosurgeon as outpatient for her chiari malformation within 2 weeks. * Recommend the patient to follow-up with her neurologist (Dr. García) as outpatient within 1-2 weeks. Also continue to follow-up with Dr. Cai as outpatient. Plan is discussed with the nurse. Angel Magana M.D. Neuro-Hospitalist Time with Patient: Less than 30
--- NOTE | 2022-05-25 10:49 | P.PN ---
Progress Note - Text Progress Note Date: 05/25/22 Interval History: Patient was seen resting in bed. Currently, the patient is not reporting any significant issues or concerns at this time. She reports that her vision is slightly improving. She is denying any visual or auditory hallucinations. She denies any paranoia or other delusions. She vehemently denies any suicidal or homicidal ideation, intention, and/or plan. She reports that she is tolerating the medication well and was able to sleep well last night. Mental Status Exam: General Appearance: Patient appears to be stated age is alert, directable, and cooperative. Behavior: Patient is calmly lying down in bed without any agitated behavior. Speech: Patient's speech is fluent and nonpressured. Mood/Affect: Mood is "feeling good." affect is congruent and euthymic. Suicidality/Homicidality: Patient denies having any suicidal or homicidal ideation intent or plan. Perceptions: Patient denies any visual hallucinations and denies any auditory hallucinations Though content/process: There is no evidence of any delusional thought content and thought process is linear and goal-directed. Memory and concentration: AOX3, grossly intact for the purposes of this session Judgment and insight: Good Vital Signs Temp 98.0 F 05/25/22 07:19 Pulse 63 05/25/22 07:19 Resp 18 05/25/22 07:19 BP 108/70 05/25/22 07:19 Pulse Ox 99 05/25/22 07:19 FiO2 Intake & Output 05/24/22 05/25/22 05/25/22 18:59 06:59 18:59 Intake Total 236 Balance 236 Intake: Oral 236 Other: Voiding Method Toilet Toilet Toilet # Voids 1 2 1 Laboratory Results - Last 24 Hours 05/25/22 07:02 Sodium 141 Potassium 4.1 Chloride 105 Carbon Dioxide 28 Anion Gap 8 BUN 22 H Creatinine 1.50 H Est GFR (CKD-EPI)AfAm 46 Est GFR (CKD-EPI)NonAf 40 Glucose 96 Calcium 9.3 Impressions: Acute psychotic episode - likely secondary to Solu-Medrol Mild cannabis use disorder Multiple sclerosis exacerbation History of Chiari malformation Plan: -At this time patient DOES NOT meet criteria for inpatient psychiatric admission. -Delirium precautions recommended with patient including - avoiding use of narcotics and [employer] sedatives, limit anticholinergic medications when possible, frequent re-orientation, minimize use of restraints, open window shades during the day and close them at night -Would recommend the following medication changes/additions: Continue Seroquel 300 mg daily at bedtime for mood stabilization/psychosis Continue Cymbalta 60 mg by mouth twice a day for depression Continue trazodone 100 mg by mouth at bedtime for insomnia -The risks, benefits, treatment alternatives were discussed with the patient in great detail. -Patient is cleared psychiatrically for discharge. Psychiatry will sign off at this time. Please call us or reconsult us with any questions or concerns.
[2022-05-25 12:54] LABS: IgG - CSF 1.8 mg/dL (0.0 - 3.4); IgG/Albumin Index (CSF) 0.56 (0.00 - 0.77); Immunoglobulin G 489 mg/dL (700 - 1600)
[2022-05-25 13:44] VITALS: BP 113/73; PULSE 70; TEMP 98.1
--- NOTE | 2022-05-27 10:12 | P.DS ---
Providers Date of admission: 05/20/22 15:03 Expected date of discharge: 05/25/22 Attending physician: Ludy Cain Consults: 05/18/22 23:30 Consult Physician Routine Consulting Provider: Trish Coates Consult Reason/Comments: visual problems Do you want consulting provider notified?: Yes 05/21/22 07:44 Consult Physician Urgent Consulting Provider: Ludy Kerns Consult Reason/Comments: Bilateral visual loss, your patient, plz f/u Do you want consulting provider notified?: Yes 05/23/22 16:35 Consult Physician Routine Consulting Provider: Flakito Moya Consult Reason/Comments: Hallucinations Do you want consulting provider notified?: Yes Primary care physician: Ronak Jerry [facility] Course: Final diagnosis Bilateral visual field deficit likely due to MS exacerbation. History of Chiari malformation status post cervical decompression in 2016 Hallucinations possibly secondary to steroid-induced, improved Anxiety/depression Degenerative disc disease Migraine headaches Previous history of smoking DVT prophylaxis Full code Discharge disposition Patient is being discharged in a stable condition with guarded prognosis to home. Patient will follow-up with Dr. Edwards in the outpatient setting upon discharge. Patient is to also follow-up with ophthalmology on discharge along with her neurologist as scheduled. Patient will continue on Diamox on discharge until ophthalmology. Total time taken is greater than 35 minutes. Hospital course This is a 52-year-old female who was recently admitted with visual disturbances including blurry vision and MS exacerbation. Patient follows with Dr. Dr. García's colleague in the clinic and also an field laboratory operator and was sent here by the field laboratory operator for further evaluation. Patient was started on high-dose IV steroids although experiencing some increased hallucinations and also evaluated by psychiatry with medication adjustments. Patient reports her visual is better although not completely resolved and would like to go home today. Patient has been cleared by neurology for discharge and instructed to follow-up with her neurologist along with field laboratory operator on discharge. Patient was started on Diamox and will continue until follow-up with ophthalmology. Currently no reports of chest pain, shortness of breath, or palpitations. Patient is afebrile. No reports of nausea or vomiting and patient is tolerating diet. Patient will be discharged home today. Guarded prognosis. Physical exam: Gen: This is a 52-year-old female awake, alert and oriented 3 well-developed, well-nourished. Obese. HEENT: Head is atraumatic, normocephalic. Pupils equal, round. Sclerae is anicteric. NECK: Supple. No JVD. No lymphadenopathy. No thyromegaly. LUNGS: Clear to auscultation. No wheezes or rhonchi. No intercostal retractions. HEART: Regular rate and rhythm. No murmur. ABDOMEN: Soft. Bowel sounds are present. No masses. No tenderness. EXTREMITIES: No pedal edema. No calf tenderness. NEUROLOGICAL: Patient is awake, alert and oriented x3. Cranial nerves 2 through 12 are grossly intact. Please refer to medication reconciliation sheet for a list of medications. The impression and plan of care has been dictated by Kamla Sequeira, Nurse Practitioner as directed. Dr. Santos MD I have performed a history and examination and MDM of this patient, discussed the same with the dictator, and agree with the dictator's assessment and plan as written ,documented as a scribe. Based on total visit time, I have performed more than 50% of the visit. Patient Condition at Discharge: Fair Plan - Discharge Summary Discharge Rx Participant: No New Discharge Prescriptions: New acetaZOLAMIDE [Diamox] 500 mg PO BID 30 Days #60 tab QUEtiapine [SEROquel] 300 mg PO HS 30 Days #90 tab Acetaminophen Tab [Tylenol] 650 mg PO Q6HR PRN tab PRN Reason: Mild Pain Or Fever > 100.5 Continue Omeprazole 40 mg PO AC-BID Oxybutynin Chloride [Ditropan XL] 10 mg PO DAILY Cholecalciferol (Vitamin D3) [Vitamin D3] 50 mcg PO DAILY Systane 0.3% Overnight Gel 1 applic BOTH EYES Q4H PRN PRN Reason: Dry Eye(S) Erenumab-Aooe [Aimovig Autoinjector] 140 mg SQ Q30D Furosemide [Lasix] 20 mg PO DAILY Lifitegrast [Xiidra] 1 drop BOTH EYES BID Ocrevus Infusion 600 mg IV Q182D Fenofibrate [Lofibra] 160 mg PO DAILY 30 Days tab Propranolol HCl 40 mg PO BID 30 Days tab Ascorbic Acid [Vitamin C] 1,000 mg PO DAILY 30 Days tab SILVER sulfADIAZINE CREAM [Silvadene Cream] 1 applic TOPICAL DAILY Pregabalin [Lyrica] 150 mg PO TID Baclofen [Lioresal] 20 mg PO TID PRN PRN Reason: Muscle Spasm traZODone HCL [Desyrel] 100 mg PO HS 30 Days tab Melatonin 5 mg PO HS 30 Days tablet DULoxetine HCL [Cymbalta] 60 mg PO BID Discontinued ARIPiprazole [Abilify] 15 mg PO DAILY amantadine HCL [Symmetrel] 100 mg PO BID 30 Days cap Discharge Medication List Omeprazole 40 mg PO AC-BID 09/10/17 [History] Oxybutynin Chloride [Ditropan XL] 10 mg PO DAILY 05/24/18 [History] Cholecalciferol (Vitamin D3) [Vitamin D3] 50 mcg PO DAILY 04/03/20 [History] Ocrevus Infusion 600 mg IV Q182D 07/07/21 [History] Ascorbic Acid [Vitamin C] 1,000 mg PO DAILY 30 Days tab 07/13/21 [Rx] Fenofibrate [Lofibra] 160 mg PO DAILY 30 Days tab 07/13/21 [Rx] Propranolol HCl 40 mg PO BID 30 Days tab 07/13/21 [Rx] Baclofen [Lioresal] 20 mg PO TID PRN 12/30/21 [History] Erenumab-Aooe [Aimovig Autoinjector] 140 mg SQ Q30D 12/30/21 [History] Pregabalin [Lyrica] 150 mg PO TID 12/30/21 [History] SILVER sulfADIAZINE CREAM [Silvadene Cream] 1 applic TOPICAL DAILY 12/30/21 [History] Systane 0.3% Overnight Gel 1 applic BOTH EYES Q4H PRN 12/30/21 [History] Melatonin 5 mg PO HS 30 Days tablet 01/04/22 [Rx] traZODone HCL [Desyrel] 100 mg PO HS 30 Days tab 01/04/22 [Rx] DULoxetine HCL [Cymbalta] 60 mg PO BID 05/18/22 [History] Furosemide [Lasix] 20 mg PO DAILY 05/18/22 [History] Lifitegrast [Xiidra] 1 drop BOTH EYES BID 05/18/22 [History] Acetaminophen Tab [Tylenol] 650 mg PO Q6HR PRN tab 05/25/22 [Rx] QUEtiapine [SEROquel] 300 mg PO HS 30 Days #90 tab 05/25/22 [Rx] acetaZOLAMIDE [Diamox] 500 mg PO BID 30 Days #60 tab 05/25/22 [Rx] Follow up Appointment(s)/Referral(s): Ronak Edwards MD [Primary Care Provider] - 1-2 days Gail García MD [Medical Doctor] - 1 Week Dennis Cai MD [STAFF PHYSICIAN] - 1-2 Days Patient Instructions/Handouts: Dizziness (GEN) Activity/Diet/Wound Care/Special Instructions: Activity Limited until follow-up Follow-up with neurologist as discussed Follow-up with field laboratory operator on discharge Follow-up with her psychiatrist Continue taking medications as prescribed Discharge Disposition: HOME SELF-CARE
[2022-05-29] MEDS ORDERED: NON FORMULARY DRUG (Erenumab-Aooe [Aimovig Autoinjector] 140 MG/ML Auto.Injct) SQ SCH (09:00)
== END 2022-05-25 16:15 | disposition home or self-care (01) | DRG 58 ==
LOC: EC 16:59 → 6NMEDSUR 23:31 → OBSVTOIN 05-20 15:03 → 6NMEDSUR 05-22 23:07
PROVIDERS: ADMIT Family Medicine; ATTEND Family Medicine
DX: G35 Multiple sclerosis (principal); G93.5 Compression of brain; H46.9 Unspecified optic neuritis; F41.9 Anxiety disorder, unspecified; G43.909 Migraine, unspecified, not intractable, without status migrainosus; H04.123 Dry eye syndrome of bilateral lacrimal glands; H52.03 Hypermetropia, bilateral; H01.024 Squamous blepharitis left upper eyelid; H01.021 Squamous blepharitis right upper eyelid; F32.A Depression, unspecified; H25.13 Age-related nuclear cataract, bilateral; H40.009 Preglaucoma, unspecified, unspecified eye; F12.10 Cannabis abuse, uncomplicated; H40.019 Open angle with borderline findings, low risk, unspecified eye; H43.813 Vitreous degeneration, bilateral; H54.3 Unqualified visual loss, both eyes; M50.21 Other cervical disc displacement, high cervical region; N28.9 Disorder of kidney and ureter, unspecified; R29.6 Repeated falls; Z79.52 Long term (current) use of systemic steroids; Z79.899 Other long term (current) drug therapy; Z87.891 Personal history of nicotine dependence; Z88.0 Allergy status to penicillin; Z88.2 Allergy status to sulfonamides; Z91.030 Bee allergy status
CPT/HCPCS: 36415; 70450; 70543; 70551; 80048; 80053; 81001; 82040; 82042; 82164; 82784; 82945; 83916; 84157; 84443; 85025; 85652; 86140; 87070; 87205; 87252; 89050; 93880; 96365; 96372; 99285

== ENCOUNTER → 2022-05-18 | Outpatient (CLI) | payer OTHER ==
--- NOTE | 2022-05-18 17:05 | CT ---
EXAMINATION TYPE: CT brain wo/w con CT DLP: 2094.20 mGycm, Automated exposure control for dose reduction was used. DATE OF EXAM: 05/18/2022 4:49 PM COMPARISON: CT brain 07/04/2021. 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 hx of chiari malformation. TECHNIQUE: Axial CT images of the brain were obtained with coronal and sagittal reformats created and reviewed. Contrast used:70 mL of Isovue 300 without and with IV Contrast, Oral contrast used: none. FINDINGS: Extra-axial spaces: No abnormal extra-axial fluid collections. Ventricular system: Within normal limits Cerebral parenchyma: No acute intraparenchymal hemorrhage or mass effect. The meza-white junction is well differentiated. No abnormal enhancement is seen after the administration of intravenous contras t. Cerebellum: Unremarkable. Mass effect: No evidence of midline shift. Intracranial vasculature: There is atherosclerosis predominantly of the left M1 segment of the MCA. Soft tissues: Normal. Calvarium/osseous structures: No depressed skull fracture. Surgical changes to the calvarium near the foramen magnum. Paranasal sinuses and mastoid air cells: Scattered mild mucosal thickening is present. Visualized orbits: Orbital contents are intact. IMPRESSION: 1. No acute intracranial process. No abnormal postcontrast enhancement. 2. Post surgical changes to the foramen magnum.
== END | disposition home or self-care (01) ==
LOC: RADCTMAIN 15:16
PROVIDERS: ATTEND Ophthalmology
DX: H47.10 Unspecified papilledema (principal); H53.10 Unspecified subjective visual disturbances
CPT/HCPCS: 82565; 84520; 70470; 36415; Q9967

== ENCOUNTER 2022-06-16 17:10 | Inpatient (IN) | payer OTHER, MEDICAID ==
--- NOTE | 2022-06-16 17:47 | ED ---
General Adult HPI - General Chief complaint: Psychiatric Symptoms Stated complaint: EPS eval Time Seen by Provider: 06/16/22 17:20 Source: patient, EMS, RN notes reviewed, old records reviewed Mode of arrival: EMS Limitations: no limitations - History of Present Illness Initial comments: This is a 52-year-old female presents emergency Department because [facility] spoke with her today and thought she needed to be evaluated. Patient states she's been seeing double walking around her apartment also she is seeing family members as well. Patient states she knows these people are so it scares her that she is seeing people. Patient states she also found a bunch of cocaine in her home and it does not hurt. Patient denies any suicidal homicidal ideations. Patient denies doing any cocaine. Patient states she does smoke marijuana occasionally but she does not do any drinking. Patient denies any physical problems today. - Related Data Home Medications Medication Instructions Recorded Confirmed Omeprazole 40 mg PO AC-BID 09/10/17 05/27/22 Oxybutynin Chloride [Ditropan XL] 10 mg PO DAILY 05/24/18 05/27/22 Cholecalciferol (Vitamin D3) 50 mcg PO DAILY 04/03/20 05/27/22 [Vitamin D3] Ocrevus Infusion 600 mg IV Q182D 07/07/21 05/27/22 Baclofen [Lioresal] 20 mg PO TID PRN 12/30/21 05/27/22 Erenumab-Aooe [Aimovig 140 mg SQ Q30D 12/30/21 05/27/22 Autoinjector] Pregabalin [Lyrica] 150 mg PO TID 12/30/21 05/27/22 SILVER sulfADIAZINE CREAM 1 applic TOPICAL DAILY 12/30/21 05/27/22 [Silvadene Cream] Systane 0.3% Overnight Gel 1 applic BOTH EYES Q4H PRN 12/30/21 05/27/22 DULoxetine HCL [Cymbalta] 60 mg PO BID 05/18/22 05/27/22 Lifitegrast [Xiidra] 1 drop BOTH EYES BID 05/18/22 05/27/22 ARIPiprazole [Abilify] 15 mg PO DAILY 05/27/22 05/27/22 amantadine HCL [Amantadine] 100 mg PO BID 05/27/22 05/27/22 Previous Rx's Medication Instructions Recorded Ascorbic Acid [Vitamin C] 1,000 mg PO DAILY 30 Days tab 07/13/21 Fenofibrate [Lofibra] 160 mg PO DAILY 30 Days tab 07/13/21 Propranolol HCl 40 mg PO BID 30 Days tab 07/13/21 Melatonin 5 mg PO HS 30 Days tablet 01/04/22 traZODone HCL [Desyrel] 100 mg PO HS 30 Days tab 01/04/22 Acetaminophen Tab [Tylenol] 500 mg PO Q6HR PRN tab 05/31/22 Phenylephrine 2.5% Ophth Soln 1 drops BOTH EYES DIRECTED #5 ml 05/31/22 [[place]-Synephrine Ophth] Allergies Allergy/AdvReac Type Severity Reaction Status Date / Time amoxicillin Allergy Rash/Hives Verified 05/27/22 10:33 bee venom protein (honey bee) Allergy Anaphylaxis Verified 05/27/22 10:33 Sulfa (Sulfonamide Allergy Rash/Hives Verified 05/27/22 10:33 Antibiotics) sulfamethoxazole Allergy Rash/Hives Verified 05/27/22 10:33 [From Bactrim] trimethoprim [From Bactrim] Allergy Rash/Hives Verified 05/27/22 10:33 Review of Systems ROS Statement: Those systems with pertinent positive or pertinent negative responses have been documented in the HPI. ROS Other: All systems not noted in ROS Statement are negative. Past Medical History Past Medical History: Asthma, Deep Vein Thrombosis (DVT), GERD/Reflux, Musculoskeletal Disorder, Renal Disease, Respiratory Disorder, Seizure Disorder Additional Past Medical History / Comment(s): Pt recently admitted to [facility] on 05/13/22 with bilateral visual field deficit likely d/t MS exacerbation, hallucinations possibly d/t steroids. Other hx: MS, chiari malformation with surgery and ocrevus every 6 months, last seizure 18 yrs ago, FALLS, DVT L lower leg, pulmonary htn, nephrolithiasis, UTIs, DDD, chronic low back and bilateral hip pain, migraines, past fluid retention. History of Any Multi-Drug Resistant Organisms: None Reported Past Surgical History: Heart Catheterization, Hysterectomy, Orthopedic Surgery Additional Past Surgical History / Comment(s): chiari malformation decompression (08/2016), carpal tunnel BILAT WRISTS, COLONOSCOPY Past Anesthesia/Blood Transfusion Reactions: No Reported Reaction Smoking Status: Former smoker - Past Family History Mother Family Medical History: Cancer Additional Family Medical History / Comment(s): Lung cancer. Mother was a sm oker. Father Additional Family Medical History / Comment(s): Alcoholism. General Exam - General Exam Comments Initial Comments: GENERAL: Patient is well-developed and well-nourished. Patient is nontoxic and well- hydrated and is in no acute distress. ENT: Neck is soft and supple. No significant lymphadenopathy is noted. Oropharynx is clear. Moist mucous membranes. Neck has full range of motion without eliciting any pain. EYES: The sclera were anicteric and conjunctiva were pink and moist. Extraocular movements were intact and pupils were equal round and reactive to light. Eyelids were unremarkable. PULMONARY: Unlabored respirations. Good breath sounds bilaterally. No audible rales rhonchi or wheezing was noted. CARDIOVASCULAR: There is a regular rate and rhythm without any murmurs gallops or rubs. ABDOMEN: Soft and nontender with normal bowel sounds. SKIN: Skin is clear with no lesions or rashes and otherwise unremarkable. NEUROLOGIC: Patient is alert and oriented x3. Cranial nerves II through XII are grossly intact. Motor and sensory are also intact. Normal speech, volume and content. Symmetrical smile. MUSCULOSKELETAL: Normal extremities with adequate strength and full range of motion. LYMPHATICS: No significant lymphadenopathy is noted PSYCHIATRIC: Patient is hallucinating and is seeing people in the devil in her home. Patient denies suicidal or homicidal ideations Limitations: no limitations Course Vital Signs 06/16/22 17:20 Temperature 98.2 F Pulse Rate 95 Respiratory 16 Rate Blood Pressure 153/64 O2 Sat by Pulse 95 Oximetry Medical Decision Making - Lab Data Lab Results 06/16/22 Range/Units 18:18 Urine Opiates Screen Not Detected (NotDetected) Ur Oxycodone Screen Not Detected (NotDetected) Urine Methadone Screen Not Detected (NotDetected) Ur Propoxyphene Screen Not Detected (NotDetected) Ur Barbiturates Screen Not Detected (NotDetected) U Tricyclic Antidepress Detected H (NotDetected) Ur Phencyclidine Scrn Not Detected (NotDetected) Ur Amphetamines Screen Not Detected (NotDetected) U Methamphetamines Scrn Not Detected (NotDetected) U Benzodiazepines Scrn Not Detected (NotDetected) Urine Cocaine Screen Not Detected (NotDetected) U Marijuana (THC) Screen Detected H (NotDetected) Disposition Clinical Impression: Acute psychosis Disposition: ADMITTED IP TO THIS HOSP Referrals: Ronak Edwards MD [Primary Care Provider] - 1-2 days Time of Disposition: 19:05
[2022-06-16 18:41] LABS: Amphetamine Screen,Urine Not Detected (NotDetected); Barbiturate Screen,Urine Not Detected (NotDetected); Benzodiazepines Screen,Urine Not Detected (NotDetected); Cocaine Screen,Urine Not Detected (NotDetected); Methadone Screen, Urine Not Detected (NotDetected); Opiate Screen,Urine Not Detected (NotDetected); Oxycodone Screen, Urine Not Detected (NotDetected); Phencyclidine Screen,Urine Not Detected (NotDetected); Tricyclic Antidepressant,Urine Detected (NotDetected); Urn Cannabinoid Scrn Detected (NotDetected)
[2022-06-16] MEDS ORDERED: LORazepam 1 MG TAB PO PRN (22:12)
[2022-06-16] MEDS ORDERED: HALOPERIDOL LACTATE 5 MG/ML 1 ML VIAL IM PRN (22:12)
[2022-06-16] MEDS ORDERED: MAGNESIUM HYDROXIDE 2,400 MG/10 ML CUP PO PRN (22:12)
[2022-06-16] MEDS ORDERED: MAG HYDROX/AL HYDROX/SIMETH 30 ML CUP PO PRN (22:12)
[2022-06-16] MEDS ORDERED: haloperidoL 5 MG TAB PO PRN (22:15)
[2022-06-16] MEDS ORDERED: LORazepam 2 MG/ML INJ IM PRN (22:15)
[2022-06-16] MEDS ORDERED: ARTIFICIAL TEARS OINTMENT 3.5 GM TUBE BOTH EYES PRN (22:16)
[2022-06-16] MEDS ORDERED: BACLOFEN 10 MG TAB PO PRN (22:16)
[2022-06-16] MEDS: MELATONIN 5 MG TABLET PO SCH (23:39)
[2022-06-16] MEDS: ACETAMINOPHEN TAB 325 MG TAB PO PRN (23:39)
[2022-06-16] MEDS: traZODone HCL 100 MG TAB PO SCH (23:39)
[2022-06-16] MEDS: DULoxetine HCL 60 MG CAPSULE.DR PO SCH (23:39)
[2022-06-17 05:52] LABS: Appearance,Urine Turbid (Clear); Bacteria,Urine Rare /hpf; Bilirubin,Urine Negative (Negative); Blood,Urine Negative (Negative); Calcium Oxalate Crystals,Urine Occasional /hpf; Color,Urine Yellow; Glucose,Urine (UA) Negative (Negative); Ketones,Urine 1+ (Negative); Leukocyte Esterase,Urine Large (Negative); Mucus,Urine Many /hpf; Nitrite,Urine Negative (Negative); PH, Urine 5.5 (5.0-8.0); Protein,Urine Trace (Negative); RBC,Urine 7 /hpf (0-5); Specific Gravity,Urine 1.017 (1.001-1.035); Squamous Epithelial Cell,Urine 6 /hpf (0-4); Urobilinogen,Urine <2.0 mg/dL (<2.0); WBC,Urine 32 /hpf (0-5)
[2022-06-17] MEDS: NON FORMULARY DRUG (Lifitegrast [Xiidra] 1 EACH Droperette) BOTH EYES SCH ×2 (08:04→20:34)
[2022-06-17] MEDS: PREGABALIN 75 MG CAP PO SCH ×3 (08:59→20:33)
[2022-06-17] MEDS: ASCORBIC ACID 500 MG TAB PO SCH (08:59)
[2022-06-17] MEDS: PANTOPRAZOLE 40 MG TABLET PO SCH ×2 (08:59→17:37)
[2022-06-17] MEDS: FENOFIBRATE 160 MG TAB PO SCH (08:59)
[2022-06-17] MEDS: CHOLECALCIFEROL 25 MCG (1000 IU) TABLET PO SCH (08:59)
[2022-06-17] MEDS: PROPRANOLOL 40 MG TAB PO SCH ×2 (08:59→20:34)
[2022-06-17] MEDS: NICOTINE 14MG/24HR PATCH TRANSDERM SCH (09:00)
[2022-06-17] MEDS: DULoxetine HCL 60 MG CAPSULE.DR PO SCH (09:00)
[2022-06-17] MEDS: OXYBUTYNIN 10 MG TAB.ER.24 PO SCH (09:00)
[2022-06-17 09:01] LABS: ALT 24 U/L (4-34); AST 35 U/L (14-36); African American GFR (CKD) 74 (>60 ml/min/1.73 sqM); Albumin 4.5 g/dL (3.5-5.0); Alkaline Phosphatase 69 U/L (38-126); Anion Gap 17 mmol/L; Bilirubin, Delta 0.4 mg/dL (0.0-0.2); Bilirubin,Unconjugated 0.4 mg/dL (0.0-1.1); Blood Urea Nitrogen 8 mg/dL (7-17); Calcium 9.7 mg/dL (8.4-10.2); Carbon Dioxide 23 mmol/L (22-30); Chloride 102 mmol/L (98-107); Glucose 81 mg/dL (74-99); Non-African American GFR(CKD) 64 (>60 ml/min/1.73 sqM); Potassium 3.8 mmol/L (3.5-5.1); Sodium 142 mmol/L (137-145); Total Bilirubin 0.8 mg/dL (0.2-1.3); Total Protein 6.6 g/dL (6.3-8.2)
[2022-06-17] MEDS ORDERED: ARIPiprazole 10 MG TAB PO STA (11:08)
--- NOTE | 2022-06-17 12:04 | P.HP ---
Psychiatric H&P - . H&P Date: 06/17/22 History & Physical: Allergies Allergy/AdvReac Type Severity Reaction Status Date / Time amoxicillin Allergy Rash/Hives Verified 06/16/22 20:35 bee venom protein (honey bee) Allergy Anaphylaxis Verified 06/16/22 20:35 Sulfa (Sulfonamide Allergy Rash/Hives Verified 06/16/22 20:35 Antibiotics) sulfamethoxazole Allergy Rash/Hives Verified 06/16/22 20:35 [From Bactrim] trimethoprim [From Bactrim] Allergy Rash/Hives Verified 06/16/22 20:35 Vital Signs Temp 97.5 F L 06/17/22 00:06 Pulse 82 06/17/22 09:02 Resp 20 06/17/22 00:06 BP 131/63 06/17/22 09:02 Pulse Ox 97 06/17/22 00:06 FiO2 Intake & Output 06/16/22 06/17/22 06/17/22 18:59 06:59 18:59 Weight 79.379 kg 72.847 kg Laboratory Last Values Sodium 142 mmol/L (137-145) 06/17/22 07:56 Potassium 3.8 mmol/L (3.5-5.1) 06/17/22 07:56 Chloride 102 mmol/L (98-107) 06/17/22 07:56 Carbon Dioxide 23 mmol/L (22-30) 06/17/22 07:56 Anion Gap 17 mmol/L 06/17/22 07:56 BUN 8 mg/dL (7-17) 06/17/22 07:56 Creatinine 1.01 mg/dL (0.52-1.04) 06/17/22 07:56 Est GFR (CKD-EPI)AfAm 74 (>60 ml/min/1.73 sqM) 06/17/22 07:56 Est GFR (CKD-EPI)NonAf 64 (>60 ml/min/1.73 sqM) 06/17/22 07:56 Glucose 81 mg/dL (74-99) 06/17/22 07:[address] Glu mg/dL 111 06/17/22 07:56 Hemoglobin A1c 5.5 % (0.0-6.0) 06/17/22 07:56 Calcium 9.7 mg/dL (8.4-10.2) 06/17/22 07:56 Total Bilirubin 0.8 mg/dL (0.2-1.3) 06/17/22 07:56 Conjugated Bilirubin 0.0 mg/dL (0.0-0.3) 06/17/22 07:56 Unconjugated Bilirubin 0.4 mg/dL (0.0-1.1) 06/17/22 07:56 Delta Bilirubin 0.4 mg/dL (0.0-0.2) H 06/17/22 07:56 AST 35 U/L (14-36) 06/17/22 07:56 ALT 24 U/L (4-34) 06/17/22 07:56 Alkaline Phosphatase 69 U/L (38-126) 06/17/22 07:56 Total Protein 6.6 g/dL (6.3-8.2) 06/17/22 07:56 Albumin 4.5 g/dL (3.5-5.0) 06/17/22 07:56 TSH 1.280 mIU/L (0.465-4.680) 06/17/22 07:56 Urine Color Yellow 06/16/22 18:11 Urine Appearance Turbid (Clear) H 06/16/22 18:11 Urine pH 5.5 (5.0-8.0) 06/16/22 18:11 Ur Specific [place] 1.017 (1.001-1.035) 06/16/22 18:11 Urine Protein Trace (Negative) H 06/16/22 18:11 Urine Glucose (UA) Negative (Negative) 06/16/22 18:11 Urine Ketones 1+ (Negative) H 06/16/22 18:11 Urine Blood Negative (Negative) 06/16/22 18:11 Urine Nitrite Negative (Negative) 06/16/22 18:11 Urine Bilirubin Negative (Negative) 06/16/22 18:11 Urine Urobilinogen <2.0 mg/dL (<2.0) 06/16/22 18:11 Ur Leukocyte Esterase Large (Negative) H 06/16/22 18:11 Urine RBC 7 /hpf (0-5) H 06/16/22 18:11 Urine WBC 32 /hpf (0-5) H 06/16/22 18:11 Ur Squamous Epith Cells 6 /hpf (0-4) H 06/16/22 18:11 Calcium Oxalate Crystal Occasional /hpf (None) H 06/16/22 18:11 Urine Bacteria Rare /hpf (None) H 06/16/22 18:11 Urine Mucus Many /hpf (None) H 06/16/22 18:11 Urine HCG, Qual Not Detected (Not Detectd) 06/16/22 18:11 Urine Opiates Screen Not Detected (NotDetected) 06/16/22 18:18 Ur Oxycodone Screen Not Detected (NotDetected) 06/16/22 18:18 Urine Methadone Screen Not Detected (NotDetected) 06/16/22 18:18 Ur Propoxyphene Screen Not Detected (NotDetected) 06/16/22 18:18 Ur Barbiturates Screen Not Detected (NotDetected) 06/16/22 18:18 U Tricyclic Antidepress Detected (NotDetected) H 06/16/22 18:18 Ur Phencyclidine Scrn Not Detected (NotDetected) 06/16/22 18:18 Ur Amphetamines Screen Not Detected (NotDetected) 06/16/22 18:18 U Methamphetamines Scrn Not Detected (NotDetected) 06/16/22 18:18 U Benzodiazepines Scrn Not Detected (NotDetected) 06/16/22 18:18 Urine Cocaine Screen Not Detected (NotDetected) 06/16/22 18:18 U Marijuana (THC) Screen Detected (NotDetected) H 06/16/22 18:18 Coronavirus (PCR) Not Detected (Not Detectd) 06/16/22 21:02 06/17/22 12:03 IDENTIFYING DATA: Patient is a , unemployed, on Social Security, 52-year-old female with significant history of major depressive disorder and PTSD who presented to the hospital on 06/16/2022 for visual hallucinations. HPI: Patient presented to the hospital on 06/16/2022, brought in by EMS for psychiatric evaluation after experiencing auditory and visual hallucinations. The patient. Was brought to the hospital after endorsing auditory and visual hallucinations. She was also found yesterday to be walking in the middle of a busy street and talk to someone who was not present. Reportedly, the patient's medications are scattered all over the house and that the patient has not been eating or sleeping. During her EPS evaluation, the patient was noted to be very suspicious and reported that "my sister, my son, ex- and a charli who goes by the name of Lee are part of this unorthodox group and I have been trying to join them in the last few days. A [employer] group. And now I'm scared because he lives across the street from me and I don't know what they'll do." The patient was subsequently admitted psychiatrically and signed herself in voluntarily. Upon evaluation on the psychiatric unit, the patient does admit to auditory and visual hallucinations. She is denying any tactile hallucinations. During her last admission, the patient was discharged to regimen of Abilify however states that her neurologist move the Abilify due to concerns for her "kidney function." The patient acknowledges the above and does admit that she has concerns for the safety of herself due to some nefarious sabianist group acting against her. She is agreeable to starting medications and for further psychiatric evaluation and treatment. The patient does test positive for urinary tract infection. PAST PSYCHIATRIC HISTORY: Patient has been previously diagnosed with acute psychosis, major depressive disorder, and PTSD. She is currently open with [facility]. She was last hospitalized on our psychiatric unit in December 2021. She reports one prior suicide attempt in the past by overdose. Previous home medications include Abilify, Cymbalta, Effexor. This is the patient's fourth inpatient p sychiatric hospitalization. PMH: Past Medical History: Asthma, Deep Vein Thrombosis (DVT), GERD/Reflux, Musculoskeletal Disorder, Renal Disease, Respiratory Disorder, Seizure Disorder Additional Past Medical History / Comment(s): Pt recently admitted to [facility] on 05/13/22 with bilateral visual field deficit likely d/t MS exacerbation, hallucinations possibly d/t steroids. Other hx: MS, chiari malformation with surgery and ocrevus every 6 months, last seizure 18 yrs ago, FALLS, DVT L lower leg, pulmonary htn, nephrolithiasis, UTIs, DDD, chronic low back and bilateral hip pain, migraines, past fluid retention. History of Any Multi-Drug Resistant Organisms: None Reported Past Surgical History: Heart Catheterization, Hysterectomy, Orthopedic Surgery Additional Past Surgical History / Comment(s): chiari malformation decompression (08/2016), carpal tunnel BILAT WRISTS, COLONOSCOPY Past Anesthesia/Blood Transfusion Reactions: No Reported Reaction Smoking Status: Former smoker ALLERGIES: Amoxicillin, Honeybee venom, Bactrim, sulfa CHEMICAL DEPENDENCY HISTORY: Patient denies any tobacco, alcohol, or illicit drug use. She does report marijuana use recently. Review of the patient's chart from [facility] revealed that the patient does have a significant history of cannabis use disorder, cocaine use disorder, alcohol use disorder in the past. The patient's first use of alcohol was in 1976 and the patient drank very heavily at the age of 14 and 15 years of age. Her first use of cocaine when she was 23 years old last use of cocaine was in 2001. However, the patient states that she had some contact with cocaine however denies any ingestion since her last hospitalization. FAMILY PSYCHIATRIC/SUBSTANCE USE HISTORY: Patient reports that her mother was diagnosed bipolar disorder/schizophrenia. SOCIAL HISTORY: Patient was born and raised in [place]. She is currently living in an apartment. She is after being twice. She has 2 adult children ages 22 and 31. She reports one lives across the street from her and the other lives in [place], [place]. She receives Social Security. She graduated high school. MENTAL STATUS EXAM: General Appearance: Patient appears to be stated age is alert, directable, and attempts to cooperate. Patient appears to have slightly disheveled hygiene and grooming. Behavior: Patient is seated however displays elevated psychomotor activity. Eye contact is fair. Speech: Patient's speech is fluent and nonpressured. At times may be difficult to follow. Mood/Affect: Patient reports their mood is nervous, affect is congruent and anxious and fearful Suicidality/Homicidality: Patient denies suicidal or homicidal ideation. Perceptions: Patient reports auditory and visual hallucinations. She denies any tactile hallucinations. Though content/process: Patient endorses some sabianist preoccupation and paranoia. Memory and concentration: AOX3, grossly intact for the purposes of this session. Can spell "WORLD" backwards Judgment and insight: poor STRENGTHS/WEAKNESSES: Strength is that the patient appears to have some support systems in place. Weakness is that the patient is nonadherent with treatment. INTELLECT: average IMPRESSIONS: Schizoaffective disorder, depressive type Major depressive disorder Posttraumatic stress disorder Polysubstance abuse, in remission UTI PLAN: -Patient is admitted under voluntary status to MHU for stabilization of psychiatric symptoms and safety. Patient signed adult voluntary form and medication consent and is placed in patient's chart. -Medications : Will start patient on Invega 3 mg by mouth at bedtime for acute psychosis Melatonin 5 mg by mouth at bedtime for insomnia Trazodone 100 mg daily at bedtime for insomnia We will decrease Cymbalta to 30 mg by mouth twice a day to decrease serotonergic activity which may be contributing to her psychotic symptoms -Ativan and Haldol PRN for agitation/aggression -Patient was counselled on substance abuse and desired to cut back on use -Patient was informed of the risks, benefits and side effects of the medication and patient verbally consented to taking the medications. Patient signed med consent form and was placed in chart. -Internal Medicine consult to perform medical evaluation and physical. -SW on board for discharge planning. Encourage patient to participate in groups to work on coping skills. 06/17/22 12:03
[2022-06-17 16:21] LABS: Chol/HDL Ratio 2.73 Ratio; LDL Cholesterol,Calculated 95.1 mg/dL (0.0-131.0); VLDL Calculation 12.14 mg/dL (5.00-40.00)
[2022-06-17] MEDS: MELATONIN 5 MG TABLET PO SCH (20:33)
[2022-06-17] MEDS: traZODone HCL 100 MG TAB PO SCH (20:33)
[2022-06-17] MEDS: DULoxetine HCL 30 MG CAPSULE.DR PO SCH (20:33)
[2022-06-17 20:37] VITALS: RESP 16
[2022-06-17] MEDS ORDERED: PALIPERIDONE 3 MG TAB.ER.24 PO SCH (21:00)
--- NOTE | 2022-06-18 01:03 | P.MDCNMH ---
History of Present Illness H&P Date: 06/17/22 Past Medical History Past Medical History: Asthma, Deep Vein Thrombosis (DVT), GERD/Reflux, Musculoskeletal Disorder, Renal Disease, Respiratory Disorder, Seizure Disorder Additional Past Medical History / Comment(s): Pt recently admitted to [facility] on 05/13/22 with bilateral visual field deficit likely d/t MS exacerbation, hallucinations possibly d/t steroids. Other hx: MS, chiari malformation with surgery and ocrevus every 6 months, last seizure 18 yrs ago, FALLS, DVT L lower leg, pulmonary htn, nephrolithiasis, UTIs, DDD, chronic low back and bilateral hip pain, migraines, past fluid retention. History of Any Multi-Drug Resistant Organisms: None Reported Past Surgical History: Heart Catheterization, Hysterectomy, Orthopedic Surgery Additional Past Surgical History / Comment(s): chiari malformation decompression (08/2016), carpal tunnel BILAT WRISTS, COLONOSCOPY Past Anesthesia/Blood Transfusion Reactions: No Reported Reaction Smoking Status: Former smoker - Past Family History Mother Family Medical History: Cancer Additional Family Medical History / Comment(s): Lung cancer. Mother was a smoker. Father Additional Family Medical History / Comment(s): Alcoholism. Medications and Allergies Home Medications Medication Instructions Recorded Confirmed Type Omeprazole 40 mg PO AC-BID 09/10/17 06/16/22 History Oxybutynin Chloride [Ditropan XL] 10 mg PO DAILY 05/24/18 06/16/22 History Cholecalciferol (Vitamin D3) 50 mcg PO DAILY 04/03/20 06/16/22 History [Vitamin D3] Ocrevus Infusion 600 mg IV Q182D 07/07/21 06/16/22 History Ascorbic Acid [Vitamin C] 1,000 mg PO DAILY 30 Days tab 07/13/21 06/16/22 Rx Fenofibrate [Lofibra] 160 mg PO DAILY 30 Days tab 07/13/21 06/16/22 Rx Propranolol HCl 40 mg PO BID 30 Days tab 07/13/21 06/16/22 Rx Baclofen [Lioresal] 20 mg PO TID PRN 12/30/21 06/16/22 History Erenumab-Aooe [Aimovig 140 mg SQ Q30D 12/30/21 06/16/22 History Autoinjector] Pregabalin [Lyrica] 150 mg PO TID 12/30/21 06/16/22 History Systane 0.3% Overnight Gel 1 applic BOTH EYES Q4H PRN 12/30/21 06/16/22 History Melatonin 5 mg PO HS 30 Days tablet 01/04/22 06/16/22 Rx traZODone HCL [Desyrel] 100 mg PO HS 30 Days tab 01/04/22 06/16/22 Rx DULoxetine HCL [Cymbalta] 60 mg PO BID 05/18/22 06/16/22 History Lifitegrast [Xiidra] 1 drop BOTH EYES BID 05/18/22 06/16/22 History Acetaminophen Tab [Tylenol] 500 mg PO Q6HR PRN tab 05/31/22 06/16/22 Rx Allergies Allergy/AdvReac Type Severity Reaction Status Date / Time amoxicillin Allergy Rash/Hives Verified 06/16/22 20:35 bee venom protein (honey bee) Allergy Anaphylaxis Verified 06/16/22 20:35 Sulfa (Sulfonamide Allergy Rash/Hives Verified 06/16/22 20:35 Antibiotics) sulfamethoxazole Allergy Rash/Hives Verified 06/16/22 20:35 [From Bactrim] trimethoprim [From Bactrim] Allergy Rash/Hives Verified 06/16/22 20:35 Physical Exam Vitals: Vital Signs Temp Pulse Pulse Resp BP BP Pulse Ox 06/17/22 09:02 82 131/63 06/17/22 00:06 97.5 F L 99 20 141/81 97 06/16/22 17:20 98.2 F 95 16 153/64 95 Intake and Output 06/17/22 06/17/22 06/17/22 06:59 14:59 22:59 Other: Weight 72.847 kg Results CBC & Chem 7: 06/17/22 07:56 Labs: Abnormal Lab Results - Last 24 Hours (Table) 06/16/22 06/16/22 06/17/22 Range/Units 18:11 18:18 07:56 Delta Bilirubin 0.4 H (0.0-0.2) mg/dL Urine Appearance Turbid H (Clear) Urine Protein Trace H (Negative) Urine Ketones 1+ H (Negative) Ur Leukocyte Esterase Large H (Negative) Urine RBC 7 H (0-5) /hpf Urine WBC 32 H (0-5) /hpf Ur Squamous Epith Cells 6 H (0-4) /hpf Calcium Oxalate Crystal Occasional H (None) /hpf Urine Bacteria Rare H (None) /hpf Urine Mucus Many H (None) /hpf U Tricyclic Antidepress Detected H (NotDetected) U Marijuana (THC) Screen Detected H (NotDetected)
[2022-06-18 07:30] LABS: Basophils % (A) 1 %; Eosinophils # (A) 0.3 k/uL (0-0.7); Eosinophils % (A) 6 %; HCT 33.3 % (34.0-46.0); HGB 10.6 gm/dL (11.4-16.0); Lymphocytes # (A) 1.4 k/uL (1.0-4.8); Lymphocytes % (A) 26 %; MCH 28.7 pg (25.0-35.0); MCV 89.8 fL (80.0-100.0); Monocytes # (A) 0.7 k/uL (0-1.0); Monocytes % (A) 13 %; Neutrophils # (A) 2.7 k/uL (1.3-7.7); Neutrophils % (A) 52 %; Platelet Count 467 k/uL (150-450); RBC 3.71 m/uL (3.80-5.40); RDW 14.2 % (11.5-15.5); WBC 5.2 k/uL (3.8-10.6)
[2022-06-18] MEDS: PANTOPRAZOLE 40 MG TABLET PO SCH ×2 (08:28→15:45)
[2022-06-18] MEDS: CHOLECALCIFEROL 25 MCG (1000 IU) TABLET PO SCH (08:29)
[2022-06-18] MEDS: ASCORBIC ACID 500 MG TAB PO SCH (08:29)
[2022-06-18] MEDS: NON FORMULARY DRUG (Lifitegrast [Xiidra] 1 EACH Droperette) BOTH EYES SCH ×2 (08:29→20:03)
[2022-06-18] MEDS: DULoxetine HCL 30 MG CAPSULE.DR PO SCH ×2 (08:29→20:01)
[2022-06-18] MEDS: FENOFIBRATE 160 MG TAB PO SCH (08:29)
[2022-06-18] MEDS: NICOTINE 14MG/24HR PATCH TRANSDERM SCH (08:30)
[2022-06-18] MEDS: PROPRANOLOL 40 MG TAB PO SCH ×2 (08:31→20:01)
[2022-06-18] MEDS: OXYBUTYNIN 10 MG TAB.ER.24 PO SCH (08:31)
[2022-06-18] MEDS: PREGABALIN 75 MG CAP PO SCH ×3 (08:31→21:18)
[2022-06-18] MEDS ORDERED: ARIPiprazole 15 MG TAB PO SCH (09:00)
--- NOTE | 2022-06-18 13:14 | P.PN ---
Progress Note - Text Progress Note Date: 06/18/22 Interval History: Patient was seen wandering the hallways and was directable and agreeable to speak with software writer in the office. Currently, the patient is not reporting any suicidal or homicidal ideation, intention, and/or plan. She is not reporting any auditory hallucinations however continues to endorse visual hallucinations. The patient reports that she notices animals around the unit and at times the animal chevak around her in her room. She does report significant distress by these visual hallucinations. However she denies any tactile hallucinations. She denies any paranoia or other delusions. She has been in adherent with her medication and is not reporting any significant side effects at this time. She reports no issues regarding her sleep or her appetite. She denies any chest pain, shyness of breath, or any medical issues at this time. Mental Status Exam: General Appearance: Patient appears to be stated age is alert, directable, and cooperative. Behavior: Patient is calmly seated without any agitated behavior. Speech: Patient's speech is fluent and nonpressured. Mood/Affect: Mood is improving mildly, affect is congruent and constricted. Suicidality/Homicidality: Patient denies having any suicidal or homicidal ideation intent or plan. Perceptions: Patient reports visual hallucinations however denies any auditory hallucinations Though content/process: There is no evidence of any delusional thought content and thought process is linear and goal-directed. Memory and concentration: AOX3, grossly intact for the purposes of this session Judgment and insight: Improving mildly Vital Signs Temp 97.5 F L 06/17/22 00:06 Pulse 83 06/18/22 08:33 Resp 16 06/17/22 20:36 BP 109/57 06/18/22 08:33 Pulse Ox 97 06/17/22 00:06 FiO2 Laboratory Results - Last 24 Hours 06/17/22 06/18/22 07:56 07:00 WBC 5.2 RBC 3.71 L Hgb 10.6 L Hct 33.3 L MCV 89.8 MCH 28.7 MCHC 32.0 RDW 14.2 Plt Count 467 H MPV 8.0 Neutrophils % 52 Lymphocytes % 26 Monocytes % 13 Eosinophils % 6 Basophils % 1 Neutrophils # 2.7 Lymphocytes # 1.4 Monocytes # 0.7 Eosinophils # 0.3 Basophils # 0.0 Triglycerides 60.70 Cholesterol 169.00 LDL Cholesterol, Calc 95.1 VLDL Cholesterol, Calc 12.14 HDL Cholesterol 61.80 H Cholesterol/HDL Ratio 2.73 Assessment Schizoaffective disorder, depressive type Major depressive disorder Posttraumatic stress disorder Polysubstance abuse, in remission UTI Plan: -Patient continues to meet criteria for inpatient psychiatric admission for symptom stabilization and safety. Patient has signed adult voluntary form and medication consent and was placed in patient's chart. -Medications: Increase Invega to 6 mg by mouth at bedtime for acute psychosis Melatonin 5 mg by mouth at bedtime for insomnia Trazodone 100 mg daily at bedtime for insomnia Continue Cymbalta 30 mg by mouth twice a day for depression/anxiety -When necessary Ativan and Haldol for agitation/aggression. -SW on board for discharge planning. Encouraged the patient to participate in milieu.
[2022-06-18] MEDS: ACETAMINOPHEN TAB 325 MG TAB PO PRN (19:59)
[2022-06-18] MEDS: traZODone HCL 100 MG TAB PO SCH (20:01)
[2022-06-18] MEDS: MELATONIN 5 MG TABLET PO SCH (20:01)
[2022-06-18] MEDS: PALIPERIDONE 3 MG TAB.ER.24 PO SCH (20:02)
[2022-06-19] MEDS: ASCORBIC ACID 500 MG TAB PO SCH (08:37)
[2022-06-19] MEDS: PANTOPRAZOLE 40 MG TABLET PO SCH ×2 (08:37→17:37)
[2022-06-19] MEDS: DULoxetine HCL 30 MG CAPSULE.DR PO SCH ×2 (08:37→20:46)
[2022-06-19] MEDS: CHOLECALCIFEROL 25 MCG (1000 IU) TABLET PO SCH (08:37)
[2022-06-19] MEDS: PREGABALIN 75 MG CAP PO SCH ×3 (08:38→20:47)
[2022-06-19] MEDS: NON FORMULARY DRUG (Lifitegrast [Xiidra] 1 EACH Droperette) BOTH EYES SCH ×2 (08:38→21:09)
[2022-06-19] MEDS: FENOFIBRATE 160 MG TAB PO SCH (09:33)
[2022-06-19] MEDS: OXYBUTYNIN 10 MG TAB.ER.24 PO SCH (09:33)
[2022-06-19] MEDS: PROPRANOLOL 40 MG TAB PO SCH ×2 (09:34→20:46)
--- NOTE | 2022-06-19 19:55 | P.PN ---
Progress Note - Text Progress Note Date: 06/19/22 Interval history: Patient was seen is calm and agreeable ti speak with this communications writer. She reports good mood and denies any concerns at this time. At this time, patient denies any suicidal or homicidal ideation, intent or plan. Denies any auditory or visual hallucinations. Patient denies any side effects from the medications and has been compliant with meds. Mental status exam: General Appearance: Patient appears to be stated age, appears pale with small bruise under one eye, dressed in hospital gown. Behavior: Patient is calm without any agitated behavior, ambulates with walker. Speech: Patient's speech is fluent and non-pressured. Mood/Affect: Patient reports their mood is "good", affect is congruent and euthymic. Suicidality/Homicidality: Patient denies having any homicidal ideation intent or plan. She denies any suicidal ideations, intent or plan. Perceptions: Patient denies any visual hallucinations and denies any auditory hallucinations. Though content/process: There is no evidence of any delusional thought content and thought process is linear and goal-directed. Memory and concentration: AOX3, grossly intact for the purposes of this session. Judgment and insight: improving Assessment/Plan: Continue with current diagnosis. Patient continues to meet criteria for inpatient psychiatric admission for symptom stabilization and safety. Patient will be maintained on current psychotropic medication regimen. Monitor for medication compliance and for any psychotropic medication side effects. Will continue to monitor ongoing response to treatment. Encouraged participation in milieu.
[2022-06-19] MEDS: PALIPERIDONE 3 MG TAB.ER.24 PO SCH (20:46)
[2022-06-19] MEDS: MELATONIN 5 MG TABLET PO SCH (20:50)
[2022-06-19] MEDS: traZODone HCL 100 MG TAB PO SCH (20:50)
[2022-06-20] MEDS: FENOFIBRATE 160 MG TAB PO SCH (08:13)
[2022-06-20] MEDS: ASCORBIC ACID 500 MG TAB PO SCH (08:13)
[2022-06-20] MEDS: PREGABALIN 75 MG CAP PO SCH ×3 (08:14→21:09)
[2022-06-20] MEDS: CHOLECALCIFEROL 25 MCG (1000 IU) TABLET PO SCH (08:14)
[2022-06-20] MEDS: DULoxetine HCL 30 MG CAPSULE.DR PO SCH ×2 (08:14→20:12)
[2022-06-20] MEDS: PANTOPRAZOLE 40 MG TABLET PO SCH ×2 (08:14→17:36)
[2022-06-20] MEDS: OXYBUTYNIN 10 MG TAB.ER.24 PO SCH (08:15)
[2022-06-20] MEDS: NON FORMULARY DRUG (Lifitegrast [Xiidra] 1 EACH Droperette) BOTH EYES SCH ×2 (08:15→20:15)
[2022-06-20] MEDS: PROPRANOLOL 40 MG TAB PO SCH ×2 (08:15→20:13)
--- NOTE | 2022-06-20 16:15 | P.PN ---
Progress Note - Text Progress Note Date: 06/20/22 Interval history: Patient was seen attending group and was agreeable to speak with this lead technical writer. She reports good mood, sleep and appetite. At this time, patient denies any suicidal or homicidal ideation, intent or plan. Denies any auditory or visual hallucinations. Patient denies any side effects from the medications and has been compliant with meds. Mental status exam: General Appearance: Patient appears to be stated age, appears pale with small bruise under one eye Behavior: Patient is calm without any agitated behavior. Speech: Patient's speech is fluent and non-pressured. Mood/Affect: Patient reports mood is "good", affect is congruent and euthymic. Suicidality/Homicidality: Patient denies having any homicidal ideation intent or plan. She denies any suicidal ideation, intent or plan. Perceptions: Patient denies any visual hallucinations and denies any auditory hallucinations. Though content/process: There is no evidence of any delusional thought content and thought process is linear and goal-directed. Memory and concentration: AOX3, grossly intact for the purposes of this session. Judgment and insight: Improving Assessment/Plan: Continue with current diagnosis. Patient continues to meet criteria for inpatient psychiatric admission for symptom stabilization and safety. Patient will be maintained on current psychotropic medication regimen. Monitor for medication compliance and for any psychotropic medication side effects. Will continue to monitor ongoing response to treatment. Encouraged participation in milieu.
[2022-06-20] MEDS: traZODone HCL 100 MG TAB PO SCH (20:12)
[2022-06-20] MEDS: PALIPERIDONE 3 MG TAB.ER.24 PO SCH (20:12)
[2022-06-20] MEDS: MELATONIN 5 MG TABLET PO SCH (20:12)
[2022-06-21 06:44] VITALS: TEMP 97.5
[2022-06-21] MEDS: ASCORBIC ACID 500 MG TAB PO SCH (08:32)
[2022-06-21] MEDS: DULoxetine HCL 30 MG CAPSULE.DR PO SCH (08:33)
[2022-06-21] MEDS: NON FORMULARY DRUG (Lifitegrast [Xiidra] 1 EACH Droperette) BOTH EYES SCH (08:33)
[2022-06-21] MEDS: PANTOPRAZOLE 40 MG TABLET PO SCH (08:33)
[2022-06-21] MEDS: PROPRANOLOL 40 MG TAB PO SCH (08:33)
[2022-06-21] MEDS: OXYBUTYNIN 10 MG TAB.ER.24 PO SCH (08:33)
[2022-06-21] MEDS: FENOFIBRATE 160 MG TAB PO SCH (08:33)
[2022-06-21] MEDS: CHOLECALCIFEROL 25 MCG (1000 IU) TABLET PO SCH (08:33)
[2022-06-21] MEDS: PREGABALIN 75 MG CAP PO SCH (08:34)
[2022-06-21 08:36] VITALS: BP 138/92; PULSE 84
--- NOTE | 2022-06-21 11:24 | P.DS ---
Providers Date of admission: 06/16/22 22:10 Expected date of discharge: 06/21/22 Attending physician: Mamadou Mcgovern MD Consults: 06/16/22 22:12 Consult Physician Routine Consulting Provider: Ronak Edwards Reason/Comments: medical H&P Do you want consulting provider notified?: Yes, Notify in am Primary care physician: Ronak Edwards - Discharge Diagnosis(es) (1) Schizoaffective disorder, depressive type Current Visit: Yes Status: Acute Priority: High (2) Major depressive disorder Current Visit: Yes Status: Chronic Priority: Medium (3) PTSD (post-traumatic stress disorder) Current Visit: Yes Status: Chronic Priority: Medium (4) UTI (urinary tract infection) Current Visit: Yes Status: Acute Priority: Medium Hospital Course: Admission HPI: Patient is a , unemployed, on Social Security, 52-year-old female with significant history of major depressive disorder and PTSD who presented to the hospital on 06/16/2022 for visual hallucinations. Patient presented to the hospital on 06/16/2022, brought in by EMS for psychiatric evaluation after experiencing auditory and visual hallucinations. The patient. Was brought to the hospital after endorsing auditory and visual hallucinations. She was also found yesterday to be walking in the middle of a busy street and talk to someone who was not present. Reportedly, the patient's medications are scattered all over the house and that the patient has not been eating or sleeping. During her EPS evaluation, the patient was noted to be very suspicious and reported that "my sister, my son, ex- and a charli who goes by the name of Lee are part of this unorthodox group and I have been trying to join them in the last few days. A [place] group. And now I'm scared because he lives across the street from me and I don't know what they'll do." The patient was subsequently admitted psychiatrically and signed herself in voluntarily. Upon evaluation on the psychiatric unit, the patient does admit to auditory and visual hallucinations. She is denying any tactile hallucinations. During her last admission, the patient was discharged to regimen of Abili however states that her neurologist move the Abilify due to concerns for her "kidney function." The patient acknowledges the above and does admit that she has concerns for the safety of herself due to some nefarious alevism group acting against her. She is agreeable to starting medications and for further psychiatric evaluation and treatment. The patient does test positive for urinary tract infection. Patient has been previously diagnosed with acute psychosis, major depressive disorder, and PTSD. She is currently open with [facility]. She was last hospitalized on our psychiatric unit in December 2021. She reports one prior suicide attempt in the past by overdose. Previous home medications include Abilify, Cymbalta, Effexor. This is the patient's fourth inpatient psychiatric hospitalization. Hospital course: Upon admission to the unit patient was initially presenting as anxious, fearful, religiously preoccupied, paranoid, and at times disorganized. Patient was however directable and agreeable to commence treatment. Patient got along well with other patients on the unit and followed unit protocol. Patient was compliant with the medications and denied any side effects throughout hospital course. Patient was started on Invega for acute psychosis and continued on melatonin and trazodone for insomnia. The patient's Cymbalta was decreased as it was concerned that excessive serotonergic activity may have been contributing to her psychotic symptoms. Patient spoke of her stressors and engaged in therapy both group and individual. Patient was also seen by medical team for history and physical exam. Invega was gradually titrated to its final dose and 6 mg at bedtime. On this regimen, the patient displayed gradual but significant improvement in regards her target symptoms of psychosis. At times, the patient was noted to be fearful and religiously preoccupied however this decreased significantly over the course of the hospitalization. On the day of discharge, the patient is not reporting any suicidal or homicidal ideation, intention, and/or plan. She denies any access to firearms or other weapons. She reports no auditory or visual hallucinations. She denies any paranoia or other delusio ns. She remains future and goal oriented and expresses strong desire to return home. She has been adherent with her medications and reported no significant side effects. The patient does have significant history of substance abuse and was counseled at great length on abstaining from all substances including alcohol and marijuana. Furthermore, the patient was counseled on the importance of medication adherence and appropriate outpatient follow-up. Prior to discharge, family meeting will be arranged by director of social media marketing to answer any questions and ensure safety. Mental status exam: General Appearance: Patient appears to be older than stated age is alert, pleasant, and cooperative. Patient is in no acute distress and has fair hygiene and grooming Behavior: Patient is calmly seated without any agitated behavior. Speech: Patient's speech is fluent and nonpressured. Mood/Affect: Patient reports their mood is "much better", affect is congruent and euthymic. Suicidality/Homicidality: Patient denies having any suicidal or homicidal ideation intent or plan. Perceptions: Patient denies any auditory or visual hallucinations. Though content/process: There is no evidence of any delusional thought content and thought process is linear and goal-directed. Patient is future and goal oriented. Memory and concentration: AOX3, grossly intact for the purposes of this session. Can spell "WORLD" backwards correctly. Judgment and insight: Improved with guarded prognosis Impression: Schizoaffective disorder, depressive type Major depressive disorder Posttraumatic stress disorder Polysubstance abuse, in remission UTI Plan: -Continue with discharge today as patient has improved and stabilized psychiatrically and is not currently an imminent threat to herself and/or others. Patient will remain at chronically elevated risk for harm to self and/or others due to her history of nonadherence and polypharmacy. -Continue medications: Trazodone 100 mg by mouth at bedtime for insomnia Cymbalta 30 mg by mouth twice a day for depression Invega 6 mg by mouth at bedtime for psychosis -Patient was counseled on the need for medication compliance and appropriate follow-up at mental health and also primary care for medical issues. Patient verbalized understanding and agreed. -Social work to arrange for and conduct family meeting to ensure safety upon discharge and answer any questions/concerns. Social work also to arrange for patients follow up appointments with [facility] for psychiatric care along with follow up with primary care provider. -Patient counseled on abstaining from recreational drugs and marijuana and alcohol. Was informed/educated on the adverse effects on their physical and mental health. Patient verbally agreed and understood. -Patient was instructed to return to the hospital or seek immediate medical care if their psychiatric or medical symptoms do worsen or reoccur. -Psychoeducation and supportive therapy provided to patient. Risks and benefits of pharmacological treatment versus the risks and benefits of nontreatment weight and discussed. Informed consent discussion held. Common side effects of psychotropics discussed such as, but not limited to headache, GI disturbance, sexual dysfunction, movement disorders, sedation, and orthostatic hypotension. Life threatening and blackbox warnings of prescribed medications also discussed. Potential risks of operating a vehicle or heavy machinery discussed with patient at length. Advised on importance of compliance and a reliable and responsible manner. Patient advised to review FDA consumer labeling of all medications prior to taking. Patient verbalized understanding of potential risks, and agrees with current treatment plan. Patient advised to medically contact physician/emergency personnel if any acute changes in condition occur. Laboratory Results WBC 5.2 k/uL (3.8-10.6) 06/18/22 07:00 RBC 3.71 m/uL (3.80-5.40) L 06/18/22 07:00 Hgb 10.6 gm/dL (11.4-16.0) L 06/18/22 07:00 Hct 33.3 % (34.0-46.0) L 06/18/22 07:00 MCV 89.8 fL (80.0-100.0) 06/18/22 07:00 MCH 28.7 pg (25.0-35.0) 06/18/22 07:00 MCHC 32.0 g/dL (31.0-37.0) 06/18/22 07:00 RDW 14.2 % (11.5-15.5) 06/18/22 07:00 Plt Count 467 k/uL (150-450) H 06/18/22 07:00 MPV 8.0 06/18/22 07:00 Neutrophils % 52 % 06/18/22 07:00 Lymphocytes % 26 % 06/18/22 07:00 Monocytes % 13 % 06/18/22 07:00 Eosinophils % 6 % 06/18/22 07:00 Basophils % 1 % 06/18/22 07:00 Neutrophils # 2.7 k/uL (1.3-7.7) 06/18/22 07:00 Lymphocytes # 1.4 k/uL (1.0-4.8) 06/18/22 07:00 Monocytes # 0.7 k/uL (0-1.0) 06/18/22 07:00 Eosinophils # 0.3 k/uL (0-0.7) 06/18/22 07:00 Basophils # 0.0 k/uL (0-0.2) 06/18/22 07:00 Sodium 142 mmol/L (137-145) 06/17/22 07:56 Potassium 3.8 mmol/L (3.5-5.1) 06/17/22 07:56 Chloride 102 mmol/L (98-107) 06/17/22 07:56 Carbon Dioxide 23 mmol/L (22-30) 06/17/22 07:56 Anion Gap 17 mmol/L 06/17/22 07:56 BUN 8 mg/dL (7-17) 06/17/22 07:56 Creatinine 1.01 mg/dL (0.52-1.04) 06/17/22 07:56 Est GFR (CKD-EPI)AfAm 74 (>60 ml/min/1.73 sqM) 06/17/22 07:56 Est GFR (CKD-EPI)NonAf 64 (>60 ml/min/1.73 sqM) 06/17/22 07:56 Glucose 81 mg/dL (74-99) 06/17/22 07:[address] Glu mg/dL 111 06/17/22 07:56 Hemoglobin A1c 5.5 % (0.0-6.0) 06/17/22 07:56 Calcium 9.7 mg/dL (8.4-10.2) 06/17/22 07:56 Total Bilirubin 0.8 mg/dL (0.2-1.3) 06/17/22 07:56 Conjugated Bilirubin 0.0 mg/dL (0.0-0.3) 06/17/22 07:56 Unconjugated Bilirubin 0.4 mg/dL (0.0-1.1) 06/17/22 07:56 Delta Bilirubin 0.4 mg/dL (0.0-0.2) H 06/17/22 07:56 AST 35 U/L (14-36) 06/17/22 07:56 ALT 24 U/L (4-34) 06/17/22 07:56 Alkaline Phosphatase 69 U/L (38-126) 06/17/22 07:56 Total Protein 6.6 g/dL (6.3-8.2) 06/17/22 07:56 Albumin 4.5 g/dL (3.5-5.0) 06/17/22 07:56 Triglycerides 60.70 mg/dL (0.00-149.00) 06/17/22 07:56 Cholesterol 169.00 mg/dL (0.00-200.00) 06/17/22 07:56 LDL Cholesterol, Calc 95.1 mg/dL (0.0-131.0) 06/17/22 07:56 VLDL Cholesterol, Calc 12.14 mg/dL (5.00-40.00) 06/17/22 07:56 HDL Cholesterol 61.80 mg/dL (40.00-60.00) H 06/17/22 07:56 Cholesterol/HDL Ratio 2.73 Ratio 06/17/22 07:56 TSH 1.280 mIU/L (0.465-4.680) 06/17/22 07:56 Urine Color Yellow 06/16/22 18:11 Urine Appearance Turbid (Clear) H 06/16/22 18:11 Urine pH 5.5 (5.0-8.0) 06/16/22 18:11 Ur Specific [place] 1.017 (1.001-1.035) 06/16/22 18:11 Urine Protein Trace (Negative) H 06/16/22 18:11 Urine Glucose (UA) Negative (Negative) 06/16/22 18:11 Urine Ketones 1+ (Negative) H 06/16/22 18:11 Urine Blood Negative (Negative) 06/16/22 18:11 Urine Nitrite Negative (Negative) 06/16/22 18:11 Urine Bilirubin Negative (Negative) 06/16/22 18:11 Urine Urobilinogen <2.0 mg/dL (<2.0) 06/16/22 18:11 Ur Leukocyte Esterase Large (Negative) H 06/16/22 18:11 Urine RBC 7 /hpf (0-5) H 06/16/22 18:11 Urine WBC 32 /hpf (0-5) H 06/16/22 18:11 Ur Squamous Epith Cells 6 /hpf (0-4) H 06/16/22 18:11 Calcium Oxalate Crystal Occasional /hpf (None) H 06/16/22 18:11 Urine Bacteria Rare /hpf (None) H 06/16/22 18:11 Urine Mucus Many /hpf (None) H 06/16/22 18:11 Urine HCG, Qual Not Detected (Not Detectd) 06/16/22 18:11 Urine Opiates Screen Not Detected (NotDetected) 06/16/22 18:18 Ur Oxycodone Screen Not Detected (NotDetected) 06/16/22 18:18 Urine Methadone Screen Not Detected (NotDetected) 06/16/22 18:18 Ur Propoxyphene Screen Not Detected (NotDetected) 06/16/22 18:18 Ur Barbiturates Screen Not Detected (NotDetected) 06/16/22 18:18 U Tricyclic Antidepress Detected (NotDetected) H 06/16/22 18:18 Ur Phencyclidine Scrn Not Detected (NotDetected) 06/16/22 18:18 Ur Amphetamines Screen Not Detected (NotDetected) 06/16/22 18:18 U Methamphetamines Scrn Not Detected (NotDetected) 06/16/22 18:18 U Benzodiazepines Scrn Not Detected (NotDetected) 06/16/22 18:18 Urine Cocaine Screen Not Detected (NotDetected) 06/16/22 18:18 U Marijuana (THC) Screen Detected (NotDetected) H 06/16/22 18:18 Coronavirus (PCR) Not Detected (Not Detectd) 06/16/22 21:02 Vital Signs Temp 97.5 F L 06/21/22 06:20 Pulse 84 06/21/22 08:35 Resp 16 06/21/22 06:20 BP 138/92 06/21/22 08:35 Pulse Ox 96 06/21/22 06:20 FiO2 Allergies Allergy/AdvReac Type Severity Reaction Status Date / Time amoxicillin Allergy Rash/Hives Verified 06/16/22 20:35 bee venom protein (honey bee) Allergy Anaphylaxis Verified 06/16/22 20:35 Sulfa (Sulfonamide Allergy Rash/Hives Verified 06/16/22 20:35 Antibiotics) sulfamethoxazole Allergy Rash/Hives Verified 06/16/22 20:35 [From Bactrim] trimethoprim [From Bactrim] Allergy Rash/Hives Verified 06/16/22 20:35 Patient Condition at Discharge: Stable Plan - Discharge Summary New Discharge Prescriptions: New traZODone HCL [Desyrel] 100 mg PO HS 30 Days tab DULoxetine HCL [Cymbalta] 30 mg PO BID 30 Days cap Paliperidone [Invega] 6 mg PO HS 30 Days tab Continue Omeprazole 40 mg PO AC-BID Oxybutynin Chloride [Ditropan XL] 10 mg PO DAILY Cholecalciferol (Vitamin D3) [Vitamin D3] 50 mcg PO DAILY Systane 0.3% Overnight Gel 1 applic BOTH EYES Q4H PRN PRN Reason: Dry Eye(S) Erenumab-Aooe [Aimovig Autoinjector] 140 mg SQ Q30D Lifitegrast [Xiidra] 1 drop BOTH EYES BID Ocrevus Infusion 600 mg IV Q182D Fenofibrate [Lofibra] 160 mg PO DAILY 30 Days tab Propranolol HCl 40 mg PO BID 30 Days tab Ascorbic Acid [Vitamin C] 1,000 mg PO DAILY 30 Days tab Pregabalin [Lyrica] 150 mg PO TID Baclofen [Lioresal] 20 mg PO TID PRN PRN Reason: Muscle Spasm Melatonin 5 mg PO HS 30 Days tablet Acetaminophen Tab [Tylenol] 500 mg PO Q6HR PRN tab PRN Reason: Fever and/ or Mild Pain Discontinued traZODone HCL [Desyrel] 100 mg PO HS 30 Days tab DULoxetine HCL [Cymbalta] 60 mg PO BID Discharge Medication List Omeprazole 40 mg PO AC-BID 09/10/17 [History] Oxybutynin Chloride [Ditropan XL] 10 mg PO DAILY 05/24/18 [History] Cholecalciferol (Vitamin D3) [Vitamin D3] 50 mcg PO DAILY 04/03/20 [History] Ocrevus Infusion 600 mg IV Q182D 07/07/21 [History] Ascorbic Acid [Vitamin C] 1,000 mg PO DAILY 30 Days tab 07/13/21 [Rx] Fenofibrate [Lofibra] 160 mg PO DAILY 30 Days tab 07/13/21 [Rx] Propranolol HCl 40 mg PO BID 30 Days tab 07/13/21 [Rx] Baclofen [Lioresal] 20 mg PO TID PRN 12/30/21 [History] Erenumab-Aooe [Aimovig Autoinjector] 140 mg SQ Q30D 12/30/21 [History] Pregabalin [Lyrica] 150 mg PO TID 12/30/21 [History] Systane 0.3% Overnight Gel 1 applic BOTH EYES Q4H PRN 12/30/21 [History] Melatonin 5 mg PO HS 30 Days tablet 01/04/22 [Rx] Lifitegrast [Xiidra] 1 drop BOTH EYES BID 05/18/22 [History] Acetaminophen Tab [Tylenol] 500 mg PO Q6HR PRN tab 05/31/22 [Rx] DULoxetine HCL [Cymbalta] 30 mg PO BID 30 Days cap 06/21/22 [Rx] Paliperidone [Invega] 6 mg PO HS 30 Days tab 06/21/22 [Rx] traZODone HCL [Desyrel] 100 mg PO HS 30 Days tab 06/21/22 [Rx] Follow up Appointment(s)/Referral(s): Ronak Edwards MD [Primary Care Provider] - 1-2 days Discharge Disposition: HOME SELF-CARE
== END 2022-06-21 14:21 | disposition home or self-care (01) | DRG 885 ==
LOC: EC 17:10 → 3MHU 22:10
PROVIDERS: ADMIT Psychiatry & Neurology Psychiatry; ATTEND Psychiatry & Neurology Psychiatry
DX: F25.1 Schizoaffective disorder, depressive type (principal); N39.0 Urinary tract infection, site not specified; F43.10 Post-traumatic stress disorder, unspecified; F19.11 Other psychoactive substance abuse, in remission; G40.909 Epilepsy, unspecified, not intractable, without status epilepticus; G47.00 Insomnia, unspecified; I27.20 Pulmonary hypertension, unspecified; J45.909 Unspecified asthma, uncomplicated; Z79.899 Other long term (current) drug therapy; Z81.8 Family history of other mental and behavioral disorders; Z87.442 Personal history of urinary calculi; Z87.891 Personal history of nicotine dependence; Z91.51 Personal history of suicidal behavior; Z20.822 Contact with and (suspected) exposure to COVID-19
CPT/HCPCS: 80053; 80061; 80306; 81001; 81025; 82075; 82248; 83036; 84443; 85025; 87635; 99285

== ENCOUNTER → 2022-08-17 | Outpatient (CLI) | payer MEDICAID ==
--- NOTE | 2022-08-17 15:59 | US ---
EXAMINATION TYPE: US kidneys/renal and bladder DATE OF EXAM: 08/17/2022 COMPARISON: NONE CLINICAL HISTORY: N18.32 CHRONIC KIDNEY DISEASE, STAGE 3B. CKD EXAM MEASUREMENTS: Right Kidney: 9.7 x 4.3 x 3.5 cm Left Kidney: 9.3 x 5.0 x 5.1 cm Right Kidney: Simple cystic area = 2.6 x 2.3 x 2.5cm Left Kidney: no evidence of hydronephrosis Bladder: wnl Bilateral Jets seen: yes IMPRESSION: 1. Simple right renal cyst.
== END | disposition home or self-care (01) ==
LOC: RADUSWWP 14:38
PROVIDERS: ATTEND Internal Medicine Nephrology
DX: N18.32 Chronic kidney disease, stage 3b (principal); N28.1 Cyst of kidney, acquired
CPT/HCPCS: 76770

== ENCOUNTER → 2022-10-05 | Outpatient (CLI) | payer OTHER ==
--- NOTE | 2022-10-06 10:53 | MM ---
Reason for Exam: Screening (asymptomatic). Last mammogram was performed 4 year(s) and 2 month(s) ago. Patient History: Menarche at age 17. First Full-Term at age 20. Left ovary removed at age 40. Right ovary removed at age 40. Hysterectomy at age 40. Postmenopausal. Hormonal Contraceptives, from age 18 until age 20. Unspecified Hormone, from age 40 until age 41. Maternal grandmother had breast cancer, age 48. Maternal cousin had breast cancer, age 35. Maternal aunt had breast cancer, age 50. Mother had breast cancer, age 38. Risk Values: Gwendolyn 5 year model risk: 1.8%. NCI Lifetime model risk: 14.6%. Prior Study Comparison: 07/12/2018 Bilateral Screening Mammogram, [facility]. Tissue Density: The breast tissue is heterogeneously dense. This may lower the sensitivity of mammography. Findings: Analyzed By CAD. Pattern appears symmetrical and stable. No significant interval change is evident. No suspicious groups of microcalcifications, spiculated or lobular masses, architectural distortion or other secondary signs of malignancy are mammographically apparent. Overall Assessment: Benign, BI-RAD 2 Management: Screening Mammogram of both breasts in 1 year. A negative mammogram report should not preclude additional follow up of suspicious palpable abnormalities. Patient should continue monthly self breast exam. A clinical breast exam by your physician is recommended on an annual basis and results should be correlated with mammographic findings. Electronically signed and approved by: Flakito Adrian D.O. Radiologis
== END | disposition home or self-care (01) ==
LOC: RADMAMWWP 14:20
PROVIDERS: ATTEND Internal Medicine Geriatric Medicine
DX: Z12.31 Encounter for screening mammogram for malignant neoplasm of breast (principal); Z78.0 Asymptomatic menopausal state; Z80.3 Family history of malignant neoplasm of breast
CPT/HCPCS: 77067

== ENCOUNTER → 2022-10-22 | Outpatient (CLI) | payer OTHER ==
[2022-10-22 23:09] LABS: Basophils # (A) 0.06 X 10*3/uL (0.00-0.10); Basophils % (A) 0.8 %; Eosinophils # (A) 0.27 X 10*3/uL (0.04-0.35); Eosinophils % (A) 3.6 %; HCT 37.9 % (37.2-46.3); HGB 11.5 g/dL (12.0-15.0); Immature Grans, Automated 0.5 %; Lymphocytes # (A) 1.75 X 10*3/uL (0.90-5.00); Lymphocytes % (A) 23.1 %; MCH 28.2 pg (27.0-32.0); MCHC 30.3 g/dL (32.0-37.0); MCV 92.9 fL (80.0-97.0); Mean Platelet Volume 10.4 fL (9.5-12.2); Monocytes # (A) 0.65 X 10*3/uL (0.20-1.00); Monocytes % (A) 8.6 %; NRBC Per 100 WBC 0 /100 WBCS (0.0-0.0); Neutrophils # (A) 4.82 X 10*3/uL (1.80-7.70); Neutrophils % (A) 63.4 %; Platelet Count 672 X 10*3/uL (140-440); RBC 4.08 X 10*6/uL (4.10-5.20); RDW 14.6 % (11.5-14.5); WBC 7.59 X 10*3/uL (4.50-10.00)
[2022-10-22 23:48] LABS: ALT 11 U/L (8-44); AST 20 U/L (13-35); Albumin 4.7 g/dL (3.8-4.9); Alkaline Phosphatase 54 U/L (41-126); Calcium 9.8 mg/dL (8.7-10.3); Carbon Dioxide 21.4 mmol/L (20.0-27.5); Chloride 107 mmol/L (96-109); Globulin 2.1 g/dL (1.6-3.3); Glucose 98 mg/dL (70-110); Non-African American GFR(CKD) 39.6 (60.0-200.0); Sodium 143 mmol/L (135-145); Total Bilirubin <0.15 mg/dL (0.30-1.20); Total Protein 6.8 g/dL (6.2-8.2)
== END | disposition home or self-care (01) ==
LOC: LABWHC1 13:52
PROVIDERS: ATTEND Nurse Practitioner Acute Care
DX: E55.9 Vitamin D deficiency, unspecified (principal); E53.9 Vitamin B deficiency, unspecified; G35 Multiple sclerosis; R42 Dizziness and giddiness; R20.8 Other disturbances of skin sensation
CPT/HCPCS: 36415; 80053; 82306; 82607; 84207; 84439; 84443; 84481; 85025

== ENCOUNTER → 2023-04-13 | Outpatient (CLI) | payer OTHER ==
[2023-04-14 02:30] LABS: Basophils # (A) 0.05 X 10*3/uL (0.00-0.10); Basophils % (A) 0.6 %; Eosinophils # (A) 0.22 X 10*3/uL (0.04-0.35); Eosinophils % (A) 2.6 %; HCT 40.4 % (37.2-46.3); HGB 12.5 d/dL (12.0-15.0); Lymphocytes # (A) 1.54 X 10*3/uL (0.90-5.00); MCH 28.3 pg (27.0-32.0); MCHC 30.9 d/dL (32.0-37.0); MCV 91.6 FL (80.0-97.0); Mean Platelet Volume 9.9 FL (9.5-12.2); Monocytes % (A) 8.2 %; NRBC Per 100 WBC 0 X 10*3/uL (0.00-0.01); Neutrophils # (A) 6.02 X 10*3/uL (1.80-7.70); Neutrophils % (A) 70.2 %; Platelet Count 655 X 10*3/uL (140-440); RBC 4.41 X 10*6/uL (4.10-5.20); RDW 13.2 % (11.5-14.5); WBC 8.56 X 10*3/uL (4.50-10.00)
[2023-04-14 02:50] LABS: % Iron Saturation 10.21 (12.00-45.00); ALT 13 U/L (8-44); AST 14 U/L (13-35); Albumin 4.6 d/dL (3.8-4.9); Albumin/Globulin Ratio 2.09 Ratio (1.60-3.17); Alkaline Phosphatase 63 U/L (41-126); BUN/Creat Ratio 12.93 Ratio (12.00-20.00); Blood Urea Nitrogen 19.4 mg/dL (9.0-27.0); Calcium 10.2 mg/dL (8.7-10.3); Carbon Dioxide 22.6 mmol/L (21.6-31.8); Chloride 105 mmol/L (96-109); Chol/HDL Ratio 2.97 Ratio; Ferritin 30.3 ng/mL (10.0-291.0); Globulin 2.2 d/dL (1.6-3.3); Glucose 86 mg/dL (70-110); Iron 49 UG/DL (50-170); Phosphorus 4.4 mg/dL (2.4-5.1); Potassium 4.1 mmol/L (3.5-5.5); Sodium 140 mmol/L (135-145); Total Bilirubin <0.2 mg/dL (0.3-1.2); Total Iron Binding Capacity 480 UG/DL (228-460); Total Protein 6.8 d/dL (6.2-8.2); Uric Acid 4.8 mg/dL (2.9-7.7)
[2023-04-14 03:18] LABS: Appearance,Urine Clear (Clear); Bilirubin,Urine Negative (Negative); Blood,Urine Negative (Negative); Color,Urine Yellow (Yellow); Ketones,Urine Negative (Negative); Nitrite,Urine Negative (Negative); Specific Gravity,Urine 1.008 (1.001-1.030); Urobilinogen,Urine 0.2 E.U./DL
[2023-04-14 03:43] LABS: Bacteria,Urine 4+ (None Seen)
[2023-04-14 05:32] LABS: Microalbumin Creatinine Ratio <24 mg/g Cr (0-30); Urine Creatinine 49.9 mg/dL (28.0-217.0)
== END | disposition home or self-care (01) ==
LOC: LABWHC1 14:28
PROVIDERS: ATTEND Nurse Practitioner Family
DX: N25.81 Secondary hyperparathyroidism of renal origin (principal); N18.32 Chronic kidney disease, stage 3b; D63.1 Anemia in chronic kidney disease; N39.0 Urinary tract infection, site not specified; E55.9 Vitamin D deficiency, unspecified; M10.9 Gout, unspecified; R73.9 Hyperglycemia, unspecified
CPT/HCPCS: 36415; 80053; 80061; 81001; 82043; 82306; 82570; 82728; 83036; 83540; 83550; 83735; 83970; 84100; 84443; 84550; 85025

== ENCOUNTER → 2023-04-19 | Outpatient (CLI) | payer OTHER ==
--- NOTE | 2023-04-19 11:22 | FL ---
EXAMINATION TYPE: FL barium swallow w video DATE OF EXAM: 04/19/2023 CLINICAL HISTORY: 53-year-old female R13.10, history of MS, coughing and choking episodes. TECHNIQUE: Deglutition study is performed utilizing thin liquid barium, honey and nectar thick liqui d barium, barium thick applesauce, and barium coated cracker. COMPARISON: None. Total fluoroscopy time: 1 minute 45 seconds. Total images: None. Real-time fluoroscopy support was provided for speech pathology. DOSE AREA PRODUCT (DAP) UGY*M,MGY*CM: 5 FINDINGS: The oral and pharyngeal phases show satisfactory initiation and propagation with all modalities teste d. Normal mastication is seen with solid modalities tested. There is no evidence of penetration or aspiration with any modality tested. No significant pharyngeal residue was appreciated. IMPRESSION: Normal deglutition study. Please refer to speech therapist notes for further details if necessary.
== END | disposition home or self-care (01) ==
LOC: RADFLMAIN 10:08
PROVIDERS: ATTEND Psychiatry & Neurology Neurology
DX: R13.10 Dysphagia, unspecified (principal); R05.9 Cough, unspecified; R09.89 Other specified symptoms and signs involving the circulatory and respiratory systems; Z86.69 Personal history of other diseases of the nervous system and sense organs
CPT/HCPCS: 74230